=== PATIENT | male | born 1960 | race Caucasian/White ===

== ENCOUNTER 2016-12-04 11:41 | Emergency (ER) | payer BC ==
[~2016-12-04] VITALS: Ht 175.3 cm; Wt 83.7 kg
[~2016-12-04 11:41] MED LIST: ASPI81TA28 PO; DILT240C57 PO; LISI20TA3 PO
[2016-12-04 11:44] VITALS: TEMP 37.7; Ht 175.3 cm; Wt 83.7 kg
[2016-12-04] MEDS ORDERED: SODIUM CHLORIDE 0.9% 1000ML 1,000 ML IV STA ×2 (12:01)
[2016-12-04] MEDS ORDERED: ACETAMINOPHEN 500 MG TAB PO STA (12:01)
[2016-12-04] MEDS ORDERED: KETOROLAC TROMETHAMINE 30 MG/ML VIAL IV STA (12:01)
[2016-12-04] MEDS ORDERED: ONDANSETRON INJ 2 MG/ML 2 ML VIAL IV STA (12:01)
[2016-12-04] MEDS ORDERED: MoRPHine SULFATE 10 MG/ML CARP/VIAL IV PRN (12:15)
[2016-12-04] MEDS ORDERED: ALBUTEROL HFA 8 GM INHALER INH ONE (12:15)
[2016-12-04 12:29] VITALS: O2SAT 98
--- NOTE | 2016-12-04 12:30 | DIAGNOSTIC IMAGING REPORT ---
CHEST ONE VIEW PORTABLE CLINICAL HISTORY: Atypical chest pain COMPARISON STUDY: 08/09/2016 FINDINGS: The cardiac and mediastinal contours are normal. There is no evidence of focal pulmonary consolidation. There is no evidence of failure. No pleural effusions are visualized.[ IMPRESSION: No active disease in the chest. Electronically signed by: Jurgen Raza M.D. 12/04/2016 12:28 PM Dictated Date/Time: 12/04/2016 12:27 PM
--- NOTE | 2016-12-04 12:41 | EMERGENCY ROOM VISIT NOTE ---
History Report prepared by Robertoibclive: Yecenia Ireland Under the Supervision of: Dr. Otto Ann M.D. First contact with patient: 11:58 Chief Complaint: CHEST PAIN Stated Complaint: CHEST PAINS Nursing Triage Summary: I am being treated for pnemonia. started antibiotics on tuesday. I am having chest pains that started last evening. feeling sob. I have had 3 stress tests in the past 5 yrs History of Present Illness The patient is a 56 year old male who presents to the Emergency Room with complaints of persistent chest pain that started last night. He rates his discomfort as an 8/10 and also complains of feeling short of breath. He reports he was diagnosed with a possible pneumonia 5 days ago by [facility]. He had been experiencing an intermittently productive cough, congestion and chest discomfort for the past 6 days, and was started on Augmentin after seeing his doctor. His cough has been worsening, and with developing the chest pain last night, he decided to come in to the ED this morning. He notes he started developing a fever 2 nights ago and states "it has been going up". He last took Tylenol for his fever early this morning. He denies any vomiting but admits to some loose stools. The patient did receive a flu shot this year. He states his had a cough recently, but denies any other recent sick contacts. He reports he has undergone 3 stress tests in the past 5 years. Source of History: patient Onset: last night Position: chest Symptom Intensity: 8/10 Timing: other (persistent) Associated Symptoms: + SOB, + cough, + diarrhea, + fevers, No vomiting Review of Systems See HPI for pertinent positives & negatives. A total of 10 systems reviewed and were otherwise negative. Past Medical & Surgical Medical Problems: (1) Adverse drug reaction (2) Bronchitis with bronchospasm (3) Sepsis Family History FH: heart disease Hypertension Social History Smoking Status: Current Every Day Smoker Alcohol Use: occasionally Drug Use: none Marital Status: Housing Status: lives with family Occupation Status: employed Current/Historical Medications Scheduled Albuterol Hfa (Ventolin Hfa), 3 PUFFS INH Q4 Amoxicillin & Pot Clavulanate (Augmentin 875-125 mg), 1 TAB PO BID Aspirin (Aspirin Ec), 81 MG PO DAILY Dicyclomine Hcl (Bentyl), 20-40 MG PO Q4 Diltiazem Hcl Coated Beads (Cardizem Cd), 240 MG PO DAILY Ergocalciferol (Vitamin D 02967 Unit), 50,000 UNIT PO WK Fluconazole (Diflucan), 100 MG PO DAILY Lisinopril (Prinivil), 20 MG PO DAILY Scheduled PRN Oxycodone Hcl (Oxycodone Hcl), 1 TAB PO QID PRN for Pain Allergies Coded Allergies: Sulfamethoxazole w/Trimethoprim (Verified Allergy, Unknown, wiped out good bacteria, became septic, 12/04/16) Physical Exam Vital Signs Date Time Temp Pulse Resp B/P Pulse Ox O2 Delivery O2 Flow Rate FiO2 12/04/16 14:20 86 20 119/64 94 Room Air 12/04/16 13:11 90 92 12/04/16 12:58 105/63 12/04/16 12:57 100/65 12/04/16 12:51 88 12/04/16 12:29 98 Room Air 12/04/16 11:47 98 Room Air 12/04/16 11:44 37.7 93 18 111/70 98 Room Air Physical Exam GENERAL: Patient is in no acute distress. HEENT: No acute trauma, normocephalic atraumatic, mucous membranes moist, mild nasal congestion, no scleral icterus. NECK: No stridor, no adenopathy, no meningismus, trachea is midline. LUNGS: Clear to auscultation bilaterally, no wheeze, no rhonchi, breath sounds equal. HEART: Without murmurs gallops or rubs, regular rate and rhythm. CHEST: Tender over the mid sternum and anterior chest wall, pain worsens to cough. ABDOMEN: Soft, nontender, bowel sounds positive, no hernias, no peritonitis. EXTREMITIES: No cyanosis or edema, full range of motion of all the joints without pain or difficulty, no signs for acute trauma. NEUROLOGIC: Oriented x 3, no acute motor or sensory deficits, no focal weakness. SKIN: No rash, no jaundice, no diaphoresis. Medical Decision & Procedures ER Provider Diagnostic Interpretation: This X-Ray was reviewed and interpreted by myself and the radiologist. CHEST ONE VIEW PORTABLE IMPRESSION: No active disease in the chest. Electronically signed by: Jurgen Raza M.D. 12/04/2016 12:28 PM Laboratory Results 12/04/16 12:39 12/04/16 12:39 Test 1/14/17 12:20 12/04/16 12:39 Influenza Type A Antigen POS for Influ A (NEG) Influenza Type B Antigen Neg for Influ B (NEG) Red Blood Count 5.20 M/uL (4.7-6.1) Mean Corpuscular Volume 85.4 fL (80-100) Mean Corpuscular Hemoglobin 29.2 pg (25-34) Mean Corpuscular Hemoglobin Concent 34.2 g/dl (32-36) RDW Standard Deviation 45.1 fL (36.4-46.3) RDW Coefficient of Variation 14.6 % (11.5-14.5) Mean Platelet Volume 9.9 fL (7.4-10.4) Prothrombin Time 10.8 SECONDS (9.0-12.0) Prothromb Time International Ratio 1.0 (0.9-1.1) Activated Partial Thromboplast Time 27.8 SECONDS (21.0-31.0) Partial Thromboplastin Ratio 1.1 Anion Gap 11.0 mmol/L (3-11) Est Creatinine Clear Calc Drug Dose 83.5 ml/min Estimated GFR () 97.8 Estimated GFR (Non- 84.4 BUN/Creatinine Ratio 14.5 (10-20) Lactic Acid Level 0.8 mmol/L (0.4-2.0) Calcium Level 9.0 mg/dl (8.5-10.1) Total Bilirubin 0.3 mg/dl (0.2-1) Aspartate Amino Transf (AST/SGOT) 13 U/L (15-37) Alanine Aminotransferase (ALT/SGPT) 24 U/L (12-78) Alkaline Phosphatase 70 U/L (45-117) Total Creatine Kinase 74 U/L (39-308) Creatine Kinase MB < 0.5 ng/ml (0.5-3.6) Creatine Kinase MB Ratio (0-3.0) Troponin I < 0.015 ng/ml (0-0.045) Total Protein 6.9 gm/dl (6.4-8.2) Albumin 3.8 gm/dl (3.4-5.0) Globulin 3.1 gm/dl (2.5-4.0) Albumin/Globulin Ratio 1.2 (0.9-2) Lipase 216 U/L (73-393) Laboratory results reviewed by me. Medications Administered Medications (Trade) Dose Ordered Sig/Julienne Route Start Time Stop Time Status Last Admin Dose Admin Ondansetron HCl 4 mg 4 mg NOW STAT IV 12/04/16 12:01 12/04/16 12:15 DC 12/04/16 12:43 4 MG Sodium Chloride 1,000 ml @ 200 mls/hr Q5H STAT IV 12/04/16 12:01 12/04/16 15:53 DC 12/04/16 12:42 200 MLS/HR Sodium Chloride (Nss 1000ml) 1,000 ml @ 999 mls/hr Q1H1M STAT IV 12/04/16 12:01 12/04/16 13:01 DC 12/04/16 12:42 999 MLS/HR Morphine Sulfate (MoRPHine SULFATE INJ) 4 mg Q15M PRN IV 12/04/16 12:15 12/04/16 15:53 DC 12/04/16 12:55 4 MG Albuterol (Ventolin Hfa Inhaler) 3 puffs NOW ONCE INH 12/04/16 12:15 12/04/16 12:16 DC 12/04/16 12:42 3 PUFFS Ketorolac Tromethamine (Toradol Inj) 30 mg NOW STAT IV 12/04/16 12:01 12/04/16 12:15 DC 12/04/16 12:43 30 MG Acetaminophen (Tylenol Tab) 500 mg NOW STAT PO 12/04/16 12:01 12/04/16 12:15 DC 12/04/16 12:43 500 MG ECG Indication: chest pain Rate (beats per minute): 95 Rhythm: sinus rhythm Findings: PAC, no acute ischemic change, other (old inferior infrarct) ED Course 1202: The patient was evaluated in room C2. A complete history and physical exam was performed. 1201: Acetaminophen 500 mg PO, Toradol 30 mg IV, NSS 1000 ml @ 999 mls/hr IV, NSS 1000 ml @ 200 mls/hr IV, Zofran 4 mg IV. 1215: Albuterol 3 puffs INH, Morphine Sulfate 4 mg IV. 1330: I reevaluated the patient. He is feeling much better. I discussed his results and discharge instructions and he verbalized complete understanding and agreement. Medical Decision The differential diagnoses considered include: Pneumonia or bronchitis, cardiac ischemia, aortic dissection, PE, influenza, flu-like illness, bronchospasm and musculoskeletal pain. There is no leukocytosis or concerning anemia. No significant electrolyte abnormality, kidney failure, hepatitis or pancreatitis. EKG shows a sinus rhythm with PACs, no acute ischemia. Cardiac enzyme testing times one is not suggestive of acute cardiac injury. Lactic acid level is not elevated making sepsis less likely. Chest x-ray shows no pneumonia or CHF. Influenza testing returned positive for influenza A. The patient received IV saline, IV Toradol, oral Tylenol. He received IV morphine, IV Zofran. He was given a DuoNeb and albuterol via MDI. The patient's chest pain seems musculoskeletal, it is reproducible. I suspect he is sore from coughing. He does have influenza A by our testing, he can stop his Augmentin. He will be using [id number] pain control, over-the- counter fever control. Heat to the chest wall was suggested, albuterol for bronchospasm. He can follow with his doctor and return here for worsening symptoms. Impression Primary Impression: Fever Additional Impressions: Cough Influenza A Scribe Attestation The scribe's documentation has been prepared under my direction and personally reviewed by me in its entirety. I confirm that the note above accurately reflects all work, treatment, procedures, and medical decision making performed by me. Departure Information Dispostion Home / Self-Care Prescriptions Albuterol Hfa (VENTOLIN HFA) 200 Puffs/36062 Mcg Aers 3 PUFFS INH Q4, #1 INHALER Prov: Otto Ann M.D. 12/04/16 Referrals Buzz Bolaños M.D. (PCP) Patient Instructions My [facility] Additional Instructions stop the augmentin use albuterol 3 puffs every 4 hours rest fluids otc motrin or tylenol for fever and aches heat the the chest wall for comfort return for worsening symptoms Problem Qualifiers
[2016-12-04] MEDS ORDERED: ERGO500037 PO (12:42)
[2016-12-04] MEDS ORDERED: DICY20TA35 PO (12:42)
[2016-12-04] MEDS ORDERED: FLUC100T4 PO (12:42)
[2016-12-04] MEDS ORDERED: OXYC-164 PO (12:42)
[2016-12-04] MEDS ORDERED: AMOX875T PO (12:42)
[2016-12-04 12:59] LABS: HEMATOCRIT 44.4 % (42-52); MEAN CELL VOLUME 85.4 fL (80-100); MEAN CORPUSCULAR HEMOGLOBIN 29.2 pg (25-34); MEAN CORPUSCULAR HGB CONC 34.2 g/dl (32-36); MEAN PLATELET VOLUME 9.9 fL (7.4-10.4); PLATELET COUNT 261 K/uL (130-400); WHITE BLOOD COUNT 8.91 K/uL (4.8-10.8)
[2016-12-04 13:09] LABS: PARTIAL THROMBOPLASTIN RATIO 1.1; PROTHROMBIN TIME (PATIENT) 10.8 SECONDS (9.0-12.0)
[2016-12-04 13:10] LABS: ALT/SGPT 24 U/L (12-78); BLOOD UREA NITROGEN 15 mg/dl (7-18); BUN/CREATININE RATIO 14.5 (10-20); CARBON DIOXIDE 22 mmol/L (21-32); CHLORIDE 107 mmol/L (98-107); GLUCOSE 82 mg/dl (70-99); POTASSIUM 3.8 mmol/L (3.5-5.1); SODIUM 140 mmol/L (136-145)
[2016-12-04 13:15] LABS: ALB/GLOB RATIO 1.2 (0.9-2); ALKALINE PHOSPHATASE 70 U/L (45-117); AST/SGOT 13 U/L (15-37)
[2016-12-04] MEDS ORDERED: VNTHFA/IN INH (13:36)
[2016-12-04 14:20] VITALS: BP 119/64; PULSE 86; O2SAT 94
[2017-03-02] MEDS ORDERED: ALFU10TA30 PO (09:13)
[2017-03-02] MEDS ORDERED: OXY/15 PO (09:13)
== END 2016-12-04 14:20 | disposition home or self-care (01) ==
LOC: C.EDB 11:42 → C.EDC 14:20
DX: J11.1 Influenza due to unidentified influenza virus with other respiratory manifestations (principal); Z82.49 Family history of ischemic heart disease and other diseases of the circulatory system; F17.210 Nicotine dependence, cigarettes, uncomplicated; Z79.82 Long term (current) use of aspirin; Z79.899 Other long term (current) drug therapy

== ENCOUNTER → 2017-02-21 | Outpatient (CLI) | payer BC ==
[~2017-02-21] MED LIST changes: +ALFU10TA2 PO; +AMOX875T PO; +DICY20TA35 PO; +ERGO500037 PO; +FLUC100T4 PO; +OPTIRAY 320 IV PRN; +OXY/15 PO; +OXYC-164 PO; +VNTHFA/IN INH
--- NOTE | 2017-02-21 09:39 | DIAGNOSTIC IMAGING REPORT ---
ABDOMEN AND PELVIS CT WITH IV AND ORAL CONTRAST CT DOSE: 512.21 mGy.cm HISTORY: Severe left-sided abdominal pain. TECHNIQUE: Multiaxial CT images of the abdomen and pelvis were performed following the use of intravenous and oral contrast. COMPARISON STUDY: Abdomen and pelvis CT 04/26/2016. FINDINGS: A stable 4 mm nodule within the left lower lobe on image 6. Stable 4 mm nodule within the right lower lobe on image 4. No pneumoperitoneum. No pneumatosis. Posterior decompression and fusion from L4 through S1. Stable scarlike densities within the left anterior abdominal wall. Hepatic steatosis. Stable 5 mm hypodense lesion within the posterior segment of the right hepatic lobe and within the left hepatic dome. These are too small to characterize but a reverse small cysts. Stable 2.3 cm enhancing lesion within the central aspect of the liver. The stability favors a benign lesion such as a hemangioma. The spleen, adrenal glands, and pancreas are unremarkable. Normal kidneys. No hydronephrosis. No retroperitoneal lymphadenopathy. The bladder is unremarkable. Moderate to large amount well-formed stool seen within the sigmoid colon and rectum. Normal appendix. IMPRESSION: 1. No change compared to the prior study. 2. Stable scarlike densities within the left anterior abdominal wall. 3. No bowel wall thickening or obstruction. 4. Moderate to large amount of well-formed stool seen within the sigmoid colon and rectum. 5. Normal appendix. 6. Stable hepatic lesions as described above. These favor benign lesions. Electronically signed by: Lionel Rodríguez M.D. 02/21/2017 9:38 AM Dictated Date/Time: 02/21/2017 9:30 AM
== END | disposition home or self-care (01) ==
LOC: C.CTS 06:18
DX: K43.2 Incisional hernia without obstruction or gangrene (principal); R10.9 Unspecified abdominal pain

== ENCOUNTER → 2017-03-01 | Outpatient (CLI) | payer BC ==
[~2017-03-01] MED LIST changes: -OPTIRAY 320 IV PRN
== END | disposition home or self-care (01) ==
LOC: C.LABSPEC 12:41
PROVIDERS: ATTEND Physician Assistant
DX: R19.7 Diarrhea, unspecified (principal)

== ENCOUNTER → 2017-03-04 | Day surgery (SDC) | payer BC ==
[2017-03-02 09:14] VITALS: Ht 175.3 cm; Wt 82.3 kg
[~2017-03-04] VITALS: Ht 175.3 cm; Wt 82.3 kg
[~2017-03-04] MED LIST changes: -AMOX875T PO; -DICY20TA35 PO; -ERGO500037 PO; -FLUC100T4 PO; +LIDOCAINE HCL 2% 2 ML VIAL (20MG/ML) ONE; -OXYC-164 PO; +PROPOFOL IV EMULSION 10 MG/ML 20 ML VIAL IV ONE; +SODIUM CHLORIDE 0.9% 500ML 500 ML IV ONE; -VNTHFA/IN INH
--- NOTE | 2017-03-04 11:16 | Endo History and Physical ---
History & Physical Date of Service: Mar 04, 2017. Chief Complaint: ABDOMINAL PAIN Referring Physician: DR. CHAMBERLAIN History of Present Illness 57 yo CM who presents for EGD secondary to abdominal pain. Past Surgical History Hx Cardiac Surgery: No Hx Internal Defibrillator: No Hx Pacemaker: No Hx Abdominal Surgery: Yes (HERNIA REPAIR WITH MESH) Hx of Implantable Prosthesis: No Hx Post-Op Nausea and Vomiting: No Hx Cancer Surgery: No Hx Thoracic Surgery: No Hx Orthopedic: Yes (LOW BACK SPINAL FUSION X3, RT HAND TENDON REPAIR, LT KNEE SURGERY) Hx Urinary Tract Surgery: No Family History None Social History Smoking Status: Current Every Day Smoker Hx Substance Use: No Hx Alcohol Use: No Allergies Coded Allergies: Sulfamethoxazole w/Trimethoprim (Verified Allergy, Unknown, wiped out good bacteria, became septic, 03/02/17) Current Medications Reported Home Medications Medications Dose Route/Sig Max Daily Dose Days Date Category Uroxatral (Alfuzosin HCl) 10 Mg Tab 10 Mg PO QPM 03/02/17 Reported Oxycodone Hcl 15 Mg Tab 1 Tab PO QID PRN 03/02/17 Reported Cardizem Cd (Diltiazem Hcl Coated Beads) 240 Mg Cap 240 Mg PO QAM 08/09/16 Reported Aspirin Ec (Aspirin) 81 Mg Tab 81 Mg PO QAM 04/26/16 Reported Prinivil (Lisinopril) 20 Mg Tab 20 Mg PO QAM 03/31/14 Reported Vital Signs Weight (Kilograms): 82.27 Height (Feet): 5 Height (Inches): 9 Date Time Temp Pulse Resp B/P Pulse Ox O2 Delivery O2 Flow Rate FiO2 03/04/17 10:52 36.8 80 16 119/76 99 Room Air Physical Exam General Appearance: WD/WN, no apparent distress Respiratory/Chest: Auscultation: breath sounds normal Cardiovascular: Heart Auscultation: RRR Abdomen: Bowel Sounds: normal Inspection & Palpation: soft, non-distended, no tenderness, guarding & rebound Assessment and Plan Assessment: 57 yo CM who presents for EGD secondary to abdominal pain. Plan: Proceed with EGD.
--- NOTE | 2017-03-04 11:27 | Discharge Instructions ---
Endoscopy Patient Instructions Date / Procedure(s) Performed Mar 04, 2017. EGD Allergy Information Coded Allergies: Sulfamethoxazole w/Trimethoprim (Verified Allergy, Unknown, wiped out good bacteria, became septic, 03/02/17) Discharge Date / Findings Mar 04, 2017. Gastritis s/p biopsies Reflux esophagitis s/p biopsies Medication Instructions Stopped Medication(s): ASPIRIN 03/03/17 OK to resume all medications today as prescribed Reported Home Medications Medications Dose Route/Sig Max Daily Dose Days Date Category Uroxatral (Alfuzosin HCl) 10 Mg Tab 10 Mg PO QPM 03/02/17 Reported Oxycodone Hcl 15 Mg Tab 1 Tab PO QID PRN 03/02/17 Reported Cardizem Cd (Diltiazem Hcl Coated Beads) 240 Mg Cap 240 Mg PO QAM 08/09/16 Reported Aspirin Ec (Aspirin) 81 Mg Tab 81 Mg PO QAM 04/26/16 Reported Prinivil (Lisinopril) 20 Mg Tab 20 Mg PO QAM 03/31/14 Reported Provider Instructions Activity Restrictions - No exercising or heavy lifting for 24 hours. - Do not drink alcohol the day of the procedure. - Do not drive a car or operate machinery until the day after the procedure. - Do not make any important decisions or sign important papers in 24 hours after the procedure. Following Day: - Return to full activity which may include returning to work/school. Diet Start your diet with liquids and light foods (jello, soup, juice, toast). Then eat your usual diet if not nauseated. Treatment For Common After Affects For mild abdominal pain, bloating, or excessive gas: - Rest - Eat lightly - Lie on right side Follow-Up Information Follow-up with DR. CHAMBERLAIN as scheduled Anesthesia Information What You Should Know You have had a procedure that required some medicine to reduce anxiety and discomfort. This treatment is called moderate sedation. After receiving the treatment, you may be sleepy, but you will be able to breathe on your own. The effects of the treatment may last for several hours. Follow these instructions along with Activity/Diet recommendations noted above: * Do NOT do anything where dizziness or clumsiness would be dangerous. * Rest quietly at home today, then you can be up and about tomorrow. * Have a responsible person stay with you the rest of today. * You may have had an I.V. today. If so, you may take the dressing off later today. Recommendations Call your doctor if: * Trouble breathing * Continuous vomiting for more than 24 hours * Temperature above 101 degrees * Severe abdominal pain or bloating * Pain not relieved by pain medicine ordered * There is increased drainage or redness from any incision * A large amount of rectal bleeding greater than 2-3 tablespoons. (If you had a polyp/s removed or have hemorrhoids, a small amount of blood - from the rectum is to be expected.) * You have any unanswered questions or concerns. IN THE EVENT OF A SERIOUS EMERGENCY, GO TO THE NEAREST EMERGENCY ROOM Your discharge instructions were prepared by provider Kumar Padron. Patient Instructions Signature Page Rodney Lopez Patient (or Guardian) Signature/Date: I have read and understand the instructions given to me by my caregivers. Caregiver/RN/Doctor Signature/Date: The above-named patient and/or guardian has received patient instructions on this date. + Original Patient Signature Page (only) stays with chart. Please make copy for patient.
--- NOTE | 2017-03-04 11:32 | GI REPORT ---
Procedure Date: 03/04/2017 11:03 AM Procedure: Upper GI endoscopy Indications: Epigastric abdominal pain Medicines: Monitored Anesthesia Care Complications: No immediate complications. Estimated Blood Loss: Estimated blood loss: none. Procedure: Pre-Anesthesia Assessment: - Prior to the procedure, a History and Physical was performed, and patient medications and allergies were reviewed. The patient's tolerance of previous anesthesia was also reviewed. The risks and benefits of the procedure and the sedation options and risks were discussed with the patient. All questions were answered, and informed consent was obtained. Prior Anticoagulants: The patient has taken no previous anticoagulant or antiplatelet agents. ASA Grade Assessment: II - A patient with mild systemic disease. After reviewing the risks and benefits, the patient was deemed in satisfactory condition to undergo the procedure. After obtaining informed consent, the endoscope was passed under direct vision. Throughout the procedure, the patient's blood pressure, pulse, and oxygen saturations were monitored continuously. The scope was introduced through the mouth, and advanced to the second part of duodenum. The upper GI endoscopy was accomplished without difficulty. The patient tolerated the procedure well. Findings: LA Grade B (one or more mucosal breaks greater than 5 mm, not extending between the tops of two mucosal folds) esophagitis with no bleeding was found. Biopsies were taken with a cold forceps for histology. Localized mild inflammation characterized by erythema was found in the gastric antrum. Biopsies were taken with a cold forceps for histology. The examined duodenum was normal. Impression: - LA Grade B reflux esophagitis. Biopsied. - Gastritis. Biopsied. - Normal examined duodenum. Recommendation: - Resume previous diet. - Use Protonix (pantoprazole) 40 mg PO daily. - Await pathology results. - Return to GI office as previously scheduled. Kumar Padron DO 03/04/2017 11:31:48 AM This report has been signed electronically. Note Initiated On: 03/04/2017 11:03 AM I attest to the content of the Intraoperative Record and orders documented therein, exceptions below
--- NOTE | 2017-03-04 11:39 | Anesthesiology Progress Note ---
Anesthesia Post Op Note Date & Time Mar 04, 2017 at 11:38 Vital Signs Pain Intensity: 0 Vital Signs Past 12 Hours Date Time Temp Pulse Resp B/P Pulse Ox O2 Delivery O2 Flow Rate FiO2 03/04/17 11:32 84 16 104/68 95 Room Air 03/04/17 10:52 36.8 80 16 119/76 99 Room Air Notes Mental Status: alert / awake / arousable, participated in evaluation Pt Amnestic to Procedure: Yes Nausea / Vomiting: adequately controlled Pain: adequately controlled Airway Patency, RR, SpO2: stable & adequate BP & HR: stable & adequate Hydration State: stable & adequate Anesthetic Complications: no major complications apparent Pt doing well.
[2017-03-04 12:11] VITALS: BP 119/74; PULSE 75; O2SAT 100
== END | disposition home or self-care (01) ==
LOC: C.GI 10:31
PROVIDERS: ATTEND Internal Medicine
DX: K21.0 Gastro-esophageal reflux disease with esophagitis (principal); K29.70 Gastritis, unspecified, without bleeding; F17.210 Nicotine dependence, cigarettes, uncomplicated; Z79.82 Long term (current) use of aspirin; Z79.899 Other long term (current) drug therapy

== ENCOUNTER → 2017-04-28 | Outpatient (CLI) | payer BC ==
[~2017-04-28] MED LIST changes: -LIDOCAINE HCL 2% 2 ML VIAL (20MG/ML) ONE; -PROPOFOL IV EMULSION 10 MG/ML 20 ML VIAL IV ONE; -SODIUM CHLORIDE 0.9% 500ML 500 ML IV ONE
--- NOTE | 2017-04-28 10:16 | DIAGNOSTIC IMAGING REPORT ---
CHEST 2 VIEWS ROUTINE CLINICAL HISTORY: R10.32 Continuous LLQ abdominal [id number] COMPARISON STUDY: 12/04/2016 FINDINGS: The cardiac and mediastinal contours are normal. There is no evidence of focal pulmonary consolidation. There is no evidence of failure. No pleural effusions are visualized.[ There is no free intraperitoneal air. There is an azygos fissure. IMPRESSION: No active disease in the chest. Electronically signed by: Jurgen Raza M.D. 04/28/2017 10:14 AM Dictated Date/Time: 04/28/2017 10:14 AM
== END | disposition home or self-care (01) ==
LOC: C.RAD 10:01
PROVIDERS: ATTEND Internal Medicine
DX: R10.32 Left lower quadrant pain (principal)

== ENCOUNTER → 2017-05-16 | Outpatient (CLI) | payer BC ==
--- NOTE | 2017-05-16 19:03 | DIAGNOSTIC IMAGING REPORT ---
THORACIC SPINE MRI HISTORY: HX SPINAL FUSION/NUMBNESS/TINGLING LEGS/BACK TECHNIQUE: Multiplanar multisequence MRI of the thoracic spine was performed without the use of contrast. COMPARISON: None. FINDINGS: Alignment and curvature are intact. No fracture or subluxation. Normal caliber thoracic spinal cord demonstrates a normal signal intensity. No significant central canal or neural foraminal narrowing. Mild disc space narrowing within the mid thoracic spine. Anterior osteophytes seen within the lower thoracic spine. Small left paracentral disc extrusion demonstrating superior subligamentous migration at T6-T7 and a small central disc extrusion at T7-T8 demonstrating mild superior subligamentous migration. This disc extrusion is best seen on axial image 18 and measures 4 mm. These disc extrusion do not result significant central canal or neural foraminal narrowing. IMPRESSION: 1. No fracture or subluxation within the thoracic spine. 2. Mild disc space narrowing within the mid thoracic spine. 3. Small disc extrusions at T6-T7 and T7-T8 without significant central canal or neural foraminal narrowing. Electronically signed by: Lionel Rodríguez M.D. 05/16/2017 7:02 PM Dictated Date/Time: 05/16/2017 6:55 PM
--- NOTE | 2017-05-16 19:37 | DIAGNOSTIC IMAGING REPORT ---
LUMBAR SPINE MRI HISTORY: HX SPINAL FUSION/NUMBNESS/TINGLING LEGS/BACK TECHNIQUE: Multiplanar multisequence MRI of the lumbar spine was performed without the use of contrast. COMPARISON: None. FINDINGS: For the purpose of the report the L5-S1 disc space will be located on axial image 27 of 30. Posterior decompression fusion from L4 through S1 with pedicle screws and rods. There is also anterior fusion at L4-L5. The L5-S1 disc space appears fused. Moderate to severe disc space narrowing at L2-L3 and mild disc space narrowing at L3-L4. The conus terminates at the L1 level. There is a 2.7 x 2.2 x 1.4 cm fluid collection at the L5-S1 laminectomy sites. This does not result significant mass effect along the thecal sac. No fracture or subluxation. Paraspinal soft tissues are unremarkable. L1-L2: No significant central canal or neural foraminal narrowing. L2-L3: Small broad-based posterior disc bulge without significant central canal narrowing. There is mild bilateral neural foraminal narrowing. L3-L4: Tiny broad-based posterior disc bulge without significant central canal narrowing. There is mild bilateral neural foraminal narrowing. L4-L5: No significant central canal narrowing due to the posterior decompression. Mild bilateral neural foraminal narrowing. L5-S1: No significant central canal or neural foraminal narrowing. Small amount of fluid versus scar tissue abutting the exiting left L5 nerve root. IMPRESSION: 1. Postoperative changes within the lower lumbar spine. There is a small amount of fluid at the L5-S1 laminectomy sites which favors a postoperative seroma. A pseudomeningocele or abscess could also have a similar appearance but is considered less likely. This does not result in mass effect along the adjacent thecal sac. 2. Small amount fluid versus scar tissue along the left side of the thecal sac at the L5 level which abuts but does not displace the exiting left L5 nerve root. 3. Broad-based posterior disc bulges at L2-L3 and L3-L4 which do not result significant central canal narrowing. There is mild bilateral neural foraminal narrowing at these levels. Electronically signed by: Lionel Rodríguez M.D. 05/16/2017 7:35 PM Dictated Date/Time: 05/16/2017 7:27 PM
== END | disposition home or self-care (01) ==
LOC: C.MRI 17:54
PROVIDERS: ATTEND Physician Assistant
DX: M54.40 Lumbago with sciatica, unspecified side (principal); M96.1 Postlaminectomy syndrome, not elsewhere classified

== ENCOUNTER → 2017-06-28 | Outpatient (CLI) | payer BC ==
[~2017-06-28] MED LIST changes: -ALFU10TA2 PO; +ALFU10TA30 PO; +GADAVIST IV PRN
--- NOTE | 2017-06-28 11:01 | DIAGNOSTIC IMAGING REPORT ---
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 FINDINGS: Imaging was performed in the sagittal, axial and coronal planes. Pre and post contrast images were obtained. (8.5 cc intravenous Gadavist) The optic chiasm appears normal. No sellar masses are visualized. No masses of either globe are visualized. No retroconal masses are visualized. The extraocular muscles appear normal. No optic nerve lesions are visualized. There is no evidence of pathologic optic nerve enhancement. There are mild inflammatory changes present within the left frontal and ethmoid sinuses. IMPRESSION: 1. Mild inflammatory changes within the left frontal and ethmoid sinuses. 2. Otherwise normal study Electronically signed by: Jurgen Raza M.D. 06/28/2017 10:59 AM Dictated Date/Time: 06/28/2017 10:55 AM
== END | disposition home or self-care (01) ==
LOC: C.MRI 09:24
PROVIDERS: ATTEND Ophthalmology
DX: H47.011 Ischemic optic neuropathy, right eye (principal)

== ENCOUNTER → 2018-01-18 | Outpatient (CLI) | payer BC ==
[~2018-01-18] MED LIST changes: +ALFU10TA2 PO; -ALFU10TA30 PO
--- NOTE | 2018-01-18 12:40 | DIAGNOSTIC IMAGING REPORT ---
BRAIN COMBO HISTORY: 58 years-old Male BLURRED VISION, VISION LOSS acute blurred vision with vision loss COMPARISON: Orbits MRI 06/28/2017 TECHNIQUE: Multiplanar multisequence MRI the brain was obtained both with and without the use of 8 mL Gadavist FINDINGS: There is a focal area of 1.4 x 1.3 cm restricted diffusion within the right parietal lobe which demonstrates increased signal on the ADC map suggesting T2 shine through. This lesion is T2 hyperintense and T1 hypointense measuring 1.3 x 1.0 x 1.4 cm on the T2 and FLAIR images. No appreciable enhancement on the postcontrast T1 images. No additional abnormal intra-axial or extra-axial lesions are identified. The midline structures including the corpus callosum, brainstem, optic chiasm, pituitary and pineal glands are unremarkable in the sagittal T1 series. No cerebellar tonsillar herniation. Degenerative changes noted within the imaged cervical spine. There is no acute intracranial hemorrhage, midline shift or abnormal extra-axial collections. There are a few punctate foci of T2/FLAIR prolongation within the subcortical white matter which are likely of no clinical significance and may reflect chronic microvascular ischemic changes. Mastoid air cells are clear. Major flow voids at the level of the skull base appear patent. Mild polypoid mucosal thickening of the maxillary sinuses. The orbits, scalp, calvarium and soft tissues are unremarkable. IMPRESSION: Ovoid cortically-based T2 hyperintense lesion of the right parietal lobe measures up to 1.3 cm without appreciable enhancement. No evidence of significant edema, acute infarction, hemorrhage or midline shift. This lesion is nonspecific with primary differential consideration being a low-grade glioma. These findings were discussed with nurse practitioner Angelica Harrell at time of dictation on 01/18/2018 at 12:35 PM The above report was generated using voice recognition software. It may contain grammatical, syntax or spelling errors. Electronically signed by: Rosas Adan M.D. 01/18/2018 12:38 PM Dictated Date/Time: 01/18/2018 12:27 PM
== END | disposition home or self-care (01) ==
LOC: C.MRI 11:41
PROVIDERS: ATTEND Nurse Practitioner
DX: H53.123 Transient visual loss, bilateral (principal); G93.9 Disorder of brain, unspecified

== ENCOUNTER 2018-03-30 20:19 | Observation (INO) | payer BC ==
[~2018-03-30] VITALS: Ht 175.3 cm; Wt 84.8 kg
[~2018-03-30 20:19] MED LIST changes: -GADAVIST IV PRN
[2018-03-30] MEDS ORDERED: SODIUM CHLORIDE 0.9% 1000ML 1,000 ML IV STA (20:46)
[2018-03-30 20:53] LABS: BASO % 1.1 %; BASO ABS # 0.13 K/uL (0-0.2); EOS % 2.4 %; HEMATOCRIT 42.7 % (42-52); HEMOGLOBIN 14.1 g/dL (14.0-18.0); IG# 0.03 K/uL (0.00-0.02); LYMPH % 33.8 %; LYMPH ABS # 4.15 K/uL (1.2-3.4); MEAN CELL VOLUME 87.9 fL (80-100); MEAN PLATELET VOLUME 9.4 fL (7.4-10.4); MONO % 7.6 %; MONO ABS # 0.93 K/uL (0.11-0.59); NEUT % 54.9 %; NEUT ABS # 6.73 K/uL (1.4-6.5); PLATELET COUNT 335 K/uL (130-400); RED CELL DISTRIBUTION WIDTH CV 14.6 % (11.5-14.5); RED CELL DISTRIBUTION WIDTH SD 46.8 fL (36.4-46.3); WHITE BLOOD COUNT 12.27 K/uL (4.8-10.8)
[2018-03-30 21:00] LABS: ALBUMIN 3.9 gm/dl (3.4-5.0); ALT/SGPT 21 U/L (12-78); AST/SGOT 14 U/L (15-37); BLOOD UREA NITROGEN 16 mg/dl (7-18); CALCIUM 9.1 mg/dl (8.5-10.1); CARBON DIOXIDE 27 mmol/L (21-32); GLUCOSE 59 mg/dl (70-99); INR 0.9 (0.9-1.1); POTASSIUM 3.9 mmol/L (3.5-5.1); SODIUM 143 mmol/L (136-145)
[2018-03-30 21:11] LABS: ALKALINE PHOSPHATASE 102 U/L (45-117); CKMB 0.7 ng/ml (0.5-3.6); TOTAL PROTEIN 7.1 gm/dl (6.4-8.2)
[2018-03-30] MEDS ORDERED: GABA-113 PO (21:13)
[2018-03-30] MEDS ORDERED: ASPI325T39 PO (21:13)
[2018-03-30] MEDS ORDERED: ERGO500037 PO (21:13)
--- NOTE | 2018-03-30 21:30 | DIAGNOSTIC IMAGING REPORT ---
CHEST ONE VIEW PORTABLE HISTORY: 58 years-old Male EVALUATE WEAKNESS acute weakness COMPARISON: Chest radiograph 04/28/2017 TECHNIQUE: Portable AP view of the chest FINDINGS: Azygos lobe and fissure incidentally noted. The cardiomediastinal and hilar silhouettes are within normal limits. There is no pneumothorax, pleural effusion, focal airspace consolidation or overt pulmonary edema. The bones of the chest appear grossly intact with mild degenerative changes about the spine. IMPRESSION: No acute process. The above report was generated using voice recognition software. It may contain grammatical, syntax or spelling errors. Electronically signed by: Rosas Adan M.D. 03/30/2018 9:29 PM Dictated Date/Time: 03/30/2018 9:28 PM
[2018-03-30] MEDS ORDERED: IV FLUIDS COMPLETED PRN (23:45)
[2018-03-31 00:30] VITALS: BP 138/74; PULSE 73; TEMP 37; O2SAT 96; Ht 175.3 cm; Wt 84.8 kg
[2018-03-31] MEDS ORDERED: GABAPENTIN 300 MG CAP PO ONE (00:43)
--- NOTE | 2018-03-31 01:25 | EMERGENCY ROOM VISIT NOTE ---
History Report prepared by Suleman: Atiya Chang Under the Supervision of: Dr. Timothy Alvarenga M.D. First contact with patient: 20:46 Chief Complaint: CARDIAC ASSESSMENT Stated Complaint: CHEST PAINS,SOB Nursing Triage Summary: pt states chest pain left side radiating to left arm, tingling and numbness in left arm and fingers, pt states no diaphoresis, nausea or vomiting, states felt palpitations with rapid pulse. History of Present Illness The patient is a 58 year old male who presents to the Emergency Room with a cardiac assessment beginning last night. He reports he has chest pain that radiates to his left arm and tingling and numbness that radiates to his left fingertips. He notes he felt irregular palpitations last night and they were too fast to count. The patient states his body feels achy and he was sweating a little bit last night. He also has back pain hurts but reports it is chronic. He states he has a history of V-tach which was discovered by an out-patient monitor. His PCP is Dr. Harrell but all his specialists are from [facility]. Pt denies LOC, headache, fevers, chills, visual changes, neck pain, breathing difficulties, nausea, vomiting, abdominal pain, back pain, melena, hematochezia , urinary symptoms, weakness, lymphadenopathy, rash, or other complaints. Source of History: patient Onset: yesterday night Position: chest Quality: ache, tingling, numbness Timing: other (irregular) Associated Symptoms: + diaphoresis, + chest pain, + numbness Review of Systems See HPI for pertinent positives and negatives. A total of ten systems were reviewed and were otherwise negative. Past Medical & Surgical Medical Problems: (1) Adverse drug reaction (2) Bronchitis with bronchospasm (3) Sepsis Family History FH: heart disease Hypertension Kidney disease Lung disease Social History Smoking Status: Current Every Day Smoker Alcohol Use: occasionally Drug Use: none Marital Status: Housing Status: lives with family Occupation Status: employed Current/Historical Medications Scheduled Aspirin (Aspirin Ec), 325 MG PO DAILY Diltiazem Hcl Coated Beads (Cardizem Cd), 240 MG PO QAM Ergocalciferol (Vitamin D 19532 Unit), 50,000 UNIT PO WK Gabapentin (Neurontin), 300 MG PO HS Lisinopril (Prinivil), 20 MG PO QAM Allergies Coded Allergies: Sulfamethoxazole w/Trimethoprim (Verified Allergy, Unknown, wiped out good bacteria, became septic, 03/30/18) Physical Exam Vital Signs Date Time Temp Pulse Resp B/P (MAP) Pulse Ox O2 Delivery O2 Flow Rate FiO2 03/30/18 22:24 77 17 95 03/30/18 22:00 112/81 03/30/18 21:54 79 17 97 03/30/18 21:52 120/74 03/30/18 21:24 85 18 03/30/18 21:19 93 18 03/30/18 20:58 88 03/30/18 20:48 93 Room Air 03/30/18 20:48 93 Room Air 03/30/18 20:43 145/87 03/30/18 20:43 Room Air 03/30/18 20:23 37.2 98 18 149/69 93 Room Air Physical Exam GENERAL: Awake, alert, mildly anxious-appearing, in no distress HENT: Normocephalic, atraumatic. Oropharynx unremarkable. EYES: Normal conjunctiva. Sclera non-icteric. NECK: Supple. No nuchal rigidity. FROM. No masses. RESPIRATORY: Clear to auscultation. No wheezes. No rales. Normal respiratory effort. CARDIAC: Normal rate. Normal rhythm. No murmurs. No rubs. Extremities warm and well perfused. Pulses equal. No JVD. GI: Soft, non-distended. No tenderness to palpation. No rebound or guarding. No masses. RECTAL: Deferred. MUSCULOSKELETAL: Atraumatic. Chest examination reveals no tenderness. The back is symmetrical on inspection without obvious abnormality. There is no CVA tenderness to palpation. No joint edema. LOWER EXTREMITIES: Calves are equal size bilaterally and non-tender. No edema. No discoloration. NEURO: Normal sensorium. No sensory or motor deficits noted. SKIN: No rash or jaundice noted. Medical Decision & Procedures ER Provider Diagnostic Interpretation: Radiology results as stated below per my review and radiologist interpretation: CHEST ONE VIEW PORTABLE HISTORY: 58 years-old Male EVALUATE WEAKNESS acute weakness COMPARISON: Chest radiograph 04/28/2017 TECHNIQUE: Portable AP view of the chest FINDINGS: Azygos lobe and fissure incidentally noted. The cardiomediastinal and hilar silhouettes are within normal limits. There is no pneumothorax, pleural effusion, focal airspace consolidation or overt pulmonary edema. The bones of the chest appear grossly intact with mild degenerative changes about the spine. IMPRESSION: No acute process. The above report was generated using voice recognition software. It may contain grammatical, syntax or spelling errors. Electronically signed by: Rosas Adan M.D. 03/30/2018 9:29 PM Dictated Date/Time: 03/30/2018 9:28 PM Laboratory Results 03/30/18 20:20 Red Blood Count 4.86, Mean Corpuscular Volume 87.9, Mean Corpuscular Hemoglobin 29.0, Mean Corpuscular Hemoglobin Concent 33.0, Mean Platelet Volume 9.4, Neutrophils (%) (Auto) 54.9, Lymphocytes (%) (Auto) 33.8, Monocytes (%) (Auto) 7.6, Eosinophils (%) (Auto) 2.4, Basophils (%) (Auto) 1.1, Neutrophils # (Auto) 6.73, Lymphocytes # (Auto) 4.15, Monocytes # (Auto) 0.93, Eosinophils # (Auto) 0.30, Basophils # (Auto) 0.13 03/30/18 20:20 Test 03/30/18 20:20 03/30/18 21:11 03/30/18 22:34 White Blood Count 12.27 K/uL (4.8-10.8) Red Blood Count 4.86 M/uL (4.7-6.1) Hemoglobin 14.1 g/dL (14.0-18.0) Hematocrit 42.7 % (42-52) Mean Corpuscular Volume 87.9 fL (80-100) Mean Corpuscular Hemoglobin 29.0 pg (25-34) Mean Corpuscular Hemoglobin Concent 33.0 g/dl (32-36) Platelet Count 335 K/uL (130-400) Mean Platelet Volume 9.4 fL (7.4-10.4) Neutrophils (%) (Auto) 54.9 % Lymphocytes (%) (Auto) 33.8 % Monocytes (%) (Auto) 7.6 % Eosinophils (%) (Auto) 2.4 % Basophils (%) (Auto) 1.1 % Neutrophils # (Auto) 6.73 K/uL (1.4-6.5) Lymphocytes # (Auto) 4.15 K/uL (1.2-3.4) Monocytes # (Auto) 0.93 K/uL (0.11-0.59) Eosinophils # (Auto) 0.30 K/uL (0-0.5) Basophils # (Auto) 0.13 K/uL (0-0.2) RDW Standard Deviation 46.8 fL (36.4-46.3) RDW Coefficient of Variation 14.6 % (11.5-14.5) Immature Granulocyte % (Auto) 0.2 % Immature Granulocyte # (Auto) 0.03 K/uL (0.00-0.02) Prothrombin Time 9.8 SECONDS (9.0-12.0) Prothromb Time International Ratio 0.9 (0.9-1.1) Activated Partial Thromboplast Time 24.0 SECONDS (21.0-31.0) Partial Thromboplastin Ratio 0.9 Anion Gap 7.0 mmol/L (3-11) Est Creatinine Clear Calc Drug Dose 72.1 ml/min Estimated GFR () 77.3 Estimated GFR (Non- 66.7 BUN/Creatinine Ratio 13.1 (10-20) Calcium Level 9.1 mg/dl (8.5-10.1) Magnesium Level 2.2 mg/dl (1.8-2.4) Total Bilirubin 0.3 mg/dl (0.2-1) Direct Bilirubin < 0.1 mg/dl (0-0.2) Aspartate Amino Transf (AST/SGOT) 14 U/L (15-37) Alanine Aminotransferase (ALT/SGPT) 21 U/L (12-78) Alkaline Phosphatase 102 U/L (45-117) Total Creatine Kinase 125 U/L (39-308) Creatine Kinase MB 0.7 ng/ml (0.5-3.6) Creatine Kinase MB Ratio 0.6 (0-3.0) Troponin I < 0.015 ng/ml (0-0.045) Total Protein 7.1 gm/dl (6.4-8.2) Albumin 3.9 gm/dl (3.4-5.0) Thyroid Stimulating Hormone (TSH) 0.919 uIu/ml (0.300-4.500) Urine Color YELLOW Urine Appearance CLEAR (CLEAR) Urine pH 6.0 (4.5-7.5) Urine Specific [place] 1.025 (1.000-1.030) Urine Protein NEG (NEG) Urine Glucose (UA) NEG (NEG) Urine Ketones NEG (NEG) Urine Occult Blood NEG (NEG) Urine Nitrite NEG (NEG) Urine Bilirubin NEG (NEG) Urine Urobilinogen NEG (NEG) Urine Leukocyte Esterase NEG (NEG) Bedside Glucose 91 mg/dl (70-99) Laboratory results reviewed by me Medications Administered Medications (Trade) Dose Ordered Sig/Julienne Route Start Time Stop Time Status Last Admin Dose Admin Sodium Chloride 1,000 ml @ 125 mls/hr Q8H STAT IV 03/30/18 20:46 03/31/18 00:35 DC 03/30/18 20:54 125 MLS/HR ECG Per My Interpretation Indication: palpitations Rate (beats per minute): 97 Findings: PAC, no acute ischemic change, other (normal intervals) ED Course 2045: Ordered Sodium Chloride 1000 ml @ 125 mls/hr IV 2150: The patient was evaluated in room A11. A complete history and physical exam was performed. 2231: Discussed the patient's case with Dr. Kraft, [facility] Hospitalist. The patient will be evaluated for further treatment and disposition. Medical Decision Prior records/ancillary studies reviewed. Triage Nursing notes reviewed and agree them. Additional history obtained from the family. The patient's history was concerning for chest pain and palpitations. Differential diagnosis: Etiologies such as cardiac ischemia, cardiac dysrhythmia, pneumonia, pneumothorax, aortic dissection, pulmonary embolism, musculoskeletal, infections , pericarditis, myocarditis, esophageal rupture, gastrointestinal, as well as others were entertained. Physical examination: As above. ER treatment provided: The patient had taken aspirin earlier today. Saline hydration On reassessment the patient felt better. Diagnostic interpretation by me: The electrocardiogram was negative for pathologic change. The labs revealed slight leukocytosis on CBC. Chemistry panel was unremarkable. Cardiac troponin negative. Imaging studies: The patient is scheduled for an upcoming stress test. He noted palpitations and chest discomfort. He states he has a history of V. tach that was discovered on outpatient monitoring. Consultation: A consultation was placed with the hospitalist. The case was discussed and diagnostics were reviewed. The patient was evaluated in the ER for further treatment. Medication Reconcilliation Current Medication List: was personally reviewed by me Blood Pressure Screening Patient's blood pressure: Elevated blood pressure Blood pressure disposition: Elevated BP felt to be situational Consults Time Called: 2229 Consulting Physician: Mauro Hua Hospitalist Returned Call: [phone] Discussed the patient's case with Mauro Hua. The patient will be evaluated for further treatment and disposition. Impression Primary Impression: Left sided chest pain Additional Impression: Palpitations Scribe Attestation The scribe's documentation has been prepared under my direction and personally reviewed by me in its entirety. I confirm that the note above accurately reflects all work, treatment, procedures, and medical decision making performed by me. Departure Information Dispostion Being Evaluated By Hospitalist (Mauro Hua Hospitalist) Referrals Angelica Harrell CRNP (PCP) Patient Instructions My [facility] Problem Qualifiers
--- NOTE | 2018-03-31 05:32 | History and Physical ---
History & Physical Date & Time of Service: March 31, 2018 at 04:56 Chief Complaint: Chest Pain Primary Care Physician: Angelica Harrell CRNP History of Present Illness Source: patient, spouse, clinic records, hospital records 58 years old with past medical history of tobacco abuse, hypertension, paroxysmal V. tach presented to the ER for chest pain. Patient said yesterday he noted to have irregular heart rate that lasted for a few minutes and resolved. He said today while he was at work he developed left-sided chest pain radiated to his left arm, pressure-like and associated with numbness and tingling to his left fingers. Pain is reproducible on exam. 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 He said that he was sweating but attributes that to because he was working and lifting the bag. Patient said that he had a ZIO monitor on last week when he had a 38 beat run of asymptomatic monomorphic nonsustained ventricular tachycardia at about 220 bpm as part of a workup for syncope and lightheadedness. Patient was recently diagnosed with MS. He had an echo done on 03/22 that showed no wall motion abnormality. Currently patient said chest pain improves. Denies any palpitation, shortness of breath, fever, chills, weakness, vision change, and headache. Past Medical/Surgical History Medical Problems: (1) Abdominal pain (2) Adverse drug reaction (3) Bronchitis with bronchospasm (4) Brown hairy tongue (5) Chest pain (6) Cough (7) Fever (8) Influenza A (9) Pericarditis (10) Pericarditis (11) Precordial chest pain (12) Sepsis Family History FH: heart disease Hypertension Kidney disease Lung disease Social History Smoking Status: Current Every Day Smoker Drug Use: none Marital Status: Occupational Status: employed Immunizations History of Influenza Vaccine: N/A History of Tetanus Vaccine?: Yes Tetanus Immunization Date: Dec 03, 2012 History of Pneumococcal: No History of Hepatitis B Vaccine: Unknown Allergies Coded Allergies: Sulfamethoxazole w/Trimethoprim (Verified Allergy, Unknown, wiped out good bacteria, became septic, 03/30/18) Home Medications Scheduled Aspirin (Aspirin Ec), 325 MG PO DAILY Diltiazem Hcl Coated Beads (Cardizem Cd), 240 MG PO QAM Ergocalciferol (Vitamin D 70008 Unit), 50,000 UNIT PO WK Gabapentin (Neurontin), 300 MG PO HS Lisinopril (Prinivil), 20 MG PO QAM Review of Systems Constitutional: No fever, No chills Eyes: No worsening of vision, No eye pain, No diplopia ENT: No hearing loss, No sore throat Respiratory: No cough, No shortness of breath, No dyspnea on exertion Cardiovascular: + chest pain, No orthopnea, No claudication Abdomen: No pain, No nausea Musculoskeletal: No swelling, No calf pain Genitourinary - Male: No hematuria, No dysuria Neurologic: No paralysis, No weakness, No balance problems Psychiatric: No substance abuse Endocrine: No fatigue Hematologic / Lymphatic: No abnormal bleeding/bruising Integumentary: No rash, No itch Physical Exam Vital Signs Date Time Temp Pulse Resp B/P (MAP) Pulse Ox O2 Delivery O2 Flow Rate FiO2 03/31/18 04:00 Room Air 03/31/18 00:30 37.0 73 16 138/74 96 Room Air 03/30/18 23:59 37.2 85 18 133/84 98 03/30/18 23:41 85 18 133/84 98 Room Air 03/30/18 22:24 77 17 95 03/30/18 22:00 112/81 03/30/18 21:54 79 17 97 03/30/18 21:52 120/74 03/30/18 21:24 85 18 03/30/18 21:19 93 18 03/30/18 20:58 88 03/30/18 20:48 93 Room Air 03/30/18 20:48 93 Room Air 03/30/18 20:43 145/87 03/30/18 20:43 Room Air 03/30/18 20:23 37.2 98 18 149/69 93 Room Air General Appearance: WD/WN, no apparent distress Head: normocephalic, atraumatic Eyes: PERRL, EOMI ENT: hearing grossly normal Neck: no JVD, trachea midline Respiratory/Chest: normal breath sounds, no respiratory distress, no accessory muscle use Cardiovascular: regular rate, rhythm, no JVD Abdomen/GI: normal bowel sounds, non tender, soft Back: no CVA tenderness Extremities/Musculoskelatal: no calf tenderness, no pedal edema 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, alert, normal mood/affect, oriented x 3 Skin: warm/dry, no rash Diagnostics Laboratory Results Results Past 24 Hours Test 03/30/18 20:20 03/30/18 21:11 03/30/18 22:34 03/31/18 04:55 Range/Units White Blood Count 12.27 4.8-10.8 K/uL Red Blood Count 4.86 4.7-6.1 M/uL Hemoglobin 14.1 14.0-18.0 g/dL Hematocrit 42.7 42-52 % Mean Corpuscular Volume 87.9 80-100 fL Mean Corpuscular Hemoglobin 29.0 25-34 pg Mean Corpuscular Hemoglobin Concent 33.0 32-36 g/dl Platelet Count 335 130-400 K/uL Mean Platelet Volume 9.4 7.4-10.4 fL Neutrophils (%) (Auto) 54.9 % Lymphocytes (%) (Auto) 33.8 % Monocytes (%) (Auto) 7.6 % Eosinophils (%) (Auto) 2.4 % Basophils (%) (Auto) 1.1 % Neutrophils # (Auto) 6.73 1.4-6.5 K/uL Lymphocytes # (Auto) 4.15 1.2-3.4 K/uL Monocytes # (Auto) 0.93 0.11-0.59 K/uL Eosinophils # (Auto) 0.30 0-0.5 K/uL Basophils # (Auto) 0.13 0-0.2 K/uL RDW Standard Deviation 46.8 36.4-46.3 fL RDW Coefficient of Variation 14.6 11.5-14.5 % Immature Granulocyte % (Auto) 0.2 % Immature Granulocyte # (Auto) 0.03 0.00-0.02 K/uL Prothrombin Time 9.8 9.0-12.0 SECONDS Prothromb Time International Ratio 0.9 0.9-1.1 Activated Partial Thromboplast Time 24.0 21.0-31.0 SECONDS Partial Thromboplastin Ratio 0.9 Sodium Level 143 136-145 mmol/L Potassium Level 3.9 3.5-5.1 mmol/L Chloride Level 109 98-107 mmol/L Carbon Dioxide Level 27 21-32 mmol/L Anion Gap 7.0 3-11 mmol/L Blood Urea Nitrogen 16 7-18 mg/dl Creatinine 1.20 0.60-1.40 mg/dl Est Creatinine Clear Calc Drug Dose 72.1 ml/min Estimated GFR () 77.3 Estimated GFR (Non- 66.7 BUN/Creatinine Ratio 13.1 10-20 Random Glucose 59 70-99 mg/dl Calcium Level 9.1 8.5-10.1 mg/dl Magnesium Level 2.2 1.8-2.4 mg/dl Total Bilirubin 0.3 0.2-1 mg/dl Direct Bilirubin < 0.1 0-0.2 mg/dl Aspartate Amino Transf (AST/SGOT) 14 15-37 U/L Alanine Aminotransferase (ALT/SGPT) 21 12-78 U/L Alkaline Phosphatase 102 45-117 U/L Total Creatine Kinase 125 39-308 U/L Creatine Kinase MB 0.7 0.5-3.6 ng/ml Creatine Kinase MB Ratio 0.6 0-3.0 Troponin I < 0.015 0-0.045 ng/ml Total Protein 7.1 6.4-8.2 gm/dl Albumin 3.9 3.4-5.0 gm/dl Thyroid Stimulating Hormone (TSH) 0.919 0.300-4.500 uIu/ml Urine Color YELLOW Urine Appearance CLEAR CLEAR Urine pH 6.0 4.5-7.5 Urine Specific [place] 1.025 1.000-1.030 Urine Protein NEG NEG Urine Glucose (UA) NEG NEG Urine Ketones NEG NEG Urine Occult Blood NEG NEG Urine Nitrite NEG NEG Urine Bilirubin NEG NEG Urine Urobilinogen NEG NEG Urine Leukocyte Esterase NEG NEG Bedside Glucose 91 70-99 mg/dl Diagnostic Radiology CHEST ONE VIEW PORTABLE HISTORY: 58 years-old Male EVALUATE WEAKNESS acute weakness COMPARISON: Chest radiograph 04/28/2017 TECHNIQUE: Portable AP view of the chest FINDINGS: Azygos lobe and fissure incidentally noted. The cardiomediastinal and hilar silhouettes are within normal limits. There is no pneumothorax, pleural effusion, focal airspace consolidation or overt pulmonary edema. The bones of the chest appear grossly intact with mild degenerative changes about the spine. IMPRESSION: No acute process. The above report was generated using voice recognition software. It may contain grammatical, syntax or spelling errors. Electronically signed by: Rosas Adan M.D. 03/30/2018 9:29 PM Dictated Date/Time: 03/30/2018 9:28 PM Impression Assessment and Plan Chest Pain Seems to be atypical Need to R/O ACS Initial troponin negative EKG showed no ischemic changes Will trend troponin Continue aspirin Cardiology consult Will keep NPO except med after midnight for stress test Echo done on 03/22 showed no left ventricular segmental wall motion abnormalities Left ventricle ejection fraction is 55-59% Monomorphic nonsustained V. tach Asymptomatic Continue diltiazem Stable Newly diagnosed MS Has follow-up with neurology Tobacco abuse Counseling on smoking cessation Hypertension Continue lisinopril 20 mg daily BP stable DVT prophylaxis on Lovenox subcu CODE STATUS full code Advanced Directives Existing Living Will: No Existing Power of Invoice Checker: No Resuscitation Status VTE Prophylaxis Will order VTE Prophylaxis: Yes
[2018-03-31 08:00] VITALS: BP 107/68; PULSE 67; TEMP 36.9; O2SAT 97
[2018-03-31] MEDS ORDERED: ENOXAPARIN 40 MG/0.4 ML SYR SQ SCH (09:00)
[2018-03-31] MEDS ORDERED: DILTIAZEM HCL 240 MG CAPCR PO SCH (09:00)
[2018-03-31] MEDS ORDERED: ASPIRIN 325 MG ECTAB PO SCH (09:00)
[2018-03-31] MEDS ORDERED: LISINOPRIL 20 MG TAB PO SCH (09:00)
--- NOTE | 2018-03-31 09:59 | Cardiology Consultation ---
Cardiology Consultation Date of Service March 31, 2018. Cardiology Consultation Indication: Consultation for heart palpitations, atypical chest pain and near syncope History: This is a 58-year-old male patient who earlier this year was having visual disturbances. He underwent a workup including an MRI of the brain as well as lumbar puncture resulting in the diagnosis of multiple sclerosis. The patient is under treatment and states he is doing better. He has been having heart palpitations and atypical chest pain for over a month. The patient states that he had on his record a history of atrial fibrillation which may have occurred very briefly coming out of anesthesia following the procedure. His primary care physician decided to order a 2 week ZIO monitor. On that study the patient had a 12 second run of monomorphic ventricular tachycardia which was asymptomatic. Approximately a week ago the patient was at work. He developed his typical symptoms of heart palpitations and chest discomfort following which he had a near syncopal episode. 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 The patient was brought to the hospital by his . Thus far on telemetry his heart rhythm has been stable. He has no prior history of heart disease. He denies myocardial infarction, cardiac arrhythmias or congestive heart failure. There is no strong family history of heart disease or sudden . He has no history of diabetes. He has mild essential hypertension and is treated for hypercholesterolemia. His admission EKG reveals a sinus rhythm with premature atrial contractions. His cardiac troponins are negative. As an outpatient the patient had an echocardiogram which revealed the estimated left ventricular ejection fraction to be 55-59%. There was no significant valvular pathology. Borderline concentric hypertrophy Allergies: Bactrim Reported Home Medications Medications Dose Route/Sig Max Daily Dose Days Date Category Aspirin Ec (Aspirin) 325 Mg Tab 325 Mg PO DAILY 03/30/18 Reported Vitamin D 67124 Unit (Ergocalciferol) 50,000 Unit Cap 50,000 Unit PO WK 03/30/18 Reported Neurontin (Gabapentin) 300 Mg Cap 300 Mg PO HS 03/30/18 Reported Cardizem Cd (Diltiazem Hcl Coated Beads) 240 Mg Cap 240 Mg PO QAM 08/09/16 Reported Prinivil (Lisinopril) 20 Mg Tab 20 Mg PO QAM 03/31/14 Reported Past medical history: The patient is treated for mild essential hypertension and has a history of hypercholesterolemia. He is currently not under treatment for his cholesterol as it is been controlled with diet. He has no prior history of diabetes or strokes. He has had a recent diagnosis of multiple sclerosis. He has been treated for a duodenal ulcer in the past. He has had surgeries on his lumbar spine and a ventral hernia repair Social history: The patient is a current smoker. Family medical history: Noncontributory General: The patient denies weight change, night sweats, fever, chills. Head: The patient denies headache and prior head trauma. Cardiovascular: The patient denies chest pain or chest discomfort, dyspnea on exertion, palpitations, PND, orthopnea, edema, spontaneous shortness of breath, syncope and near syncope. Pulmonary: The patient denies cough, wheeze, pleurisy, hemoptysis, sputum, and excessive snoring. Gastrointestinal: The patient denies nausea, vomiting, diarrhea, constipation, bloating, hematemesis, hematochezia, and abdominal pain. Skin: The patient denies diaphoresis and rash. Musculoskeletal: The patient denies joint pain, joint swelling, myalgia, back pain, neck pain and prior injuries. Neurological: The patient denies prior stroke and seizures Vital Signs Past 12 Hours Date Time Temp Pulse Resp B/P (MAP) Pulse Ox O2 Delivery O2 Flow Rate FiO2 03/31/18 08:00 97 Room Air 03/31/18 08:00 36.9 67 12 107/68 (81) 97 Room Air 03/31/18 04:00 Room Air 03/31/18 00:30 37.0 73 16 138/74 96 Room Air 03/30/18 23:59 37.2 85 18 133/84 98 03/30/18 23:41 85 18 133/84 98 Room Air 03/30/18 22:24 77 17 95 03/30/18 22:00 112/81 03/30/18 21:54 79 17 97 03/30/18 21:52 120/74 General Appearance: Alert and Oriented x3. NAD. Head: Normocephalic Atraumatic. Eyes: PERRLA, EOMI, conjunctiva and sclera clear Neck: Supple. No carotid bruits noted. No JVD. No HJD. Respiratory: Breath sounds clear to auscultation bilaterally. No w/r/r. Cardiovascular: Reg rate and rhythm. S1 and S2 noted. No murmurs, rubs, gallops. PMI non displace. Abdomen: Normal bowel sounds, soft nontender. no abdominal bruits. Extremities: No edema, no clubbing or cyanosis. distal pulses 2/4 bilaterally. Neuro: No focal deficits. Psychiatric: Normal affect. Last 24 Hours Test 03/30/18 20:20 03/30/18 21:11 03/30/18 22:34 03/31/18 05:10 White Blood Count 12.27 K/uL Red Blood Count 4.86 M/uL Hemoglobin 14.1 g/dL Hematocrit 42.7 % Mean Corpuscular Volume 87.9 fL Mean Corpuscular Hemoglobin 29.0 pg Mean Corpuscular Hemoglobin Concent 33.0 g/dl Platelet Count 335 K/uL Mean Platelet Volume 9.4 fL Neutrophils (%) (Auto) 54.9 % Lymphocytes (%) (Auto) 33.8 % Monocytes (%) (Auto) 7.6 % Eosinophils (%) (Auto) 2.4 % Basophils (%) (Auto) 1.1 % Neutrophils # (Auto) 6.73 K/uL Lymphocytes # (Auto) 4.15 K/uL Monocytes # (Auto) 0.93 K/uL Eosinophils # (Auto) 0.30 K/uL Basophils # (Auto) 0.13 K/uL RDW Standard Deviation 46.8 fL RDW Coefficient of Variation 14.6 % Immature Granulocyte % (Auto) 0.2 % Immature Granulocyte # (Auto) 0.03 K/uL Prothrombin Time 9.8 SECONDS Prothromb Time International Ratio 0.9 Activated Partial Thromboplast Time 24.0 SECONDS Partial Thromboplastin Ratio 0.9 Sodium Level 143 mmol/L Potassium Level 3.9 mmol/L Chloride Level 109 mmol/L Carbon Dioxide Level 27 mmol/L Anion Gap 7.0 mmol/L Blood Urea Nitrogen 16 mg/dl Creatinine 1.20 mg/dl Est Creatinine Clear Calc Drug Dose 72.1 ml/min Estimated GFR () 77.3 Estimated GFR (Non- 66.7 BUN/Creatinine Ratio 13.1 Random Glucose 59 mg/dl Calcium Level 9.1 mg/dl Magnesium Level 2.2 mg/dl Total Bilirubin 0.3 mg/dl Direct Bilirubin < 0.1 mg/dl Aspartate Amino Transf (AST/SGOT) 14 U/L Alanine Aminotransferase (ALT/SGPT) 21 U/L Alkaline Phosphatase 102 U/L Total Creatine Kinase 125 U/L Creatine Kinase MB 0.7 ng/ml Creatine Kinase MB Ratio 0.6 Troponin I < 0.015 ng/ml < 0.015 ng/ml Total Protein 7.1 gm/dl Albumin 3.9 gm/dl Thyroid Stimulating Hormone (TSH) 0.919 uIu/ml Urine Color YELLOW Urine Appearance CLEAR Urine pH 6.0 Urine Specific [place] 1.025 Urine Protein NEG Urine Glucose (UA) NEG Urine Ketones NEG Urine Occult Blood NEG Urine Nitrite NEG Urine Bilirubin NEG Urine Urobilinogen NEG Urine Leukocyte Esterase NEG Bedside Glucose 91 mg/dl Impression: 1. Nonsustained monomorphic ventricular tachycardia 2. Heart palpitations with atypical chest pain and near syncope/syncope 3. Recent diagnosis of multiple sclerosis Recommendations: I do not believe a dobutamine stress echocardiogram is the best study for this patient as the dobutamine can cause arrhythmias. I am going to switch the study to a pharmacologic nuclear stress test which will screen him for ischemic heart disease. I have also asked Dr. Cook to see him for his symptoms of syncope and presyncope with the findings on the outpatient monitor of monomorphic ventricular tachycardia.
[2018-03-31] MEDS ORDERED: REGADENOSON 0.4 MG/5 ML SYR ONE (10:10)
[2018-03-31 10:24] LABS: HEMATOCRIT 40.6 % (42-52); HEMOGLOBIN 13.5 g/dL (14.0-18.0); MEAN CELL VOLUME 87.5 fL (80-100); MEAN CORPUSCULAR HEMOGLOBIN 29.1 pg (25-34); MEAN CORPUSCULAR HGB CONC 33.3 g/dl (32-36); MEAN PLATELET VOLUME 9.4 fL (7.4-10.4); PLATELET COUNT 301 K/uL (130-400); RED CELL DISTRIBUTION WIDTH CV 14.6 % (11.5-14.5); WHITE BLOOD COUNT 9.66 K/uL (4.8-10.8)
[2018-03-31 12:00] VITALS: BP 107/70; PULSE 63; TEMP 37; O2SAT 97
--- NOTE | 2018-03-31 15:53 | Cardiology Consultation ---
Cardiology Consultation Date of Service March 31, 2018. Cardiology Consultation Full EP consult dictated. Pt with normal structural heart found to have 32 beats of monomorphic VT on an outpatient 2 week potline monitor along with some short runs of probably PAT. Pt with reports of lightheadedness and dizziness and near syncope more with change in positions. He has been on lisinopril and cardizem for years. Cardizem was for palpitations. His only cardiac risk factor is tobacco use. Pt denies ever having LOC in his lifetime. No family history of CAD. Pt has had sleep study testing in the past and is negative. I think the VT is an ancillary finding and his near syncopal episodes is more due to orthostatic hypotension. Would recommend continue cardizem but decrease lisinopril to at least 10mg daily. Check orthostatics. If nuclear stress test is negative; he is stable from an EP perspective. He can have the TILT as scheduled in [facility] as outpatient.
--- NOTE | 2018-03-31 16:29 | Progress Note ---
Progress Note Date of Service March 31, 2018. Progress Note Nonischemic Lexiscan nuclear stress recommendations as per Dr. Joey Escobedo to resume diet and d/c from cardiac standpoint.
--- NOTE | 2018-03-31 16:42 | MYOCARDIAL PERFUSION SCAN ---
Study is ordered by Dr. Bates. INDICATION: Chest discomfort with a history of nonsustained ventricular tachycardia. Baseline EKG, normal sinus rhythm at 34 beats per minute with occasional premature atrial complexes and premature ventricular complexes, no sign of ischemia. Stress EKG showed no ischemic changes. TECHNIQUE: For the stress portion of the study, 33.4 millicuries of Technetium 99m Cardiolite IV was injected at 1505 on 03/31/2018. 30 minutes following the injection, imaging of the heart was performed in multiple projections. For the rest portion of the study, 11.5 millicuries of Technetium 99m Cardiolite was injected IV at 1330. One hour following the injection, imaging of the heart performed in the same projections. FINDINGS: Homogeneous tracer uptake throughout the left ventricle at both rest and stress. Normal gated wall motion without regional wall motion abnormality, EF 60%. SUMMARY: Normal Lexiscan nuclear stress testing with no evidence of Lexiscan-induced ischemia or scar. Normal LV size and function. EF calculated to be 60% without regional wall motion abnormality.
--- NOTE | 2018-03-31 17:04 | Progress Note ---
Internal Med Progress Note Date of Service: March 31, 2018. Provider Documentation: SUBJECTIVE: Seen and examined at bedside Has minimal left sided chest discomfort Denies SOB, nausea, dizziness, abd pain Stress test was negative Discussed with Cardiology OBJECTIVE: Vital Signs-as noted below Physical Exam: General Appearance:Moderately built and nourished, no apparent distress Head: normocephalic, Atraumatic Eyes: normal inspection, EOMI, PERRL Neck: supple, Trachea midline Respiratory/Chest: Normal breath sounds, CTA Cardiovascular: S1, S2, No murmur Abdomen/GI:Soft, Non tender, Bowel sounds present Extremities/Musculoskelatal:normal inspection, no edema Neurologic/Psych:AAOX3, grossly no focal neurological deficits Skin: normal color, warm Lab data as noted below. ASSESSMENT & PLAN: Chest Pain R/O ACS Cardiac Enzymes negative EKG showed no ischemic changes Continue aspirin Nonischemic Lexiscan nuclear stress Appreciate Cardiology Input Continue lisinopril (decreased) to 10mg daily as per Cardiology recommendations TILT test as outpatient Monomorphic nonsustained V. tach Continue diltiazem Appreciate supervisory investigative specialist 's Input Stable Newly diagnosed MS Has follow-up with neurology Tobacco abuse Counseling on smoking cessation Hypertension Continue lisinopril 10 mg daily Continue Cardizem DVT px: SQ Lovenox CODE STATUS full code Disposition: Plan to discharge home today Follow up with your PCP Angelica Harrell in 1 week as advised Follow up with your Heat Treater in 1-2 weeks as advised Your Lisinopril dose is decreased to 10mg daily Seek immediate medical attention if your symptoms reoccur or worsen Vital Signs: Date Time Temp Pulse Resp B/P (MAP) Pulse Ox O2 Delivery O2 Flow Rate FiO2 03/31/18 12:00 37.0 63 16 107/70 (82) 97 Room Air 03/31/18 12:00 Room Air 03/31/18 08:00 97 Room Air 03/31/18 08:00 36.9 67 12 107/68 (81) 97 Room Air 03/31/18 04:00 Room Air 03/31/18 00:30 37.0 73 16 138/74 96 Room Air 03/30/18 23:59 37.2 85 18 133/84 98 03/30/18 23:41 85 18 133/84 98 Room Air 03/30/18 22:24 77 17 95 03/30/18 22:00 112/81 03/30/18 21:54 79 17 97 03/30/18 21:52 120/74 03/30/18 21:24 85 18 03/30/18 21:19 93 18 03/30/18 20:58 88 03/30/18 20:48 93 Room Air 03/30/18 20:48 93 Room Air 03/30/18 20:43 145/87 03/30/18 20:43 Room Air 03/30/18 20:23 37.2 98 18 149/69 93 Room Air Lab Results: Results Past 24 Hours Test 03/30/18 20:20 03/30/18 21:11 03/30/18 22:34 03/31/18 05:10 Range/Units White Blood Count 12.27 4.8-10.8 K/uL Red Blood Count 4.86 4.7-6.1 M/uL Hemoglobin 14.1 14.0-18.0 g/dL Hematocrit 42.7 42-52 % Mean Corpuscular Volume 87.9 80-100 fL Mean Corpuscular Hemoglobin 29.0 25-34 pg Mean Corpuscular Hemoglobin Concent 33.0 32-36 g/dl Platelet Count 335 130-400 K/uL Mean Platelet Volume 9.4 7.4-10.4 fL Neutrophils (%) (Auto) 54.9 % Lymphocytes (%) (Auto) 33.8 % Monocytes (%) (Auto) 7.6 % Eosinophils (%) (Auto) 2.4 % Basophils (%) (Auto) 1.1 % Neutrophils # (Auto) 6.73 1.4-6.5 K/uL Lymphocytes # (Auto) 4.15 1.2-3.4 K/uL Monocytes # (Auto) 0.93 0.11-0.59 K/uL Eosinophils # (Auto) 0.30 0-0.5 K/uL Basophils # (Auto) 0.13 0-0.2 K/uL RDW Standard Deviation 46.8 36.4-46.3 fL RDW Coefficient of Variation 14.6 11.5-14.5 % Immature Granulocyte % (Auto) 0.2 % Immature Granulocyte # (Auto) 0.03 0.00-0.02 K/uL Prothrombin Time 9.8 9.0-12.0 SECONDS Prothromb Time International Ratio 0.9 0.9-1.1 Activated Partial Thromboplast Time 24.0 21.0-31.0 SECONDS Partial Thromboplastin Ratio 0.9 Sodium Level 143 136-145 mmol/L Potassium Level 3.9 3.5-5.1 mmol/L Chloride Level 109 98-107 mmol/L Carbon Dioxide Level 27 21-32 mmol/L Anion Gap 7.0 3-11 mmol/L Blood Urea Nitrogen 16 7-18 mg/dl Creatinine 1.20 0.60-1.40 mg/dl Est Creatinine Clear Calc Drug Dose 72.1 ml/min Estimated GFR () 77.3 Estimated GFR (Non- 66.7 BUN/Creatinine Ratio 13.1 10-20 Random Glucose 59 70-99 mg/dl Calcium Level 9.1 8.5-10.1 mg/dl Magnesium Level 2.2 1.8-2.4 mg/dl Total Bilirubin 0.3 0.2-1 mg/dl Direct Bilirubin < 0.1 0-0.2 mg/dl Aspartate Amino Transf (AST/SGOT) 14 15-37 U/L Alanine Aminotransferase (ALT/SGPT) 21 12-78 U/L Alkaline Phosphatase 102 45-117 U/L Total Creatine Kinase 125 39-308 U/L Creatine Kinase MB 0.7 0.5-3.6 ng/ml Creatine Kinase MB Ratio 0.6 0-3.0 Troponin I < 0.015 < 0.015 0-0.045 ng/ml Total Protein 7.1 6.4-8.2 gm/dl Albumin 3.9 3.4-5.0 gm/dl Thyroid Stimulating Hormone (TSH) 0.919 0.300-4.500 uIu/ml Urine Color YELLOW Urine Appearance CLEAR CLEAR Urine pH 6.0 4.5-7.5 Urine Specific [place] 1.025 1.000-1.030 Urine Protein NEG NEG Urine Glucose (UA) NEG NEG Urine Ketones NEG NEG Urine Occult Blood NEG NEG Urine Nitrite NEG NEG Urine Bilirubin NEG NEG Urine Urobilinogen NEG NEG Urine Leukocyte Esterase NEG NEG Bedside Glucose 91 70-99 mg/dl Test 03/31/18 10:04 Range/Units White Blood Count 9.66 4.8-10.8 K/uL Red Blood Count 4.64 4.7-6.1 M/uL Hemoglobin 13.5 14.0-18.0 g/dL Hematocrit 40.6 42-52 % Mean Corpuscular Volume 87.5 80-100 fL Mean Corpuscular Hemoglobin 29.1 25-34 pg Mean Corpuscular Hemoglobin Concent 33.3 32-36 g/dl RDW Standard Deviation 47.0 36.4-46.3 fL RDW Coefficient of Variation 14.6 11.5-14.5 % Platelet Count 301 130-400 K/uL Mean Platelet Volume 9.4 7.4-10.4 fL Troponin I < 0.015 0-0.045 ng/ml
[2018-03-31] MEDS ORDERED: LSN10 PO (17:05)
--- NOTE | 2018-03-31 17:06 | Discharge Summary ---
Discharge Summary Date of Service March 31, 2018. Discharge Summary Admission Date: March 30, 2018 at 23:33 Discharge Date: March 31, 2018 Discharge Disposition: Home Principal Diagnosis: Chest Pain Procedures: Stress Test: Normal Lexiscan nuclear stress testing with no evidence of Lexiscan-induced ischemia or scar. Normal LV size and function. EF calculated to be 60% without regional wall motion abnormality. Consultations: Cardiology Pending Studies/Follow-Up: Follow up with your PCP Angelica Harrell in 1 week as advised Follow up with your Serging Machine Operator in 1-2 weeks as advised Your Lisinopril dose is decreased to 10mg daily Seek immediate medical attention if your symptoms reoccur or worsen Medication Reconciliation New Medications: Lisinopril (Zestril) 10 Mg Tab 10 MG PO QAM for 30 Days, #30 TAB 1 Refill Continued Medications: Aspirin (Aspirin Ec) 325 Mg Tab 325 MG PO DAILY Diltiazem Hcl Coated Beads (Cardizem Cd) 240 Mg Cap 240 MG PO QAM Ergocalciferol (Vitamin D 17103 Unit) 50,000 Unit Cap 97391 UNIT PO WK, CAP Gabapentin (Neurontin) 300 Mg Cap 300 MG PO HS, CAP Discontinued Medications: Lisinopril (Prinivil) 20 Mg Tab 20 MG PO QAM Admission Information HPI (per Admitting provider): 58 years old with past medical history of tobacco abuse, hypertension, paroxysmal V. tach presented to the ER for chest pain. Patient said yesterday he noted to have irregular heart rate that lasted for a few minutes and resolved. He said today while he was at work he developed left-sided chest pain radiated to his left arm, pressure-like and associated with numbness and tingling to his left fingers. Pain is reproducible on exam. 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 He said that he was sweating but attributes that to because he was working and lifting the bag. Patient said that he had a ZIO monitor on last week when he had a 38 beat run of asymptomatic monomorphic nonsustained ventricular tachycardia at about 220 bpm as part of a workup for syncope and lightheadedness. Patient was recently diagnosed with MS. He had an echo done on 03/22 that showed no wall motion abnormality. Currently patient said chest pain improves. Denies any palpitation, shortness of breath, fever, chills, weakness, vision change, and headache. Physical Exam (per Admitting): General Appearance: WD/WN, no apparent distress Head: normocephalic, atraumatic Eyes: PERRL, EOMI ENT: hearing grossly normal Neck: no JVD, trachea midline Respiratory/Chest: normal breath sounds, no respiratory distress, no accessory muscle use Cardiovascular: regular rate, rhythm, no JVD Abdomen/GI: normal bowel sounds, non tender, soft Back: no CVA tenderness Extremities/Musculoskelatal: no calf tenderness, no pedal edema Neurologic/Psych: psychiatric aides teacher II-XII nml as tested, alert, normal mood/affect, oriented x 3 Skin: warm/dry, no rash Hospital Course Chest Pain R/O ACS Cardiac Enzymes negative EKG showed no ischemic changes Continue aspirin Nonischemic Lexiscan nuclear stress Appreciate Cardiology Input Continue lisinopril (decreased) to 10mg daily as per Cardiology recommendations TILT test as outpatient Monomorphic nonsustained V. tach Continue diltiazem Appreciate cnc specialist 's Input Stable Newly diagnosed MS Has follow-up with neurology Tobacco abuse Counseling on smoking cessation Hypertension Continue lisinopril 10 mg daily Continue Cardizem DVT px: SQ Lovenox CODE STATUS full code Disposition: Plan to discharge home today Follow up with your PCP Angelica Harrell in 1 week as advised Follow up with your Serging Machine Operator in 1-2 weeks as advised Your Lisinopril dose is decreased to 10mg daily Seek immediate medical attention if your symptoms reoccur or worsen Total time spent on discharge = This includes examination of the patient, discharge planning, medication reconciliation, and communication with other providers. Discharge Instructions Discharge Instructions Date of Service March 31, 2018. Admission Reason for Admission: Chest Pain Discharge Discharge Diagnosis / Problem: Chest Pain Discharge Goals Goal(s): Decrease discomfort, Improve function Activity Recommendations Activity Limitations: resume your previous activity Exercise/Sports Limitations: as tolerated . Instructions / Follow-Up Instructions / Follow-Up Follow up with your PCP Angelica Harrell in 1 week as advised Follow up with your Serging Machine Operator in 1-2 weeks as advised Your Lisinopril dose is decreased to 10mg daily Seek immediate medical attention if your symptoms reoccur or worsen Current Hospital Diet Patient's current hospital diet: Discharge Diet Recommended Diet: AHA Diet (Heart Healthy) Pending Studies Studies pending at discharge: no Medical Emergencies . Who to Call and When: Medical Emergencies: If at any time you feel your situation is an emergency, please call 911 immediately. . Non-Emergent Contact Non-Emergency issues call your: Primary Care Provider, Serging Machine Operator Call Non-Emergent contact if: you have a fever, your pain is not controlled, your pain is worsening, your pain is unusual for you, your pain is concerning you, you have any medication questions Seek immediate medical attention if your symptoms reoccur or worsen . . "Provider Documentation" section prepared by Sky Valenzuela. .
[2018-03-31 17:30] VITALS: BP 107/70; PULSE 63; TEMP 37; O2SAT 97
[2018-03-31] MEDS ORDERED: GABAPENTIN 300 MG CAP PO SCH (21:00)
--- NOTE | 2018-03-31 23:54 | CARDIOLOGY CONSULTATION ---
DATE OF CONSULTATION: 03/31/2018 REFERRING PHYSICIAN: Buzz Bates DO REASON FOR CONSULTATION: Paroxysmal ventricular tachycardia and near syncope. HISTORY OF PRESENT ILLNESS: This is a 58-year-old gentleman who has known multiple sclerosis, which may be flaring up more. He recently was having some palpitations and his primary physician had ordered a cardiac 2-week monitor, which revealed some short episodes of PAT as well as a 32-beat run of monomorphic VT that was also reported to be symptomatic. He was due to have a stress test as well as an upcoming tilt table test done. However, the patient continued to experience some lightheadedness and dizziness with near syncope. On talking to him, it sounds like most of those episodes were when he is changing positions. He does do heavy lifting of about 50-pound bags of things and tilts often, bend over, and pick things up. He reports that he has never lost consciousness. About a year ago, he had profuse sudden onset of diarrhea and had a near syncopal episode in the bathroom. His blood pressure at that time was in the 50s and he was lightheaded, pale, and dizzy and diaphoretic, but he reports never passing out. He most recently about 3 weeks ago had another similar episode of lightheadedness and dizziness with near syncope. This was when he was bending over and getting up and down from the ladder. He continues to have some intermittent palpitations, sometimes not related to the lightheadedness and dizziness. He does report some bilateral lower extremity numbness, which is nothing new for him. He yesterday did have another episode of this lightheadedness and dizziness with some chest pressure, so came to the Emergency Room. He otherwise denies any nausea, vomiting. His overall activity levels are unchanged, but there is some concern that maybe his multiple sclerosis is starting to flare up even more. FAMILY HISTORY: He has 1 brother who is alive and healthy. Otherwise, his parents lived to older in life and there was no sudden cardiac or premature coronary artery disease within the family. 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 MEDICATIONS: Cardiac meds are lisinopril 20 mg, Cardizem 240 mg, which he has been taking for palpitations for 2 years at least, and aspirin. He is also on some multiple sclerosis drugs. ALLERGIES: No known drug allergies. REVIEW OF SYSTEMS: All other 10 point review of systems reviewed and are essentially negative at this time. See HPI for pertinent details. PHYSICAL EXAMINATION: VITAL SIGNS: Temperature 37 degrees, heart rate 63, respirations 16, blood pressure 107/70, oxygen saturation 97% on room air. On telemetry, he has been sinus rhythm with occasional apices. GENERAL: He is awake, alert, oriented x3 in no acute distress, sitting up in the chair waiting to get the rest of his Lexiscan. HEENT: Normocephalic, atraumatic. Extraocular motions intact. Sclerae is nonicteric. Mucous membranes moist. NECK: Supple, no carotid bruits appreciated. No JVD. Carotid upstrokes normal. CARDIOVASCULAR: Normal S1, S2, regular rate and rhythm, no murmur appreciated. No palpable heave or thrill. PULMONARY: Clear to auscultation bilaterally. No wheezes, rales, or rhonchi. ABDOMEN: Positive bowel sounds, soft, nontender, nondistended. EXTREMITIES: No clubbing or cyanosis bilateral fingers. No edema in bilateral lower extremities. Peripheral pulses intact. SKIN: Grossly intact. NEUROLOGIC: Grossly intact. RESULTS: EKG on admission, sinus rhythm with 97 beats per minute with apices. LABORATORY STUDIES: WBC is 9.66, hemoglobin 13.5, hematocrit 40.6, platelets 301. BMP is sodium 143, potassium 3.9. Glucose 59, chloride 109, carbon dioxide 27, BUN 16, creatinine 1.2, calcium 9.1, magnesium 2.2, total bilirubin 0.3, direct bilirubin less than 0.1, AST 41, ALT 21, alkaline phosphatase 102. Troponin is negative x3, total protein 1.1, albumin 3.9. TSH 0.19. Chest x-ray, no acute pathology. In review of her outpatient records from office, echocardiogram on 03/22/2018, his ejection fraction is preserved at 55%. He has grade 1 diastolic dysfunction, no other significant echocardiac findings. His Zio report from 03/10/2018. I reviewed the EGMs from this alarm security or surveillance monitor. The predominant rhythm was sinus rhythm with average heart rate of 87 beats per minute, slowest heart rate was 51 beats per minute at 7:15 in the morning, which was consistent with sinus bradycardia. The fastest heart rate was 200 beats a minute at 7:00 p.m., which consisted of 38 beats of nonsustained VT, monomorphic. There were occasional apices about 3.2% of the time and there were a few runs of short brief runs of PAT. IMPRESSION: 1. Paroxysmal ventricular tachycardia, monomorphic, probably an ancillary finding. 2. Lightheadness and dizziness with near syncope. I think listening to the story sounds more to be orthostatic hypotensive related. 3. Palpitations and a short burst of paroxysmal atrial tachycardia. 4. Hypertension, although blood pressure is on the lower side since he has been here. 5. Multiple sclerosis. 6. Peripheral neuropathy. PLAN: talking with the patient today and listening to his story of his symptoms, I think a lot of his near syncopal episodes are more due to orthostatic hypotension. I think that the ventricular tachycardia is an ancillary finding. He does have some PAT, no evidence of atrial fibrillation, sounds like the 1 episode of atrial fibrillation was a lone episode after surgery. He has a preserved structural heart with a normal ejection fraction on most recent echo, so the chances of the VT being anything life threatening is extremely well and most likely VT could be an outflow tract in nature. I would recommend decreasing his lisinopril to 10 mg a day, monitor his blood pressure, check set of orthostatic vitals. I would continue the Cardizem for his SVT, PAT, and palpitations. If the nuclear stress test is negative, I think it is reasonable to continue with Cardizem. No antiarrhythmics necessary at this time and he should continue with his outpatient tilt table test that is scheduled in a few weeks. I did discuss with him lifestyle changes including compression stockings and avoiding any sudden abrupt bending over and changing of the head positions as well as staying hydrated and more frequent smaller meals. I answered all of his questions and discussed this with the other e commerce marketing analyst. Thank you for this consult. NEELA
[2018-04-01] MEDS ORDERED: LISINOPRIL 10 MG TAB PO SCH (09:00)
== END 2018-03-31 18:00 | disposition home or self-care (01) ==
LOC: C.EDB 20:20 → C.MED 23:33 → ENRESERV 23:50
PROVIDERS: ADMIT Internal Medicine; ATTEND Internal Medicine
DX: I47.2 Ventricular tachycardia (principal); G35 Multiple sclerosis; R55 Syncope and collapse; R42 Dizziness and giddiness; I10 Essential (primary) hypertension; G62.9 Polyneuropathy, unspecified; F17.200 Nicotine dependence, unspecified, uncomplicated; Z79.82 Long term (current) use of aspirin; Z88.2 Allergy status to sulfonamides; Z88.1 Allergy status to other antibiotic agents; Z82.49 Family history of ischemic heart disease and other diseases of the circulatory system; Z84.1 Family history of disorders of kidney and ureter; Z82.5 Family history of asthma and other chronic lower respiratory diseases

== ENCOUNTER 2018-11-27 06:06 | Observation (INO) ==
[2018-11-27 06:44] LABS: Basophils % (auto) 0.8 %; Eosinophils # (auto) 0.31 K/uL (0-0.5); Eosinophils % (auto) 2.5 %; Hematocrit (blood only) 44.9 % (42-52); Hemoglobin 14.6 g/dL (14.0-18.0); Immature Granulocytes # (auto) 0.03 K/uL (0.00-0.02); Immature Granulocytes % (auto) 0.2 %; Lymphocytes # (auto) 2.72 K/uL (1.2-3.4); Lymphocytes % (auto) 22.4 %; Mean Corpuscular Hgb Conc 32.5 g/dL (32-36); Mean Corpuscular Volume 86.8 fL (80-100); Mean Platelet Volume 10.4 fL (7.4-10.4); Monocytes # (auto) 1.21 K/uL (0.11-0.59); Monocytes % (auto) 9.9 %; Neutrophils % (auto) 64.2 %; Platelet Count 328 K/uL (130-400); RDW Coefficient of Variation 15.8 % (11.5-14.5); Red Blood Count 5.17 M/uL (4.7-6.1); White Blood Count 12.17 K/uL (4.8-10.8)
[2018-11-27] MEDS ORDERED: LEVALBUTEROL 0.31MG/3 ML VIAL NEB STA (06:44)
[2018-11-27] MEDS ORDERED: NITROGLYCERIN SL 0.4 MG/TAB TAB SL STA (06:44)
[2018-11-27 06:51] LABS: Albumin Level 3.7 gm/dl (3.4-5.0); BUN Creatinine Ratio 12.5 (10-20); Blood Urea Nitrogen 14 mg/dl (7-18); Calcium 8.6 mg/dl (8.5-10.1); Carbon Dioxide 27 mmol/L (21-32); Chloride 107 mmol/L (98-107); Creatinine Clr Calc Pharmacy 73.4 ml/min; Est GFR (Non-African American) 73.3; Glucose 89 mg/dl (70-99); Potassium 3.9 mmol/L (3.5-5.1); Sodium 141 mmol/L (136-145)
--- NOTE | 2018-11-27 06:54 | XRay Report ---
XR chest 1V portable CLINICAL HISTORY: Atypical chest pain COMPARISON STUDY: 03/30/2018 FINDINGS: The cardiac and mediastinal contours are normal. There is no evidence of focal pulmonary co nsolidation. There is no evidence of failure. No pleural effusions are visualized.[ IMPRESSION: No active disease in the chest. Electronically signed by: Jurgen Raza M.D. 11/27/2018 6:53 AM
[2018-11-27 06:56] LABS: Alanine Aminotransferase 21 U/L (12-78); Albumin Globulin Ratio 1.2 (0.9-2); Alkaline Phosphatase 85 U/L (45-117); Aspartate Aminotransferase 8 U/L (15-37); Bilirubin,Total 0.4 mg/dl (0.2-1); Globulin 3.1 gm/dl (2.5-4.0); Total Protein 6.8 gm/dl (6.4-8.2); Troponin I < 0.015 ng/ml (0-0.045)
[2018-11-27 07:08] LABS: Creatine Kinase 70 U/L (39-308); Creatine Kinase MB < 1.0 ng/ml (0.5-3.6); NT Pro B Type Natriuretic Pept 22 pg/ml (0-900)
[2018-11-27] MEDS ORDERED: MoRPHine SULFATE 10 MG/ML CARP/VIAL IV STA (07:16)
[2018-11-27] MEDS ORDERED: ONDANSETRON INJ 2 MG/ML 2 ML VIAL IV STA (07:16)
[2018-11-27] MEDS ORDERED: ACETAMINOPHEN 325 MG TAB PO PRN (07:53)
[2018-11-27] MEDS ORDERED: NITROGLYCERIN SL 0.4 MG/TAB TAB SL PRN (07:53)
[2018-11-27] MEDS ORDERED: ONDANSETRON INJ 2 MG/ML 2 ML VIAL IV PRN (07:53)
[2018-11-27] MEDS ORDERED: SODIUM CHLORIDE 0.9% 1000ML 1,000 ML IV SCH (08:00)
[2018-11-27] MEDS ORDERED: NITROGLYCERIN 2% OINTMENT 30GM TUBE EXT STA (08:20)
[2018-11-27] MEDS ORDERED: MoRPHine SULFATE 4 MG/ML 1 ML CARP\\VIAL IV PRN (08:34)
--- NOTE | 2018-11-27 08:35 | History & Physical Report ---
Date of Service November 27, 2018 Assessment & Plan (1) Chest pain: r/o ACS serial troponins echo already on ASA 324mg which patient has taken nitropaste ordered messaged Dr. Meza, Cardiology consulted (2) Elevated lipase: lipase 700s but no abdominal pain or any other GI symptoms will repeat (3) Multiple sclerosis: not in exacerbation on Tecfidera (4) Paroxysmal ventricular tachycardia: continue Diltiazem (5) Smoker: Nicotine patch ordered discussed with patient and his in detail they are agreeable, and comfortable with plan of care History of Present Illness Primary Care Provider: Angelica Harrell 58 year old male with history of MS, PVT, Smoker and other problems noted below presenting with left sided chest pain x few days. Patient reports left sided chest pain associated with palpitations intermittently for the past week, mostly while at rest. Occasionally, the pain would wake him up. 2 hours prior to admission, patient had similar chest pain, and was noted to be pale. He denies dyspnea, diaphoresis, nausea. At the ER, patient was received with slightly elevated BP. Troponin negative, EKG no signs of acute ischemia. He was given Nitro with very minimal relief of symptoms. He was also given Morphine which improved his chest pain. On my exam, patient was resting, not in distress. States chest pain is 5/10, radiating to left axilla, upper arm. No other symptoms. Allergies Allergy/AdvReac Type Severity Reaction Status Date / Time Bactrim Allergy Unknown wiped out Verified 06/04/18 23:24 good bacteria, became septic sulfamethoxazole Allergy Unknown wiped out Verified 11/27/18 06:29 good bacteria, became septic trimethoprim Allergy Unknown wiped out Verified 11/27/18 06:29 good bacteria, became septic Home Medications Home Medications Medication Instructions Recorded Confirmed Type Tecfidera 240 mg PO BID 11/27/18 11/27/18 History aspirin 325 mg PO DAILY 11/27/18 11/27/18 History atorvastatin 10 mg PO DAILY 11/27/18 11/27/18 History cholecalciferol (vitamin D3) 5,000 unit PO DAILY 11/27/18 11/27/18 History [Vitamin D3] diltiazem HCl 240 mg PO DAILY 11/27/18 11/27/18 History duloxetine 30 mg PO DAILY 11/27/18 11/27/18 History Past Med/Surg History Medical History Sepsis (Resolved) Adverse drug reaction (Resolved 03/31/14) Bronchitis with bronchospasm (Resolved 03/31/14) Chest pain (Acute) Pericarditis (Acute) Precordial chest pain (Acute) Hx of multiple sclerosis Family History Other Gallbladder disease HTN (hypertension) Heart disease Social History marital status: Current Living Situation: Spouse current occupational status: employed Other Information That Helps Us Care for You: No Feels Safe at Home: Yes Safety Concerns: Feels Safe At This Time Smoking Status: Current every day smoker Tobacco Type: cigarettes Cigarettes per Day: 15 Do You Dip or Chew Tobacco: No Hx Alcohol Use: Yes Alcohol type: beer Alcohol Intake Frequency: a few times a month Hx Substance Use: No Beliefs That Will Affect Care: None Preferred Language: Mongolian Physical Exam 2 Vital Signs (Past 24 Hours): Last Vital Signs Temp 36.6 C 11/27/18 06:08 Pulse 79 11/27/18 08:00 Resp 18 11/27/18 08:00 BP 118/73 11/27/18 08:00 Pulse Ox 97 11/27/18 08:00 Physical Exam: General- oriented x 3, not in distress, speaks in sentences with no effort or accessory muscle use Head- atraumatic Eyes- PERRL, EOMI, anicteric ENT- oropharynx clear Neck- supple, no JVD, no adenopathy, no thyromegaly; carotids +2/2, no bruits appreciated Lungs- clear to auscultation bilaterally, no rales/wheezes Heart- normal rate, regular rhythm; no murmur, no gallop, no rub appreciated Abdomen- normal bowel sounds, nondistended, soft, nontender, no masses or hepatosplenomegaly Extremities- no pretibial edema, no calf tenderness; peripheral pulses intact Neuro- alert, oriented x 3; CN 2-12 grossly intact; motor 5/5 bilaterally; sensation 100% on all extremities; no other gross focal neurologic deficits Skin- warm & dry Results & Data Laboratory Results noted and reviewed Code Status & VTE Plan VTE Prophylaxis Plan VTE Prophylaxis will be ordered: Yes _ (1) Chest pain Chest pain type: unspecified Ischemic chest pain type: Qualified Code(s): R07.9 - Chest pain, unspecified
[2018-11-27] MEDS ORDERED: ASPIRIN 81 MG ECTAB PO SCH (09:00)
[2018-11-27] MEDS ORDERED: NICOTINE 21 MG/24 HR TDSY TD SCH (09:00)
[2018-11-27] MEDS ORDERED: DULOXETINE HCL 30 MG CAP PO SCH (09:22)
[2018-11-27] MEDS ORDERED: ATORVASTATIN 10 MG TAB PO SCH (09:22)
[2018-11-27] MEDS ORDERED: CHOLECALCIFEROL 1,000 UNITS TAB PO SCH (09:22)
--- NOTE | 2018-11-27 11:52 | Consultation Report ---
DATE OF CONSULTATION: 11/27/2018 INPATIENT CARDIOLOGY CONSULTATION CONSULTATION REQUESTED BY: Dr. Dumas. REASON FOR CONSULTATION: Chest pain. HISTORY OF PRESENT ILLNESS: Mr. Lopez is a 58-year-old gentleman who follows with [facility] for history of symptomatic PACs who presented to [facility] Emergency Department early in the a.m. of 11/27/2018 with a complaint of chest pain. The patient states he woke up this morning with a heavy sensation across his left precordium along with numbness down his left arm. He became concerned and came to the Emergency Department. Upon further questioning, the patient states he has had this chest pain rather consistently for over a year now. He states the only thing that really changed this morning was the fact that he had left arm numbness associated with the chest discomfort; however, he has had left arm numbness previously due to his MS. The patient describes his discomfort as rather constant, but also at the same time he describes as waxing and waning. He states it is worse when he lays down and resolved when he sits up or ambulates. He also describes a sensation of skipped beats in his chest due to his longstanding history of PACs, but he also describes this sensation as chest discomfort as well. Otherwise, he denies any shortness of breath. He states that he was diaphoretic overnight, but he is diaphoretic every night, nothing out of the normal and denies any associated nausea, lightheadedness, dizziness, or syncope. Of note, the patient states that his chest discomfort is exactly the same as it was in March of this year when he underwent nuclear stress testing here at [facility] that was nonischemic. Again, nothing has changed. PAST SURGICAL HISTORY: 1. Knee surgery. 2. Spinal fusion. 3. Hernia repair. 4. Tonsil and adenoidectomy. 5. Finger surgery. MEDICAL ILLNESSES: 1. Multiple sclerosis. 2. Symptomatic PACs. 3. Tobacco abuse, ongoing. 4. Dyslipidemia. 5. History of symptomatic nonsustained ventricular tachycardia. 6. Degenerative disc disease. FAMILY HISTORY: Denies any premature coronary artery disease or sudden cardiac . SOCIAL HISTORY: The patient smokes a little less than a pack a day and has so for in his entire life. Drinks occasional alcohol. Denies any recreational drug use. He is and lives at home with his . He is currently employed as a [employer]. REVIEW OF SYSTEMS: As per HPI, all other review of systems reviewed and negative at this time. ALLERGIES: BACTRIM. MEDICATIONS AN OUTPATIENT: 1. Aspirin 325 mg daily. 2. Atorvastatin 10 mg daily. 3. Matzim daily. 4. Cymbalta daily. 5. Tecfidera b.i.d. PHYSICAL EXAMINATION: VITALS: Temperature 36.6, pulse 75, respiratory rate 12, blood pressure 123/72. GENERAL: Awake, alert, oriented x3 in no acute distress. HEENT: Normocephalic, atraumatic. Pupils equal, round, react to light and accommodation. Anicteric sclerae. Moist mucous membranes. NECK: No JVD, no bruit. CARDIOVASCULAR: Regular. No S4. Normal S1 and S2. No S3. No murmurs, rubs or gallops. PULMONARY: Clear to auscultation bilaterally. No rales, rhonchi, or wheezing. ABDOMEN: Bowel sounds x4, soft. No rebound, guarding, tenderness. No organomegaly. EXTREMITIES: No clubbing, cyanosis or edema. +2 pedal pulses bilaterally. SKIN: Warm and dry. MUSCULOSKELETAL: Direct palpation of the left 5th intercostal space mid axillary line was able to reproduce his chest discomfort. A 12-lead EKG performed in the Emergency Department x2 independently reviewed at this time shows normal sinus rhythm, left axis deviation. No signs of active ischemia. A 2D echocardiogram was read as compared to previous study, no significant change, normal LV chamber size with mild concentric LVH, normal LV systolic function, EF 60-65%, no segmental electrical wall motion abnormalities are noted, normal diastolic function. No significant valvular pathology. IMPRESSION: 1. Musculoskeletal chest pain. 2. Neuropathy. 3. Tobacco abuse. 4. Symptomatic PACs. RECOMMENDATIONS: Mr. Lopez and his were counseled. Given the fact that his chest discomfort is reproducible along with the fact that it is unchanged compared to the pain he was having at the time of a normal nuclear stress test along with the fact that his EKG is unremarkable as is his echocardiogram that I do not see any cardiac component to his discomfort. For completeness sake, his troponins will be trended per protocol and should they be unremarkable x3, it is okay to discharge the patient to home and followup with his primary well logging [facility] in [place]. The patient and his both state they understand and agree with this plan.
[2018-11-27] MEDS ORDERED: INFLUENZA ADMINISTRATION CHARGE ONE (14:15)
[2018-11-27] MEDS ORDERED: INFLUENZA VIRUS QUAD VACCINE 0.5 ML SYR IM ONE (14:15)
[2018-11-27 18:49] LABS: Troponin I < 0.015 ng/ml (0-0.045)
--- NOTE | 2018-11-27 19:06 | Discharge Summary ---
Date of Service November 27, 2018 Admission HPI Per Admitting Provider 58 year old male with history of MS, PVT, Smoker and other problems noted below presenting with left sided chest pain x few days. Patient reports left sided chest pain associated with palpitations intermittently for the past week, mostly while at rest. Occasionally, the pain would wake him up. 2 hours prior to admission, patient had similar chest pain, and was noted to be pale. He denies dyspnea, diaphoresis, nausea. At the ER, patient was received with slightly elevated BP. Troponin negative, EKG no signs of acute ischemia. He was given Nitro with very minimal relief of symptoms. He was also given Morphine which improved his chest pain. On my exam, patient was resting, not in distress. States chest pain is 5/10, radiating to left axilla, upper arm. No other symptoms. Admission Exam Per Admitting Provider Vital Signs (Past 24 Hours): Last Vital Signs Temp 36.6 C 11/27/18 06:08 Pulse 79 11/27/18 08:00 Resp 18 11/27/18 08:00 BP 118/73 11/27/18 08:00 Pulse Ox 97 11/27/18 08:00 Physical Exam: General- oriented x 3, not in distress, speaks in sentences with no effort or accessory muscle use Head- atraumatic Eyes- PERRL, EOMI, anicteric ENT- oropharynx clear Neck- supple, no JVD, no adenopathy, no thyromegaly; carotids +2/2, no bruits appreciated Lungs- clear to auscultation bilaterally, no rales/wheezes Heart- normal rate, regular rhythm; no murmur, no gallop, no rub appreciated Abdomen- normal bowel sounds, nondistended, soft, nontender, no masses or hepatosplenomegaly Extremities- no pretibial edema, no calf tenderness; peripheral pulses intact Neuro- alert, oriented x 3; CN 2-12 grossly intact; motor 5/5 bilaterally; sensation 100% on all extremities; no other gross focal neurologic deficits Skin- warm & dry Principal Diagnosis CHEST PAIN, LIKELY MUSCULOSKELETAL Discharge Exam bp 130/64 hr 80 Physical Exam: General- oriented x 3, not in distress, speaks in sentences with no effort or accessory muscle use Head- atraumatic Eyes- PERRL, EOMI, anicteric ENT- oropharynx clear Neck- supple, no JVD, no adenopathy, no thyromegaly; carotids +2/2, no bruits appreciated Lungs- clear to auscultation bilaterally, no rales/wheezes Heart- normal rate, regular rhythm; no murmur, no gallop, no rub appreciated Abdomen- normal bowel sounds, nondistended, soft, nontender, no masses or hepatosplenomegaly Extremities- no pretibial edema, no calf tenderness; peripheral pulses intact Neuro- alert, oriented x 3; CN 2-12 grossly intact; motor 5/5 bilaterally; sensation 100% on all extremities; no other gross focal neurologic deficits Skin- warm & dry Discharge Data Allergies Allergy/AdvReac Type Severity Reaction Status Date / Time Bactrim Allergy Unknown wiped out Verified 06/04/18 23:24 good bacteria, became septic sulfamethoxazole Allergy Unknown wiped out Verified 11/27/18 06:29 good bacteria, became septic trimethoprim Allergy Unknown wiped out Verified 11/27/18 06:29 good bacteria, became septic Consultations 11/27/18 07:[address] COLÓN 11/27/18 07:34 ED Decision to Admit Stat 11/27/18 07:53 Consult Cardiology Routine Procedures Performed XR chest 1V portable CLINICAL HISTORY: Atypical chest pain COMPARISON STUDY: 03/30/2018 FINDINGS: The cardiac and mediastinal contours are normal. There is no evidence of focal pulmonary consolidation. There is no evidence of failure. No pleural effusions are visualized. IMPRESSION: No active disease in the chest. Electronically signed by: Jurgen Raza M.D. 11/27/2018 6:53 AM Echo: Normal LV chamber size, with mild concentric LVH Normal LV systolic function EF 60-65% NO segmental left ventricular wall motion abnormalities noted. Normal diastolic function. No significant valvular pathology. Hospital Course (1) Chest pain: ACS ruled out troponins x 3 negative EKG no signs of ischemia echo: no wall motion abnormalities Cardiology consulted, evaluated by Dr. Colón chest pain felt to be musculoskeletal etiology chest pain improved with Morphine IV one dose advised to continue ASA follow up with [facility] in [place] (2) Elevated lipase: lipase 700s but no abdominal pain or any other GI symptoms repeat was 157, no GI symptoms (3) Multiple sclerosis: not in exacerbation on Tecfidera (4) Paroxysmal ventricular tachycardia: continue Diltiazem (5) Smoker: Nicotine patch ordered discussed with patient and his in detail they are agreeable, and comfortable with plan of care dc home ff up with PCP in 3-5 days ff up with [facility] in [place] as scheduled Total Time Total Time Spent Total Time Spent (In Minutes): 30 minutes Discharge Plan Discharge Items Patient Disposition: Home - Self-Care Reason For Visit: LEFT ARM NUMB,CHEST PAIN,PALPITATIONS Discharge Diagnosis: CHEST PAIN Discharge Goals: Diagnostic testing and Therapeutic intervention Activity: As commented below Activity Comment: NO HEAVY EXERTION UNTIL RE-EVALUATED BY PRIMARY CARE PHYSICIAN Lifting: Wait until after follow-up appointment Exercise/Sports: Wait until after follow-up appointment Driving/Machine Use Comment: NO DRIVING UNTIL RE-EVALUATED BY PRIMARY CARE PHYSICIAN Non-emergency contact: Primary Care Provider Call non-emergency contact if: you have any medication questions, your symptoms worsen, your pain is not controlled, your pain is worsening, your pain is unusual for you, your pain is concerning for you and you have a fever Diet: Heart Healthy Addtl Provider Instructions: PLEASE FOLLOW UP WITH YOUR PRIMARY CARE PHYSICIAN IN 3-5 DAYS. CALL PRIMARY CARE PHYSICIAN OR RETURN TO THE ER IMMEDIATELY IF WITH WORSENING OF SYMPTOMS. CONTINUE YOUR USUAL MEDICATION REGIMEN. ALWAYS TAKE ASPIRIN WITH A FULL STOMACH. Prescriptions: Continue aspirin 325 mg Tablet,Delayed Release (Dr/Ec) 325 mg PO DAILY RF: 0 cholecalciferol (vitamin D3) [Vitamin D3] 5,000 unit Tablet 5,000 unit PO DAILY RF: 0 atorvastatin 10 mg Tablet 10 mg PO DAILY RF: 0 diltiazem HCl 240 mg Capsule,Extended Release 24 Hr 240 mg PO DAILY RF: 0 duloxetine 30 mg Capsule,Delayed Release(Dr/Ec) 30 mg PO DAILY RF: 0 Tecfidera tablet 240 mg PO BID RF: 0 Stand-Alone Forms: [facility] Discharge Orders: Discharge Order (Routine); Ordered 11/27/18 Ordered By: Brian Donnelly Admission Data Admit Date/Time: 11/27/18 07:53 Attending Provider: Brian Donnelly Admit Provider: Brian Donnelly Primary Care Provider: Angelica Harrell Other Providers: Yang Colón ; Brian Donnelly ; Reinier Corley ; Shaan Mclean ; Zachary Rosario ; Buzz Bates ; Humberto Orozco ; Adali Weathers ; Shelley Cook Service: Telemetry Other Interventions: Discharge Summary Assessment (RN) Last Done: 11/27/18 19:12 DC Date/Time DO NOT enter until pt leaves facility: 11/27/18 19:27
--- NOTE | 2018-11-28 14:48 | Emergency Department Note ---
Entered by Cecilia Dweitt acting as a scribe for History of Present Illness General Chief complaint: Chest Pain Stated complaint: LEFT ARM NUMB,CHEST PAIN,PALPITATIONS Time Seen by Provider: 11/27/18 06:24 Source: patient History of Present Illness Onset (ago): week(s) (1.5 weeks ago) Location: chest Radiation: extremity (left shoulder) Pain Consistency: + intermittent Maximum Pain Intensity: 8 Quality: + other (pressure, pouding, skipping) Relieved By: + other (standing and sitting up) Exacerbated By: + other (lying flat) Associated symptoms: + denies other symptoms (pain being worse with movement of left arm) and + headaches The patient is a 58 year old male who presents to the Emergency Room with complaints of intermittent chest pain starting 1.5 weeks ago. The patient states that the chest pain is on the left side and radiates into his shoulder. He states that it feels like a pressure and his heart is pounding and skipping. He reports that it has caused a numbness down his left arm. He states that standing or sitting straight up makes the pain better, but lying flat makes it worse. The patient states that he has had this before when he had PVCs. He notes that he does follow with a hydraulic specialist, but hasnt seen him since his last stress test in March of last year. The patient complains of a headache. He notes that he has a history of MS and when he has a flare, he gets lightheaded. The patient denies a history of a heart attack, a history of a cardiac catheterization, the use of steroids for his MS, and the pain being worse with moving his left arm. The patient notes that he did take a 325 mg of Aspirin. Home Medications Home Medications Medication Instructions Recorded Confirmed Type Tecfidera 240 mg PO BID 11/27/18 11/27/18 History aspirin 325 mg PO DAILY 11/27/18 11/27/18 History atorvastatin 10 mg PO DAILY 11/27/18 11/27/18 History cholecalciferol (vitamin D3) 5,000 unit PO DAILY 11/27/18 11/27/18 History [Vitamin D3] diltiazem HCl 240 mg PO DAILY 11/27/18 11/27/18 History duloxetine 30 mg PO DAILY 11/27/18 11/27/18 History Allergies Allergy/AdvReac Type Severity Reaction Status Date / Time Bactrim Allergy Unknown wiped out Verified 06/04/18 23:24 good bacteria, became septic sulfamethoxazole Allergy Unknown wiped out Verified 11/27/18 06:29 good bacteria, became septic trimethoprim Allergy Unknown wiped out Verified 11/27/18 06:29 good bacteria, became septic Past Med/Surg History Medical History Sepsis (Resolved) Adverse drug reaction (Resolved 03/31/14) Bronchitis with bronchospasm (Resolved 03/31/14) Chest pain (Acute) Pericarditis (Acute) Precordial chest pain (Acute) Hx of multiple sclerosis Family History Other Gallbladder disease HTN (hypertension) Heart disease Social History marital status: Current Living Situation: Spouse current occupational status: employed Other Information That Helps Us Care for You: No Feels Safe at Home: Yes Safety Concerns: Feels Safe At This Time Smoking Status: Current every day smoker Tobacco Type: cigarettes Cigarettes per Day: 15 Do You Dip or Chew Tobacco: No Hx Alcohol Use: Yes Alcohol type: beer Alcohol Intake Frequency: a few times a month Hx Substance Use: No Beliefs That Will Affect Care: None Preferred Language: Togolese Review of Systems See HPI for pertinent positives & negatives. and A total of 10 systems reviewed and were otherwise negative Physical Exam Vital Signs Vital Signs - 24 hr 11/27/18 16:16 11/27/18 19:12 Temperature 37.0 C 37.0 C Temperature Source Oral Pulse Rate [Right Finger] 80 80 Respiratory Rate 20 20 Blood Pressure [Left Arm] 134/74 Blood Pressure [Right Arm] 130/64 130/64 Blood Pressure Mean [Right Arm] 86 Pulse Oximetry 96 96 GENERAL: Awake, alert, well-appearing, in no distress HENT: Normocephalic, atraumatic. Oropharynx unremarkable. EYES: Normal conjunctiva. Sclera non-icteric. NECK: Supple. No nuchal rigidity. FROM. No masses. RESPIRATORY: Clear to auscultation. No wheezes. No rales. Normal respiratory effort. CARDIAC: Normal rate. Normal rhythm. No murmurs. No rubs. Extremities warm and well perfused. Pulses equal. No JVD. GI: Soft, non-distended. No tenderness to palpation. No rebound or guarding. No masses. RECTAL: Deferred. MUSCULOSKELETAL: Atraumatic. Chest examination reveals no tenderness. The back is symmetrical on inspection without obvious abnormality. There is no CVA tenderness to palpation. No joint edema. LOWER EXTREMITIES: Calves are equal size bilaterally and non-tender. No edema. No discoloration. NEURO: Normal sensorium. No sensory or motor deficits noted. Course 0636: Past medical records reviewed. The patient was evaluated in room C7, and a complete history and physical examination were performed. 0712: I reevaluated the patient and he is still having chest pain. I discussed his test results and the treatment plan with him. He verbally agrees and understands. 07: I reviewed the patient's case with Dr. Ean Flores. He would like the patient admitted. 0733: I reviewed the patient's case with MELISSA Tobias. She will evaluate the patient for further management. Consultations Consultation #1: I reviewed the patient's case with Dr. Ean Flores. He would like the patient admitted. Time: : Consultation #2: I reviewed the patient's case with MELISSA Tobias. She will evaluate the patient for further management. Time: :33 Administered Medications Discontinued Medications Acetaminophen (Tylenol) 650 mg PO Q4H PRN PRN Reason: Pain or Fever Stop: 12/27/18 07:52 Last Admin: 11/27/18 16:04 Dose: 650 mg Aspirin (Ecotrin Ectab) 81 mg PO DAILY [facility] Stop: 12/27/18 08:59 Last Admin: 11/27/18 10:14 Dose: Not Given Atorvastatin Calcium (Lipitor) 10 mg PO DAILY [facility] Stop: 12/27/18 09:21 Last Admin: 11/27/18 10:15 Dose: Not Given Diltiazem HCl (Dilacor Xr) 240 mg PO DAILY [facility] Stop: 12/27/18 09:21 Last Admin: 11/27/18 10:15 Dose: Not Given Duloxetine HCl (Cymbalta) 30 mg PO DAILY [facility] Stop: 12/27/18 09:21 Last Admin: 11/27/18 10:14 Dose: Not Given Sodium Chloride (Nss 1000ml) 1,000 mls @ 75 mls/hr IV .[id number] [facility] Stop: 12/27/18 07:59 Last Admin: 11/27/18 10:08 Dose: 75 mls/hr Influenza Virus Vaccine Quadrival (Flucelvax Quad Vaccine) 0.5 ml IM .ONCE ONE Stop: 11/27/18 14:16 Last Admin: 11/27/18 19:00 Dose: 0.5 ml Levalbuterol HCl (Xopenex 0.31mg/3 Ml) 0.31 mg NEB NOW STA Stop: 11/27/18 06:45 Last Admin: 11/27/18 06:59 Dose: 0.31 mg Miscellaneous (Order Awaiting Action) 1 ea N/A QS [facility] Stop: 12/27/18 08:59 Last Admin: 11/27/18 16:00 Dose: Not Given Admin: 11/27/18 10:09 Dose: Not Given Morphine Sulfate (Morphine Sulfate) 8 mg IV NOW STA Stop: 11/27/18 07:17 Last Admin: 11/27/18 07:32 Dose: 8 mg Nicotine (Nicoderm Cq) 21 mg TD QAM [facility] Stop: 12/27/18 08:59 Last Admin: 11/27/18 10:10 Dose: 21 mg Nitroglycerin (Nitrostat) 0.4 mg SL NOW STA Stop: 11/27/18 06:45 Last Admin: 11/27/18 06:49 Dose: 0.4 mg Nitroglycerin (Nitro-Bid 2%) 0.5 inch EXT Q6H STA Stop: 11/27/18 08:21 Last Admin: 11/27/18 08:25 Dose: 0.5 inch Ondansetron HCl (Zofran) 4 mg IV NOW STA Stop: 11/27/18 07:17 Last Admin: 11/27/18 07:32 Dose: 4 mg Vitamin D (Vitamin D3) 5,000 units PO DAILY [facility] Stop: 12/27/18 09:21 Last Admin: 11/27/18 10:15 Dose: Not Given Medical Decision Making Differential Diagnosis Differential diagnosis: Etiologies such as shingles, musculoskeletal pain, pericarditis, myocarditis, cardiac ischemia, pericardial tamponade, pneumonia, pneumothorax, pleural effusion, hemothorax, pleurisy, aortic pathology, pulmonary embolism, intra- abdominal process, as well as others were considered. Medical Records Attestation: I reviewed the patient's medical records. Home Medications Current Medication List: was personally reviewed by me Laboratory Data Attestation: I reviewed the patient's lab results. Result diagrams: 11/27/18 06:18 11/27/18 06:18 Lab Results 11/27/18 11/27/18 11/27/18 Range/Units 06:18 06:18 06:18 WBC 12.17 H (4.8-10.8) K/uL RBC 5.17 (4.7-6.1) M/uL Hgb 14.6 (14.0-18.0) g/dL Hct 44.9 (42-52) % MCV 86.8 (80-100) fL MCH 28.2 (25-34) pg MCHC 32.5 (32-36) g/dL RDW Std Deviation 50.0 H (36.4-46.3) fL RDW Coeff of Alessandra 15.8 H (11.5-14.5) % Plt Count 328 (130-400) K/uL MPV 10.4 (7.4-10.4) fL Immature Gran % (Auto) 0.2 % Neut % (Auto) 64.2 % Lymph % (Auto) 22.4 % [place] % (Auto) 9.9 % Eos % (Auto) 2.5 % Baso % (Auto) 0.8 % Immature Gran # (Auto) 0.03 H (0.00-0.02) K/uL Neut # (Auto) 7.80 H (1.4-6.5) K/uL Lymph # (Auto) 2.72 (1.2-3.4) K/uL [place] # (Auto) 1.21 H (0.11-0.59) K/uL Eos # (Auto) 0.31 (0-0.5) K/uL Baso # (Auto) 0.10 (0-0.2) K/uL D-Dimer (0-500) ug/L FEU Sodium 141 (136-145) mmol/L Potassium 3.9 (3.5-5.1) mmol/L Chloride 107 (98-107) mmol/L Carbon Dioxide 27 (21-32) mmol/L Anion Gap 7.0 (3-11) BUN 14 (7-18) mg/dl Creatinine 1.11 (0.6-1.4) mg/dl Est Cr Clr Drug Dosing 73.4 ml/min Est GFR ( Amer) 85.0 Est GFR (Non-Af Amer) 73.3 BUN/Creatinine Ratio 12.5 (10-20) Glucose 89 (70-99) mg/dl Calcium 8.6 (8.5-10.1) mg/dl Total Bilirubin 0.4 (0.2-1) mg/dl AST 8 L (15-37) U/L ALT 21 (12-78) U/L Alkaline Phosphatase 85 (45-117) U/L Total Creatine Kinase 70 (39-308) U/L CK-MB (CK-2) < 1.0 (0.5-3.6) ng/ml CK/CKMB % Calc TNP Troponin I < 0.015 (0-0.045) ng/ml NT-Pro-B Natriuret Pep 22 (0-900) pg/ml Total Protein 6.8 (6.4-8.2) gm/dl Albumin 3.7 (3.4-5.0) gm/dl Globulin 3.1 (2.5-4.0) gm/dl Albumin/Globulin Ratio 1.2 (0.9-2) Lipase 786 H (73-393) U/L 11/27/18 11/27/18 11/27/18 Range/Units 06:18 06:18 11:53 WBC (4.8-10.8) K/uL RBC (4.7-6.1) M/uL Hgb (14.0-18.0) g/dL Hct (42-52) % MCV (80-100) fL MCH (25-34) pg MCHC (32-36) g/dL RDW Std Deviation (36.4-46.3) fL RDW Coeff of Alessandra (11.5-14.5) % Plt Count (130-400) K/uL MPV (7.4-10.4) fL Immature Gran % (Auto) % Neut % (Auto) % Lymph % (Auto) % [place] % (Auto) % Eos % (Auto) % Baso % (Auto) % Immature Gran # (Auto) (0.00-0.02) K/uL Neut # (Auto) (1.4-6.5) K/uL Lymph # (Auto) (1.2-3.4) K/uL [place] # (Auto) (0.11-0.59) K/uL Eos # (Auto) (0-0.5) K/uL Baso # (Auto) (0-0.2) K/uL D-Dimer < 190 (0-500) ug/L FEU Sodium (136-145) mmol/L Potassium (3.5-5.1) mmol/L Chloride (98-107) mmol/L Carbon Dioxide (21-32) mmol/L Anion Gap (3-11) BUN (7-18) mg/dl Creatinine (0.6-1.4) mg/dl Est Cr Clr Drug Dosing ml/min Est GFR ( Amer) Est GFR (Non-Af Amer) BUN/Creatinine Ratio (10-20) Glucose (70-99) mg/dl Calcium (8.5-10.1) mg/dl Total Bilirubin (0.2-1) mg/dl AST (15-37) U/L ALT (12-78) U/L Alkaline Phosphatase (45-117) U/L Total Creatine Kinase (39-308) U/L CK-MB (CK-2) (0.5-3.6) ng/ml CK/CKMB % Calc Troponin I < 0.015 (0-0.045) ng/ml NT-Pro-B Natriuret Pep Cancelled (0-900) pg/ml Total Protein (6.4-8.2) gm/dl Albumin (3.4-5.0) gm/dl Globulin (2.5-4.0) gm/dl Albumin/Globulin Ratio (0.9-2) Lipase (73-393) U/L 11/27/18 Range/Units 18:12 WBC (4.8-10.8) K/uL RBC (4.7-6.1) M/uL Hgb (14.0-18.0) g/dL Hct (42-52) % MCV (80-100) fL MCH (25-34) pg MCHC (32-36) g/dL RDW Std Deviation (36.4-46.3) fL RDW Coeff of Alessandra (11.5-14.5) % Plt Count (130-400) K/uL MPV (7.4-10.4) fL Immature Gran % (Auto) % Neut % (Auto) % Lymph % (Auto) % [place] % (Auto) % Eos % (Auto) % Baso % (Auto) % Immature Gran # (Auto) (0.00-0.02) K/uL Neut # (Auto) (1.4-6.5) K/uL Lymph # (Auto) (1.2-3.4) K/uL [place] # (Auto) (0.11-0.59) K/uL Eos # (Auto) (0-0.5) K/uL Baso # (Auto) (0-0.2) K/uL D-Dimer (0-500) ug/L FEU Sodium (136-145) mmol/L Potassium (3.5-5.1) mmol/L Chloride (98-107) mmol/L Carbon Dioxide (21-32) mmol/L Anion Gap (3-11) BUN (7-18) mg/dl Creatinine (0.6-1.4) mg/dl Est Cr Clr Drug Dosing ml/min Est GFR ( Amer) Est GFR (Non-Af Amer) BUN/Creatinine Ratio (10-20) Glucose (70-99) mg/dl Calcium (8.5-10.1) mg/dl Total Bilirubin (0.2-1) mg/dl AST (15-37) U/L ALT (12-78) U/L Alkaline Phosphatase (45-117) U/L Total Creatine Kinase (39-308) U/L CK-MB (CK-2) (0.5-3.6) ng/ml CK/CKMB % Calc Troponin I < 0.015 (0-0.045) ng/ml NT-Pro-B Natriuret Pep (0-900) pg/ml Total Protein (6.4-8.2) gm/dl Albumin (3.4-5.0) gm/dl Globulin (2.5-4.0) gm/dl Albumin/Globulin Ratio (0.9-2) Lipase 157 (73-393) U/L Imaging Data Radiologist's Impression: Radiology results as stated below per my review and the radiologist's interpretation: XR chest 1V portable CLINICAL HISTORY: Atypical chest pain COMPARISON STUDY: 03/30/2018 FINDINGS: The cardiac and mediastinal contours are normal. There is no evidence of focal pulmonary consolidation. There is no evidence of failure. No pleural effusions are visualized.[ IMPRESSION: No active disease in the chest. Electronically signed by: Jurgen Raza M.D. 11/27/2018 6:53 AM ECG Data Attestation: I personally reviewed and interpreted this ECG as follows: Indication: chest pain Rate (beats per minute): 91 Rhythm: sinus rhythm Findings: + other (premature supraventricular complex); no ST depression and no ST elevation Blood Pressure Blood Pressure Findings: Elevated blood pressure Blood Pressure Disposition: elevated BP felt to be situational MDM Narrative This is a 58-year-old male who presents emergency department complaining of chest pain. Patient has had several stress tests however his chest pain has been reproducible with movement normal sinus rhythm. For this reason I did discuss the case with cardiology who asked that the patient be admitted to the hospital. Patient and family were in agreement with the treatment plan. Impression & Plan Chest pain Discharge Plan Visit Data *Final* Discharge Date/Time: 11/27/18 09:02 Chief Complaint: Chest Pain Stated Complaint: LEFT ARM NUMB,CHEST PAIN,PALPITATIONS ED Provider: Tristen Dumas Discharge Problem: Chest pain Patient Disposition: Admitted As Inpatient Discharge Instructions Interventions: ED Discharge Assessment Last Done: 11/27/18 09:02 The scribe's documentation has been prepared under my direction and personally reviewed by me in its entirety. I confirm that the note above accurately reflects all work, treatment, procedures, and medical decision making performed by me.
== END 2018-11-27 19:27 | disposition home or self-care (01) ==
LOC: 2N 06:06 → ED 06:06 → 2N 09:02

== ENCOUNTER 2020-03-25 19:53 | Observation (INO) ==
[2020-03-25] MEDS ORDERED: SODIUM CHLORIDE 0.9% 1000ML 2,000 ML IV ONE (20:40)
[2020-03-25] MEDS ORDERED: AMPICILLIN/SULBACTAM SOD 3,000 MG in 0.9 % SODIUM CHLORIDE 100 ML IV STA (20:40)
[2020-03-25 21:12] LABS: Basophils # (auto) 0.05 K/uL (0-0.2); Basophils % (auto) 0.4 %; Eosinophils # (auto) 0.15 K/uL (0-0.5); Eosinophils % (auto) 1.3 %; Hematocrit (blood only) 43.3 % (42-52); Hemoglobin 14.5 g/dL (14.0-18.0); Immature Granulocytes # (auto) 0.04 K/uL (0.00-0.02); Immature Granulocytes % (auto) 0.3 %; Lymphocytes # (auto) 1.27 K/uL (1.2-3.4); Lymphocytes % (auto) 10.8 %; Mean Corpuscular Hemoglobin 29.4 pg (25-34); Mean Corpuscular Hgb Conc 33.5 g/dL (32-36); Mean Corpuscular Volume 87.8 fL (80-100); Mean Platelet Volume 9.9 fL (7.4-10.4); Monocytes # (auto) 1.05 K/uL (0.11-0.59); Neutrophils # (auto) 9.16 K/uL (1.4-6.5); Neutrophils % (auto) 78.2 %; Platelet Count 312 K/uL (130-400); RDW Coefficient of Variation 14.9 % (11.5-14.5); RDW Standard Deviation 47.7 fL (36.4-46.3); Red Blood Count 4.93 M/uL (4.7-6.1); White Blood Count 11.72 K/uL (4.8-10.8)
[2020-03-25 21:27] LABS: BUN Creatinine Ratio 14.4 (10-20); Calcium 9.3 mg/dl (8.5-10.1); Creatinine Clr Calc Pharmacy 72.6 ml/min; Est GFR (African American) 88.6; Est GFR (Non-African American) 76.4; Potassium 3.8 mmol/L (3.5-5.1)
[2020-03-25] MEDS ORDERED: KETOROLAC 30 MG/ML VIAL IV STA (21:43)
[2020-03-25] MEDS ORDERED: MoRPHine SULFATE 4 MG/ML 1 ML CARP\\VIAL IV STA (21:43)
[2020-03-25] MEDS ORDERED: XYLOCAINE 1%/SOD BICARB 20 ML VIAL INFIL ONE (21:44)
--- NOTE | 2020-03-25 22:12 | Emergency Department Note ---
History of Present Illness General Chief complaint: Dental/Oral Stated complaint: ABSCESS IN MOUTH History of Present Illness Maximum Pain Intensity: 7 This patient is a 60-year-old male that returns to the emergency department complaining of ongoing facial swelling and pain. The patient was seen in the emergency department last evening. He was given IV antibiotics for a dental abscess. He was discharged home on oral antibiotics, which he has been taking as prescribed with no relief. He reports a fever of 102 F today. He also feels achy. He has been taking his oxycodone and acetaminophen with no relief. He denies any other infectious symptoms such as sinus congestion, sore throat or cough. No difficulty swallowing or breathing. Home Medications Home Medications Medication Instructions Recorded Confirmed Type aspirin 325 mg PO QAM 11/27/18 04/04/20 History atorvastatin 10 mg PO QAM 11/27/18 04/04/20 History Tecfidera 240 mg PO BID 08/27/19 04/04/20 History Trelegy Ellipta 1 inh INHALATION QAM PRN 01/18/20 04/04/20 History flecainide 100 mg PO Q12H 01/18/20 04/04/20 History methocarbamol 500 mg PO HS PRN 03/24/20 04/04/20 History acetaminophen [Acetaminophen Extra 1,000 mg PO Q6H PRN 03/25/20 04/04/20 History Strength] Allergies Allergy/AdvReac Type Severity Reaction Status Date / Time Bactrim Allergy Unknown wiped out Verified 06/04/18 23:24 good bacteria, became septic sulfamethoxazole AdvReac Unknown wiped out Verified 04/04/20 08:34 good bacteria, became septic trimethoprim AdvReac Unknown wiped out Verified 04/04/20 08:34 good bacteria, became septic Past Med/Surg History Medical History Adverse drug reaction (Resolved 03/31/14) Arrhythmia PVT-F/U DR [facility] Arthritis Bronchitis Bronchitis with bronchospasm (Resolved 03/31/14) Chest pain (Acute) Degenerative disc disease NECK GERD (gastroesophageal reflux disease) Hx of multiple sclerosis F/U [facility] LOWER EXTREMITIES NUMBNESS/ CHRONIC WEAKNESS/FATIGUE Neuropathy IDIOPATHIC HANDS AND FEET Pericarditis (Acute) Precordial chest pain (Acute) Sepsis (Resolved) Surgical History Fusion of spine X LOWER BACK X 3 2011 and 2014 History of arthroscopy LEFT KNEE History of colonoscopy History of esophagogastroduodenoscopy (EGD) History of herniorrhaphy 2014 Hx of hand surgery RIGHT TENDON REPAIR Hx of oral surgery (03/27/20) Intra-Oral Incision and Drainage; removal of buccal lesion; Extraction of tooth #20 Dr. 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 Feels Safe at Home: Yes Smoking Status: Current every day smoker Tobacco Type: cigarettes ; packs per day: 0.75 ; Cigarettes Per Day: 15 CIGS A DAY X 30+ YRS AGO ; Second Hand Exposure: Yes (FATHER SMOKED) ; Hx Alcohol Use: Yes Alcohol type: beer Alcohol Intake Frequency: Weekly Alcohol Intake Frequency Comment: 1 drink a week Hx Substance Use: No Review of Systems A total of 10 systems reviewed and were otherwise negative Physical Exam Vital Signs Vital Signs - 24 hr 03/25/20 19:58 03/25/20 21:12 Temperature 36.9 C Temperature Source Oral Pulse Rate 96 H Pulse Rate [Left Finger] 81 Pulse Rhythm Regular Pulse Strength Normal Respiratory Rate 20 22 Respiratory Effort / Characteristics Non-Labored Spontaneous Respiratory Depth Normal Respiratory Pattern Regular Blood Pressure 170/81 H Blood Pressure [Right Arm] 159/86 H Blood Pressure Mean 110 Blood Pressure Mean [Right Arm] 110 Blood Pressure Position Sitting Pulse Oximetry 97 95 Oxygen Delivery Method Room Air Sepsis Recent Fever Within 48 Hours No Sepsis Action Taken by Nursing No Action Required Constitutional WD/WN, vitals as above Eyes EOM intact bilaterally ENMT Significant gum erythema, edema noted at the left lower bicuspid area. Dentition is overall significantly poor. Multiple fractures and caries noted. Tenderness and edema noted over the left mandibular area. No edema noted in the hypoglossal area. Neck trachea midline Respiratory normal respiratory effort, lungs clear to auscultation Cardiovascular RRR, no murmur, no edema Gastrointestinal (Abdomen) normal bowel sounds, soft, nontender, no hepatosplenomegaly Musculoskeletal no cyanosis or clubbing, extremities motor strength 5/5 Skin no rashes, warm and dry Neurologic Alert and oriented x3. No focal motor deficits. Psychiatric Acting appropriately Course Course Patient was seen and examined Vital signs including blood pressure were reviewed medications list was verified with patient Labs were obtained, and a saline lock was established Medications ordered. Patient was reassessed. He was feeling slightly better. We discussed his work-up. He voiced understanding, and was in agreement with disposition. The case was discussed with the hospitalist service who kindly agreed to evaluate the patient for likely inpatient management. Consultations Consultation #1: Dr. Adams Administered Medications Discontinued Medications Acetaminophen (Tylenol) 650 mg PO Q4H PRN PRN Reason: pain/fever Stop: 04/25/20 01:14 Last Admin: 03/26/20 08:42 Dose: 650 mg Documented by: [id number] Aspirin (Ecotrin) 325 mg PO [facility] Stop: 04/25/20 08:59 Last Admin: 03/28/20 09:55 Dose: 325 mg Documented by: [id number] Admin: 03/27/20 08:45 Dose: 325 mg Documented by: [id number] Admin: 03/26/20 08:43 Dose: 325 mg Documented by: [id number] Atorvastatin Calcium (Lipitor) 10 mg PO [facility] Stop: 04/25/20 08:59 Last Admin: 03/28/20 09:35 Dose: 10 mg Documented by: [id number] Admin: 03/27/20 08:45 Dose: 10 mg Documented by: [id number] Admin: 03/26/20 08:43 Dose: 10 mg Documented by: [id number] Bupivacaine HCl (Marcaine/Epinephrine Carp) Confirm Administered Dose 9 ml .ROUTE .STK-MED ONE Stop: 03/27/20 13:35 Last Admin: 03/27/20 14:00 Dose: 3.6 ml Documented by: [id number] Chlorhexidine Gluconate (Peridex) Confirm Administered Dose 480 ml .ROUTE .STK- MED ONE Stop: 03/27/20 13:19 Last Admin: 03/27/20 14:00 Dose: 480 ml Documented by: [id number] Fentanyl Citrate (Fentanyl Citrate) 50 mcg IV Q5M PRN PRN Reason: PACU Use Only-Pain Stop: 03/27/20 20:58 Last Admin: 03/27/20 16:02 Dose: 50 mcg Documented by: [id number] Admin: 03/27/20 15:57 Dose: 50 mcg Documented by: [id number] Flecainide Acetate (Tambocor) 100 mg PO Q12H [facility] Stop: 04/25/20 08:59 Last Admin: 03/28/20 09:35 Dose: 100 mg Documented by: [id number] Admin: 03/27/20 20:17 Dose: 100 mg Documented by: [id number] Admin: 03/27/20 08:46 Dose: 100 mg Documented by: [id number] Admin: 03/26/20 20:55 Dose: 100 mg Documented by: [id number] Admin: 03/26/20 08:43 Dose: 100 mg Documented by: [id number] Hydromorphone HCl (Dilaudid) 0.5 mg IV Q3H PRN PRN Reason: Pain Stop: 04/09/20 01:14 Last Admin: 03/28/20 00:46 Dose: 0.5 mg Documented by: [id number] Admin: 03/27/20 20:15 Dose: 0.5 mg Documented by: [id number] Admin: 03/27/20 10:25 Dose: 0.5 mg Documented by: [id number] Admin: 03/26/20 23:53 Dose: 0.5 mg Documented by: [id number] Admin: 03/26/20 13:20 Dose: 0.5 mg Documented by: [id number] Ampicillin Sodium/Sulbactam Sodium 3,000 mg/ Sodium Chloride 108 mls @ 200 mls/hr IV NOW STA; Protocol Stop: 03/25/20 21:12 Last Infusion: 03/25/20 21:43 Dose: 0 mls/hr Documented by: [id number] Admin: 03/25/20 21:12 Dose: 200 mls/hr Documented by: [id number] Sodium Chloride (Nss 1000ml) 2,000 mls @ 999 mls/hr IV .Q2H1M ONE Stop: 03/25/20 22:40 Last Infusion: 03/25/20 23:15 Dose: 0 mls/hr Documented by: [id number] Admin: 03/25/20 21:04 Dose: 999 mls/hr Documented by: [id number] Sodium Chloride (Nss 1000ml) 1,000 mls @ 50 mls/hr IV .Q20H [facility] Stop: 04/25/20 01:14 Last Infusion: 03/28/20 10:18 Dose: 0 mls/hr Documented by: [id number] Infusion: 03/28/20 04:56 Dose: 50 mls/hr Documented by: [id number] Infusion: 03/28/20 04:17 Dose: 0 mls/hr Documented by: [id number] Infusion: 03/27/20 22:06 Dose: 50 mls/hr Documented by: [id number] Infusion: 03/27/20 21:36 Dose: 0 mls/hr Documented by: [id number] Infusion: 03/27/20 17:41 Dose: 50 mls/hr Documented by: [id number] Infusion: 03/27/20 17:11 Dose: 0 mls/hr Documented by: [id number] Admin: 03/27/20 17:05 Dose: 50 mls/hr Documented by: [id number] Infusion: 03/27/20 16:22 Dose: 100 mls/hr Documented by: [id number] Admin: 03/27/20 06:22 Dose: 100 mls/hr Documented by: [id number] Infusion: 03/27/20 06:22 Dose: 100 mls/hr Documented by: [id number] Infusion: 03/27/20 05:53 Dose: 100 mls/hr Documented by: [id number] Infusion: 03/26/20 21:29 Dose: 100 mls/hr Documented by: [id number] Infusion: 03/26/20 20:59 Dose: 0 mls/hr Documented by: [id number] Admin: 03/26/20 20:54 Dose: 100 mls/hr Documented by: [id number] Infusion: 03/26/20 20:54 Dose: 100 mls/hr Documented by: [id number] Admin: 03/26/20 11:04 Dose: 100 mls/hr Documented by: [id number] Infusion: 03/26/20 10:56 Dose: 0 mls/hr Documented by: [id number] Infusion: 03/26/20 02:25 Dose: 100 mls/hr Documented by: [id number] Infusion: 03/26/20 01:48 Dose: 0 mls/hr Documented by: [id number] Admin: 03/26/20 01:47 Dose: 100 mls/hr Documented by: [id number] Piperacillin Sod/Tazobactam (Sod 3.375 gm/ Dextrose) 115 mls @ 28.75 mls/hr IV Q8H CHRISTY; Protocol Stop: 03/26/20 17:00 Last Infusion: 03/26/20 18:12 Dose: 0 mls/hr Documented by: [id number] Admin: 03/26/20 13:20 Dose: 28.8 mls/hr Documented by: [id number] Infusion: 03/26/20 09:08 Dose: 0 mls/hr Documented by: [id number] Admin: 03/26/20 05:44 Dose: 28.8 mls/hr Documented by: [id number] Piperacillin Sod/Tazobactam (Sod 3.375 gm/ Dextrose) 115 mls @ 230 mls/hr IV ONE ONE; Protocol Stop: 03/26/20 01:59 Last Infusion: 03/26/20 02:25 Dose: 0 mls/hr Documented by: [id number] Admin: 03/26/20 01:47 Dose: 230 mls/hr Documented by: [id number] Ampicillin Sodium/Sulbactam Sodium 3,000 mg/ Sodium Chloride 108 mls @ 216 mls/hr IV Q6H CHRISTY; Protocol Stop: 04/02/20 21:59 Last Infusion: 03/28/20 10:18 Dose: 0 mls/hr Documented by: [id number] Admin: 03/28/20 09:41 Dose: 216 mls/hr Documented by: [id number] Infusion: 03/28/20 04:56 Dose: 0 mls/hr Documented by: [id number] Admin: 03/28/20 04:13 Dose: 216 mls/hr Documented by: [id number] Infusion: 03/27/20 22:06 Dose: 0 mls/hr Documented by: [id number] Admin: 03/27/20 21:36 Dose: 216 mls/hr Documented by: [id number] Infusion: 03/27/20 17:41 Dose: 0 mls/hr Documented by: [id number] Admin: 03/27/20 17:11 Dose: 216 mls/hr Documented by: [id number] Infusion: 03/27/20 11:06 Dose: 0 mls/hr Documented by: [id number] Admin: 03/27/20 10:21 Dose: 216 mls/hr Documented by: [id number] Infusion: 03/27/20 04:40 Dose: 0 mls/hr Documented by: [id number] Admin: 03/27/20 04:03 Dose: 216 mls/hr Documented by: [id number] Infusion: 03/26/20 21:29 Dose: 0 mls/hr Documented by: [id number] Admin: 03/26/20 20:59 Dose: 216 mls/hr Documented by: [id number] Ketorolac Tromethamine (Toradol) 30 mg IV NOW STA Stop: 03/25/20 21:44 Last Admin: 03/25/20 21:49 Dose: 30 mg Documented by: [id number] Lidocaine HCl (Buffered Lidocaine 1%) 20 ml INFIL NOW ONE Stop: 03/25/20 21:45 Last Admin: 03/25/20 22:05 Dose: Not Given Documented by: [id number] Miscellaneous (Order Awaiting Action) 1 ea N/A QS [facility] Stop: 04/25/20 02:29 Last Admin: 03/28/20 09:32 Dose: Not Given Documented by: [id number] Admin: 03/28/20 00:44 Dose: Not Given Documented by: [id number] Admin: 03/27/20 17:06 Dose: Not Given Documented by: [id number] Admin: 03/27/20 08:20 Dose: Not Given Documented by: [id number] Admin: 03/27/20 00:36 Dose: Not Given Documented by: [id number] Admin: 03/26/20 16:02 Dose: Not Given Documented by: [id number] Admin: 03/26/20 08:44 Dose: Not Given Documented by: [id number] Admin: 03/26/20 02:26 Dose: Not Given Documented by: [id number] Morphine Sulfate (Morphine Sulfate) 4 mg IV NOW STA Stop: 03/25/20 21:44 Last Admin: 03/25/20 21:49 Dose: 4 mg Documented by: [id number] Medical Decision Making Differential Diagnosis + gingival abscess, + dental caries, + dental abscess, + fracture of tooth, + dental fracture, + facial cellulitis and + Mark's angina Medical Records Attestation: I reviewed the patient's medical records. Home Medications Current Medication List: was personally reviewed by me Laboratory Data Attestation: I reviewed the patient's lab results. Result diagrams: 03/27/20 05:48 03/27/20 05:48 Lab Results 03/25/20 03/25/20 Range/Units 20:59 20:59 WBC 11.72 H (4.8-10.8) K/uL RBC 4.93 (4.7-6.1) M/uL Hgb 14.5 (14.0-18.0) g/dL Hct 43.3 (42-52) % MCV 87.8 (80-100) fL MCH 29.4 (25-34) pg MCHC 33.5 (32-36) g/dL RDW Std Deviation 47.7 H (36.4-46.3) fL RDW Coeff of Alessandra 14.9 H (11.5-14.5) % Plt Count 312 (130-400) K/uL MPV 9.9 (7.4-10.4) fL Immature Gran % (Auto) 0.3 % Neut % (Auto) 78.2 % Lymph % (Auto) 10.8 % [place] % (Auto) 9.0 % Eos % (Auto) 1.3 % Baso % (Auto) 0.4 % Immature Gran # (Auto) 0.04 H (0.00-0.02) K/uL Neut # (Auto) 9.16 H (1.4-6.5) K/uL Lymph # (Auto) 1.27 (1.2-3.4) K/uL [place] # (Auto) 1.05 H (0.11-0.59) K/uL Eos # (Auto) 0.15 (0-0.5) K/uL Baso # (Auto) 0.05 (0-0.2) K/uL Sodium 140 (136-145) mmol/L Potassium 3.8 (3.5-5.1) mmol/L Chloride 106 (98-107) mmol/L Carbon Dioxide 26 (21-32) mmol/L Anion Gap 7.0 (3-11) BUN 15 (7-18) mg/dl Creatinine 1.06 (0.6-1.4) mg/dl Est Cr Clr Drug Dosing 72.6 ml/min Est GFR ( Amer) 88.6 Est GFR (Non-Af Amer) 76.4 BUN/Creatinine Ratio 14.4 (10-20) Glucose 126 H (70-99) mg/dl Calcium 9.3 (8.5-10.1) mg/dl Blood Pressure Blood Pressure Findings: Elevated blood pressure Blood Pressure Disposition: elevated BP felt to be situational MDM Narrative This patient is a 60-year-old male that returns to the emergency department complaining of worsening pain and swelling to his left lower jaw and gumline. He does have what is likely an abscess. I reviewed his labs and imaging from last night. The patient has sustained leukocytosis. He now has a fever. He has been taking his antibiotics as prescribed. He does not seem to be improving. For this reason, it was felt that hospitalist consultation was warranted. He may have to be managed inpatient with IV antibiotics. The patient was in agreement. He will be evaluated by the hospitalist service for likely inpatient management. Impression & Plan Abscess, dental Discharge Plan Visit Data *Final* Discharge Date/Time: 03/26/20 01:02 Chief Complaint: Dental/Oral Stated Complaint: ABSCESS IN MOUTH ED Provider: Emmett Soria ED Midlevel Provider: Serena Cueto Discharge Problem: Abscess, dental Patient Disposition: Admitted As Inpatient Condition: Fair Discharge Instructions Interventions: ED Discharge Assessment Last Done: 03/26/20 01:02
[2020-03-26] MEDS ORDERED: ONDANSETRON INJ 2 MG/ML 2 ML VIAL IV PRN (01:15)
[2020-03-26] MEDS ORDERED: METHOCARBAMOL 500 MG TABLET PO PRN (01:15)
[2020-03-26] MEDS ORDERED: PIPERACILL/TAZOBAC CONSULT ACTIVE PRN (01:15)
[2020-03-26] MEDS ORDERED: ACETAMINOPHEN 325 MG TAB PO PRN (01:15)
[2020-03-26] MEDS ORDERED: PIPERACILLIN/TAZOBACTAM 3.375 GM in DEXTROSE 5% 100 ML IV ONE (01:30)
[2020-03-26] MEDS: SODIUM CHLORIDE 0.9% 1000ML 1,000 ML IV SCH ×3 (01:47→20:54)
[2020-03-26] MEDS ORDERED: FLUTICASONE FUROATE 100MCG 14 PUFFS/INHALER INH PRN (02:20)
[2020-03-26] MEDS ORDERED: UMECLIDINIUM/VILANTEROL 62.5/25MCG 7 PUFFS/INHALER INH PRN (02:22)
[2020-03-26] MEDS: PIPERACILLIN/TAZOBACTAM 3.375 GM in DEXTROSE 5% 100 ML IV SCH ×2 (05:44→13:20)
[2020-03-26 07:21] LABS: Basophils # (auto) 0.04 K/uL (0-0.2); Basophils % (auto) 0.4 %; Eosinophils # (auto) 0.18 K/uL (0-0.5); Hematocrit (blood only) 40.4 % (42-52); Hemoglobin 13.3 g/dL (14.0-18.0); Immature Granulocytes # (auto) 0.03 K/uL (0.00-0.02); Immature Granulocytes % (auto) 0.3 %; Lymphocytes # (auto) 1.16 K/uL (1.2-3.4); Lymphocytes % (auto) 12.8 %; Mean Corpuscular Hemoglobin 28.9 pg (25-34); Mean Corpuscular Hgb Conc 32.9 g/dL (32-36); Mean Corpuscular Volume 87.8 fL (80-100); Mean Platelet Volume 9.9 fL (7.4-10.4); Monocytes # (auto) 1.03 K/uL (0.11-0.59); Monocytes % (auto) 11.3 %; Neutrophils # (auto) 6.64 K/uL (1.4-6.5); Neutrophils % (auto) 73.2 %; Platelet Count 276 K/uL (130-400); RDW Coefficient of Variation 15.1 % (11.5-14.5); RDW Standard Deviation 48.2 fL (36.4-46.3); White Blood Count 9.08 K/uL (4.8-10.8)
--- NOTE | 2020-03-26 08:03 | History and Physical Report ---
DATE OF ADMISSION: 03/25/2020 CHIEF COMPLAINT: Dental infection. HISTORY OF PRESENT ILLNESS: This is a 60-year-old male with past medical history significant for hyperlipidemia, chronic allergic rhinitis, history of paroxysmal SVT, Orthostasis, duodenal ulcer, history of degeneration of lumbar disc, multiple sclerosis, history of optic neuritis, tobacco abuse disorder, presents with ongoing left-sided facial swelling and pain in his left lower mandibular region. The patient was in the ER yesterday where a face CT was done which showed periapical lucency and abscess of the left mandibular premolar. He was discharged on clindamycin. The patient's symptoms were not improving and he was not able to open the mouth and he was not feeling well, so he came back here. White count is 11.7 .Getting admitted for dental abscess. Denies any other complaints. Currently resting comfortably and hemodynamically stable. Has some mild headache, pain in his left mandibular radiating to his back of the neck. No blurred visions. No earache, no runny nose, no sore throat. Appetite is okay. No cough, no chest pain, no shortness of breath. He was nauseous earlier, but it has improved. No abdominal pain. Normal bowel and bladder movements. No swelling in the legs, no rash. Lives with his , ambulates okay. ALLERGIES: BACTRIM. PAST MEDICAL HISTORY: As mentioned above. PAST SURGICAL HISTORY: Implant mesh with abdominal hernia, lumbar fusion surgery, tonsillectomy, adenoidectomy, repair of the right finger tendon, repair of incisional hernia, repair of the left knee ligament. MEDICATIONS: The patient is on Robaxin 500 mg p.o. at bedtime p.r.n.,Flecainide 100 mg p.o. b.i.d., Tecfidera 240 mg p.o. b.i.d., Breo Ellipta 1 inhalation in the a.m. p.r.n., atorvastatin 10 mg in the a.m., aspirin 325 mg in the a.m., , clindamycin 300 mg p.o. q. 6 hours for 10 days. FAMILY HISTORY: Significant for father had COPD, lung disorder, mother has hypertension, brother has migraines, and a brother has rheumatic fever. SOCIAL HISTORY: , smokes three-quarters of a pack a day for last 30 years. Alcohol rare. No drug use. REVIEW OF SYSTEMS: As per HPI. Rest of the review of systems negative. PHYSICAL EXAMINATION: GENERAL: The patient is of moderate build, not in acute distress. VITAL SIGNS: Temperature 36.9, pulse 83, respiratory rate 20, blood pressure 148/86, oxygen 96% on room air. HEENT: No pallor, no icterus. Difficulty opening the mouth and thickening of the mucosa of the lower mandibular region. No obvious drainage seen. NECK: No JVD, supple. CARDIOVASCULAR: S1, S2 heard. Regular rate and rhythm, no murmur, no gallop. RESPIRATORY SYSTEM: Normal AP diameter. No accessory muscle use. No wheezing, no crackles. ABDOMEN: Soft, bowel sounds present, nontender. No distention. CENTRAL NERVOUS SYSTEM: Cranial nerves II-XII grossly intact. Nonfocal. EXTREMITIES: No edema, no erythema. LABORATORY DATA: WBC 11.7, hemoglobin 14.5, hematocrit 43.3, platelets 112. Sodium 140, potassium 3.8, chloride 106, bicarbonate 26, BUN 15, creatinine 1.06, serum glucose 126, calcium 9.3. ASSESSMENT AND PLAN: This is a 60-year-old male who presents with dental infection. 1. Dental infection. f Imaging studies done yesterday showed periapical lucency and abscess of the left mandibular premolar. Failed outpatient clindamycin. Started him on IV Zosyn. We will keep him n.p.o., IV Dilaudid p.r.n., IV antiemetics p.r.n. Consult oral surgery in the a.m. for further recommendations. 2. History of paroxysmal supraventricular tachycardia. On flecainide we will monitor. 3. Hyperlipidemia, on statin. 4. History of multiple sclerosis, on Tecfidera. 5. Deep venous thrombosis prophylaxis, sequential compression devices. DISPOSITION: Observe in medical floor. Expect to discharge home and follow with family doctor. Level 1 full code. MTDD
[2020-03-26 08:07] LABS: BUN Creatinine Ratio 11.8 (10-20); Calcium 8.8 mg/dl (8.5-10.1); Creatinine Clr Calc Pharmacy 90.5 ml/min; Est GFR (African American) 110.5; Est GFR (Non-African American) 95.4
[2020-03-26] MEDS: FLECAINIDE ACETATE 100 MG TABLET PO SCH ×2 (08:43→20:55)
[2020-03-26] MEDS: ATORVASTATIN 10 MG TAB PO SCH (08:43)
[2020-03-26] MEDS: ASPIRIN 325 MG ECTAB PO SCH (08:43)
[2020-03-26] MEDS: HYDROmorphone INJ 0.5 MG/0.5 ML SYR IV PRN ×2 (13:20→23:53)
--- NOTE | 2020-03-26 15:07 | Surgery Consultation ---
Date of Consultation March 26, 2020 Oral Maxillofacial Surgery Exam Present Complaint: I have pain/swelling/drainage from my infected tooth lower left side, swelling started this morning. Symptoms have been ongoing for a while they would come and go. A detailed oral exam was completed. Finding--Subperiosteal and buccal space abscess associated with the lower left Pre-molar , tender gingival tissue with deep pocket formation.Tooth is grossly decayed and removal is clinical indicated. CT scan reviewed---noted the radiolucent at apex of # 20-21 area. See report Soft tissue of the floor of the mouth and the subperiosteal area lower left is grossly swollen, swelling submandibular area beginning to swell as well. The tongue, hard/soft palate, posterior pharyngeal area all with in normal limits, no pathology or abnormal findings noted. Cancer exam--No lesions noted that require follow up or Bx. Oral Care---Overall oral care is fair Occlusion---Class I missing teeth TMJ exam---No pop, clicking, pain, good ROM, No history of TMJ injury or dysfunction Periodontal exam---advanced periodontal dx noted. Neck is supple, FROM, Able to extend and flex neck w/o difficulty, no masses, no abnormalities, no airway issues, no evidence of sleep apnea. Plan: Set up with general anesthesia in hospital for extraction of tooth # 21 and intraoral I&D of the floor of the mouth and subperiosteal infection. Physical exam completed I reviewed the treatment plan and consent with the patient. Understanding was expressed. Time was given for questions regarding the surgery, risks and post op care. The procedure will be set up in tomorrow in OR due to COVID Protocol . Review of informed consent with patient Reason for surgery to remove tooth and I&D: The tooth is infected urgent removal is indicated and medically necessary. Risks discussed: Pain,swelling,infection, dry socket, delayed healing, nerve injury to face,lips,tongue,chin area which could be permanent (rare). TMJ, jaw stiffness, change in bite (rare), ear pain (referred). Home care reviewed--tooth brushing, rinsing, follow up care with Dr Alicea, diet=[id number] dental. Discussed activity level, driving/work while on Rx pain meds. Plan for the GA and surgery at Hospital tomorrow. History of Present Illness Attending Physician: Sky Valenzuela MD Allergies Allergy/AdvReac Type Severity Reaction Status Date / Time Bactrim Allergy Unknown wiped out Verified 06/04/18 23:24 good bacteria, became septic sulfamethoxazole AdvReac Unknown wiped out Verified 03/26/20 01:17 good bacteria, became septic trimethoprim AdvReac Unknown wiped out Verified 03/26/20 01:17 good bacteria, became septic Home Medications Home Medications Medication Instructions Recorded Confirmed Type aspirin 325 mg PO QAM 11/27/18 03/25/20 History atorvastatin 10 mg PO QAM 11/27/18 03/25/20 History Tecfidera 240 mg PO BID 08/27/19 03/25/20 History Trelegy Ellipta 1 inh INHALATION QAM PRN 01/18/20 03/25/20 History flecainide 100 mg PO Q12H 01/18/20 03/25/20 History methocarbamol 500 mg PO HS PRN 03/24/20 03/25/20 History acetaminophen [Acetaminophen Extra 1,000 mg PO Q6H PRN 03/25/20 03/25/20 History Strength] clindamycin HCl 300 mg PO Q6H 10 Days #40 cap 03/25/20 03/25/20 Rx Patient History Medical History Adverse drug reaction (Resolved 03/31/14) Arrhythmia PVT-F/U DR [facility] Bronchitis with bronchospasm (Resolved 03/31/14) Chest pain (Acute) Degenerative disc disease NECK GERD (gastroesophageal reflux disease) [facility]TREM[facility] NUMBNESS/ CHRONIC WEAKNESS/FATIGUE Neuropathy IDIOPATHIC HANDS AND FEET Pericarditis (Acute) Precordial chest pain (Acute) Sepsis (Resolved) Surgical History Fusion of spine X LOWER BACK X 3 History of arthroscopy LEFT KNEE History of colonoscopy History of esophagogastroduodenoscopy (EGD) History of herniorrhaphy Hx of hand surgery RIGHT TENDON REPAIR Family History Father Family history of reaction to anesthesia REQUIRES MORE ANESTHESIA-"DOESN'T WORK" Other Gallbladder disease Heart disease Hypertension Social History Preferred Language: Kyrgyz Communication Ability: Effective Corrections Unit Supervisor Required: No Beliefs That Will Affect Care: None marital status: Current Living Situation: Spouse current occupational status: employed Other Information That Helps Us Care for You: No Feels Safe at Home: Yes Safety Concerns: Feels Safe At This Time Smoking Status: Current every day smoker Tobacco Type: cigarettes ; Cigarettes Per Day: 15 CIGS A DAY X 30+ YRS AGO ; Do You Dip or Chew Tobacco: No ; Second Hand Exposure: Yes (FATHER SMOKED) ; Hx Alcohol Use: Yes Alcohol type: beer Hx Substance Use: No Results & Data Vital Signs (Past 12 Hours) Vital Signs Temp Pulse Resp BP Pulse Ox 03/26/20 07:22 36.9 C 80 16 156/82 H 95 PG Care Time/CCT Total # of Minutes Spent Total Time Spent with Patient: Total time spent is greater than 50% in co ordination of care (as documented) at patient's floor/unit and/or counseling patient: Coding Level of Care Code 28264 Inpt Consult Level 3
--- NOTE | 2020-03-26 16:54 | Hospitalist Progress Note ---
Date of Service March 26, 2020 Assessment & Plan (1) Dental infection: Left Mandibular Premolar Abscess Subperiosteal Infection Fact CT:Periapical lucency/abscess of a left mandibular premolar. No rim- enhancing fluid collection to suggest an abscess. Secretions with moderate mucosal thickening within the left maxillary sinus. Planned for extraction of #21 tooth and I&D Appreciate oral maxillofacial surgery input Continue antibiotics--Unasyn Blood Culture:pending Pain control NPO for now H/O Paroxysmal supraventricular tachycardia. On flecainide monitor Hyperlipidemia on statin. H/O multiple sclerosis On Tecfidera DVT Px: SCDs Re: planned for surgery Code Status Full Code Disposition Expect to discharge home when stable Admission and Anticipated Discharge Date Admission Date: March 26, 2020 Subjective Patient is seen and examined at bedside States having left facial/dental pain Also reports dysphagia Denies any chest pain, SOB, dizziness, nausea, abd pain Offers no other complaints Review of Systems Review of Systems: All systems reviewed & are unremarkable except as noted in HPI & below Physical Exam Physical Exam: Physical Exam: Vitals signs as noted above General Appearance:Moderately built and nourished, no apparent distress Head: normocephalic, Atraumatic, + left periosteal area swelling Eyes: normal inspection, EOMI Neck: supple, Trachea midline Respiratory/Chest: Normal breath sounds, CTA Cardiovascular: S1, S2, No murmur Abdomen/GI:Soft, Non tender, Bowel sounds present Extremities/Musculoskelatal:normal inspection, no edema Neurologic/Psych:AAOX3, grossly no focal neurological deficits Skin: normal color, warm Results & Data Results & Data ([facility]) Vital Signs (Past 12 Hours) Vital Signs Temp Pulse Resp BP Pulse Ox 03/26/20 15:44 36.6 C 70 16 146/85 H 95 03/26/20 07:22 36.9 C 80 16 156/82 H 95 Laboratory Results Short CBC 03/25/20 03/26/20 Range/Units 20:59 06:56 WBC 11.72 H 9.08 (4.8-10.8) K/uL Hgb 14.5 13.3 L (14.0-18.0) g/dL Hct 43.3 40.4 L (42-52) % Plt Count 312 276 (130-400) K/uL BMP 03/25/20 03/26/20 20:59 06:56 Sodium 140 139 Potassium 3.8 4.0 Chloride 106 108 H Carbon Dioxide 26 24 BUN 15 10 D Creatinine 1.06 0.85 Glucose 126 H 105 H Calcium 9.3 8.8
[2020-03-26] MEDS: AMPICILLIN/SULBACTAM SOD 3,000 MG in 0.9 % SODIUM CHLORIDE 100 ML IV SCH (20:59)
[2020-03-27] MEDS: AMPICILLIN/SULBACTAM SOD 3,000 MG in 0.9 % SODIUM CHLORIDE 100 ML IV SCH ×4 (04:03→21:36)
[2020-03-27 06:10] LABS: Hematocrit (blood only) 41.9 % (42-52); Hemoglobin 13.6 g/dL (14.0-18.0); Mean Corpuscular Hemoglobin 29.1 pg (25-34); Mean Corpuscular Hgb Conc 32.5 g/dL (32-36); Mean Corpuscular Volume 89.5 fL (80-100); Mean Platelet Volume 9.6 fL (7.4-10.4); Platelet Count 287 K/uL (130-400); RDW Coefficient of Variation 15.1 % (11.5-14.5); RDW Standard Deviation 49.1 fL (36.4-46.3); Red Blood Count 4.68 M/uL (4.7-6.1)
[2020-03-27] MEDS: SODIUM CHLORIDE 0.9% 1000ML 1,000 ML IV SCH ×2 (06:22→17:05)
[2020-03-27 06:42] LABS: BUN Creatinine Ratio 11.9 (10-20); Calcium 8.3 mg/dl (8.5-10.1); Creatinine Clr Calc Pharmacy 92.7 ml/min; Est GFR (African American) 111.6; Est GFR (Non-African American) 96.3; Potassium 3.9 mmol/L (3.5-5.1)
[2020-03-27] MEDS: ASPIRIN 325 MG ECTAB PO SCH (08:45)
[2020-03-27] MEDS: ATORVASTATIN 10 MG TAB PO SCH (08:45)
[2020-03-27] MEDS: FLECAINIDE ACETATE 100 MG TABLET PO SCH ×2 (08:46→20:17)
[2020-03-27] MEDS: HYDROmorphone INJ 0.5 MG/0.5 ML SYR IV PRN ×2 (10:25→20:15)
--- NOTE | 2020-03-27 12:37 | History & Physical Bridge Note ---
Date of Service March 27, 2020 History & Physical Bridge Note I have examined the patient, reviewed the History & Physical and in the interval since the performance of the History & Physical I have noted the following changes of clinical significance: There is more oral swelling and acute pain # 20 tooth. Of interest is that there is a hemorrhagic looking mass on the mucobuccal fold that is very firm. I will consider biopsy of this as part of the planned procedure.
[2020-03-27] MEDS ORDERED: ONDANSETRON INJ 2 MG/ML 2 ML VIAL IV PRN (12:58)
[2020-03-27] MEDS ORDERED: ATROPINE SULFATE 0.1 MG/ML 10ML SYR IV PRN (12:58)
[2020-03-27] MEDS ORDERED: ePHEDrine sulfate 50 MG/ML AMP IV PRN (12:58)
--- NOTE | 2020-03-27 12:58 | Anesthesiology Consultation ---
Date of Service March 27, 2020 Assessment & Plan (1) Encounter for pre-operative examination: Chart Review Chart Review: Acceptable Risk for Surgery and Patient NOT seen in Pre Admission Testing Consults Requested none ASA ASA3 Proposed Anesthesia Anesthesia Type: General Risk / Benefits Reviewed With: PT / POA / Parent / Guardian, Accepts Plan and Informed Consent Obtained History Surgery Operation Date: 03/27/20 12:00 Proposed Procedures p Intra-Oral Incision and Drainage - Garfield Alicea, GREGORY Height/Weight Height: 5 ft 8 in Weight: 80.4 kg Allergies Allergy/AdvReac Type Severity Reaction Status Date / Time Bactrim Allergy Unknown wiped out Verified 06/04/18 23:24 good bacteria, became septic sulfamethoxazole AdvReac Unknown wiped out Verified 03/26/20 01:17 good bacteria, became septic trimethoprim AdvReac Unknown wiped out Verified 03/26/20 01:17 good bacteria, became septic Medications Home Medications Medication Instructions Recorded Confirmed Last Taken aspirin 325 mg PO QAM 11/27/18 03/25/20 01/23/20 07:00 atorvastatin 10 mg PO QAM 11/27/18 03/25/20 01/23/20 07:00 Tecfidera 240 mg PO BID 08/27/19 03/25/20 01/24/20 09:00 Trelegy Ellipta 1 inh INHALATION QAM PRN 01/18/20 03/25/20 01/23/20 09:00 flecainide 100 mg PO Q12H 01/18/20 03/25/20 01/23/20 17:00 methocarbamol 500 mg PO HS PRN 03/24/20 03/25/20 Unknown acetaminophen [Acetaminophen Extra 1,000 mg PO Q6H PRN 03/25/20 03/25/20 Unknown Strength] clindamycin HCl 300 mg PO Q6H 10 Days #40 cap 03/25/20 03/25/20 Unknown Active Medications Generic Name Dose Route Start Last Admin Trade Name Freq PRN Reason Stop Dose Admin Acetaminophen 650 mg 03/26/20 01:15 03/26/20 08:42 Tylenol PO 04/25/20 01:14 650 mg Q4H PRN Administration pain/fever Aspirin 325 mg 03/26/20 09:00 03/27/20 08:45 Ecotrin PO 04/25/20 08:59 325 mg QAM CHRISTY Administration Atorvastatin Calcium 10 mg 03/26/20 09:00 03/27/20 08:45 Lipitor PO 04/25/20 08:59 10 mg QAM CHRISTY Administration Flecainide Acetate 100 mg 03/26/20 09:00 03/27/20 08:46 Tambocor PO 04/25/20 08:59 100 mg Q12H CHRISTY Administration Hydromorphone HCl 0.5 mg 03/26/20 01:15 03/27/20 10:25 Dilaudid IV 04/09/20 01:14 0.5 mg Q3H PRN Administration Pain Sodium Chloride 1,000 mls @ 100 mls/hr 03/26/20 01:15 03/27/20 06:22 Nss 1000ml IV 04/25/20 01:14 100 mls/hr .Q10H CHRISTY Administration Ampicillin Sodium/Sulbactam 108 mls @ 216 mls/hr 03/26/20 22:00 03/27/20 11:06 Sodium 3,000 mg/ Sodium IV 04/02/20 21:59 Infused Chloride Q6H CHRISTY Infusion Protocol Miscellaneous 1 ea 03/26/20 02:30 03/27/20 08:20 Order Awaiting Action N/A 04/25/20 02:29 Not Given QS CHRISTY NPO Date Last Intake of Fluids: 03/26/20 Time Last Intake of Fluids: 23:45 Date Last Intake of Solids: 03/26/20 Time Last Intake of Solids: 17:30 Past Medical History Medical History Adverse drug reaction (Resolved 03/31/14) Arrhythmia PVT-F/U DR [facility] Bronchitis with bronchospasm (Resolved 03/31/14) Chest pain (Acute) Degenerative disc disease NECK GERD (gastroesophageal reflux disease) Hx of multiple sclerosis F[facility] EXTREM[facility] NUMBNESS/ CHRONIC WEAKNESS/FATIGUE Neuropathy IDIOPATHIC HANDS AND FEET Pericarditis (Acute) Precordial chest pain (Acute) Sepsis (Resolved) Exercise / Class Metabolic Activity II 4-5 Yardwork/Stairs/Walk up hill Past Family History Family History Father Family history of reaction to anesthesia REQUIRES MORE ANESTHESIA-"DOESN'T WORK" Other Gallbladder disease Heart disease Hypertension Past Surgical History Surgical History Fusion of spine X LOWER BACK X 3 History of arthroscopy LEFT KNEE History of colonoscopy History of esophagogastroduodenoscopy (EGD) History of herniorrhaphy Hx of hand surgery RIGHT TENDON REPAIR Past Anesthesia History No Hx of Anesthesia Complications and No Family Hx of Anesthesia Complications History of PONV No Hx of PONV and No Hx of Motion Sickness Social History Smoking Status: Current every day smoker tobacco type: cigarettes Smoking cigarettes per day: 15 CIGS A DAY X 30+ YRS AGO Do You Dip or Chew Tobacco: No Hx Alcohol Use: Yes Alcohol type: beer alcohol intake frequency: holidays/special occasions only Hx Substance Use: No Physical Exam Vital Signs Last Vital Signs Temp 37.2 C 03/27/20 12:27 Pulse 61 03/27/20 12:27 Resp 20 03/27/20 12:27 BP 153/86 H 03/27/20 12:27 Pulse Ox 97 03/27/20 12:27 ENMT Mouth: no dentition abnormality Thyromental Distance: > or= 3.5 Finger Breadths Mallampati Class: II Neck normal visual inspection Respiratory normal respiratory effort Auscultation: lungs clear to auscultation bilaterally Cardiovascular Rate/Rhythm: regular rate and regular rhythm Psychiatric Orientation: alert Testing Laboratory Results 03/27/20 05:48 03/27/20 05:48 03/25/20 21:03 Aerobic Blood Culture - Preliminary Blood No growth in Aerobic bottle after 24 hours. Anaerobic Blood Culture - Preliminary No growth in Anaerobic bottle after 24 hours. 03/25/20 20:59 Aerobic Blood Culture - Preliminary Blood No growth in Aerobic bottle after 24 hours. Anaerobic Blood Culture - Preliminary No growth in Anaerobic bottle after 24 hours.
[2020-03-27] MEDS ORDERED: CHLORHEXIDINE GLUCONATE 0.12% 480 ML ONE (13:18)
[2020-03-27] MEDS ORDERED: ONDANSETRON INJ 2 MG/ML 2 ML VIAL ONE (13:23)
[2020-03-27] MEDS ORDERED: PROPOFOL IV EMULSION 10 MG/ML 20 ML VIAL IV ONE (13:23)
[2020-03-27] MEDS ORDERED: LIDOCAINE HCL 2% 2 ML VIAL/AMP(20MG/ML) INFIL ONE (13:23)
[2020-03-27] MEDS ORDERED: fentaNYL citrate 100 MCG/2 ML VIAL ONE (13:23)
[2020-03-27] MEDS ORDERED: MIDAZOLAM HCL 1 MG/ML 2ML VIAL ONE (13:23)
[2020-03-27] MEDS ORDERED: ROCURONIUM BROMIDE 10 MG/ML 5 ML VIAL ONE (13:28)
[2020-03-27] MEDS ORDERED: BUPIVACAINE/EPINEPHRINE 0.5% 1:200,000 1.8 ML CARP ONE (13:34)
[2020-03-27] MEDS ORDERED: DEXAMETHASONE SOD INJ 4 MG/ML VIAL ONE (14:10)
[2020-03-27] MEDS ORDERED: GLYCOPYRROLATE 0.2 MG/ML VIAL ONE (14:10)
[2020-03-27] MEDS ORDERED: NEOSTIGMINE METHYLSULFATE 5 MG/5 ML SYR ONE (14:10)
--- NOTE | 2020-03-27 14:13 | Post Operative Brief Note ---
PG Immediate Post Op with CF Date of Surgery March 27, 2020 Pre & Post Diagnosis Operation Date: 03/27/20 12:00 Pre-Op Diagnosis: Subperiosteal and buccal space abscess associated with the lower left Pre-molar # 20 , tender gingival tissue with deep pocket formation exophytic fibrous mass. Post-Op Diagnosis: Subperiosteal and buccal space abscess associated with the lower left Pre-molar , tender gingival tissue with deep pocket formation.(same) I identified the patient and participated in the time-out.: Yes Procedure Operation Date: 03/27/20 12:00 Actual Procedures p Intra-Oral Incision and Drainage; removal of buccal lesion; Extraction of tooth #20 - Garfield Alicea DMD Surgeon Garfield Alicea DMD [employer] none Estimated Blood Loss 2 Findings Consistent with Post-Op Diagnosis Specimens Specimen Description: Permanent: A: Mass of Left Gum
--- NOTE | 2020-03-27 14:35 | Surgery Progress Note ---
Date of Service Mr. Lopez did very well, I drained the infection and extracted the tooth and excised the infected lesion lower left side. I ordered (e mailed to his Rx.) Vicodin 5/325 1 q 4 hrs prn pain He has antibiotics at home--needs to complete From a medical point of view patient can be Discharged this afternoon once fully recovered or tomorrow morning. The Discharge form was completed by me. Please call me if any questions--[phone] Overall Rodney did very well and should see pain improvement soon. Thanks Garfield Alicea [facility] Oral Maxillofacial surgery March 27, 2020 Subjective Patient is seen and examined at bedside States having left facial/dental pain Also reports dysphagia Denies any chest pain, SOB, dizziness, nausea, abd pain Offers no other complaints Results & Data Vital Signs (Past 12 Hours) Vital Signs Temp Pulse Resp BP Pulse Ox 03/27/20 12:27 37.2 C 61 20 153/86 H 97 03/27/20 07:23 36.6 C 72 16 133/72 97 PG Care Time/CCT Total # of Minutes Spent Total Time Spent with Patient: Total time spent is greater than 50% in coordination of care (as documented) at patient's floor/unit and/or counseling patient: Coding Level of Care Code None
--- NOTE | 2020-03-27 15:17 | Anesthesiology Progress Note ---
Date of Service March 27, 2020 Anesthesia Post Procedure Vital Signs Vital Signs: Temp Pulse Pulse Resp BP BP Pulse Ox 03/27/20 15:05 73 12 137/75 95 03/27/20 14:55 67 20 133/80 96 03/27/20 14:46 36.4 C L 66 24 122/75 98 03/27/20 12:27 37.2 C 61 20 153/86 H 97 03/27/20 07:23 36.6 C 72 16 133/72 97 03/26/20 23:44 36.6 C 80 16 140/62 97 03/26/20 15:44 36.6 C 70 16 146/85 H 95 Pain Intensity Mouth: Pain Intensity: 0 Transfer of Care Handoff Completed per policy Notes Mental Status: alert / awake / arousable Patient Amnestic to Procedure: Yes Nausea / Vomiting: adequately controlled Pain: adequately controlled Airway Patency, RR, SpO2: stable & adequate BP & HR: stable & adequate Hydration State: stable & adequate Anesthetic Complications: no major complications apparent
[2020-03-27] MEDS: fentaNYL citrate 100 MCG/2 ML VIAL IV PRN ×2 (15:57→16:02)
--- NOTE | 2020-03-27 17:03 | Hospitalist Progress Note ---
Date of Service March 27, 2020 Assessment & Plan (1) Dental infection: Left Mandibular Premolar Abscess Subperiosteal Infection Fact CT:Periapical lucency/abscess of a left mandibular premolar. No rim- enhancing fluid collection to suggest an abscess. Secretions with moderate mucosal thickening within the left maxillary sinus. S/P Intra-Oral Incision and Drainage; removal of buccal lesion; Extraction of tooth #20 by Garfield Alicea POD #0 Appreciate oral maxillofacial surgery input Continue antibiotics--Unasyn Blood Culture: No growth to date Pain control Advance diet as tolerated H/O Paroxysmal supraventricular tachycardia. On flecainide monitor Hyperlipidemia on statin. H/O multiple sclerosis On Tecfidera DVT Px: SCDs Re:Surgery Code Status Full Code Disposition Expect to discharge home when stable Admission and Anticipated Discharge Date Admission Date: March 26, 2020 Subjective Patient is seen and examined at bedside Still has left facial/dental pain No events overnight Patient is planned for I&D and tooth extraction today Denies any chest pain, SOB, dizziness, nausea, abd pain Review of Systems Review of Systems: All systems reviewed & are unremarkable except as noted in HPI & below Physical Exam Physical Exam: Physical Exam: Vitals signs as noted above General Appearance:Moderately built and nourished, no apparent distress Head: normocephalic, Atraumatic, + left periosteal area swelling Eyes: normal inspection, EOMI Neck: supple, Trachea midline Respiratory/Chest: Normal breath sounds, CTA Cardiovascular: S1, S2, No murmur Abdomen/GI:Soft, Non tender, Bowel sounds present Extremities/Musculoskelatal:normal inspection, no edema Neurologic/Psych:AAOX3, grossly no focal neurological deficits Skin: normal color, warm Results & Data Results & Data ([facility]) Vital Signs (Past 12 Hours) Vital Signs Temp Pulse Pulse Resp BP BP Pulse Ox 03/27/20 16:30 82 14 131/77 97 03/27/20 16:20 88 12 131/74 98 03/27/20 16:10 81 12 136/80 96 03/27/20 16:00 84 12 140/74 96 03/27/20 15:45 86 12 127/76 96 03/27/20 15:30 79 13 140/77 95 03/27/20 15:15 36.3 C L 78 12 131/77 97 03/27/20 15:05 73 12 137/75 95 03/27/20 14:55 67 20 133/80 96 03/27/20 14:46 36.4 C L 66 24 122/75 98 03/27/20 12:27 37.2 C 61 20 153/86 H 97 03/27/20 07:23 36.6 C 72 16 133/72 97 Laboratory Results Short CBC 03/27/20 Range/Units 05:48 WBC 7.50 (4.8-10.8) K/uL Hgb 13.6 L (14.0-18.0) g/dL Hct 41.9 L (42-52) % Plt Count 287 (130-400) K/uL BMP 03/27/20 05:48 Sodium 140 Potassium 3.9 Chloride 110 H Carbon Dioxide 26 BUN 10 Creatinine 0.83 Glucose 87 Calcium 8.3 L
[2020-03-28] MEDS: HYDROmorphone INJ 0.5 MG/0.5 ML SYR IV PRN (00:46)
[2020-03-28] MEDS: AMPICILLIN/SULBACTAM SOD 3,000 MG in 0.9 % SODIUM CHLORIDE 100 ML IV SCH ×2 (04:13→09:41)
[2020-03-28] MEDS: FLECAINIDE ACETATE 100 MG TABLET PO SCH (09:35)
[2020-03-28] MEDS: ATORVASTATIN 10 MG TAB PO SCH (09:35)
[2020-03-28] MEDS: ASPIRIN 325 MG ECTAB PO SCH (09:55)
--- NOTE | 2020-03-28 11:27 | Hospitalist Progress Note ---
Date of Service March 28, 2020 Assessment & Plan (1) Dental infection: Left Mandibular Premolar Abscess Subperiosteal Infection Fact CT:Periapical lucency/abscess of a left mandibular premolar. No rim- enhancing fluid collection to suggest an abscess. Secretions with moderate mucosal thickening within the left maxillary sinus. S/P Intra-Oral Incision and Drainage; removal of buccal lesion; Extraction of tooth #20 by Garfield Alicea POD #1 Appreciate oral maxillofacial surgery input Continue antibiotics--Unasyn while hospitalized Blood Culture: No growth to date Pain control Tolerated diet Need to complete antibiotic course upon discharge as previously prescribed Needs follow-up with oral maxillary surgery upon discharge H/O Paroxysmal supraventricular tachycardia. On flecainide monitor Hyperlipidemia on statin. H/O multiple sclerosis On Tecfidera DVT Px: SCDs Re:Surgery Code Status Full Code Disposition Expect to discharge home when stable Admission and Anticipated Discharge Date Admission Date: March 26, 2020 Subjective Patient is seen and examined at bedside Feels lot better today left facial/dental pain Improved Tolerated diet Denies any chest pain, SOB, dizziness, nausea, abd pain Eager to get discharged Review of Systems Review of Systems: All systems reviewed & are unremarkable except as noted in HPI & below Physical Exam Physical Exam: Physical Exam: Vitals signs as noted above General Appearance:Moderately built and nourished, no apparent distress Head: normocephalic, Atraumatic, + left periosteal area swelling improved Eyes: normal inspection, EOMI Neck: supple, Trachea midline Respiratory/Chest: Normal breath sounds, CTA Cardiovascular: S1, S2, No murmur Abdomen/GI:Soft, Non tender, Bowel sounds present Extremities/Musculoskelatal:normal inspection, no edema Neurologic/Psych:AAOX3, grossly no focal neurological deficits Skin: normal color, warm Results & Data Results & Data ([facility]) Vital Signs (Past 12 Hours) Vital Signs Temp Pulse Resp BP Pulse Ox 03/28/20 07:46 36.6 C 83 14 172/86 H 98 03/28/20 02:30 36.9 C 86 14 142/82 H 94
--- NOTE | 2020-03-28 11:37 | Discharge Summary ---
Date of Service March 28, 2020 Admission HPI Per Admitting Provider CHIEF COMPLAINT: Dental infection. HISTORY OF PRESENT ILLNESS: This is a 60-year-old male with past medical history significant for hyperlipidemia, chronic allergic rhinitis, history of paroxysmal SVT, Orthostasis, duodenal ulcer, history of degeneration of lumbar disc, multiple sclerosis, history of optic neuritis, tobacco abuse disorder, presents with ongoing left-sided facial swelling and pain in his left lower mandibular region. The patient was in the ER yesterday where a face CT was done which showed periapical lucency and abscess of the left mandibular premolar. He was discharged on clindamycin. The patient's symptoms were not improving and he was not able to open the mouth and he was not feeling well, so he came back here. White count is 11.7 .Getting admitted for dental abscess. Denies any other complaints. Currently resting comfortably and hemodynamically stable. Has some mild headache, pain in his left mandibular radiating to his back of the neck. No blurred visions. No earache, no runny nose, no sore throat. Appetite is okay. No cough, no chest pain, no shortness of breath. He was nauseous earlier, but it has improved. No abdominal pain. Normal bowel and bladder movements. No swelling in the legs, no rash. Lives with his , ambulates okay. Admission Exam Per Admitting Provider PHYSICAL EXAMINATION: GENERAL: The patient is of moderate build, not in acute distress. VITAL SIGNS: Temperature 36.9, pulse 83, respiratory rate 20, blood pressure 148/86, oxygen 96% on room air. HEENT: No pallor, no icterus. Difficulty opening the mouth and thickening of the mucosa of the lower mandibular region. No obvious drainage seen. NECK: No JVD, supple. CARDIOVASCULAR: S1, S2 heard. Regular rate and rhythm, no murmur, no gallop. RESPIRATORY SYSTEM: Normal AP diameter. No accessory muscle use. No wheezing, no crackles. ABDOMEN: Soft, bowel sounds present, nontender. No distention. CENTRAL NERVOUS SYSTEM: Cranial nerves II-XII grossly intact. Nonfocal. EXTREMITIES: No edema, no erythema. Principal Diagnosis Left Mandibular Premolar Abscess Subperiosteal Infection Discharge Data Allergies Allergy/AdvReac Type Severity Reaction Status Date / Time Bactrim Allergy Unknown wiped out Verified 06/04/18 23:24 good bacteria, became septic sulfamethoxazole AdvReac Unknown wiped out Verified 03/26/20 01:17 good bacteria, became septic trimethoprim AdvReac Unknown wiped out Verified 03/26/20 01:17 good bacteria, became septic Consultations 03/25/20 22:06 ED Decision to Admit Stat 03/26/20 08:00 Consult Oromaxillofacial Surgery Routine Procedures Performed Operation Date: 03/27/20 12:00 Actual Procedures p Intra-Oral Incision and Drainage; removal of buccal lesion; (Not Applicable) - Garfield Alicea DMD s Extraction of tooth #20(Not Applicable) - Garfield Alicea, DMD Face CT: Periapical lucency/abscess of a left mandibular premolar. No rim-enhancing fluid collection to suggest an abscess. Secretions with moderate mucosal thickening within the left maxillary sinus. Hospital Course (1) Dental infection: Left Mandibular Premolar Abscess Subperiosteal Infection Fact CT:Periapical lucency/abscess of a left mandibular premolar. No rim- enhancing fluid collection to suggest an abscess. Secretions with moderate mucosal thickening within the left maxillary sinus. S/P Intra-Oral Incision and Drainage; removal of buccal lesion; Extraction of tooth #20 by Garfield Alicea POD #1 Appreciate oral maxillofacial surgery input Continue antibiotics--Unasyn while hospitalized Blood Culture: No growth to date Pain control Tolerated diet Need to complete antibiotic course upon discharge as previously prescribed Needs follow-up with oral maxillary surgery upon discharge H/O Paroxysmal supraventricular tachycardia. On flecainide monitor Hyperlipidemia on statin. H/O multiple sclerosis On Tecfidera DVT Px: SCDs Re:Surgery Code Status Full Code Disposition Expect to discharge home when stable Total Time Total Time Spent Total Time Spent (In Minutes): 38 minutes Discharge Plan Discharge Items Patient Disposition: Home - Self-Care Reason For Visit: DENTAL INFECTION Discharge Diagnosis: Left Mandibular Premolar Abscess Subperiosteal Infection Condition on Discharge: Fair Activity: Resume your previous activity Lifting: Gradually increase as tolerated Bathing: No limitations Driving/Machine Use: No driving, use of heavy machinery while on Narcotic pain medications Weightbearing: Full weightbearing Non-emergency contact: Primary Care Provider and Surgeon Call non-emergency contact if: you have any medication questions, your symptoms worsen, your pain is not controlled, your pain is worsening, your pain is unusual for you, your pain is concerning for you, you have a fever, your wound has increased redness, your wound has increased drainage and your wound pain has increased Follow-up/Referrals: Angelica Harrell, YAMILA [Primary Care Provider] - (PLEASE CALL OFFICE TO SCHEDULE YOUR FOLLOW UP APPOINTMENT) Diet: Heart Healthy Addtl Attending Provider Instructions: Follow-up with your primary care physician Dr. Angelica Harrell in 1 week as advised Follow-up with his surgeon Dr. Garfield Alicea as advised Complete the antibiotic course--clindamycin Your final blood cultures are pending at the time of discharge. Follow-up with your physician for results. Seek immediate medical attention if your symptoms reoccur or worsen Pending Studies at Discharge: Yes Studies:: Blood Cultures Stand-Alone Forms: My [facility] [id number], Work/School Release (Inpt), Smoking Cessation Medications and DC Order Prescriptions: Continued hydrocodone-acetaminophen 5-325 mg tablet 1 tab PO Q4H PRN (Reason: pain) Qty: 14 RF: 0 aspirin 325 mg Tablet,Delayed Release (Dr/Ec) 325 mg PO QAM RF: 0 atorvastatin 10 mg Tablet 10 mg PO QAM RF: 0 acetaminophen [Acetaminophen Extra Strength] 500 mg Tablet 1,000 mg PO Q6H PRN (Reason: Pain) RF: 0 Tecfidera 240 mg capsule,delayed release(DR/EC) 240 mg PO BID RF: 0 flecainide 100 mg Tablet 100 mg PO Q12H RF: 0 Trelegy Ellipta 100-62.5-25 mcg Blister With Device 1 inh INHALATION QAM PRN (Reason: Shortness Of Breath) RF: 0 methocarbamol 500 mg tablet 500 mg PO HS PRN (Reason: Muscle Spasm) RF: 0 clindamycin HCl 300 mg capsule 300 mg PO Q6H 10 Days Qty: 40 RF: 0 Discharge Orders: Discharge Order (Routine); Ordered 03/28/20 Ordered By: Sky Ervin/Other Patient Handouts: Understanding Healthy Teeth and Gums Admission Data Admit Date/Time: 03/26/20 19:21 Attending Provider: Sky Valenzuela Admit Provider: Zackery Adams Primary Care Provider: Angelica Harrell Other Providers: La Porter ; Zackery Adams ; Garfield Alicea Other Interventions: Discharge Summary Assessment (RN) Last Done: 03/28/20 12:39 DC Date/Time DO NOT enter until pt leaves facility: 03/28/20 12:53
--- NOTE | 2020-03-29 14:59 | Operative Report ---
Post Operative Report Pre & Post Diagnosis Operation Date: 03/27/20 12:00 Pre-Op Diagnosis: Subperiosteal and buccal space abscess associated with the lower left Pre-molar , tender gingival tissue with deep pocket formation. Post-Op Diagnosis: Subperiosteal and buccal space abscess associated with the lower left Pre-molar , tender gingival tissue with deep pocket formation. I identified the patient and participated in the time-out.: Yes Procedure Operation Date: 03/27/20 12:00 Actual Procedures p Intra-Oral Incision and Drainage; removal of buccal lesion; (Not Applicable) - Garfield Alicea DMD s Extraction of tooth #20(Not Applicable) - Garfield Alicea DMD Once cleared for surgery general anesthesia was achieved, the eyes were protected by the anesthesia dept criteria.. A time out was take for patient ID, antibiotics, equipment and position verification once all agreed the procedure began. Local anesthesia was given into each area using Marcaine with a vasoconstrictor ( 1.8 ml per site). A throat pack was placed after the oral cavity was irrigated with saline. Once a surgical level of anesthesia was obtained and the local anesthesia was given time for the blocks the surgery was started. I turned my attention to the upper wisdom teeth first. Problem: Pain,swelling located lower left jaw # 20 site, failed out patient antibiotic therapy Finding: There is a carious, fractured and infected tooth at site#:20 there is also a 1 cm mass that is infected on the gingival aspect of tooth # 20, facial swelling left submandibular and floor of mouth, admitted by medical service, Dr Alicea consulted. Plan: Surgical excision of 1 cm mass mucobuccal fold, Extraction of tooth # 20 and intraoral I&D Procedure report: After a complete H&P/ vital signs and oral exam was completed the patient was ready for the surgical procedure. Informed consent was reviewed and the consent form was signed. I gave them time to discuss any questions and if I explained the surgery that I will be performing to their understanding. The patient was positioned and light adjusted, Peridex mouth rinse was used and a final time out was taken to review the correct procedure, once agreed the local anesthesia was given in the standard fashion for the area of surgery. Surgical Note: Using a 15 blade I excised around this exophytic mass the tissue bleed very profusely, I controlled the bleeding with electo surgery. the tissue was very friable. The lesion caused a dehiscences in the alveolar bone of tooth #20. Once the mass was removed using a periosteal elevator the tissue was reflected to expose the alveolar bone. The rongeur was used to remove bone to allow the forceps to engage solid tooth structure. Using a controlled force the tooth was extracted in the standard manner. I was able to drain the pus from the floor of the mouth and submandibular area. Once removed the roots/ socket/ surgical site were inspected and the socket was curetted. Sutures used: 3 0 chromic I removed the throat pack and suctioned the throat. Bilateral gauze pressure dressings were placed. All instrument and sponge count was correct. the patient was allowed to awake from the anesthesia. Once full awake the anesthesia tube was removed and the patient was taken to the recovery room with all vital sign stable. The patient tolerated the surgery very well. I will follow the patient in my office, Rx and instructions will be given upon discharge. Surgeon Garfield Alicea, DMD Supervisor [employer] none Estimated Blood Loss 2 Findings Consistent with Post-Op Diagnosis Specimens mass of left mucobuccal fold and gingival tissue, very infected Description of Procedure Exc. lesion, I&D, extraction of # 20 I attest to the content of the Intraoperative Record and any orders documented therein. Any exceptions are noted below.
== END 2020-03-28 12:53 | disposition home or self-care (01) ==
LOC: 3E 19:53 → ED 19:53 → SUATTDRO 03-26 00:22 → 3E 03-26 01:02

== ENCOUNTER 2021-10-05 21:38 | Inpatient (IN) ==
[2021-10-05] MEDS ORDERED: dexAMETHasone**PF** 10 MG/ML VIAL IV ONE (22:03)
[2021-10-05] MEDS ORDERED: IBUPROFEN 600 MG TAB PO STA (22:03)
--- NOTE | 2021-10-05 22:10 | Emergency Department Note ---
Impression & Plan 2019 novel coronavirus-infected pneumonia (NCIP), Weakness, Breathlessness ED Provider Note Provider: Deshaun Victor MD DATE OF SERVICE: 10/05/2021 CHIEF COMPLAINT: Worsening shortness of breath and fevers HISTORY OF PRESENT ILLNESS: Patient is a 61-year-old gentleman past medical history of PVC/PAC, COPD, smoking, multiple sclerosis on immunotherapy presenting here today reporting worsening symptoms of Covid. Was seen here September 27 and states symptoms started for him on September 25 that Tuesday. He was not vaccinated for Covid. Seen here last week diagnosed with Covid and had additional blood work and x-rays. Sent home with a Decadron pack. Patient states his pulse ox has been in the mid to low 90s at home but his breathing over the last several days is worsened and his fevers are becoming higher. He states he feels weak and is very unsteady even walking and has to hold onto the disla. Patient denies falling. Reports significant cough with some slight green sputum. Denies significant nausea or diarrhea. Patient denies significant leg swelling. Patient states he has been trying to stay hydrated. Last took Tylenol around 5 PM. REVIEW OF SYSTEMS: A total of 10 review of systems was obtained and negative except as stated above in the HPI. PAST MEDICAL HISTORY: As noted above MEDICATIONS: Reviewed home medications SOCIAL HISTORY: Smoker, lives at home with PHYSICAL EXAM: GENERAL: alert and oriented seated on the stretcher fatigued appearing occasion ally coughing Head: normocephalic and atraumatic EYES: No injection, discharge or icterus. NECK: Trachea midline. Supple. ENT: Mucous membranes pink and moist. LUNGS: Airway patent. No retractions but tachypneic Breath sounds clear without significant wheeze appreciated HEART: Irregular tachycardic rate and rhythm. No chest wall tenderness ABDOMEN: Soft and non-tender, without guarding or rebound. SKIN: Acyanotic, warm, mildly diaphoretic EXTREMITIES: Without swelling, tenderness or deformity NEUROLOGICAL: No focal deficits moving all extremities No aphasia. No facial droop or slurred speech. Ambulatory only with assistance EK beats minute sinus tachycardia with PVC. Incomplete right bundle block. No acute ST segment elevation or depression. Left anterior fascicular block. QTc 498. CONTINUOUS CARDIAC MONITORING: was ordered and showed a heart rate of 90s-120s bpm in sinus tachycardia with occasional PAC/PVC 20 chest x-ray from interpretation: No evidence of pneumothorax, significant worsening viral interstitial inflammatory changes without focal consolidation consistent with classic pneumonia. Patient's laboratory studies and imaging reviewed. Differential includes Infection, dehydration, metabolic abnormality, hypo/hyperglycemia, electrolyte disturbance, anemia, hypoxia, cardiac sources, intracerebral event, toxicologic, neurologic, as well as other pathologies. IMPRESSION/MEDICAL DECISION MAKING: Patient diagnosed with Covid with symptoms starting 11 days ago. Patient low 90s on room air but tachypneic and somewhat tachycardic and very fatigued in appearance. Fevers have been escalating. Basic labs and EKG and x-ray obtained. Borderline fever here and given some Motrin. States has been hydrating well. Does not appear fluid overloaded. Lower suspicion at this time this represents acute PE as his hypoxia is not that severe but he appears significantly fatigued. Checks x-ray does appear worsened. Slight leukocytosis but procalcitonin not elevated I doubt this is bacterial. No evidence of troponin elevation. CRP mildly elevated at 2.7. Given some Crescent for some mild back discomfort she states is related to positioning and has a history of some back issues. Still again very fatigued and mildly tachypneic and not in a position to go home. Will ask the hospitalist to evaluate for further inpatient care. DIAGNOSIS: COVID-19 pneumonia, weakness, shortness of breath DISPOSITION: Hospitalist will evaluate Patient was agreeable with this plan. Past Med/Surg History Medical History (Updated 10/05/21 @ 22:10 by Deshaun Victor M.D.) Adverse drug reaction (03/31/14) Arrhythmia PVT-F/U DR [facility] Arthritis Bronchitis Bronchitis with bronchospasm (03/31/14) Chest pain Degenerative disc disease NECK GERD (gastroesophageal reflux disease) Hx of multiple sclerosis F/U [facility] LOWER EXTREMITIES NUMBNESS/ CHRONIC WEAKNESS/FATIGUE Neuropathy IDIOPATHIC HANDS AND FEET Pericarditis Precordial chest pain Sepsis Surgical History Fusion of spine X LOWER BACK X 3 2011 and 2014 History of arthroscopy LEFT KNEE History of colonoscopy History of esophagogastroduodenoscopy (EGD) History of herniorrhaphy 2014 Hx of hand surgery RIGHT TENDON REPAIR Hx of oral surgery (03/27/20) Intra-Oral Incision and Drainage; removal of buccal lesion; Extraction of tooth #20 Dr. beauchamp 03/27/20 Family History Father Family history of reaction to anesthesia REQUIRES MORE ANESTHESIA-"DOESN'T WORK" Hypertension Heart disease Other Gallbladder disease Social History Smoking Status: Current every day smoker Tobacco Type: Cigarettes packs per day: 0.75; Cigarettes Per Day: 15 CIGS A DAY X 30+ YRS AGO; Second Hand Exposure: Yes (FATHER SMOKED); Hx Alcohol Use: Yes Alcohol type: beer Alcohol Intake Frequency Comment: 1 drink a week Hx Substance Use: No Preferred Language: Malay Communication Ability: Effective Urban Gardening Specialist Required: No Beliefs That Will Affect Care: None marital status: Current Living Situation: Spouse current occupational status: employed 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 sulfamethoxazole AdvReac Unknown wiped out Verified 09/27/21 20:21 good bacteria, became septic trimethoprim AdvReac Unknown wiped out Verified 09/27/21 20:21 good bacteria, became septic Home Meds Home Medications Medication Instructions Recorded Confirmed aspirin 325 mg tablet,delayed 325 mg PO QAM 11/27/18 09/27/21 release fluticasone fur. 100 mcg-umeclid 1 inh INHALATION QAM PRN 01/18/20 09/27/21 62.5 mcg-vilant 25 mcg inhalat.powder (Trelegy Ellipta) diltiazem HCl 360 mg capsule,24 360 mg PO QAM 08/19/20 09/27/21 hr,extended release cholecalciferol (vitamin D3) 50 100 mcg PO QAM 03/31/21 09/27/21 mcg (2,000 unit) capsule (Vitamin D3) ofatumumab 20 mg/0.4 mL 20 mg SUBCUT MONTHLY 09/27/21 09/27/21 subcutaneous pen injector (Kesimpta Pen) Previous Rx's Medication Instructions Recorded albuterol sulfate 90 mcg/actuation 3 inh INHALATION Q6H #18 g 09/27/21 aerosol inhaler dexamethasone 6 mg tablet 6 mg PO DAILY #7 tab 09/27/21 (Decadron) Results & Data (ED) Vital Signs Vital Signs - 24 hr 10/05/21 21:43 10/05/21 22:06 10/05/21 22:29 Temperature 37.9 C H Temperature Source Temporal Artery Scan Pulse Rate 114 H 109 H 103 H Pulse Rate from SpO2 Sensor 104 H Respiratory Rate 18 24 30 H Respiratory Depth Normal Blood Pressure 184/80 H Blood Pressure Mean 114 Pulse Oximetry 93 95 96 Oxygen Delivery Method Room Air Nasal Cannula Oxygen Flow Rate 2 Sepsis Recent Fever Within 48 Hours No Sepsis New/Unexplained Change in Mental Status N/A Sepsis Action Taken by Nursing No Action Required 10/05/21 22:30 10/05/21 23:00 10/05/21 23:30 Temperature Temperature Source Pulse Rate 106 H 100 H 95 H Pulse Rate from SpO2 Sensor 108 H 100 H 91 H Respiratory Rate 42 H 34 H 33 H Respiratory Depth Blood Pressure 123/86 Blood Pressure Mean 98 Pulse Oximetry 96 95 96 Oxygen Delivery Method Oxygen Flow Rate Sepsis Recent Fever Within 48 Hours Sepsis New/Unexplained Change in Mental Status Sepsis Action Taken by Nursing Laboratory Data Result diagrams: 10/05/21 22:20 10/05/21 22:20 Lab Results 10/05/21 10/05/21 10/05/21 Range/Units 22:20 22:20 22:20 WBC 12.28 H (4.8-10.8) K/uL RBC 5.22 (4.7-6.1) M/uL Hgb 14.8 (14.0-18.0) g/dL Hct 43.9 (42-52) % MCV 84.1 (80-100) fL MCH 28.4 (25-34) pg MCHC 33.7 (32-36) g/dL RDW Std Deviation 44.3 (36.4-46.3) fL RDW Coeff of Alessandra 14.2 (11.5-14.5) % Plt Count 205 (130-400) K/uL MPV 10.8 H (7.4-10.4) fL Neutrophils % (Manual) 76.9 % Lymphocytes % (Manual) 5.6 % Monocytes % (Manual) 3.7 % Eosinophils % (Manual) 0.9 % Metamyelocytes % (Man) 12.0 % Myelocytes % (Man) 0.9 % Neutrophils # (Manual) 9.44 H (1.4-6.5) K/uL Total Absolute Neuts 9.44 H (1.4-6.5) K/uL Lymphocytes # (Manual) 0.69 L (1.2-3.4) K/uL Total Abs Lymphocytes 0.69 L (1.2-3.4) K/uL Monocytes # (Manual) 0.45 (0.11-0.59) K/uL Eosinophils # (Manual) 0.11 (0-0.5) K/uL Metamyelocytes # (Man) 1.47 H (0-0) K/uL Myelocytes # (Manual) 0.11 H (0-0) K/uL PT 9.7 (9.0-12.0) Seconds INR 1.0 (0.9-1.1) Sodium 134 L (136-145) mmol/L Potassium 3.9 (3.5-5.1) mmol/L Chloride 105 (98-107) mmol/L Carbon Dioxide 21 (21-32) mmol/L Anion Gap 9.0 (3-11) BUN 22 H (7-18) mg/dl Creatinine 1.02 (0.6-1.4) mg/dl Est Cr Clr Drug Dosing 77.0 ml/min Est GFR ( Amer) 92.2 ml/min Est GFR (Non-Af Amer) 79.5 ml/min BUN/Creatinine Ratio 21.1 H (10-20) Glucose 146 H (70-99) mg/dl Calcium 8.1 L (8.5-10.1) mg/dl Magnesium 2.1 (1.8-2.4) mg/dl Total Bilirubin 0.3 (0.2-1) mg/dl AST 23 (15-37) U/L ALT 39 (12-78) U/L Alkaline Phosphatase 110 (45-117) U/L Troponin I < 0.015 (0-0.045) ng/ml C-Reactive Protein 2.73 H (0-0.29) mg/dl Total Protein 6.6 (6.4-8.2) gm/dl Albumin 2.6 L (3.4-5.0) gm/dl Globulin 4.0 (2.5-4.0) gm/dl Albumin/Globulin Ratio 0.7 L (0.9-2) Procalcitonin (0-0.5) ng/ml Specimen Hemolysis COVID-19 Eval Order SARS-CoV-2 (PCR) (Negative) 10/05/21 10/05/21 10/05/21 Range/Units 22:20 22:23 22:23 WBC (4.8-10.8) K/uL RBC (4.7-6.1) M/uL Hgb (14.0-18.0) g/dL Hct (42-52) % MCV (80-100) fL MCH (25-34) pg MCHC (32-36) g/dL RDW Std Deviation (36.4-46.3) fL RDW Coeff of Alessandra (11.5-14.5) % Plt Count (130-400) K/uL MPV (7.4-10.4) fL Neutrophils % (Manual) % Lymphocytes % (Manual) % Monocytes % (Manual) % Eosinophils % (Manual) % Metamyelocytes % (Man) % Myelocytes % (Man) % Neutrophils # (Manual) (1.4-6.5) K/uL Total Absolute Neuts (1.4-6.5) K/uL Lymphocytes # (Manual) (1.2-3.4) K/uL Total Abs Lymphocytes (1.2-3.4) K/uL Monocytes # (Manual) (0.11-0.59) K/uL Eosinophils # (Manual) (0-0.5) K/uL Metamyelocytes # (Man) (0-0) K/uL Myelocytes # (Manual) (0-0) K/uL PT (9.0-12.0) Seconds INR (0.9-1.1) Sodium (136-145) mmol/L Potassium (3.5-5.1) mmol/L Chloride (98-107) mmol/L Carbon Dioxide (21-32) mmol/L Anion Gap (3-11) BUN (7-18) mg/dl Creatinine (0.6-1.4) mg/dl Est Cr Clr Drug Dosing ml/min Est GFR ( Amer) ml/min Est GFR (Non-Af Amer) ml/min BUN/Creatinine Ratio (10-20) Glucose (70-99) mg/dl Calcium (8.5-10.1) mg/dl Magnesium (1.8-2.4) mg/dl Total Bilirubin (0.2-1) mg/dl AST (15-37) U/L ALT (12-78) U/L Alkaline Phosphatase (45-117) U/L Troponin I (0-0.045) ng/ml C-Reactive Protein (0-0.29) mg/dl Total Protein (6.4-8.2) gm/dl Albumin (3.4-5.0) gm/dl Globulin (2.5-4.0) gm/dl Albumin/Globulin Ratio (0.9-2) Procalcitonin 0.15 (0-0.5) ng/ml Specimen Hemolysis COVID-19 Eval Order Covid19 at [facility] SARS-CoV-2 (PCR) POSITIVE A* (Negative) Administered Medications Discontinued Medications Dexamethasone Sodium Phosphate (DexamethasonePf 10 Mg/Ml Vial) 6 mg IV NOW ONE Stop: 10/05/21 22:04 Last Admin: 10/05/21 22:22 Dose: 6 mg Documented by: [id number] Ibuprofen (Ibuprofen 600 Mg Tab) 600 mg PO NOW STA Stop: 10/05/21 22:04 Last Admin: 10/05/21 22:13 Dose: 600 mg Documented by: [id number] Discharge Plan Visit Data Chief Complaint: Respiratory Distress Stated Complaint: COV+, HARD TIME BREATHING, COUGH, FEVER 101.9 @9P ED Provider: Deshaun Victor Discharge Problem: 2019 novel coronavirus-infected pneumonia (NCIP), Weakness, Breathlessness Patient Disposition: Being Evaluated by Hospitalist Forms Stand Alone Forms: My [facility] [employer] Prescriptions Prescriptions: No Action aspirin 325 mg Tablet,Delayed Release (Dr/Ec) 325 mg PO QAM RF: 0 Trelegy Ellipta 100-62.5-25 mcg Blister With Device 1 inh INHALATION QAM PRN (Reason: Shortness Of Breath) RF: 0 diltiazem HCl 360 mg capsule,extended release 24 hr 360 mg PO QAM RF: 0 cholecalciferol (vitamin D3) [Vitamin D3] 50 mcg (2,000 unit) Capsule 100 mcg PO QAM RF: 0 Kesimpta Pen 20 mg/0.4 mL pen injector 20 mg SUBCUT MONTHLY RF: 0 dexamethasone [Decadron] 6 mg tablet 6 mg PO DAILY Qty: 7 RF: 0 albuterol sulfate 90 mcg/actuation HFA aerosol inhaler 3 inh inhalation Q6H Qty: 18 RF: 2 Referrals Referrals: Angelica Harrell CRNP [Primary Care Provider] -
[2021-10-05 22:40] LABS: Hematocrit (blood only) 43.9 % (42-52); Hemoglobin 14.8 g/dL (14.0-18.0); Mean Corpuscular Hemoglobin 28.4 pg (25-34); Mean Corpuscular Hgb Conc 33.7 g/dL (32-36); Mean Corpuscular Volume 84.1 fL (80-100); Mean Platelet Volume 10.8 fL (7.4-10.4); Platelet Count 205 K/uL (130-400); RDW Coefficient of Variation 14.2 % (11.5-14.5); RDW Standard Deviation 44.3 fL (36.4-46.3); Red Blood Count 5.22 M/uL (4.7-6.1); White Blood Count 12.28 K/uL (4.8-10.8)
[2021-10-05 22:50] LABS: Prothrombin Time 9.7 Seconds (9.0-12.0)
[2021-10-05 22:57] LABS: ALC (manual) 0.69 K/uL (1.2-3.4); ANC (manual) 9.44 K/uL (1.4-6.5); Eosinophils # (manual) 0.11 K/uL (0-0.5); Eosinophils % (manual) 0.9 %; Lymphocytes # (manual) 0.69 K/uL (1.2-3.4); Lymphocytes % (manual) 5.6 %; Metamyelocytes # (manual) 1.47 K/uL (0-0); Monocytes # (manual) 0.45 K/uL (0.11-0.59); Monocytes % (manual) 3.7 %; Myelocytes # (manual) 0.11 K/uL (0-0); Myelocytes % (manual) 0.9 %; Neutrophils # (manual) 9.44 K/uL (1.4-6.5); Neutrophils % (manual) 76.9 %
[2021-10-05 23:37] LABS: Alanine Aminotransferase 39 U/L (12-78); Albumin Globulin Ratio 0.7 (0.9-2); Albumin Level 2.6 gm/dl (3.4-5.0); Alkaline Phosphatase 110 U/L (45-117); Aspartate Aminotransferase 23 U/L (15-37); BUN Creatinine Ratio 21.1 (10-20); Bilirubin,Total 0.3 mg/dl (0.2-1); Blood Urea Nitrogen 22 mg/dl (7-18); C Reactive Protein 2.73 mg/dl (0-0.29); Calcium 8.1 mg/dl (8.5-10.1); Carbon Dioxide 21 mmol/L (21-32); Chloride 105 mmol/L (98-107); Est GFR (African American) 92.2 ml/min; Est GFR (Non-African American) 79.5 ml/min; Glucose 146 mg/dl (70-99); Magnesium 2.1 mg/dl (1.8-2.4); Potassium 3.9 mmol/L (3.5-5.1); Sodium 134 mmol/L (136-145); Total Protein 6.6 gm/dl (6.4-8.2); Troponin I < 0.015 ng/ml (0-0.045)
[2021-10-06] MEDS ORDERED: HYDROCODONE/ACETAMOPHEN 5/325MG TAB PO ONE (00:04)
[2021-10-06] MEDS ORDERED: ONDANSETRON INJ 2 MG/ML 2 ML VIAL IV PRN (03:23)
[2021-10-06] MEDS ORDERED: ACETAMINOPHEN 325 MG TAB PO PRN (03:23)
[2021-10-06] MEDS ORDERED: XOPENEX/ATROVENT 1.25mg/0.5MG NEB COMBO NEB SCH (03:23)
[2021-10-06] MEDS ORDERED: NITROGLYCERIN SL 0.4 MG/TAB TAB SL PRN (03:23)
[2021-10-06] MEDS ORDERED: LEVALBUTEROL HCL 1.25 MG/3 ML NEB NEB PRN (03:23)
[2021-10-06] MEDS ORDERED: SODIUM CHLORIDE 0.9% 1000ML 1,000 ML IV SCH (03:30)
[2021-10-06] MEDS ORDERED: FLUTICASONE FUROATE 100MCG 14 PUFFS/INHALER INH PRN (03:37)
[2021-10-06] MEDS ORDERED: UMECLIDINIUM/VILANTEROL 62.5/25MCG 7 PUFFS/INHALER INH PRN (03:38)
[2021-10-06 06:07] LABS: Appearance Urine Clear (Clear); Bacteria Urine Automated Negative (Negative); Bilirubin Urine Negative (Negative); Blood Urine 1+ (Negative); Color Urine Yellow; Epithelial Cell Urine Auto >30 /lpf (0-5); Glucose Urine UA Trace (Negative); Ketones Urine Negative (Negative); Leukocyte Esterase Urine Negative (Negative); Nitrite Urine Negative (Negative); Protein Urine 2+ (Negative); RBC Urine Automated 0-4 /hpf (0-4); Specific Gravity Urine 1.033 (1.000-1.030); Urobilinogen Urine Negative (Negative)
[2021-10-06 06:38] LABS: Mucus Urine Present (None Prsent)
[2021-10-06] MEDS ORDERED: OPTIRAY 320 125ml IV ONE (06:42)
[2021-10-06] MEDS ORDERED: LEVALBUTEROL 1.25MG/0.5ML NEB INH SCH (07:00)
[2021-10-06] MEDS ORDERED: IPRATROPIUM BROMIDE NEB SOLN 0.02% 2.5 ML VIAL INH SCH (07:00)
[2021-10-06] MEDS ORDERED: ALBUTEROL HFA 8 GM INHALER INH SCH (07:00)
[2021-10-06] MEDS: ENOXAPARIN INJ 40 MG/0.4 ML SYR SQ SCH (07:21)
--- NOTE | 2021-10-06 08:02 | History and Physical Report ---
DATE OF ADMISSION: 10/05/2021. CHIEF COMPLAINT: COVID pneumonia. HISTORY OF PRESENT ILLNESS: A 61-year-old male with past medical history significant for COPD, hyperlipidemia, allergic rhinitis, paroxysmal SVT, orthostasis, history of duodenal ulcer, history of degeneration of lumbar intervertebral disk, history of multiple sclerosis, history of optic neuritis, history of ongoing tobacco abuse. He presents with COVID symptoms. The patient says COVID symptoms started around 09/25/2021 and he was in the ER on 09/27/2021, discharged on Decadron. At that time, monoclonal antibodies were offered, but seems he declined. But the patient says the last 2 days, the symptoms got worse, he is having more cough, on and off fevers, poor appetite, could not smell good and taste good. Has body ache, weakness, pain in the chest when he is coughing or taking deep breath, feeling poorly, so came to the ER. In the ER, currently on 2 L he is saturating okay, somewhat tachypneic, and sweaty. Denies any headache. No blurred visions, no earache. Has some mild runny nose. No sore throat, no difficulty swallowing. Has some abdominal pain. Denies any diarrhea or constipation. The patient lives with his . ALLERGIES: SULFA. PAST MEDICAL HISTORY: As mentioned above. PAST SURGICAL HISTORY: Implantation of abdominal hernia mesh, lumbosacral injection, arthrodesis of lumbar spine, tonsillectomy and adenoidectomy, repair of the right hand tendon, inguinal hernia repair, repair of left knee ligament, tilt table evaluation. MEDICATIONS: The patient is on albuterol inhalation q. 6 hours p.r.n., aspirin 325 mg p.o. daily, vitamin D 100 mcg p.o. a.m., Decadron 6 mg p.o. daily, diltiazem 360 mg p.o. daily, Kesimpta 20 mg subcutaneous monthly, Trelegy Ellipta 1 inhalation a.m., venlafaxine 75 mg p.o. daily. FAMILY HISTORY: Significant for father had COPD, hypertension, PE; mother has hypertension, migraines; brother has rheumatic fever and hypertension. SOCIAL HISTORY: . Currently smokes half pack a day for last 30 years. Alcohol rarely. No drug use. REVIEW OF SYSTEMS: As per HPI. Rest of the review of systems is negative. PHYSICAL EXAMINATION: GENERAL: The patient is of moderate build, not in acute distress. VITAL SIGNS: Temperature 37.9, pulse 95, respiratory rate 33, blood pressure 103/86, oxygen 96% on 2 liters. HEENT: Pupils equal, round and reactive to light. Oral mucosa moist. NECK: No JVD. No neck masses. CARDIOVASCULAR: S1 and S2 heard, somewhat tachycardic. No murmurs. Regular rate. RESPIRATORY SYSTEM: Normal AP diameter. No accessory muscle use. No wheezing, no crackles. ABDOMEN: Soft, bowel sounds present, nontender, no distention. CENTRAL NERVOUS SYSTEM: Cranial nerves II-XII grossly intact, nonfocal. EXTREMITIES: No edema, no erythema. LABORATORY DATA: WBC 12.2, hemoglobin 14.8, hematocrit 43.9, platelets 205, PT 9.7, INR 1. Sodium 134, potassium 3.9, chloride 105, bicarbonate 21, BUN 22, creatinine 1.02, serum glucose 146, calcium 8.1, magnesium 2.1, total bilirubin 0.3, AST 23, ALT 39, alkaline phosphatase 110. Troponin I less than 0.015. Procalcitonin 0.15. SARS-CoV-2 PCR positive. IMAGING DATA: Chest x-ray, has bilateral infiltrates. EKG: Sinus tachycardia with frequent PVCs at a rate of 126, incomplete right bundle-branch block, left anterior fascicular block, QTc of 498. ASSESSMENT AND PLAN: This is a 61-year-old male who presents with COVID pneumonia. 1. COVID pneumonia: He is having symptoms since 09/25/2021, almost more than 10 days. He was seen in the ER on 09/27/2021, but at that time seemed to have declined monoclonal antibodies and the patient is not vaccinated. Was discharged on p.o. Decadron, but symptoms are worsen the last 2 to 3 days as per the patient. Will keep him in the hospital. Continue IV Decadron, nebs around the clock, and p.r.n. home inhalers. Closely monitor in the tele floor since it is more than 10 days will be holding on remdesivir. 2. History of tobacco abuse: The patient says he does not need any nicotine patch at this time. Needs counseling when stable. 3. History of paroxysmal supraventricular tachycardia: On diltiazem, which will be continued. 4. History of multiple sclerosis: On Kesimpta every month. 5. Deep venous thrombosis prophylaxis: Lovenox. DISPOSITION: Closely monitor in the tele floor. Level 1 full code. Expect to discharge home and follow with family doctor. Job ID: [id number]
--- NOTE | 2021-10-06 08:07 | Electrocardiogram Report ---
Test Reason : Blood Pressure : / mmHG Vent. Rate : 126 BPM Atrial Rate : 126 BPM P-R Int : 142 ms QRS Dur : 104 ms QT Int : 344 ms P-R-T Axes : 052 -48 029 degrees QTc Int : 498 ms Poor data quality, interpretation may be adversely affected Sinus tachycardia Left atrial enlargement Incomplete right bundle branch block Left anterior fascicular block Abnormal ECG When compared with ECG of 27-SEP-2021 20:22, Premature atrial complexes are no longer Present Confirmed by Aaron Morrison ([id number]) on 10/06/2021 8:07:31 AM Referred By: REFERRED SELF Confirmed By:Aaron Morrison
[2021-10-06 08:34] LABS: Hemoglobin 14.8 g/dL (14.0-18.0); Mean Corpuscular Hgb Conc 32.9 g/dL (32-36); Mean Corpuscular Volume 85.1 fL (80-100); Mean Platelet Volume 10.5 fL (7.4-10.4); Platelet Count 199 K/uL (130-400); RDW Coefficient of Variation 14.6 % (11.5-14.5); RDW Standard Deviation 45.7 fL (36.4-46.3); Red Blood Count 5.29 M/uL (4.7-6.1); White Blood Count 12.77 K/uL (4.8-10.8)
--- NOTE | 2021-10-06 08:37 | CT Scan Report ---
CT ANGIOGRAM OF THE CHEST CLINICAL HISTORY: Atypical chest pain. Dyspnea. Covid. COMPARISON STUDY: Chest x-ray dated 10/05/2021. Chest CT dated 08/20/2021. TECHNIQUE: Following the IV administration of 121 cc of Optiray 320, CT angiogram of the chest was pe rformed from the upper abdomen to the thoracic inlet utilizing the pulmonary embolus protocol. Images are reviewed in the axial, sagittal, and coronal planes. 3-D MIPS images are created and assessed. I V contrast was administered without complication. A dose lowering technique was utilized adhering to the principles of ALARA. CT DOSE: 357.40 mGy.cm FINDINGS: Thyroid: Imaged portions of the thyroid gland are normal in size and attenuation. Thoracic aorta: The thoracic aorta is normal in caliber and demonstrates standard 3-vessel arch anato my. No dissection is seen. Pulmonary vasculature: The pulmonary trunk is normal in caliber. There are no filling defects identif ied in main, lobar, or segmental pulmonary branches to suggest pulmonary embolus. Heart: The heart is normal in size and without pericardial effusion. Lungs and pleural spaces: Evaluation of the lung parenchyma is degraded by motion artifact. Multifoca l groundglass consolidation is seen throughout both lungs. No pleural effusion is identified. The tra song and central airways are clear. An accessory azygous fissure is incidentally noted. Mediastinum: Mildly enlarged mediastinal nodes measure up to 14 mm in short axis. Amy: Mildly enlarged hilar nodes measure up to 15 mm in short axis. Axillae: There is no axillary lymphadenopathy. Upper abdomen: There is a tiny hiatal hernia. Partially visualized upper abdominal viscera is otherwi se within normal limits. Skeletal structures: No lytic or blastic bony lesions are seen. IMPRESSION: 1. There is no evidence of pulmonary embolus in the main, lobar, or segmental pulmonary arteries. 2. Multifocal groundglass consolidation is consistent with the reported history of a viral pneumonia. Radiographic follow-up to resolution is recommended. 3. Mildly enlarged mediastinal and hilar nodes are likely reactive. 4. Additional findings as above. ACT 112: Negative or not required by law. Electronically signed by: Otto Doshi M.D. 10/06/2021 8:36 AM
[2021-10-06 08:55] LABS: ANC (manual) 10.93 K/uL (1.4-6.5); Lymphocytes % (manual) 6.3 %; Metamyelocytes # (manual) 0.34 K/uL (0-0); Metamyelocytes % (manual) 2.7 %; Monocytes # (manual) 0.23 K/uL (0.11-0.59); Monocytes % (manual) 1.8 %; Myelocytes # (manual) 0.46 K/uL (0-0); Myelocytes % (manual) 3.6 %; Neutrophils # (manual) 10.93 K/uL (1.4-6.5); Neutrophils % (manual) 85.6 %; RBC Morphology Unremarkable
--- NOTE | 2021-10-06 09:04 | XRay Report ---
SINGLE VIEW CHEST CLINICAL HISTORY: Dyspnea. Covid. FINDINGS: An AP, portable, upright chest radiograph is compared to study dated 09/27/2021 and correlat ed with chest CT dated 08/20/2021. The cardiomediastinal silhouette is unremarkable. Multifocal airspa ce consolidation is typical for pneumonia. No large pleural effusion or pneumothorax is seen. The bon y thorax is grossly intact. IMPRESSION: Multifocal airspace consolidation is consistent with the reported history of a viral pneu monia. Radiographic follow-up to resolution is recommended. ACT 112: Negative or not required by law. Electronically signed by: Otto Doshi M.D. 10/06/2021 9:03 AM
[2021-10-06 09:12] LABS: BUN Creatinine Ratio 24.7 (10-20); Calcium 8.2 mg/dl (8.5-10.1); Creatinine Clr Calc Pharmacy 87.3 ml/min; Est GFR (African American) 107.2 ml/min; Est GFR (Non-African American) 92.5 ml/min; Magnesium 2.7 mg/dl (1.8-2.4); Potassium 4.2 mmol/L (3.5-5.1)
[2021-10-06] MEDS: dilTIAZem HCL 180 MG CAPCR PO SCH (09:12)
[2021-10-06] MEDS: dexAMETHasone 6 MG in SYRINGE 0 ML IV SCH (09:12)
[2021-10-06] MEDS: CHOLECALCIFEROL 1,000 UNITS 25 MCG TAB PO SCH (09:13)
[2021-10-06] MEDS: VENLAFAXINE HCL XR 75 MG CAPXR PO SCH (09:13)
[2021-10-06] MEDS: ASPIRIN 325 MG ECTAB PO SCH (09:13)
[2021-10-06] MEDS ORDERED: IPRATROPIUM BROMIDE NEB SOLN 0.02% 2.5 ML VIAL INH PRN (09:32)
[2021-10-06] MEDS: ACETAMINOPHEN 500 MG TAB PO PRN ×2 (11:03→20:41)
[2021-10-06] MEDS: LIDOCAINE 5% 1 PATCH TD SCH (13:08)
--- NOTE | 2021-10-06 14:37 | Hospitalist Progress Note ---
Date of Service October 06, 2021 Assessment & Plan (1) 2019 novel coronavirus-infected pneumonia (NCIP): Plan: He is not vaccinated Was seen in the emergency room / of this month and declined monoclonal antibodies at that time He was discharged on Decadron and the symptoms have been worsened since then We will continue dexamethasone for now and he does not qualify for remdesivir since it is more than 10 days Condition is being complicated by COPD Has been requiring 2 L of oxygen to maintain saturation History of multiple sclerosis He has been on medications further every month-Kesimta 20 mg subcu (2) COVID-19: Plan: Not been vaccinated Diagnosed to be positive on seventh of this month and again on of this month (3) COPD (chronic obstructive pulmonary disease): Plan: No significant exacerbations of COPD (4) Arrhythmia: Plan: Has history of paroxysmal SVT No acute cardiac symptoms (5) Hypertension: Plan: Blood pressure is controlled Continue current medications (6) Reflux esophagitis: Plan: Has been on PPI (7) Hyperlipidemia: Plan: Continue statin DVT prophylaxis Subcu Lovenox CODE STATUS Full Admission and Anticipated Discharge Date Admission Date: October 06, 2021 Subjective 10/06/2021 The patient was seen and examined in telemetry unit and in the Covid room He has been feeling a little better and remains in prone position during examination Has cough and shortness of breath No nausea or vomiting Review of Systems Review of Systems: All systems reviewed and are unremarkable except as noted below Respiratory: Minimal shortness of breath at rest Physical Exam Physical Exam: Lying in bed comfortably with prone position during my visit Constitutional: well developed, well nourished, + ill appearing and average body habitus Eyes: PERRL, conjunctivae normal, anicteric sclerae ENMT: external ear and nose normal, oropharynx normal Neck: trachea midline, no thyromegaly Respiratory: + respiratory distress (Minimal to none respiratory distress at rest) and + cough Auscultation: lungs clear to auscultation bilaterally and + diminished lung sounds; no crackles Cardiovascular: Rate/Rhythm: regular rate and regular rhythm; not tachycardic Heart Sounds: normal S1 and normal S2; no murmur Extremities: no edema Gastrointestinal (Abdomen): Inspection/Auscultation: normal bowel sounds; abdomen not distended Percussion/Palpation: abdomen soft; abdomen nontender Musculoskeletal: No acute arthritis in any joint Neurologic: Alert, awake and oriented x3. Generally weak Lymphatic: no cervical or axillary lymphadenopathy Results & Data Results & Data ([facility]) Vital Signs (Past 12 Hours) Vital Signs Temp Pulse Pulse Resp BP BP Pulse Ox 10/06/21 11:18 36.7 C 82 22 146/89 H 95 10/06/21 08:00 78 10/06/21 07:27 86 18 94 10/06/21 07:12 36.5 C 71 18 125/81 96 10/06/21 04:53 36.4 C L 77 14 146/77 H 97 10/06/21 04:50 36.4 C L 78 16 146/77 H 97 10/06/21 04:00 63 21 123/77 96 10/06/21 03:30 65 32 H 95 10/06/21 03:00 70 27 H 95 10/06/21 02:30 67 26 H 95 Laboratory Results Short CBC 10/05/21 10/06/21 Range/Units 22:20 08:08 WBC 12.28 H 12.77 H (4.8-10.8) K/uL Hgb 14.8 14.8 (14.0-18.0) g/dL Hct 43.9 45.0 (42-52) % Plt Count 205 199 (130-400) K/uL BMP 10/05/21 10/06/21 22:20 08:08 Sodium 134 L 135 L Potassium 3.9 4.2 Chloride 105 103 Carbon Dioxide 21 26 BUN 22 H 22 H Creatinine 1.02 0.90 Glucose 146 H 167 H Calcium 8.1 L 8.2 L Cardiac Enzymes 10/05/21 Range/Units 22:20 Troponin I < 0.015 (0-0.045) ng/ml Liver Function 10/05/21 Range/Units 22:20 Total Bilirubin 0.3 (0.2-1) mg/dl AST 23 (15-37) U/L ALT 39 (12-78) U/L Alkaline Phosphatase 110 (45-117) U/L Albumin 2.6 L (3.4-5.0) gm/dl Urine 10/06/21 Range/Units 05:40 Urine Color Yellow Urine Appearance Clear (Clear) Urine pH 5.0 (4.5-7.5) Ur Specific Woodson 1.033 H (1.000-1.030) Urine Protein 2+ H (Negative) Urine Glucose (UA) Trace H (Negative) Medications Administered Short CBC 10/05/21 10/06/21 Range/Units 22:20 08:08 WBC 12.28 H 12.77 H (4.8-10.8) K/uL Hgb 14.8 14.8 (14.0-18.0) g/dL Hct 43.9 45.0 (42-52) % Plt Count 205 199 (130-400) K/uL BMP 10/05/21 10/06/21 22:20 08:08 Sodium 134 L 135 L Potassium 3.9 4.2 Chloride 105 103 Carbon Dioxide 21 26 BUN 22 H 22 H Creatinine 1.02 0.90 Glucose 146 H 167 H Calcium 8.1 L 8.2 L Cardiac Enzymes 10/05/21 Range/Units 22:20 Troponin I < 0.015 (0-0.045) ng/ml Liver Function 10/05/21 Range/Units 22:20 Total Bilirubin 0.3 (0.2-1) mg/dl AST 23 (15-37) U/L ALT 39 (12-78) U/L Alkaline Phosphatase 110 (45-117) U/L Albumin 2.6 L (3.4-5.0) gm/dl Urine 10/06/21 Range/Units 05:40 Urine Color Yellow Urine Appearance Clear (Clear) Urine pH 5.0 (4.5-7.5) Ur Specific Woodson 1.033 H (1.000-1.030) Urine Protein 2+ H (Negative) Urine Glucose (UA) Trace H (Negative)
[2021-10-07] MEDS: ACETAMINOPHEN 500 MG TAB PO PRN ×2 (04:51→13:05)
[2021-10-07] MEDS ORDERED: oxyCODONE HCL IR 5 MG TAB (IMMEDIATE RELEASE) PO STA (05:07)
[2021-10-07] MEDS: ENOXAPARIN INJ 40 MG/0.4 ML SYR SQ SCH (05:13)
[2021-10-07] MEDS: VENLAFAXINE HCL XR 75 MG CAPXR PO SCH (09:31)
[2021-10-07] MEDS: dexAMETHasone 6 MG in SYRINGE 0 ML IV SCH (09:31)
[2021-10-07] MEDS: dilTIAZem HCL 180 MG CAPCR PO SCH (09:32)
[2021-10-07] MEDS: CHOLECALCIFEROL 1,000 UNITS 25 MCG TAB PO SCH (09:32)
[2021-10-07] MEDS: ASPIRIN 325 MG ECTAB PO SCH (09:34)
[2021-10-07] MEDS: LIDOCAINE 5% 1 PATCH TD SCH (09:37)
--- NOTE | 2021-10-07 19:02 | Hospitalist Progress Note ---
Date of Service October 07, 2021 Assessment & Plan (1) 2019 novel coronavirus-infected pneumonia (NCIP): Plan: #. 2019 novel coronavirus-infected pneumonia (NCIP): #. CoVID 19 Not vaccinated, diagnosed with Covid on 09/27 in the ED when he declined monoclonal antibodies--> was discharged on Decadron. Symptoms worsen since then. Readmitted 10/06----> continued with Decadron but did not qualify for remdesivir WBC 12 point 2K at presentation, likely secondary to steroid use, procalcitonin negative at presentation. Patient on 2 L oxygen to maintain saturation. Patient looks ill compared to minimal oxygen requirement. Continue with DEXA 10/06, enoxaparin, Lasix as needed, nebulizations, incentive spirometry and flutter valve, proning as able. Watch out for secondary bacterial infection, will repeat CBC/pro Arden/CXR tomorrow morning. #. History of multiple sclerosis He has been on medications further every month-Kesimta 20 mg subcu #. COPD (chronic obstructive pulmonary disease): No significant exacerbations of COPD #. Arrhythmia: Has history of paroxysmal SVT No acute cardiac symptoms #. Hypertension: Blood pressure is controlled Continue current medications #. Reflux esophagitis: Has been on PPI #. Hyperlipidemia: Continue statin #. DVT prophylaxis: Subcu Lovenox CODE STATUS: Full Admission and Anticipated Discharge Date Admission Date: October 06, 2021 Subjective Patient was lying in bed, looking, in mild distress, on 2 L nasal cannula oxygen, at temperature of 37.5 at bedside, reports mild headache and chest pain with deep breathing. Also reports cough with greenish-yellow sputum that has been present since Tuesday DEVELOPMENT INTERN. Patient denies dizziness/sore throat/chest pain at rest/increased shortness of breath/other review of symptoms. Physical Exam Physical Exam: GENERAL: Alert and oriented x3. in mild distress, on 2L HEENT: No pallor, no icterus. Pupils equal, round and reactive to light. Oral mucosa moist. NECK: No JVD, no neck masses. HEART: S1 and S2 heard. Regular rate and rhythm. No murmur, no gallop. RESPIRATORY SYSTEM: Normal AP diameter. No accessory muscle use. No wheezing, diffuse and b/b crackles. ABDOMEN: Soft, bowel sounds present, nontender, no distention. CENTRAL NERVOUS SYSTEM: No facial droop. Speech is clear. Obeys simple commands. Moves extremities. EXTREMITIES: No edema, no erythema seen. Results & Data Results & Data ([facility]) Vital Signs (Past 12 Hours) Vital Signs Temp Pulse Pulse Resp BP Pulse Ox 10/07/21 18:56 36.7 C 18 129/77 93 10/07/21 16:15 36.7 C 65 18 123/69 91 10/07/21 16:00 76 10/07/21 12:26 37.5 C 94 H 22 148/79 H 93 10/07/21 08:00 77 10/07/21 07:55 37.1 C 76 18 143/82 H 94
[2021-10-08] MEDS: guaiFENesin/CODEINE 100MG/10MG 5ML UDC PO PRN ×3 (00:01→18:21)
[2021-10-08] MEDS: ENOXAPARIN INJ 40 MG/0.4 ML SYR SQ SCH (05:49)
[2021-10-08 07:28] LABS: Hematocrit (blood only) 43.9 % (42-52); Mean Corpuscular Hgb Conc 34.2 g/dL (32-36); Mean Corpuscular Volume 81.9 fL (80-100); Mean Platelet Volume 10.3 fL (7.4-10.4); Platelet Count 242 K/uL (130-400); RDW Coefficient of Variation 14.6 % (11.5-14.5); RDW Standard Deviation 43.5 fL (36.4-46.3); Red Blood Count 5.36 M/uL (4.7-6.1); White Blood Count 14.55 K/uL (4.8-10.8)
[2021-10-08 07:54] LABS: BUN Creatinine Ratio 30.9 (10-20); Calcium 8.5 mg/dl (8.5-10.1); Creatinine Clr Calc Pharmacy 95.8 ml/min; Est GFR (African American) 111.4 ml/min; Est GFR (Non-African American) 96.1 ml/min; Potassium 4.3 mmol/L (3.5-5.1)
[2021-10-08] MEDS: CHOLECALCIFEROL 1,000 UNITS 25 MCG TAB PO SCH (08:45)
[2021-10-08] MEDS: dexAMETHasone 6 MG in SYRINGE 0 ML IV SCH (08:45)
[2021-10-08] MEDS: ASPIRIN 325 MG ECTAB PO SCH (08:45)
[2021-10-08] MEDS: LIDOCAINE 5% 1 PATCH TD SCH (08:46)
[2021-10-08] MEDS: dilTIAZem HCL 180 MG CAPCR PO SCH (08:46)
[2021-10-08] MEDS: VENLAFAXINE HCL XR 75 MG CAPXR PO SCH (08:46)
[2021-10-08] MEDS: ACETAMINOPHEN 500 MG TAB PO PRN ×2 (08:47)
[2021-10-08] MEDS: BENZONATATE 100 MG CAPSULE PO PRN ×3 (08:47→18:21)
[2021-10-08 10:56] LABS: C Reactive Protein 8.6 mg/dl (0-0.29)
--- NOTE | 2021-10-08 11:14 | XRay Report ---
XR chest 1V portable HISTORY: Shortness of breath. Pneumonia. COMPARISON: Chest 10/05/2021. FINDINGS: No pneumothorax. No pleural effusions. The heart is normal in size. There are low lung volu mes. Interstitial thickening with bilateral hazy airspace opacities persist. This is consistent with a viral pneumonia. IMPRESSION: No change in the bilateral hazy airspace opacities consistent with a viral pneumonia. ACT 112: Negative or not required by law. Electronically signed by: Lionel Rodríguez M.D. 10/08/2021 11:13 AM
--- NOTE | 2021-10-08 14:37 | Hospitalist Progress Note ---
Date of Service October 08, 2021 Assessment & Plan (1) 2019 novel coronavirus-infected pneumonia (NCIP): Plan: #. 2019 novel coronavirus-infected pneumonia (NCIP): #. CoVID 19 Not vaccinated, diagnosed with Covid on 09/27 in the ED when he declined monoclonal antibodies--> was discharged on Decadron. Symptoms worsen since then. Readmitted 10/06----> continued with Decadron but did not qualify for remdesivir WBC 12 point 2K at presentation, likely secondary to steroid use, procalcitonin negative at presentation. Patient on 15 L oxygen to maintain saturation. Pulmonology consulted, appreciate recommendations. Continue with DEXA 10/06, enoxaparin, Lasix as needed, nebulizations, incentive spirometry and flutter valve, proning as able. Watch out for secondary bacterial infection -pro-Arden negative, no change in c hest x-ray today. #. Mild hyponatremia Sodium level in prior ER visit 134 Admitting sodium level this time 134 Sodium level today 132 We will hold Lasix today, given normal proBNP and no BLE edema, also concerns for hyponatremia. #. History of multiple sclerosis He has been on medications further every month-Kesimta 20 mg subcu #. COPD (chronic obstructive pulmonary disease): No significant exacerbations of COPD #. Arrhythmia: Has history of paroxysmal SVT No acute cardiac symptoms #. Hypertension: Blood pressure is controlled Continue current medications #. Reflux esophagitis: Has been on PPI #. Hyperlipidemia: Continue statin #. DVT prophylaxis: Subcu Lovenox CODE STATUS: Full Admission and Anticipated Discharge Date Admission Date: October 06, 2021 Subjective Patient was lying in bed, NAD, on 15 L nasal cannula oxygen, reports continuing mild headache and chest pain with deep breathing. Patient denies dizziness/sore throat/chest pain at rest/increased shortness of breath/other review of symptoms. Overnight patient had shortness of breath, requiring 6 L nasal cannula oxygen from 2 L. In the morning patient required 15 L oxygen. Pulmonology consulted. Patient is not eating much per RN, patient encouraged to eat, increasing protein content in the diet. Patient reports feeling better than yesterday. Physical Exam Physical Exam: GENERAL: Alert and oriented x3. NAD, on 15L HEENT: No pallor, no icterus. Pupils equal, round and reactive to light. Oral mucosa moist. NECK: No JVD, no neck masses. HEART: S1 and S2 heard. Regular rate and rhythm. No murmur, no gallop. RESPIRATORY SYSTEM: Normal AP diameter. No accessory muscle use. No wheezing, diffuse and b/l crackles. ABDOMEN: Soft, bowel sounds present, nontender, no distention. CENTRAL NERVOUS SYSTEM: No facial droop. Speech is clear. Obeys simple commands. Moves extremities. EXTREMITIES: No edema, no erythema seen. Results & Data Results & Data ([facility]) Vital Signs (Past 12 Hours) Vital Signs Temp Pulse Pulse Resp BP Pulse Ox 10/08/21 12:28 37.0 C 80 18 128/78 95 10/08/21 07:51 91 H 10/08/21 07:23 37.8 C H 95 H 22 149/81 H 91 10/08/21 03:30 82 10/08/21 02:53 37.2 C 80 20 121/67 93
[2021-10-09] MEDS: guaiFENesin/CODEINE 100MG/10MG 5ML UDC PO PRN (02:57)
[2021-10-09] MEDS: ACETAMINOPHEN 500 MG TAB PO PRN (02:57)
[2021-10-09] MEDS: ENOXAPARIN INJ 40 MG/0.4 ML SYR SQ SCH (06:05)
[2021-10-09] MEDS: VENLAFAXINE HCL XR 75 MG CAPXR PO SCH (07:45)
[2021-10-09] MEDS: LIDOCAINE 5% 1 PATCH TD SCH (07:45)
[2021-10-09] MEDS: CHOLECALCIFEROL 1,000 UNITS 25 MCG TAB PO SCH (07:46)
[2021-10-09] MEDS: ASPIRIN 325 MG ECTAB PO SCH (07:46)
[2021-10-09] MEDS: dilTIAZem HCL 180 MG CAPCR PO SCH (07:46)
[2021-10-09 09:09] LABS: Hematocrit (blood only) 45.8 % (42-52); Hemoglobin 15.5 g/dL (14.0-18.0); Mean Corpuscular Hemoglobin 28.4 pg (25-34); Mean Corpuscular Hgb Conc 33.8 g/dL (32-36); Mean Corpuscular Volume 83.9 fL (80-100); Mean Platelet Volume 11.1 fL (7.4-10.4); Platelet Count 261 K/uL (130-400); RDW Coefficient of Variation 14.8 % (11.5-14.5); RDW Standard Deviation 45.5 fL (36.4-46.3); Red Blood Count 5.46 M/uL (4.7-6.1); White Blood Count 14.97 K/uL (4.8-10.8)
[2021-10-09] MEDS: dexAMETHasone 10 MG in SYRINGE 0 ML IV SCH (09:28)
[2021-10-09 09:46] LABS: BUN Creatinine Ratio 31.2 (10-20); Creatinine Clr Calc Pharmacy 83.6 ml/min; Est GFR (African American) 101.7 ml/min; Est GFR (Non-African American) 87.8 ml/min; Magnesium 2.7 mg/dl (1.8-2.4); Potassium 4.8 mmol/L (3.5-5.1)
--- NOTE | 2021-10-09 10:58 | Pulmonary Consultation ---
Date of Consultation October 08, 2021 Assessment & Plan (1) 2019 novel coronavirus-infected pneumonia (NCIP): (2) Acute respiratory failure with hypoxia: (3) COPD (chronic obstructive pulmonary disease): CT chest 10/06/2021 personally reviewed: Diffuse patchy groundglass opacities appreciated bilaterally Right upper associated lobe No significant mediastinal adenopathy --Acute hypoxic respiratory failure Secondary to multilobar COVID-19 pneumonia COVID-19 PCR positive CRP 2.73 Procalcitonin 0.12 BNP 76 Continue with O2 supplementation to keep oxygen saturation between 90-92%. Awake proning will be helpful Continue with incentive spirometry Continue with flutter valve. Recommend patient to be kept euvolemic to negative balance --COPD active smoking Importance of quitting explained to patient PFTs as an outpatient --History of MS On monoclonal antibodies monthly Plan: Patient CRP was less than 7.5 on 10/05. I will repeat the CRP as well as BNP Given the patient's is already on monoclonal antibodies for his underlying MS, I do not think patient should be given any other monoclonal antibodies If the CRP is greater than 7.5 I will increase the dexamethasone 10 mg on a daily basis Continue with diuresis to keep the patient negative balance Incentive spirometry and flutter valve Please note the above document was generated using voice recognition software. It may contain grammatical, syntax or spelling errors.Any formal questions or concerns about the content, text or information contained within the body of this dictation should be directly addressed to the provider for clarification. History of Present Illness Attending Physician: Dax Mendoza MD History of Present Illness 61-year-old male past medical history of COPD, dyslipidemia, intervertebral disc degeneration, MS with optic neuritis admitted to the hospital with complaints of shortness of breath Patient was found to be COVID-19 positive on 09/27/2020 when discharged from the ED but he came back as he was getting short of breath Pulmonary consulted for increasing oxygen requirement At the time of examination patient was saturating 90- 95% on 14 L. I went down to 10 L He was still saturating 90-92% He said he is feeling better compared to yesterday He still complains of chest pain especially when he is coughing. It is reproducible on palpation Fair appetite. Denies any nausea or vomiting He is able to bring up the phlegm Has been using incentive spirometer as well as flutter valve Social history: Active smoker. Allergies Allergy/AdvReac Type Severity Reaction Status Date / Time Sulfa (Sulfonamide AdvReac Unknown WIPED OUT Verified 09/27/21 20:21 Antibiotics) GOOD BACTERIA, BECAME SEPTIC. sulfamethoxazole AdvReac Unknown wiped out Verified 09/27/21 20:21 good bacteria, became septic trimethoprim AdvReac Unknown wiped out Verified 09/27/21 20:21 good bacteria, became septic Home Medications Medication Instructions Recorded Confirmed Type aspirin 325 mg tablet,delayed 325 mg PO QAM 11/27/18 09/27/21 History release fluticasone fur. 100 mcg-umeclid 1 inh INHALATION QAM PRN 01/18/20 09/27/21 History 62.5 mcg-vilant 25 mcg inhalat.powder (Trelegy Ellipta) diltiazem HCl 360 mg capsule,24 360 mg PO QAM 08/19/20 09/27/21 History hr,extended release cholecalciferol (vitamin D3) 50 100 mcg PO QAM 03/31/21 09/27/21 History mcg (2,000 unit) capsule (Vitamin D3) albuterol sulfate 90 mcg/actuation 3 inh INHALATION Q6H #18 g 09/27/21 Rx aerosol inhaler dexamethasone 6 mg tablet 6 mg PO DAILY #7 tab 09/27/21 Rx (Decadron) ofatumumab 20 mg/0.4 mL 20 mg SUBCUT MONTHLY 09/27/21 09/27/21 History subcutaneous pen injector (Kesimpta Pen) Patient History Medical History (Updated 10/09/21 @ 10:54 by Servando Huynh MD) Adverse drug reaction (03/31/14) Arrhythmia PVT-F/U [facility] Arthritis Bronchitis Bronchitis with bronchospasm (03/31/14) Chest pain Degenerative disc disease NECK GERD (gastroesophageal reflux disease) Hx of multiple sclerosis [facility] LOWER EXTREMITIES NUMBNESS/ CHRONIC WEAKNESS/FATIGUE Neuropathy IDIOPATHIC HANDS AND FEET Pericarditis Precordial chest pain Sepsis Surgical History Fusion of spine X LOWER BACK X 3 2011 and 2014 History of arthroscopy LEFT KNEE History of colonoscopy History of esophagogastroduodenoscopy (EGD) History of herniorrhaphy 2014 Hx of hand surgery RIGHT TENDON REPAIR Hx of oral surgery (03/27/20) Intra-Oral Incision and Drainage; removal of buccal lesion; Extraction of tooth #20 Dr. beauchamp 03/27/20 Family History Father Family history of reaction to anesthesia REQUIRES MORE ANESTHESIA-"DOESN'T WORK" Hypertension Heart disease Other Gallbladder disease Social History Smoking Status: Current every day smoker Tobacco Type: Cigarettes packs per day: 0.75; Cigarettes Per Day: 15 CIGS A DAY X 30+ YRS AGO; Second Hand Exposure: Yes; Do You Dip or Chew Tobacco: No; Tobacco Cessation Education Requested by Patient: No Hx Alcohol Use: Yes Alcohol type: hard liquor Alcohol Intake Frequency Comment: 1 drink a week Hx Substance Use: No Preferred Language: Slovenian Communication Ability: Effective Preparation 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 Beliefs That Will Affect Care: None marital status: Current Living Situation: Spouse current occupational status: employed current occupation: [employer] Other Information That Helps Us Care for You: No Feels Safe at Home: Yes Safety Concerns: Feels Safe At This Time Assistive Devices: Oxygen - Continuous Review of Systems Review of Systems: All systems reviewed & are unremarkable except as noted in HPI & below Physical Exam Physical Exam: Constitutional: No acute distress HEENT: EOMI, PERRLA Respiratory system: Decreased antibiotic, no wheeze, rhonchi, positive crackles bilateral lower lobes CVS: S1-S2 positive, no murmurs or gallops Abdomen: Soft, nontender, nondistended, positive bowel sounds x4 Extremities: +2 pulses bilaterally radialis/ dorsalis pedis, no cyanosis, no edema Neuro: Awake alert oriented x3 Psych: Normal mood and affect G/U: No Maldonado Skin: no rashes, warm and dry Lymphatic: no cervical or axillary lymphadenopathy Results & Data Results & Data ([facility]) Vital Signs (Past 12 Hours) Vital Signs Temp Pulse Resp BP Pulse Ox 10/09/21 07:03 37.7 C H 87 22 145/78 H 96 10/09/21 04:06 37.2 C 93 10/09/21 02:57 38.2 C H 11/19/21 02:47 38.2 C H 89 18 153/78 H 90 PG Care Time/CCT Total # of Minutes Spent Total Time Spent with Patient: Total time spent is greater than 50% in coordination of care (as documented) at patient's floor/unit and/or counseling patient: Coding Level of Care Code 60401 Initial Inpt Care Lvl 3 Diagnoses 2019 novel coronavirus-infected pneumonia (NCIP) U07.1; J12.82 Acute respiratory failure with hypoxia J96.01 COPD (chronic obstructive pulmonary disease) J44.9
--- NOTE | 2021-10-09 11:44 | Pulmonology Progress Note ---
Date of Service October 09, 2021 Assessment & Plan (1) 2019 novel coronavirus-infected pneumonia (NCIP): (2) Acute respiratory failure with hypoxia: (3) COPD (chronic obstructive pulmonary disease): Plan: CT chest 10/06/2021 personally reviewed: Diffuse patchy groundglass opacities appreciated bilaterally Right upper associated lobe No significant mediastinal adenopathy --Acute hypoxic respiratory failure Secondary to multilobar COVID-19 pneumonia COVID-19 PCR positive CRP 2.73 --> 8.6 Procalcitonin 0.12 BNP 76 Continue with O2 supplementation to keep oxygen saturation between 90-92%. Awake proning will be helpful Continue with incentive spirometry Continue with flutter valve. Recommend patient to be kept euvolemic to negative balance --COPD active smoking Importance of quitting explained to patient PFTs as an outpatient --History of MS On monoclonal antibodies monthly Plan: Dexamethasone increased to 10 mg Guaifenesin [id number] added to the regimen Continue with awake proning, incentive flutter valve Please note the above document was generated using voice recognition software. It may contain grammatical, syntax or spelling errors.Any formal questions or concerns about the content, text or information contained within the body of this dictation should be directly addressed to the provider for clarification. Admission and Anticipated Discharge Date Admission Date: October 06, 2021 Subjective Patient seen and examined at bedside. No acute distress, noted with his overnight Still spiking low-grade fever At the time admission patient was saturating 94% on 9 L nasal cannula I went down to 7 L He has been compliant with incentive spirometry as well as flutter valve He has been self proning Is bringing up clear phlegm denies any hemoptysis Review of Systems Review of Systems: All systems reviewed & are unremarkable except as noted in Subjective Physical Exam Physical Exam: Constitutional: No acute distress HEENT: EOMI, PERRLA Respiratory system: Decreased antibiotic, no wheeze, rhonchi, positive crackles bilateral lower lobes CVS: S1-S2 positive, no murmurs or gallops Abdomen: Soft, nontender, nondistended, positive bowel sounds x4 Extremities: +2 pulses bilaterally radialis/ dorsalis pedis, no cyanosis, no edema Neuro: Awake alert oriented x3 Psych: Normal mood and affect G/U: No Maldonado Skin: no rashes, warm and dry Lymphatic: no cervical or axillary lymphadenopathy Results & Data Results & Data ([facility]) Vital Signs (Past 12 Hours) Vital Signs Temp Pulse Pulse Resp BP Pulse Ox 10/09/21 11:12 37.8 C H 91 H 23 125/69 89 L 10/09/21 08:00 75 10/09/21 07:03 37.7 C H 87 22 145/78 H 96 10/09/21 04:06 37.2 C 93 10/09/21 02:57 38.2 C H 10/09/21 02:47 38.2 C H 89 18 153/78 H 90 10/09/21 07:31 10/09/21 07:31 PG Care Time/CCT Total # of Minutes Spent Total Time Spent with Patient: Total time spent is greater than 50% in coordination of care (as documented) at patient's floor/unit and/or counseling patient: Coding Level of Care Code 58699 Subseq Hosp Care Lvl 3 Diagnoses 2019 novel coronavirus-infected pneumonia (NCIP) U07.1; J12.82 Acute respiratory failure with hypoxia J96.01 COPD (chronic obstructive pulmonary disease) J44.9
[2021-10-09] MEDS: guaiFENesin/DEXTROM SYRUP 100MG/10MG 5ML UDC PO SCH ×3 (12:15→23:04)
--- NOTE | 2021-10-09 16:05 | Hospitalist Progress Note ---
Date of Service October 09, 2021 Assessment & Plan (1) 2019 novel coronavirus-infected pneumonia (NCIP): Plan: #. 2019 novel coronavirus-infected pneumonia (NCIP): #. CoVID 19 Not vaccinated, diagnosed with Covid on 09/27 in the ED when he declined monoclonal antibodies--> was discharged on Decadron. Symptoms worsen since then. Readmitted 10/06----> continued with Decadron but did not qualify for remdesivir WBC 12 point 2K at presentation, likely secondary to steroid use, procalcitonin negative at presentation. Patient on 9 L oxygen to maintain saturation. Pulmonology consulted: Continue Covid supportive management, outpatient PFT, inc rease dexamethasone to 10 mg. Continue with DEXA 10/06 6mg --> 10/09 10mg, enoxaparin, Lasix as needed, nebulizations, incentive spirometry and flutter valve, proning as able. Watch out for secondary bacterial infection -pro-Arden negative, no change in f/u chest x-ray. #. Mild hyponatremia Sodium level in prior ER visit [09/27when Covid diagnosed] 134, prior sodium levels WNL. Admitting sodium level this time 134 Likely secondary to Covid versus other etiology. TSH WNL, urine osmolality increased, serum osmolality subnormal. Increase protein intake in diet. Sodium level today 131, if continues to drop will consider consulting nephrology We will hold Lasix today, given normal proBNP and no BLE edema, also concerns for hyponatremia. #. History of multiple sclerosis He has been on medications further every month-Kesimta 20 mg subcu #. COPD (chronic obstructive pulmonary disease): No significant exacerbations of COPD #. Arrhythmia: Has history of paroxysmal SVT No acute cardiac symptoms #. Hypertension: Blood pressure is controlled Continue current medications #. Reflux esophagitis: Has been on PPI #. Hyperlipidemia: Continue statin #. DVT prophylaxis: Subcu Lovenox CODE STATUS: Full Admission and Anticipated Discharge Date Admission Date: October 06, 2021 Subjective Patient was lying in bed, on 9 L nasal cannula oxygen, NAD, no acute events overnight. Patient reports eating okay and normal bowel movement. Patient reports cough ongoing, denies fever/headache/chills/chest pain/increased shortness of breath/other review of symptoms. Physical Exam Physical Exam: GENERAL: Alert and oriented x3. NAD, on 9L HEENT: No pallor, no icterus. Pupils equal, round and reactive to light. Oral mucosa moist. NECK: No JVD, no neck masses. HEART: S1 and S2 heard. Regular rate and rhythm. No murmur, no gallop. RESPIRATORY SYSTEM: Normal AP diameter. No accessory muscle use. No wheezing, diffuse and b/l crackles. ABDOMEN: Soft, bowel sounds present, nontender, no distention. CENTRAL NERVOUS SYSTEM: No facial droop. Speech is clear. Obeys simple commands. Moves extremities. EXTREMITIES: No edema, no erythema seen. Results & Data Results & Data ([facility]) Vital Signs (Past 12 Hours) Vital Signs Temp Pulse Pulse Resp BP Pulse Ox 10/09/21 15:31 36.4 C L 68 19 128/72 92 10/09/21 11:12 37.8 C H 91 H 23 125/69 89 L 10/09/21 08:00 75 10/09/21 07:03 37.7 C H 87 22 145/78 H 96 10/09/21 04:06 37.2 C 93
[2021-10-09] MEDS ORDERED: FUROSEMIDE INJ 20 MG/2 ML VIAL IV ONE (17:26)
[2021-10-10] MEDS: ENOXAPARIN INJ 40 MG/0.4 ML SYR SQ SCH (05:03)
[2021-10-10] MEDS: guaiFENesin/DEXTROM SYRUP 100MG/10MG 5ML UDC PO SCH ×4 (05:03→23:50)
[2021-10-10] MEDS: ACETAMINOPHEN 500 MG TAB PO PRN (05:07)
[2021-10-10] MEDS: CHOLECALCIFEROL 1,000 UNITS 25 MCG TAB PO SCH (08:12)
[2021-10-10] MEDS: dilTIAZem HCL 180 MG CAPCR PO SCH (08:12)
[2021-10-10] MEDS: VENLAFAXINE HCL XR 75 MG CAPXR PO SCH (08:12)
[2021-10-10] MEDS: LIDOCAINE 5% 1 PATCH TD SCH (08:13)
[2021-10-10] MEDS: ASPIRIN 325 MG ECTAB PO SCH (08:13)
[2021-10-10] MEDS ORDERED: FUROSEMIDE 40 MG/4 ML VIAL IV ONE (08:36)
[2021-10-10] MEDS: dexAMETHasone 10 MG in SYRINGE 0 ML IV SCH (08:37)
[2021-10-10 09:44] LABS: BUN Creatinine Ratio 37.1 (10-20); Creatinine Clr Calc Pharmacy 84.5 ml/min; Est GFR (African American) 103.1 ml/min; Est GFR (Non-African American) 88.9 ml/min; Potassium 4.3 mmol/L (3.5-5.1)
[2021-10-10] MEDS: guaiFENesin/CODEINE 100MG/10MG 5ML UDC PO PRN (12:25)
--- NOTE | 2021-10-10 13:03 | Pulmonology Progress Note ---
Date of Service October 10, 2021 Assessment & Plan (1) 2019 novel coronavirus-infected pneumonia (NCIP): (2) Acute respiratory failure with hypoxia: (3) COPD (chronic obstructive pulmonary disease): Plan: CT chest 10/06/2021 personally reviewed: Diffuse patchy groundglass opacities appreciated bilaterally Right upper associated lobe No significant mediastinal adenopathy --Acute hypoxic respiratory failure Secondary to multilobar COVID-19 pneumonia COVID-19 PCR positive CRP 2.73 --> 8.6 Procalcitonin 0.12 BNP 76 Continue with O2 supplementation to keep oxygen saturation between 90-92%. Awake proning will be helpful Continue with incentive spirometry Continue with flutter valve. Recommend patient to be kept euvolemic to negative balance --COPD active smoking Importance of quitting explained to patient PFTs as an outpatient --History of MS On monoclonal antibodies monthly Plan: Dose of Lasix given today Continue with current management Patient seems to be requiring similar amount of oxygen since last 48 hours Case discussed with RN Pulmonary will sign off. If there is any clinical deterioration please recall. Call directly with any questions Please note the above document was generated using voice recognition software. It may contain grammatical, syntax or spelling errors.Any formal questions or concerns about the content, text or information contained within the body of this dictation should be directly addressed to the provider for clarification. Admission and Anticipated Discharge Date Admission Date: October 06, 2021 Subjective Patient seen and examined at bedside. No acute distress. No adverse events overnight He was saturating 94% on 11 L oxygen. I went down to 9 L He says he is feeling the same as compared to yesterday Denies any significant chest pain. He does complain of pain when coughing and using flutter valve No hemoptysis Fair appetite No nausea or vomiting. Review of Systems Review of Systems: All systems reviewed & are unremarkable except as noted in Subjective Physical Exam Physical Exam: Constitutional: No acute distress HEENT: EOMI, PERRLA Respiratory system: Decreased antibiotic, no wheeze, rhonchi, positive crackles bilateral lower lobes CVS: S1-S2 positive, no murmurs or gallops Abdomen: Soft, nontender, nondistended, positive bowel sounds x4 Extremities: +2 pulses bilaterally radialis/ dorsalis pedis, no cyanosis, no edema Neuro: Awake alert oriented x3 Psych: Normal mood and affect G/U: No Maldonado Skin: no rashes, warm and dry Lymphatic: no cervical or axillary lymphadenopathy Results & Data Results & Data ([facility]) Vital Signs (Past 12 Hours) Vital Signs Temp Pulse Pulse Resp BP Pulse Ox 10/10/21 11:06 36.9 C 74 18 131/76 94 10/10/21 10:40 90 10/10/21 10:30 94 10/10/21 08:00 71 10/10/21 07:20 36.5 C 69 18 137/74 92 10/10/21 04:27 36.7 C 81 18 133/75 91 10/09/21 07:31 10/10/21 07:51 PG Care Time/CCT Total # of Minutes Spent Total Time Spent with Patient: Total time spent is greater than 50% in coordination of care (as documented) at patient's floor/unit and/or counseling patient: Coding Level of Care Code 61932 Subseq Hosp Care Lvl 2 Diagnoses 2019 novel coronavirus-infected pneumonia (NCIP) U07.1; J12.82 Acute respiratory failure with hypoxia J96.01 COPD (chronic obstructive pulmonary disease) J44.9
[2021-10-10] MEDS ORDERED: POLYETHYLENE (MIRALAX) 17 GM PACK PO PRN (13:08)
--- NOTE | 2021-10-10 20:14 | Hospitalist Progress Note ---
Date of Service October 10, 2021 Assessment & Plan (1) 2019 novel coronavirus-infected pneumonia (NCIP): Plan: #. 2019 novel coronavirus-infected pneumonia (NCIP): #. CoVID 19 Not vaccinated, diagnosed with Covid on 09/27 in the ED when he declined monoclonal antibodies--> was discharged on Decadron. Symptoms worsen since then. Readmitted 10/06----> continued with Decadron but did not qualify for remdesivir WBC 12 point 2K at presentation, likely secondary to steroid use, procalcitonin negative at presentation. Patient on 9 L oxygen to maintain saturation. Pulmonology consulted: Continue Covid supportive management, outpatient PFT, inc rease dexamethasone to 10 mg. Continue with DEXA 10/06 6mg --> 10/09 10mg, enoxaparin, Lasix as needed, nebulizations, incentive spirometry and flutter valve, proning as able. Watch out for secondary bacterial infection -pro-Arden negative, no change in f/u chest x-ray. #. Mild hyponatremia #. SIADH Sodium level in prior ER visit [09/27when Covid diagnosed] 134, prior sodium levels WNL. Admitting sodium level this time 134 Likely secondary to Covid versus other etiology. TSH WNL, urine osmolality increased, serum osmolality subnormal. Increase protein intake in diet. Sodium level today 130, if continues to drop will consider consulting nephrology Lasix today, follow-up daily BMP and sodium level. #. History of multiple sclerosis He has been on medications further every month-Kesimta 20 mg subcu #. COPD (chronic obstructive pulmonary disease): No significant exacerbations of COPD #. Arrhythmia: Has history of paroxysmal SVT No acute cardiac symptoms #. Hypertension: Blood pressure is controlled Continue current medications #. Reflux esophagitis: Has been on PPI #. Hyperlipidemia: Continue statin #. DVT prophylaxis: Subcu Lovenox CODE STATUS: Full Admission and Anticipated Discharge Date Admission Date: October 06, 2021 Subjective Patient was lying in bed, on 10 L nasal cannula oxygen, NAD, no acute events overnight. Patient reports eating okay and normal bowel movement. Patient reports cough ongoing, denies fever/headache/chills/chest pain/increased shortness of breath/other review of symptoms. Physical Exam Physical Exam: GENERAL: Alert and oriented x3. NAD, on 10L HEENT: No pallor, no icterus. Pupils equal, round and reactive to light. Oral mucosa moist. NECK: No JVD, no neck masses. HEART: S1 and S2 heard. Regular rate and rhythm. No murmur, no gallop. RESPIRATORY SYSTEM: Normal AP diameter. No accessory muscle use. No wheezing, diffuse and b/l crackles. ABDOMEN: Soft, bowel sounds present, nontender, no distention. CENTRAL NERVOUS SYSTEM: No facial droop. Speech is clear. Obeys simple commands. Moves extremities. EXTREMITIES: No edema, no erythema seen. Results & Data Results & Data ([facility]) Vital Signs (Past 12 Hours) Vital Signs Temp Pulse Pulse Resp BP Pulse Ox Pulse Ox 10/10/21 19:25 36.5 C 80 18 130/78 90 10/10/21 18:00 92 10/10/21 15:00 78 10/10/21 14:37 36.8 C 74 18 129/76 94 10/10/21 12:00 92 10/10/21 11:06 36.9 C 74 18 131/76 94 10/10/21 10:40 90 10/10/21 10:30 94
[2021-10-11] MEDS: BENZONATATE 100 MG CAPSULE PO PRN (04:19)
[2021-10-11] MEDS: guaiFENesin/CODEINE 100MG/10MG 5ML UDC PO PRN (04:19)
[2021-10-11] MEDS ORDERED: oxyCODONE HCL IR 5 MG TAB (IMMEDIATE RELEASE) PO PRN (04:27)
[2021-10-11] MEDS: ENOXAPARIN INJ 40 MG/0.4 ML SYR SQ SCH (06:02)
[2021-10-11] MEDS: guaiFENesin/DEXTROM SYRUP 100MG/10MG 5ML UDC PO SCH (06:02)
[2021-10-11] MEDS: ASPIRIN 325 MG ECTAB PO SCH (07:52)
[2021-10-11] MEDS: dilTIAZem HCL 180 MG CAPCR PO SCH (07:52)
[2021-10-11] MEDS: dexAMETHasone 10 MG in SYRINGE 0 ML IV SCH (07:52)
[2021-10-11] MEDS: VENLAFAXINE HCL XR 75 MG CAPXR PO SCH (07:54)
[2021-10-11] MEDS: CHOLECALCIFEROL 1,000 UNITS 25 MCG TAB PO SCH (07:54)
[2021-10-11 07:55] LABS: BUN Creatinine Ratio 44.3 (10-20); Calcium 9.4 mg/dl (8.5-10.1); Creatinine Clr Calc Pharmacy 95.8 ml/min; Est GFR (African American) 111.4 ml/min; Est GFR (Non-African American) 96.1 ml/min; Potassium 4.8 mmol/L (3.5-5.1)
[2021-10-11] MEDS: LIDOCAINE 5% 1 PATCH TD SCH (07:55)
--- NOTE | 2021-10-11 09:54 | Pulmonology Progress Note ---
Date of Service October 11, 2021 Assessment & Plan (1) 2019 novel coronavirus-infected pneumonia (NCIP): (2) Acute respiratory failure with hypoxia: (3) COPD (chronic obstructive pulmonary disease): Plan: CT chest 10/06/2021 personally reviewed: Diffuse patchy groundglass opacities appreciated bilaterally Right upper associated lobe No significant mediastinal adenopathy --Acute hypoxic respiratory failure Secondary to multilobar COVID-19 pneumonia COVID-19 PCR positive CRP 2.73 --> 8.6 Procalcitonin 0.12 BNP 76 Continue with O2 supplementation to keep oxygen saturation between 90-92%. Awake proning will be helpful Continue with incentive spirometry Continue with flutter valve. Recommend patient to be kept euvolemic to negative balance --COPD active smoking Importance of quitting explained to patient PFTs as an outpatient --History of MS On monoclonal antibodies monthly Plan: Change guaifenesin with DM guaifenesin with codeine [id number] given the fits of coughing leading to hypoxia Patient is negative balance today. Reassess volume status tomorrow and if they still positive can give another dose of Lasix Pulmonary will sign off. If there is any clinical deterioration please recall. Call directly with any questions Please note the above document was generated using voice recognition software. It may contain grammatical, syntax or spelling errors.Any formal questions or concerns about the content, text or information contained within the body of this dictation should be directly addressed to the provider for clarification. Admission and Anticipated Discharge Date Admission Date: October 06, 2021 Subjective Patient seen and examined at bedside. No acute distress. Overnight patient did have a bit of cough for which he needed to increase oxygen requirement which were subsequently decreased The time of examination he was saturating 94% on 11 L nasal cannula. I went down to 10 L He stated that he is feeling better. He looked well energetic compared to the last 2 days. Still complains of chest pain on coughing. No nausea or vomiting. He just had his breakfast Review of Systems Review of Systems: All systems reviewed & are unremarkable except as noted in Subjective Physical Exam Physical Exam: Constitutional: No acute distress HEENT: EOMI, PERRLA Respiratory system: Decreased antibiotic, no wheeze, rhonchi, positive crackles bilateral lower lobes CVS: S1-S2 positive, no murmurs or gallops Abdomen: Soft, nontender, nondistended, positive bowel sounds x4 Extremities: +2 pulses bilaterally radialis/ dorsalis pedis, no cyanosis, no edema Neuro: Awake alert oriented x3 Psych: Normal mood and affect G/U: No Maldonado Skin: no rashes, warm and dry Lymphatic: no cervical or axillary lymphadenopathy Results & Data Results & Data ([facility]) Vital Signs (Past 12 Hours) Vital Signs Temp Pulse Resp BP Pulse Ox Pulse Ox 10/11/21 09:08 94 10/11/21 07:48 94 10/11/21 07:09 36.6 C 80 18 129/79 91 10/11/21 05:02 36.1 C L 99 H 18 132/81 92 10/10/21 23:48 36.8 C 72 18 131/71 92 10/09/21 07:31 10/11/21 06:38 PG Care Time/CCT Total # of Minutes Spent Total Time Spent with Patient: Total time spent is greater than 50% in coordination of care (as documented) at patient's floor/unit and/or counseling patient: Coding Level of Care Code 34979 Subseq Hosp Care Lvl 2 Diagnoses 2019 novel coronavirus-infected pneumonia (NCIP) U07.1; J12.82 Acute respiratory failure with hypoxia J96.01 COPD (chronic obstructive pulmonary disease) J44.9
[2021-10-11] MEDS: guaiFENesin/CODEINE 100MG/10MG 5ML UDC PO SCH ×3 (10:49→21:39)
--- NOTE | 2021-10-11 12:50 | XRay Report ---
XR chest 1V portable HISTORY: 61 years-old Male f/u CXR; increasing O2 req ; productive cough acute hypoxia with cough COMPARISON: Chest radiograph 10/08/2021, CT chest 10/06/2021. TECHNIQUE: Portable AP view of the chest FINDINGS: Cardiomediastinal and hilar silhouettes are unchanged. Multifocal bilateral alveolar opacities with i ntermixed groundglass densities redemonstrated. There is mildly progressed consolidation of the mid l juanita zones. No pneumothorax or large pleural effusion. Degenerative changes of the shoulders and spine . IMPRESSION: Progressively worsened intermixed alveolar and interstitial opacities associated with vir al pneumonia. ACT 112: Negative or not required by law. The above report was generated using voice recognition software. It may contain grammatical, syntax o r spelling errors. Electronically signed by: Delio Adan M.D. 10/11/2021 12:48 PM
--- NOTE | 2021-10-11 15:39 | Hospitalist Progress Note ---
Date of Service October 11, 2021 Assessment & Plan (1) 2019 novel coronavirus-infected pneumonia (NCIP): Plan: #. 2019 novel coronavirus-infected pneumonia (NCIP): #. CoVID 19 Not vaccinated, diagnosed with Covid on 09/27 in the ED when he declined monoclonal antibodies--> was discharged on Decadron. Symptoms worsen since then. Readmitted 10/06----> continued with Decadron but did not qualify for remdesivir WBC 12 point 2K at presentation, likely secondary to steroid use, procalcitonin negative at presentation. Patient on 9 L oxygen to maintain saturation. Pulmonology consulted: Continue Covid supportive management, outpatient PFT, inc rease dexamethasone to 10 mg. Continue with DEXA 10/06 6mg --> 10/09 10mg, enoxaparin, Lasix as needed, nebulizations, incentive spirometry and flutter valve, proning as able. Watch out for secondary bacterial infection -pro-Arden negative, no change in f/u chest x-ray --> multiple repeat pro-Arden's negative. Patient complaining of greenish-yellowish sputum with cough--> will give him a 5-day course of doxycycline. #. Mild hyponatremia #. SIADH Sodium level in prior ER visit [09/27when Covid diagnosed] 134, prior sodium levels WNL. Admitting sodium level this time 134 Likely secondary to Covid versus other etiology. TSH WNL, urine osmolality increased, serum osmolality subnormal. Increase protein intake in diet. Sodium level today 131, stable, better than yesterday. Lasix today, follow-up daily BMP and sodium level. #. History of multiple sclerosis He has been on medications further every month-Kesimta 20 mg subcu #. COPD (chronic obstructive pulmonary disease): No significant exacerbations of COPD #. Arrhythmia: Has history of paroxysmal SVT No acute cardiac symptoms #. Hypertension: Blood pressure is controlled Continue current medications #. Reflux esophagitis: Has been on PPI #. Hyperlipidemia: Continue statin #. DVT prophylaxis: Subcu Lovenox CODE STATUS: Full Admission and Anticipated Discharge Date Admission Date: October 06, 2021 Subjective Patient was sitting up in bed, on 10 L nasal cannula oxygen, eating his breakfast. Patient reports an event of coughing fit overnight leading to hypoxia and needing increasing oxygen overnight. Patient denies headache/chills/chest pain/belly pain/diarrhea/other review of symptoms. Patient is eating and moving bowels okay. Physical Exam Physical Exam: GENERAL: Alert and oriented x3. NAD, on 10L HEENT: No pallor, no icterus. Pupils equal, round and reactive to light. Oral mucosa moist. NECK: No JVD, no neck masses. HEART: S1 and S2 heard. Regular rate and rhythm. No murmur, no gallop. RESPIRATORY SYSTEM: Normal AP diameter. No accessory muscle use. No wheezing, diffuse and b/l crackles. Decreased breath sounds. ABDOMEN: Soft, bowel sounds present, nontender, no distention. CENTRAL NERVOUS SYSTEM: No facial droop. Speech is clear. Obeys simple commands. Moves extremities. EXTREMITIES: No edema, no erythema seen. Results & Data Results & Data ([facility]) Vital Signs (Past 12 Hours) Vital Signs Temp Pulse Pulse Resp BP Pulse Ox Pulse Ox 10/11/21 11:21 36.4 C L 62 18 130/71 93 10/11/21 09:08 94 10/11/21 08:00 77 10/11/21 07:48 94 10/11/21 07:09 36.6 C 80 18 129/79 91 10/11/21 05:02 36.1 C L 99 H 18 132/81 92
[2021-10-11] MEDS: DOXYCYCLINE HYCLATE 100 MG CAP PO SCH (21:38)
[2021-10-12] MEDS: ACETAMINOPHEN 500 MG TAB PO PRN (00:29)
[2021-10-12] MEDS: BENZONATATE 100 MG CAPSULE PO PRN ×2 (00:30→21:03)
[2021-10-12] MEDS: ENOXAPARIN INJ 40 MG/0.4 ML SYR SQ SCH (05:17)
[2021-10-12] MEDS: guaiFENesin/CODEINE 100MG/10MG 5ML UDC PO SCH ×4 (05:17→21:03)
[2021-10-12 06:38] LABS: BUN Creatinine Ratio 43.5 (10-20); Calcium 9.4 mg/dl (8.5-10.1); Est GFR (African American) 114.3 ml/min; Est GFR (Non-African American) 98.6 ml/min; Potassium 5.2 mmol/L (3.5-5.1)
[2021-10-12] MEDS: VENLAFAXINE HCL XR 75 MG CAPXR PO SCH (08:49)
[2021-10-12] MEDS: DOXYCYCLINE HYCLATE 100 MG CAP PO SCH ×2 (08:49→21:05)
[2021-10-12] MEDS: dexAMETHasone 10 MG in SYRINGE 0 ML IV SCH (08:49)
[2021-10-12] MEDS: dilTIAZem HCL 180 MG CAPCR PO SCH (08:49)
[2021-10-12] MEDS: CHOLECALCIFEROL 1,000 UNITS 25 MCG TAB PO SCH (08:51)
[2021-10-12] MEDS: ASPIRIN 325 MG ECTAB PO SCH (08:51)
[2021-10-12] MEDS: LIDOCAINE 5% 1 PATCH TD SCH (08:52)
[2021-10-12] MEDS ORDERED: FUROSEMIDE INJ 20 MG/2 ML VIAL IV ONE (09:26)
--- NOTE | 2021-10-12 17:40 | Hospitalist Progress Note ---
Date of Service October 12, 2021 Assessment & Plan (1) 2019 novel coronavirus-infected pneumonia (NCIP): Plan: #. 2019 novel coronavirus-infected pneumonia (NCIP): #. CoVID 19 Not vaccinated, diagnosed with Covid on 09/27 in the ED when he declined monoclonal antibodies--> was discharged on Decadron. Symptoms worsen since then. Readmitted 10/06----> continued with Decadron but did not qualify for remdesivir WBC 12 point 2K at presentation, likely secondary to steroid use, procalcitonin negative at presentation. Patient on 9 L oxygen to maintain saturation. Pulmonology consulted: Continue Covid supportive management, outpatient PFT, inc reased dexamethasone to 10 mg. Continue with DEXA 10/06 6mg --> 10/09 10mg, enoxaparin, Lasix as needed, nebulizations, incentive spirometry and flutter valve, proning as able. Watch out for secondary bacterial infection -pro-Arden negative, no change in f/u chest x-ray --> multiple repeat pro-Arden's negative. Patient complaining of greenish-yellowish sputum with cough--> will give him a 5-day course of doxycycline. Pt reporting improvement in the cough. #. Mild hyponatremia #. SIADH Sodium level in prior ER visit [09/27when Covid diagnosed] 134, prior sodium levels WNL. Admitting sodium level this time 134 Likely secondary to Covid versus other etiology. TSH WNL, urine osmolality increased, serum osmolality subnormal. Increase protein intake in diet. Sodium level today 131, stable, Lasix today, follow-up daily BMP and sodium level. #. History of multiple sclerosis He has been on medications further every month-Kesimta 20 mg subcu Has floaters (10/12) currently, pt on steroid for covid, will consult neuro if worsening. #. COPD (chronic obstructive pulmonary disease): No significant exacerbations of COPD #. Arrhythmia: Has history of paroxysmal SVT No acute cardiac symptoms #. Hypertension: Blood pressure is controlled Continue current medications #. Reflux esophagitis: Has been on PPI #. Hyperlipidemia: Continue statin #. DVT prophylaxis: Subcu Lovenox CODE STATUS: Full Admission and Anticipated Discharge Date Admission Date: October 06, 2021 Subjective Patient was lying in bed, on 7 L nasal cannula oxygen, NAD. Patient reports floaters with dizziness, reports having such events as MS flare once a year (which he has discussed with his OutPt Neuro and was not advised any treatment for this per Pt) which generally lasts a month and disappears on its own. Reports some headache. Reports decreasing cough. Patient denies chills/chest pain/belly pain/diarrhea/other review of symptoms. Patient is eating and moving bowels okay. Physical Exam Physical Exam: GENERAL: Alert and oriented x3. NAD, on 7L HEENT: No pallor, no icterus. Pupils equal, round and reactive to light. Oral mucosa moist. NECK: No JVD, no neck masses. HEART: S1 and S2 heard. Regular rate and rhythm. No murmur, no gallop. RESPIRATORY SYSTEM: Normal AP diameter. No accessory muscle use. No wheezing, Breath sounds improving, no crackles appreciated today. ABDOMEN: Soft, bowel sounds present, nontender, no distention. CENTRAL NERVOUS SYSTEM: No facial droop. Speech is clear. Obeys simple commands. Moves extremities. EXTREMITIES: No edema, no erythema seen. Results & Data Results & Data ([facility]) Vital Signs (Past 12 Hours) Vital Signs Temp Pulse Resp BP Pulse Ox Pulse Ox 10/12/21 15:17 36.6 C 69 20 130/81 90 10/12/21 11:32 36.5 C 65 18 143/79 H 89 L 10/12/21 08:58 77 10/12/21 07:05 36.5 C 57 L 17 127/75 90 10/12/21 07:00 90
[2021-10-13] MEDS: ENOXAPARIN INJ 40 MG/0.4 ML SYR SQ SCH (05:02)
[2021-10-13] MEDS: guaiFENesin/CODEINE 100MG/10MG 5ML UDC PO SCH ×4 (05:02→21:06)
[2021-10-13 08:17] LABS: BUN Creatinine Ratio 47.2 (10-20); Calcium 9.1 mg/dl (8.5-10.1); Creatinine Clr Calc Pharmacy 103.4 ml/min; Est GFR (African American) 114.9 ml/min; Est GFR (Non-African American) 99.2 ml/min; Potassium 4.8 mmol/L (3.5-5.1)
[2021-10-13] MEDS: dexAMETHasone 10 MG in SYRINGE 0 ML IV SCH (09:02)
[2021-10-13] MEDS: ASPIRIN 325 MG ECTAB PO SCH (09:02)
[2021-10-13] MEDS: CHOLECALCIFEROL 1,000 UNITS 25 MCG TAB PO SCH (09:02)
[2021-10-13] MEDS: VENLAFAXINE HCL XR 75 MG CAPXR PO SCH (09:03)
[2021-10-13] MEDS: dilTIAZem HCL 180 MG CAPCR PO SCH (09:03)
[2021-10-13] MEDS: LIDOCAINE 5% 1 PATCH TD SCH (09:03)
[2021-10-13] MEDS: DOXYCYCLINE HYCLATE 100 MG CAP PO SCH ×2 (09:03→21:06)
--- NOTE | 2021-10-13 19:03 | Hospitalist Progress Note ---
Date of Service October 13, 2021 Assessment & Plan (1) 2019 novel coronavirus-infected pneumonia (NCIP): Plan: #. 2019 novel coronavirus-infected pneumonia (NCIP): #. CoVID 19 Not vaccinated, diagnosed with Covid on 09/27 in the ED when he declined monoclonal antibodies--> was discharged on Decadron. Symptoms worsen since then. Readmitted 10/06----> continued with Decadron but did not qualify for remdesivir WBC 12 point 2K at presentation, likely secondary to steroid use, procalcitonin negative at presentation. Patient on 9 L oxygen to maintain saturation. Pulmonology consulted: Continue Covid supportive management, outpatient PFT, inc reased dexamethasone to 10 mg. Continue with DEXA 10/06 6mg --> 10/09 10mg, enoxaparin, Lasix as needed, nebulizations, incentive spirometry and flutter valve, proning as able. Watch out for secondary bacterial infection -pro-Arden negative, no change in f/u chest x-ray --> multiple repeat pro-Arden's negative. Patient complaining of greenish-yellowish sputum with cough--> will give him a 5-day course of doxycycline. Pt reporting improvement in the cough. #. Mild hyponatremia #. SIADH Sodium level in prior ER visit [09/27when Covid diagnosed] 134, prior sodium levels WNL. Admitting sodium level this time 134 Likely secondary to Covid versus other etiology. TSH WNL, urine osmolality increased, serum osmolality subnormal. Increase protein intake in diet. Sodium level today 133, stable, improving follow-up daily BMP and sodium level. #. History of multiple sclerosis He has been on medications further every month-Kesimta 20 mg subcu stable #. COPD (chronic obstructive pulmonary disease): No significant exacerbations of COPD #. Arrhythmia: Has history of paroxysmal SVT No acute cardiac symptoms #. Hypertension: Blood pressure is controlled Continue current medications #. Reflux esophagitis: Has been on PPI #. Hyperlipidemia: Continue statin #. DVT prophylaxis: Subcu Lovenox CODE STATUS: Full 10/13: Updated his over the phone about his status, answered all the questions, she voiced understanding and was agreeable to the plan of care. Admission and Anticipated Discharge Date Admission Date: October 06, 2021 Subjective Patient was lying in bed, on 4 L nasal cannula oxygen, NAD. Patient reports improvement in floaters and dizziness. Reports decreasing cough. Patient denies chills/chest pain/belly pain/diarrhea/other review of symptoms. Patient is eating and moving bowels okay. Earlier patient had desired no necessity to update his family member, today he asked to call his , called his over the phone and updated about the status of the patient, answered all the questions, see voiced understanding and was agreeable to the plan of care. Physical Exam Physical Exam: GENERAL: Alert and oriented x3. NAD, on 4L HEENT: No pallor, no icterus. Pupils equal, round and reactive to light. Oral mucosa moist. NECK: No JVD, no neck masses. HEART: S1 and S2 heard. Regular rate and rhythm. No murmur, no gallop. RESPIRATORY SYSTEM: Normal AP diameter. No accessory muscle use. No wheezing, Breath sounds improving, no crackles appreciated today. ABDOMEN: Soft, bowel sounds present, nontender, no distention. CENTRAL NERVOUS SYSTEM: No facial droop. Speech is clear. Obeys simple commands. Moves extremities. EXTREMITIES: No edema, no erythema seen. Results & Data Results & Data ([facility]) Vital Signs (Past 12 Hours) Vital Signs Temp Pulse Resp BP Pulse Ox 10/13/21 15:12 36.4 C L 80 20 131/82 95 10/13/21 11:11 36.5 C 58 L 18 134/78 92 10/13/21 07:25 36.5 C 62 16 132/74 92
[2021-10-14] MEDS: guaiFENesin/CODEINE 100MG/10MG 5ML UDC PO SCH ×4 (04:54→21:05)
[2021-10-14] MEDS: ENOXAPARIN INJ 40 MG/0.4 ML SYR SQ SCH (05:03)
[2021-10-14 08:15] LABS: BUN Creatinine Ratio 46.7 (10-20); Creatinine Clr Calc Pharmacy 103.6 ml/min; Est GFR (African American) 115.6 ml/min; Est GFR (Non-African American) 99.7 ml/min; Potassium 4.9 mmol/L (3.5-5.1)
[2021-10-14] MEDS: LIDOCAINE 5% 1 PATCH TD SCH (09:36)
[2021-10-14] MEDS: CHOLECALCIFEROL 1,000 UNITS 25 MCG TAB PO SCH (09:36)
[2021-10-14] MEDS: dexAMETHasone 10 MG in SYRINGE 0 ML IV SCH (09:36)
[2021-10-14] MEDS: ASPIRIN 325 MG ECTAB PO SCH (09:37)
[2021-10-14] MEDS: DOXYCYCLINE HYCLATE 100 MG CAP PO SCH ×2 (09:37→19:46)
[2021-10-14] MEDS: dilTIAZem HCL 180 MG CAPCR PO SCH (09:37)
[2021-10-14] MEDS: VENLAFAXINE HCL XR 75 MG CAPXR PO SCH (09:37)
--- NOTE | 2021-10-14 16:27 | Hospitalist Progress Note ---
Date of Service October 14, 2021 Assessment & Plan (1) 2019 novel coronavirus-infected pneumonia (NCIP): Plan: #. 2019 novel coronavirus-infected pneumonia (NCIP): #. CoVID 19 Not vaccinated, diagnosed with Covid on 09/27 in the ED when he declined monoclonal antibodies--> was discharged on Decadron. Symptoms worsen since then. Readmitted 10/06----> continued with Decadron but did not qualify for remdesivir WBC 12 point 2K at presentation, likely secondary to steroid use, procalcitonin negative at presentation. Patient on 9 L oxygen to maintain saturation. Pulmonology consulted: Continue Covid supportive management, outpatient PFT, inc reased dexamethasone to 10 mg. Continue with DEXA 10/06 6mg --> 10/09 10mg, enoxaparin, Lasix as needed, nebulizations, incentive spirometry and flutter valve, proning as able. Watch out for secondary bacterial infection -pro-Arden negative, no change in f/u chest x-ray --> multiple repeat pro-Arden's negative. Patient complaining of greenish-yellowish sputum with cough--> will give him a 5-day course of doxycycline. Pt reporting improvement in the cough. Clinically better but is still requiring 4 L of oxygen at rest and more with ambulation We will continue current management #. Mild hyponatremia #. SIADH Sodium level in prior ER visit [09/27when Covid diagnosed] 134, prior sodium levels WNL. Admitting sodium level this time 134 Likely secondary to Covid versus other etiology. TSH WNL, urine osmolality increased, serum osmolality subnormal. Increase protein intake in diet. Sodium level today 133, stable, improving follow-up daily BMP and sodium level.-Sodium level has been normalized #. History of multiple sclerosis He has been on medications further every month-Kesimta 20 mg subcu No acute symptoms #. COPD (chronic obstructive pulmonary disease): No significant exacerbations of COPD Likely complicating Covid pneumonia #. Arrhythmia: Has history of paroxysmal SVT No acute cardiac symptoms #. Hypertension: Blood pressure is controlled Continue current medications #. Reflux esophagitis: Has been on PPI #. Hyperlipidemia: Continue statin #. DVT prophylaxis: Subcu Lovenox CODE STATUS: Full 10/13: Updated his over the phone about his status, answered all the questions, she voiced understanding and was agreeable to the plan of care. Admission and Anticipated Discharge Date Admission Date: October 06, 2021 Subjective 10/14/2021 The patient was seen and examined in telemetry unit and in the Covid room He has been feeling better but gets very short of breath with minimal exertion Still has cough and moderate shortness of breath at rest Review of Systems Review of Systems: All systems reviewed and are unremarkable except as noted below Respiratory: Moderate shortness of breath at rest Physical Exam Physical Exam: Lying in bed comfortably with prone position during my visit Constitutional: well developed, well nourished, + ill appearing and average body habitus Eyes: PERRL, conjunctivae normal, anicteric sclerae ENMT: external ear and nose normal, oropharynx normal Neck: trachea midline, no thyromegaly Respiratory: + respiratory distress (Minimal to none respiratory distress at rest) and + cough Auscultation: lungs clear to auscultation bilaterally and + diminished lung sounds; no crackles Cardiovascular: Rate/Rhythm: regular rate and regular rhythm; not tachycardic Heart Sounds: normal S1 and normal S2; no murmur Extremities: no edema Gastrointestinal (Abdomen): Inspection/Auscultation: normal bowel sounds; abdomen not distended Percussion/Palpation: abdomen soft; abdomen nontender Musculoskeletal: No acute arthritis in any joint Neurologic: Alert, awake and oriented x3 Lymphatic: no cervical or axillary lymphadenopathy Results & Data Results & Data ([facility]) Vital Signs (Past 12 Hours) Vital Signs Temp Pulse Resp BP Pulse Ox Pulse Ox 10/14/21 16:10 36.4 C L 57 L 16 132/76 95 10/14/21 11:06 36.5 C 67 19 164/91 H 94 10/14/21 07:01 36.9 C 60 19 139/77 91 10/14/21 07:00 91 10/14/21 05:04 36.8 C Laboratory Results [facility] 10/14/21 07:18 Sodium 135 L Potassium 4.9 Chloride 100 Carbon Dioxide 26 BUN 35 H Creatinine 0.75 Glucose 136 H Calcium 9.0 Medications Administered Current Inpatient Medications Acetaminophen (Acetaminophen 500 Mg Tab) 1,000 mg PO Q8H PRN PRN Reason: Pain or Fever Stop: 11/05/21 03:22 Last Admin: 10/12/21 00:29 Dose: 1,000 mg Documented by: Aspirin (Aspirin 325 Mg Ectab) 325 mg PO QAM [facility] Stop: 11/05/21 08:59 Last Admin: 10/14/21 09:37 Dose: 325 mg Documented by: Benzonatate (Benzonatate 100 Mg Capsule) 100 mg PO TID PRN PRN Reason: Cough Stop: 11/06/21 23:41 Last Admin: 10/12/21 21:03 Dose: 100 mg Documented by: Diltiazem HCl (Diltiazem Hcl 180 Mg Capcr) 360 mg PO QAM [facility] Stop: 11/05/21 08:59 Last Admin: 10/14/21 09:37 Dose: 360 mg Documented by: Doxycycline Hyclate (Doxycycline Hyclate 100 Mg Cap) 100 mg PO BID [facility] Stop: 10/16/21 09:01 Last Admin: 10/14/21 09:37 Dose: 100 mg Documented by: Enoxaparin Sodium (Enoxaparin Inj 40 Mg/0.4 Ml Syr) 40 mg SQ Q24H [facility] Stop: 11/05/21 05:59 Last Admin: 10/14/21 05:03 Dose: 40 mg Documented by: Fluticasone Furoate (Fluticasone Furoate 100mcg 14 Puffs/Inhaler) 1 puffs INH QAM PRN PRN Reason: Shortness Of Breath Stop: 11/05/21 03:36 Guaifenesin/Codeine Phosphate (Guaifenesin/Codeine 100mg/10mg 5ml Udc) 5 ml PO Q6H [facility] Stop: 11/10/21 09:59 Last Admin: 10/14/21 09:37 Dose: 5 ml Documented by: Dexamethasone 10 mg/ Syringe 2.5 mls @ 1 mls/min IV Q24H [facility] Stop: 11/15/21 07:59 Last Admin: 10/14/21 09:36 Dose: 1 mls/min Documented by: Ipratropium [place] (Ipratropium [place] Neb Soln 0.02% 2.5 Ml Vial) 0.5 mg INH Q6R PRN PRN Reason: Shortness Of Breath Or Wheezing Stop: 11/05/21 06:59 Levalbuterol HCl (Levalbuterol Hcl 1.25 Mg/3 Ml Neb) 1.25 mg NEB Q2H PRN PRN Reason: Shortness Of Breath Or Wheezing Stop: 11/05/21 03:22 Lidocaine ([facility]aine 5% 1 Patch) [facility]: 11/05/21 10:59 Last Admin: 10/14/21 09:36 Dose: 1 patch Documented by: Miscellaneous (Remove Lidoderm Patch) 1 ea N/A DAILY@2100 [facility] Stop: 11/05/21 20:59 Last Admin: 10/13/21 21:06 Dose: 1 ea Documented by: Nitroglycerin (Nitroglycerin Sl 0.4 Mg/Tab Tab) 0.4 mg SL UD PRN PRN Reason: Chest Pain Stop: 11/05/21 03:22 Ondansetron HCl (Ondansetron Inj 2 Mg/Ml 2 Ml Vial) 4 mg IV Q6H PRN PRN Reason: Nausea Stop: 11/05/21 03:22 Oxycodone HCl (Oxycodone Hcl Ir 5 Mg Tab (Immediate Release)) 5 mg PO Q4H PRN PRN Reason: Pain Stop: 10/25/21 04:26 Last Admin: 10/11/21 04:39 Dose: 5 mg Documented by: Polyethylene Glycol (Polyethylene (Miralax) 17 Gm Pack) 17 gm PO DAILY PRN PRN Reason: Constipation Stop: 11/09/21 13:07 Last Admin: 10/11/21 12:47 Dose: 17 gm Documented by: Umeclidinium/Vilanterol (Umeclidinium/Vilanterol 62.5/25mcg 7 Puffs/Inhaler) 1 puffs INH QAM PRN PRN Reason: Shortness Of Breath Stop: 11/05/21 03:37 Venlafaxine HCl (Venlafaxine Hcl Xr 75 Mg Capxr) [facility] [place]: 11/05/21 08:59 Last Admin: 10/14/21 09:37 Dose: 75 mg Documented by: Vitamin D (Cholecalciferol 1,000 Units 25 Mcg Tab) 4,000 [facility] [place]: 11/05/21 08:59 Last Admin: 10/14/21 09:36 Dose: 4,000 units Documented by:
[2021-10-15] MEDS: guaiFENesin/CODEINE 100MG/10MG 5ML UDC PO SCH ×4 (04:12→20:53)
[2021-10-15] MEDS: ENOXAPARIN INJ 40 MG/0.4 ML SYR SQ SCH (04:55)
[2021-10-15 08:32] LABS: Albumin Level 2.5 gm/dl (3.4-5.0); Calcium 8.7 mg/dl (8.5-10.1); Creatinine Clr Calc Pharmacy 110.6 ml/min; Est GFR (African American) 118.2 ml/min; Magnesium 2.5 mg/dl (1.8-2.4); Potassium 4.8 mmol/L (3.5-5.1)
[2021-10-15 08:35] LABS: Albumin Globulin Ratio 0.6 (0.9-2); Bilirubin,Total 0.5 mg/dl (0.2-1); Phosphorus 3.4 mg/dl (2.5-4.9); Total Protein 6.5 gm/dl (6.4-8.2)
[2021-10-15] MEDS: dexAMETHasone 10 MG in SYRINGE 0 ML IV SCH (08:44)
[2021-10-15] MEDS: LIDOCAINE 5% 1 PATCH TD SCH (08:45)
[2021-10-15] MEDS: CHOLECALCIFEROL 1,000 UNITS 25 MCG TAB PO SCH (08:45)
[2021-10-15] MEDS: ASPIRIN 325 MG ECTAB PO SCH (08:45)
[2021-10-15] MEDS: DOXYCYCLINE HYCLATE 100 MG CAP PO SCH ×2 (08:45→20:25)
[2021-10-15] MEDS: VENLAFAXINE HCL XR 75 MG CAPXR PO SCH (08:45)
[2021-10-15] MEDS: dilTIAZem HCL 180 MG CAPCR PO SCH (08:45)
--- NOTE | 2021-10-15 15:03 | Hospitalist Progress Note ---
Date of Service October 15, 2021 Assessment & Plan (1) 2019 novel coronavirus-infected pneumonia (NCIP): Plan: #. 2019 novel coronavirus-infected pneumonia (NCIP): #. CoVID 19 Not vaccinated, diagnosed with Covid on 09/27 in the ED when he declined monoclonal antibodies--> was discharged on Decadron. Symptoms worsen since then. Readmitted 10/06----> continued with Decadron but did not qualify for remdesivir WBC 12 point 2K at presentation, likely secondary to steroid use, procalcitonin negative at presentation. Patient on 9 L oxygen to maintain saturation. Pulmonology consulted: Continue Covid supportive management, outpatient PFT, inc reased dexamethasone to 10 mg. Continue with DEXA 10/06 6mg --> 10/09 10mg, enoxaparin, Lasix as needed, nebulizations, incentive spirometry and flutter valve, proning as able. Watch out for secondary bacterial infection -pro-Arden negative, no change in f/u chest x-ray --> multiple repeat pro-Arden's negative. Patient complaining of greenish-yellowish sputum with cough--> will give him a 5-day course of doxycycline. Pt reporting improvement in the cough. Clinically better but is still requiring 4 L of oxygen at rest and more with ambulation Remains stable for the last few days-he can be removed from isolation He will be transferred to medical floor for continuation of care #. Mild hyponatremia #. SIADH Sodium level in prior ER visit [09/27when Covid diagnosed] 134, prior sodium levels WNL. Admitting sodium level this time 134 Likely secondary to Covid versus other etiology. TSH WNL, urine osmolality increased, serum osmolality subnormal. Increase protein intake in diet. Sodium level today 133, stable, improving follow-up daily BMP and sodium level.-Sodium level has been normalized Sodium level remains around 133 as of 10/15/2021 #. History of multiple sclerosis He has been on medications further every month-Kesimta 20 mg subcu No acute symptoms #. COPD (chronic obstructive pulmonary disease): No significant exacerbations of COPD Likely complicating Covid pneumonia #. Arrhythmia: Has history of paroxysmal SVT No acute cardiac symptoms #. Hypertension: Blood pressure is controlled Continue current medications #. Reflux esophagitis: Has been on PPI #. Hyperlipidemia: Continue statin #. DVT prophylaxis: Subcu Lovenox CODE STATUS: Full 10/13: Updated his over the phone about his status, answered all the questions, she voiced understanding and was agreeable to the plan of care. Admission and Anticipated Discharge Date Admission Date: October 06, 2021 Subjective 10/14/2021 The patient was seen and examined in telemetry unit and in the Covid room He has been feeling better but gets very short of breath with minimal exertion Still has cough and moderate shortness of breath at rest 10/15/2021 The patient was seen and examined in telemetry unit and in the Covid room He has been stable and requiring 4 L of oxygen to maintain saturation Remains generally weak and lethargic with cough and minimal sputum Review of Systems Review of Systems: All systems reviewed and are unremarkable except as noted below Respiratory: Moderate shortness of breath at rest Physical Exam Physical Exam: Lying in bed comfortably minimal shortness of breath and cough Constitutional: well developed, well nourished, + ill appearing and average body habitus Eyes: PERRL, conjunctivae normal, anicteric sclerae ENMT: external ear and nose normal, oropharynx normal Neck: trachea midline, no thyromegaly Respiratory: + respiratory distress (Minimal to none respiratory distress at rest) and + cough Auscultation: lungs clear to auscultation bilaterally and + diminished lung sounds; no crackles Cardiovascular: Rate/Rhythm: regular rate and regular rhythm; not tachycardic Heart Sounds: normal S1 and normal S2; no murmur Extremities: no edema Gastrointestinal (Abdomen): Inspection/Auscultation: normal bowel sounds; abdomen not distended Percussion/Palpation: abdomen soft; abdomen nontender Musculoskeletal: No acute arthritis in any joint Neurologic: Alert, awake and oriented x3. Generally weak but no focal sensory and motor deficit appreciated Lymphatic: no cervical or axillary lymphadenopathy Results & Data Results & Data ([facility]) Vital Signs (Past 12 Hours) Vital Signs Temp Pulse Pulse Resp BP BP Pulse Ox 10/15/21 12:47 36.5 C 83 20 131/82 92 10/15/21 08:45 71 10/15/21 07:47 36.4 C L 62 18 133/77 95 10/15/21 07:00 10/15/21 06:52 36.4 C L 69 19 127/78 94 10/15/21 04:15 36.5 C 61 20 138/75 93 Pulse Ox 10/15/21 12:47 10/15/21 08:45 10/15/21 07:47 10/15/21 07:00 95 10/15/21 06:52 10/15/21 04:15 Laboratory Results BMP 10/15/21 07:41 Sodium 133 L Potassium 4.8 Chloride 100 Carbon Dioxide 26 BUN 31 H Creatinine 0.71 Glucose 161 H Calcium 8.7 Liver Function 10/15/21 Range/Units 07:41 Total Bilirubin 0.5 (0.2-1) mg/dl AST 15 (15-37) U/L ALT 58 (12-78) U/L Alkaline Phosphatase 80 (45-117) U/L Albumin 2.5 L (3.4-5.0) gm/dl Medications Administered Current Inpatient Medications Acetaminophen (Acetaminophen 500 Mg Tab) 1,000 mg PO Q8H PRN PRN Reason: Pain or Fever Stop: 11/05/21 03:22 Last Admin: 10/12/21 00:29 Dose: 1,000 mg Documented by: Aspirin (Aspirin 325 Mg Ectab) 325 mg PO QAM [facility] Stop: 11/05/21 08:59 Last Admin: 10/15/21 08:45 Dose: 325 mg Documented by: Benzonatate (Benzonatate 100 Mg Capsule) 100 mg PO TID PRN PRN Reason: Cough Stop: 11/06/21 23:41 Last Admin: 10/12/21 21:03 Dose: 100 mg Documented by: Diltiazem HCl (Diltiazem Hcl 180 Mg Capcr) [facility] [place]: 11/05/21 08:59 Last Admin: 10/15/21 08:45 Dose: 360 mg Documented by: Doxycycline Hyclate (Doxycycline Hyclate 100 Mg Cap) 100 mg PO BID [facility] Stop: 10/16/21 09:01 Last Admin: 10/15/21 08:45 Dose: 100 mg Documented by: Enoxaparin Sodium (Enoxaparin Inj 40 Mg/0.4 Ml Syr) 40 mg SQ Q24H [facility] Stop: 11/05/21 05:59 Last Admin: 10/15/21 04:55 Dose: 40 mg Documented by: Fluticasone Furoate (Fluticasone Furoate 100mcg 14 Puffs/Inhaler) 1 puffs INH QAM PRN PRN Reason: Shortness Of Breath Stop: 11/05/21 03:36 Guaifenesin/Codeine Phosphate (Guaifenesin/Codeine 100mg/10mg 5ml Udc) 5 ml PO Q6H [facility] Stop: 11/10/21 09:59 Last Admin: 10/15/21 11:09 Dose: 5 ml Documented by: Dexamethasone 10 mg/ Syringe 2.5 mls @ 1 mls/min IV Q24H [facility] Stop: 11/15/21 07:59 Last Admin: 10/15/21 08:44 Dose: 1 mls/min Documented by: Ipratropium [place] (Ipratropium [place] Neb Soln 0.02% 2.5 Ml Vial) 0.5 mg INH Q6R PRN PRN Reason: Shortness Of Breath Or Wheezing Stop: 11/05/21 06:59 Levalbuterol HCl (Levalbuterol Hcl 1.25 Mg/3 Ml Neb) 1.25 mg NEB Q2H PRN PRN Reason: Shortness Of Breath Or Wheezing Stop: 11/05/21 03:22 Lidocaine (Lidocaine 5% 1 Patch) 1 patch TD QAM [facility] Stop: 11/05/21 10:59 Last Admin: 10/15/21 08:45 Dose: 1 patch Documented by: Miscellaneous (Remove Lidoderm Patch) 1 ea N/A DAILY@2100 [facility] Stop: 11/05/21 20:59 Last Admin: 10/14/21 19:46 Dose: 1 ea Documented by: Nitroglycerin (Nitroglycerin Sl 0.4 Mg/Tab Tab) 0.4 mg SL UD PRN PRN Reason: Chest Pain Stop: 11/05/21 03:22 Ondansetron HCl (Ondansetron Inj 2 Mg/Ml 2 Ml Vial) 4 mg IV Q6H PRN PRN Reason: Nausea Stop: 11/05/21 03:22 Oxycodone HCl (Oxycodone Hcl Ir 5 Mg Tab (Immediate Release)) 5 mg PO Q4H PRN PRN Reason: Pain Stop: 10/25/21 04:26 Last Admin: 10/11/21 04:39 Dose: 5 mg Documented by: Polyethylene Glycol (Polyethylene (Miralax) 17 Gm Pack) 17 gm PO DAILY PRN PRN Reason: Constipation Stop: 11/09/21 13:07 Last Admin: 10/11/21 12:47 Dose: 17 gm Documented by: Umeclidinium/Vilanterol (Umeclidinium/Vilanterol 62.5/25mcg 7 Puffs/Inhaler) 1 puffs INH QAM PRN PRN Reason: Shortness Of Breath Stop: 11/05/21 03:37 Venlafaxine HCl (Venlafaxine Hcl Xr 75 Mg Capxr) 75 mg PO QAM [facility] Stop: 11/05/21 08:59 Last Admin: 10/15/21 08:45 Dose: 75 mg Documented by: Vitamin D (Cholecalciferol 1,000 Units 25 Mcg Tab) 4,000 units PO QAM [facility] Stop: 11/05/21 08:59 Last Admin: 10/15/21 08:45 Dose: 4,000 units Documented by:
[2021-10-16] MEDS: guaiFENesin/CODEINE 100MG/10MG 5ML UDC PO SCH ×4 (03:30→22:53)
[2021-10-16] MEDS: ENOXAPARIN INJ 40 MG/0.4 ML SYR SQ SCH (06:38)
[2021-10-16] MEDS: ASPIRIN 325 MG ECTAB PO SCH (08:30)
[2021-10-16] MEDS: dexAMETHasone 10 MG in SYRINGE 0 ML IV SCH (08:30)
[2021-10-16] MEDS: dilTIAZem HCL 180 MG CAPCR PO SCH (08:30)
[2021-10-16] MEDS: DOXYCYCLINE HYCLATE 100 MG CAP PO SCH (08:30)
[2021-10-16] MEDS: LIDOCAINE 5% 1 PATCH TD SCH (08:31)
[2021-10-16] MEDS: CHOLECALCIFEROL 1,000 UNITS 25 MCG TAB PO SCH (08:31)
[2021-10-16] MEDS: VENLAFAXINE HCL XR 75 MG CAPXR PO SCH (08:31)
--- NOTE | 2021-10-16 15:55 | Hospitalist Progress Note ---
Date of Service October 16, 2021 Assessment & Plan (1) 2019 novel coronavirus-infected pneumonia (NCIP): Plan: #. 2019 novel coronavirus-infected pneumonia (NCIP): #. CoVID 19 Not vaccinated, diagnosed with Covid on 09/27 in the ED when he declined monoclonal antibodies--> was discharged on Decadron. Symptoms worsen since then. Readmitted 10/06----> continued with Decadron but did not qualify for remdesivir WBC 12 point 2K at presentation, likely secondary to steroid use, procalcitonin negative at presentation. Patient on 9 L oxygen to maintain saturation. Pulmonology consulted: Continue Covid supportive management, outpatient PFT, inc reased dexamethasone to 10 mg. Continue with DEXA 10/06 6mg --> 10/09 10mg, enoxaparin, Lasix as needed, nebulizations, incentive spirometry and flutter valve, proning as able. Watch out for secondary bacterial infection -pro-Arden negative, no change in f/u chest x-ray --> multiple repeat pro-Arden's negative. Patient complaining of greenish-yellowish sputum with cough--> will give him a 5-day course of doxycycline. Pt reporting improvement in the cough. Clinically better but is still requiring 4 L of oxygen at rest and more with ambulation Remains stable for the last few days-he can be removed from isolation He will be transferred to medical floor for continuation of care We will get to 2 stepO2 saturation test tomorrow and likely discharge tomorrow #. Mild hyponatremia #. SIADH Sodium level in prior ER visit [09/27when Covid diagnosed] 134, prior sodium levels WNL. Admitting sodium level this time 134 Likely secondary to Covid versus other etiology. TSH WNL, urine osmolality increased, serum osmolality subnormal. Increase protein intake in diet. Sodium level today 133, stable, improving follow-up daily BMP and sodium level.-Sodium level has been normalized Sodium level remains around 133 as of 10/15/2021 Will check BMP tomorrow #. History of multiple sclerosis He has been on medications further every month-Kesimta 20 mg subcu No acute symptoms #. COPD (chronic obstructive pulmonary disease): No significant exacerbations of COPD Likely complicating Covid pneumonia No acute symptoms #. Arrhythmia: Has history of paroxysmal SVT No acute cardiac symptoms #. Hypertension: Blood pressure is controlled Continue current medications #. Reflux esophagitis: Has been on PPI #. Hyperlipidemia: Continue statin #. DVT prophylaxis: Subcu Lovenox CODE STATUS: Full 10/13: Updated his over the phone about his status, answered all the questions, she voiced understanding and was agreeable to the plan of care. Admission and Anticipated Discharge Date Admission Date: October 06, 2021 Subjective 10/14/2021 The patient was seen and examined in telemetry unit and in the Covid room He has been feeling better but gets very short of breath with minimal exertion Still has cough and moderate shortness of breath at rest 10/15/2021 The patient was seen and examined in telemetry unit and in the Covid room He has been stable and requiring 4 L of oxygen to maintain saturation Remains generally weak and lethargic with cough and minimal sputum 10/16/2021 The patient was seen and examined in telemetry unit and in the Covid room He has been stable and is transferred to regular medical floor Likely discharge tomorrow He has been requiring only 2 L of oxygen to maintain saturation Review of Systems Review of Systems: All systems reviewed and are unremarkable except as noted below Respiratory: Moderate shortness of breath at rest Physical Exam Physical Exam: Lying in bed comfortably minimal shortness of breath and cough Constitutional: well developed, well nourished, + ill appearing and average body habitus Eyes: PERRL, conjunctivae normal, anicteric sclerae ENMT: external ear and nose normal, oropharynx normal Neck: trachea midline, no thyromegaly Respiratory: + respiratory distress (Minimal to none respiratory distress at rest) and + cough Auscultation: lungs clear to auscultation bilaterally and + diminished lung sounds; no crackles Cardiovascular: Rate/Rhythm: regular rate and regular rhythm; not tachycardic Heart Sounds: normal S1 and normal S2; no murmur Extremities: no edema Gastrointestinal (Abdomen): Inspection/Auscultation: normal bowel sounds; abdomen not distended Percussion/Palpation: abdomen soft; abdomen nontender Musculoskeletal: No acute arthritis in any joint Lymphatic: no cervical or axillary lymphadenopathy Results & Data Results & Data ([facility]) Vital Signs (Past 12 Hours) Vital Signs Temp Pulse Pulse Resp BP Pulse Ox Pulse Ox 10/16/21 15:15 79 10/16/21 15:07 36.8 C 75 19 147/83 H 93 10/16/21 10:49 37 C 72 18 137/77 92 10/16/21 07:45 57 L 10/16/21 07:05 36.7 C 64 17 123/76 95 10/16/21 07:00 92 Medications Administered Current Inpatient Medications Acetaminophen (Acetaminophen 500 Mg Tab) 1,000 mg PO Q8H PRN PRN Reason: Pain or Fever Stop: 11/05/21 03:22 Last Admin: 10/12/21 00:29 Dose: 1,000 mg Documented by: Aspirin (Aspirin 325 Mg Ectab) 325 mg PO QAM CHRISTY Stop: 11/05/21 08:59 Last Admin: 10/16/21 08:30 Dose: 325 mg Documented by: Benzonatate (Benzonatate 100 Mg Capsule) 100 mg PO TID PRN PRN Reason: Cough Stop: 11/06/21 23:41 Last Admin: 10/12/21 21:03 Dose: 100 mg Documented by: Diltiazem HCl (Diltiazem Hcl 180 Mg Capcr) 360 mg PO QAM CHRISTY Stop: 11/05/21 08:59 Last Admin: 10/16/21 08:30 Dose: 360 mg Documented by: Enoxaparin Sodium (Enoxaparin Inj 40 Mg/0.4 Ml Syr) 40 mg SQ Q24H [facility]STY Stop: 11/05/21 05:59 Last Admin: 10/16/21 06:38 Dose: 40 mg Documented by: Fluticasone Furoate (Fluticasone Furoate 100mcg 14 Puffs/Inhaler) 1 puffs INH QAM PRN PRN Reason: Shortness Of Breath Stop: 11/05/21 03:36 Guaifenesin/Codeine Phosphate (Guaifenesin/Codeine 100mg/10mg 5ml Udc) 5 ml PO Q6H CHRISTY Stop: 11/10/21 09:59 Last Admin: 10/16/21 10:58 Dose: 5 ml Documented by: Dexamethasone 10 mg/ Syringe 2.5 mls @ 1 mls/min IV Q24H CH[facility]STY Stop: 11/15/21 07:59 Last Admin: 10/16/21 08:30 Dose: 1 mls/min Documented by: Ipratropium [place] (Ipratropium [place] Neb Soln 0.02% 2.5 Ml Vial) 0.5 mg INH Q6R PRN PRN Reason: Shortness Of Breath Or Wheezing Stop: 11/05/21 06:59 Levalbuterol HCl (Levalbuterol Hcl 1.25 Mg/3 Ml Neb) 1.25 mg NEB Q2H PRN PRN Reason: Shortness Of Breath Or Wheezing Stop: 11/05/21 03:22 Lidocaine (Lidocaine 5% 1 Patch) 1 patch TD QAM CHRISTY Stop: 11/05/21 10:59 Last Admin: 10/16/21 08:31 Dose: 1 patch Documented by: Miscellaneous (Remove Lidoderm Patch) 1 ea N/A DAILY@2100 [facility] Stop: 11/05/21 20:59 Last Admin: 10/15/21 20:25 Dose: 1 ea Documented by: Nitroglycerin (Nitroglycerin Sl 0.4 Mg/Tab Tab) 0.4 mg SL UD PRN PRN Reason: Chest Pain Stop: 11/05/21 03:22 Ondansetron HCl (Ondansetron Inj 2 Mg/Ml 2 Ml Vial) 4 mg IV Q6H PRN PRN Reason: Nausea Stop: 11/05/21 03:22 Oxycodone HCl (Oxycodone Hcl Ir 5 Mg Tab (Immediate Release)) 5 mg PO Q4H PRN PRN Reason: Pain Stop: 10/25/21 04:26 Last Admin: 10/11/21 04:39 Dose: 5 mg Documented by: Polyethylene Glycol (Polyethylene (Miralax) 17 Gm Pack) 17 gm PO DAILY PRN PRN Reason: Constipation Stop: 11/09/21 13:07 Last Admin: 10/11/21 12:47 Dose: 17 gm Documented by: Umeclidinium/Vilanterol (Umeclidinium/Vilanterol 62.5/25mcg 7 Puffs/Inhaler) 1 puffs INH QAM PRN PRN Reason: Shortness Of Breath Stop: 11/05/21 03:37 Venlafaxine HCl (Venlafaxine Hcl Xr 75 Mg Capxr) 75 mg PO QAM CHRISTY Stop: 11/05/21 08:59 Last Admin: 10/16/21 08:31 Dose: 75 mg Documented by: Vitamin D (Cholecalciferol 1,000 Units 25 Mcg Tab) 4,000 units PO QAM CHRISTY Stop: 11/05/21 08:59 Last Admin: 10/16/21 08:31 Dose: 4,000 units Documented by:
[2021-10-16 21:57] VITALS: TEMP 97.9
[2021-10-17] MEDS: guaiFENesin/CODEINE 100MG/10MG 5ML UDC PO SCH ×2 (05:28→09:14)
[2021-10-17] MEDS: ENOXAPARIN INJ 40 MG/0.4 ML SYR SQ SCH (05:29)
[2021-10-17 06:03] LABS: Basophils # (auto) 0.03 K/uL (0-0.2); Basophils % (auto) 0.2 %; Eosinophils # (auto) 0.01 K/uL (0-0.5); Eosinophils % (auto) 0.1 %; Hemoglobin 14.9 g/dL (14.0-18.0); Immature Granulocytes # (auto) 0.32 K/uL (0.00-0.02); Immature Granulocytes % (auto) 1.9 %; Lymphocytes # (auto) 0.77 K/uL (1.2-3.4); Lymphocytes % (auto) 4.7 %; Mean Corpuscular Hemoglobin 28.3 pg (25-34); Mean Corpuscular Hgb Conc 33.9 g/dL (32-36); Mean Corpuscular Volume 83.7 fL (80-100); Mean Platelet Volume 9.9 fL (7.4-10.4); Monocytes # (auto) 1.07 K/uL (0.11-0.59); Monocytes % (auto) 6.5 %; Neutrophils % (auto) 86.6 %; Platelet Count 388 K/uL (130-400); RDW Coefficient of Variation 13.7 % (11.5-14.5); Red Blood Count 5.26 M/uL (4.7-6.1)
[2021-10-17 06:37] LABS: BUN Creatinine Ratio 46.3 (10-20); Calcium 8.8 mg/dl (8.5-10.1); Creatinine Clr Calc Pharmacy 109.1 ml/min; Est GFR (African American) 117.5 ml/min; Est GFR (Non-African American) 101.4 ml/min; Magnesium 2.5 mg/dl (1.8-2.4); Phosphorus 3.4 mg/dl (2.5-4.9); Potassium 4.5 mmol/L (3.5-5.1)
[2021-10-17 07:50] VITALS: BP 129/70
[2021-10-17] MEDS: CHOLECALCIFEROL 1,000 UNITS 25 MCG TAB PO SCH (08:35)
[2021-10-17] MEDS: ASPIRIN 325 MG ECTAB PO SCH (08:35)
[2021-10-17] MEDS: dilTIAZem HCL 180 MG CAPCR PO SCH (08:35)
[2021-10-17] MEDS: LIDOCAINE 5% 1 PATCH TD SCH (08:36)
[2021-10-17] MEDS: dexAMETHasone 10 MG in SYRINGE 0 ML IV SCH (08:36)
[2021-10-17] MEDS: VENLAFAXINE HCL XR 75 MG CAPXR PO SCH (08:36)
--- NOTE | 2021-10-17 10:17 | Hospitalist Progress Note ---
Date of Service October 17, 2021 Assessment & Plan (1) 2019 novel coronavirus-infected pneumonia (NCIP): Plan: #. 2019 novel coronavirus-infected pneumonia (NCIP): #. CoVID 19 Not vaccinated, diagnosed with Covid on 09/27 in the ED when he declined monoclonal antibodies--> was discharged on Decadron. Symptoms worsen since then. Readmitted 10/06----> continued with Decadron but did not qualify for remdesivir WBC 12 point 2K at presentation, likely secondary to steroid use, procalcitonin negative at presentation. Patient on 9 L oxygen to maintain saturation. Pulmonology consulted: Continue Covid supportive management, outpatient PFT, inc reased dexamethasone to 10 mg. Continue with DEXA 10/06 6mg --> 10/09 10mg, enoxaparin, Lasix as needed, nebulizations, incentive spirometry and flutter valve, proning as able. Watch out for secondary bacterial infection -pro-Arden negative, no change in f/u chest x-ray --> multiple repeat pro-Arden's negative. Patient complaining of greenish-yellowish sputum with cough--> will give him a 5-day course of doxycycline. Pt reporting improvement in the cough. Clinically better but is still requiring 4 L of oxygen at rest and more with ambulation Remains stable for the last few days-he can be removed from isolation He will be transferred to medical floor for continuation of care We will get to 2 stepO2 saturation test tomorrow and likely discharge tomorrow No oxygen at rest and up to 2 L with exertion Will be discharged home this afternoon #. Mild hyponatremia #. SIADH Sodium level in prior ER visit [09/27when Covid diagnosed] 134, prior sodium levels WNL. Admitting sodium level this time 134 Likely secondary to Covid versus other etiology. TSH WNL, urine osmolality increased, serum osmolality subnormal. Increase protein intake in diet. Sodium level today 133, stable, improving follow-up daily BMP and sodium level.-Sodium level has been normalized Sodium level remains around 133 as of 10/15/2021 Will check BMP tomorrow-sodium is 131. Will maintain fluid restriction #. History of multiple sclerosis He has been on medications further every month-Kesimta 20 mg subcu No acute symptoms #. COPD (chronic obstructive pulmonary disease): No significant exacerbations of COPD Likely complicating Covid pneumonia No acute symptoms #. Arrhythmia: Has history of paroxysmal SVT No acute cardiac symptoms #. Hypertension: Blood pressure is controlled Continue current medications #. Reflux esophagitis: Has been on PPI #. Hyperlipidemia: Continue statin #. DVT prophylaxis: Subcu Lovenox CODE STATUS: Full 10/13: Updated his over the phone about his status, answered all the questions, she voiced understanding and was agreeable to the plan of care. Admission and Anticipated Discharge Date Admission Date: October 06, 2021 Subjective 10/14/2021 The patient was seen and examined in telemetry unit and in the Covid room He has been feeling better but gets very short of breath with minimal exertion Still has cough and moderate shortness of breath at rest 10/15/2021 The patient was seen and examined in telemetry unit and in the Covid room He has been stable and requiring 4 L of oxygen to maintain saturation Remains generally weak and lethargic with cough and minimal sputum 10/16/2021 The patient was seen and examined in telemetry unit and in the Covid room He has been stable and is transferred to regular medical floor Likely discharge tomorrow He has been requiring only 2 L of oxygen to maintain saturation 10/17/2021 The patient was seen and examined in medical floor He remains weak and lethargic and minimal shortness of breath at rest He will not require any oxygen at rest but will need 2 L to maintain saturation with exertion He will be going home today Review of Systems Review of Systems: All systems reviewed and are unremarkable except as noted below Respiratory: Minimal shortness of breath at rest Physical Exam Physical Exam: Lying in bed comfortably minimal shortness of breath and cough Constitutional: well developed, well nourished, + ill appearing and average body habitus Eyes: PERRL, conjunctivae normal, anicteric sclerae ENMT: external ear and nose normal, oropharynx normal Neck: trachea midline, no thyromegaly Respiratory: + respiratory distress (Minimal to none respiratory distress at rest) and + cough Auscultation: lungs clear to auscultation bilaterally and + diminished lung sounds; no crackles Cardiovascular: Rate/Rhythm: regular rate and regular rhythm; not tachycardic Heart Sounds: normal S1 and normal S2; no murmur Extremities: no edema Gastrointestinal (Abdomen): Inspection/Auscultation: normal bowel sounds; abdomen not distended Percussion/Palpation: abdomen soft; abdomen nontender Musculoskeletal: No acute arthritis in any joint Neurologic: Alert, awake and oriented x3. No focal sensory or motor deficit appreciated Lymphatic: no cervical or axillary lymphadenopathy Results & Data Results & Data ([facility]) Vital Signs (Past 12 Hours) Vital Signs Temp Pulse Pulse Pulse Pulse Pulse Pulse 10/17/21 09:18 10/17/21 09:04 71 105 H 87 71 71 10/17/21 07:48 36.6 C 56 L Resp Resp Resp Resp Resp Resp BP 10/17/21 09:18 10/17/21 09:04 26 H 26 H 26 H 24 22 10/17/21 07:48 16 129/70 Pulse Ox Pulse Ox Pulse Ox Pulse Ox Pulse Ox Pulse Ox Pulse Ox 10/17/21 09:18 94 10/17/21 09:04 85 L 92 85 L 94 93 10/17/21 07:48 90 Laboratory Results Short CBC 10/17/21 Range/Units 05:50 WBC 16.50 H (4.8-10.8) K/uL Hgb 14.9 (14.0-18.0) g/dL Hct 44.0 (42-52) % Plt Count 388 (130-400) K/uL BMP 10/17/21 05:50 Sodium 131 L Potassium 4.5 Chloride 99 Carbon Dioxide 28 BUN 33 H Creatinine 0.72 Glucose 156 H Calcium 8.8 Medications Administered Current Inpatient Medications Acetaminophen (Acetaminophen 500 Mg Tab) 1,000 mg PO Q8H PRN PRN Reason: Pain or Fever Stop: 11/05/21 03:22 Last Admin: 10/12/21 00:29 Dose: 1,000 mg Documented by: Aspirin (Aspirin 325 Mg Ectab) 325 mg PO [facility] Stop: 11/05/21 08:59 Last Admin: 10/17/21 08:35 Dose: 325 mg Documented by: Benzonatate (Benzonatate 100 Mg Capsule) 100 mg PO TID PRN PRN Reason: Cough Stop: 11/06/21 23:41 Last Admin: 10/12/21 21:03 Dose: 100 mg Documented by: Diltiazem HCl (Diltiazem Hcl 180 Mg Capcr) 360 mg PO [facility] Stop: 11/05/21 08:59 Last Admin: 10/17/21 08:35 Dose: Not Given Documented by: Enoxaparin Sodium (Enoxaparin Inj 40 Mg/0.4 Ml Syr) 40 mg SQ Q24H [facility]Y Stop: 11/05/21 05:59 Last Admin: 10/17/21 05:29 Dose: 40 mg Documented by: Fluticasone Furoate (Fluticasone Furoate 100mcg 14 Puffs/Inhaler) 1 puffs INH QAM PRN PRN Reason: Shortness Of Breath Stop: 11/05/21 03:36 Guaifenesin/Codeine Phosphate (Guaifenesin/Codeine 100mg/10mg 5ml Udc) 5 ml PO Q6H [facility]STY Stop: 11/10/21 09:59 Last Admin: 10/17/21 09:14 Dose: 5 ml Documented by: Dexamethasone 10 mg/ Syringe 2.5 mls @ 1 mls/min IV Q24H [facility]RISTY Stop: 11/15/21 07:59 Last Admin: 10/17/21 08:36 Dose: 1 mls/min Documented by: Ipratropium [place] (Ipratropium [place] Neb Soln 0.02% 2.5 Ml Vial) 0.5 mg INH Q6R PRN PRN Reason: Shortness Of Breath Or Wheezing Stop: 11/05/21 06:59 Levalbuterol HCl (Levalbuterol Hcl 1.25 Mg/3 Ml Neb) 1.25 mg NEB Q2H PRN PRN Reason: Shortness Of Breath Or Wheezing Stop: 11/05/21 03:22 Lidocaine (Lidocaine 5% 1 Patch) 1 patch TD QAM CHRISTY Stop: 11/05/21 10:59 Last Admin: 10/17/21 08:36 Dose: 1 patch Documented by: Miscellaneous (Remove Lidoderm Patch) 1 ea N/A DAILY@2100 [facility] Stop: 11/05/21 20:59 Last Admin: 10/16/21 22:12 Dose: Not Given Documented by: Nitroglycerin (Nitroglycerin Sl 0.4 Mg/Tab Tab) 0.4 mg SL UD PRN PRN Reason: Chest Pain Stop: 11/05/21 03:22 Ondansetron HCl (Ondansetron Inj 2 Mg/Ml 2 Ml Vial) 4 mg IV Q6H PRN PRN Reason: Nausea Stop: 11/05/21 03:22 Oxycodone HCl (Oxycodone Hcl Ir 5 Mg Tab (Immediate Release)) 5 mg PO Q4H PRN PRN Reason: Pain Stop: 10/25/21 04:26 Last Admin: 10/11/21 04:39 Dose: 5 mg Documented by: Polyethylene Glycol (Polyethylene (Miralax) 17 Gm Pack) 17 gm PO DAILY PRN PRN Reason: Constipation Stop: 11/09/21 13:07 Last Admin: 10/11/21 12:47 Dose: 17 gm Documented by: Umeclidinium/Vilanterol (Umeclidinium/Vilanterol 62.5/25mcg 7 Puffs/Inhaler) 1 puffs INH QAM PRN PRN Reason: Shortness Of Breath Stop: 11/05/21 03:37 Venlafaxine HCl (Venlafaxine Hcl Xr 75 Mg Capxr) 75 mg PO QAM CHRISTY Stop: 11/05/21 08:59 Last Admin: 10/17/21 08:36 Dose: 75 mg Documented by: Vitamin D (Cholecalciferol 1,000 Units 25 Mcg Tab) 4,000 units PO QAM CHRISTY Stop: 11/05/21 08:59 Last Admin: 10/17/21 08:35 Dose: 4,000 units Documented by:
[2021-10-17 11:11] VITALS: PULSE 56; O2SAT 90
--- NOTE | 2021-10-18 09:05 | Discharge Summary ---
Date of Service October 18, 2021 Admission HPI Per Admitting Provider DICTATED BY:Zackery Adams MD DATE OF ADMISSION: 10/05/2021. CHIEF COMPLAINT: COVID pneumonia. HISTORY OF PRESENT ILLNESS: A 61-year-old male with past medical history significant for COPD, hyperlipidemia, allergic rhinitis, paroxysmal SVT, orthostasis, history of duodenal ulcer, history of degeneration of lumbar intervertebral disk, history of multiple sclerosis, history of optic neuritis, history of ongoing tobacco abuse. He presents with COVID symptoms. The patient says COVID symptoms started around 09/25/2021 and he was in the ER on 09/27/2021, discharged on Decadron. At that time, monoclonal antibodies were offered, but seems he declined. But the patient says the last 2 days, the symptoms got worse, he is having more cough, on and off fevers, poor appetite, could not smell good and taste good. Has body ache, weakness, pain in the chest when he is coughing or taking deep breath, feeling poorly, so came to the ER. In the ER, currently on 2 L he is saturating okay, somewhat tachypneic, and sweaty. Denies any headache. No blurred visions, no earache. Has some mild runny nose. No sore throat, no difficulty swallowing. Has some abdominal pain. Denies any diarrhea or constipation. The patient lives with his . Admission Exam Per Admitting Provider GENERAL: The patient is of moderate build, not in acute distress. VITAL SIGNS: Temperature 37.9, pulse 95, respiratory rate 33, blood pressure 103/86, oxygen 96% on 2 liters. HEENT: Pupils equal, round and reactive to light. Oral mucosa moist. NECK: No JVD. No neck masses. CARDIOVASCULAR: S1 and S2 heard, somewhat tachycardic. No murmurs. Regular rate. RESPIRATORY SYSTEM: Normal AP diameter. No accessory muscle use. No wheezing, no crackles. ABDOMEN: Soft, bowel sounds present, nontender, no distention. CENTRAL NERVOUS SYSTEM: Cranial nerves II-XII grossly intact, nonfocal. EXTREMITIES: No edema, no erythema. Principal Diagnosis Pneumonia due to COVID-19 virus infection, hyponatremia secondary to SIADH, COPD, history of multiple sclerosis Discharge Exam Lying in bed comfortably minimal shortness of breath and cough Constitutional well developed, well nourished, + ill appearing and average body habitus Eyes PERRL, conjunctivae normal, anicteric sclerae ENMT external ear and nose normal, oropharynx normal Neck trachea midline, no thyromegaly Respiratory + respiratory distress (Minimal to none respiratory distress at rest) and + cough Auscultation: lungs clear to auscultation bilaterally and + diminished lung sounds; no crackles Cardiovascular Rate/Rhythm: regular rate and regular rhythm; not tachycardic Heart Sounds: normal S1 and normal S2; no murmur Extremities: no edema Gastrointestinal (Abdomen) Inspection/Auscultation: normal bowel sounds; abdomen not distended Percussion/Palpation: abdomen soft; abdomen nontender Lymphatic no cervical or axillary lymphadenopathy Discharge Data Allergies Allergy/AdvReac Type Severity Reaction Status Date / Time Sulfa (Sulfonamide AdvReac Unknown WIPED OUT Verified 09/27/21 20:21 Antibiotics) GOOD BACTERIA, BECAME SEPTIC. sulfamethoxazole AdvReac Unknown wiped out Verified 09/27/21 20:21 good bacteria, became septic trimethoprim AdvReac Unknown wiped out Verified 09/27/21 20:21 good bacteria, became septic Consultations 10/06/21 00:15 ED Decision to Admit Stat 10/08/21 08:36 Consult Pulmonology Routine Ordered Studies 10/06/21 06:00 CT angio chest PE protocol Urgent Hospital Course (1) 2019 novel coronavirus-infected pneumonia (NCIP): #. 2019 novel coronavirus-infected pneumonia (NCIP): #. CoVID 19 Not vaccinated, diagnosed with Covid on 09/27 in the ED when he declined monoclonal antibodies--> was discharged on Decadron. Symptoms worsen since then. Readmitted 10/06----> continued with Decadron but did not qualify for remdesivir WBC 12 point 2K at presentation, likely secondary to steroid use, procalcitonin negative at presentation. Patient on 9 L oxygen to maintain saturation. Pulmonology consulted: Continue Covid supportive management, outpatient PFT, increased dexamethasone to 10 mg. Continue with DEXA 10/06 6mg --> 10/09 10mg, enoxaparin, Lasix as needed, nebulizations, incentive spirometry and flutter valve, proning as able. Watch out for secondary bacterial infection -pro-Arden negative, no change in f/u chest x-ray --> multiple repeat pro-Arden's negative. Patient complaining of greenish-yellowish sputum with cough--> will give him a 5-day course of doxycy bunch. Pt reporting improvement in the cough. Clinically better but is still requiring 4 L of oxygen at rest and more with ambulation Remains stable for the last few days-he can be removed from isolation He will be transferred to medical floor for continuation of care We will get to 2 stepO2 saturation test tomorrow and likely discharge tomorrow No oxygen at rest and up to 2 L with exertion Will be discharged home this afternoon #. Mild hyponatremia #. SIADH Sodium level in prior ER visit [09/27when Covid diagnosed] 134, prior sodium levels WNL. Admitting sodium level this time 134 Likely secondary to Covid versus other etiology. TSH WNL, urine osmolality increased, serum osmolality subnormal. Increase protein intake in diet. Sodium level today 133, stable, improving follow-up daily BMP and sodium level.-Sodium level has been normalized Sodium level remains around 133 as of 10/15/2021 Will check BMP tomorrow-sodium is 131. Will maintain fluid restriction #. History of multiple sclerosis He has been on medications further every month-Kesimta 20 mg subcu No acute symptoms #. COPD (chronic obstructive pulmonary disease): No significant exacerbations of COPD Likely complicating Covid pneumonia No acute symptoms #. Arrhythmia: Has history of paroxysmal SVT No acute cardiac symptoms #. Hypertension: Blood pressure is controlled Continue current medications #. Reflux esophagitis: Has been on PPI #. Hyperlipidemia: Continue statin #. DVT prophylaxis: Subcu Lovenox CODE STATUS: Full 10/13: Updated his over the phone about his status, answered all the questions, she voiced understanding and was agreeable to the plan of care. Total Time Total Time Spent Total Time Spent (In Minutes): 40 minutes Discharge Plan Discharge Items Patient Disposition: Home - Self-Care Reason For Visit: RESP DISTRESS Discharge Diagnosis: Pneumonia due to COVID-19 virus infection, hyponatremia secondary to SIADH, COPD, history of multiple sclerosis Condition on Discharge: Fair Activity: As commented below Activity Comment: Take it easy for the next few days Non-emergency contact: Primary Care Provider Call non-emergency contact if: you have any medication questions and your symptoms worsen Follow-up/Referrals: Angelica Harrell CRNP [Primary Care Provider] - (Your doctor's office will call you on Tuesday with an appointment) Diet: Regular Addtl Attending Provider Instructions: Please take precautions to avoid fall Please take it easy for the next few days and use your oxygen as advised Your doctor's office will call you on Tuesday with an appointment within 7 to 10 days Pending Studies at Discharge: No Stand-Alone Forms: [facility], Smoking Cessation Medications and DC Order Prescriptions: New venlafaxine 75 mg Capsule,Extended Release 24hr 75 mg PO QAM 30 Days Qty: 30 RF: 0 lidocaine 5 % Adhesive Patch,Medicated 1 patch transdermal QAM 30 Days Qty: 30 RF: 0 Continued aspirin 325 mg Tablet,Delayed Release (Dr/Ec) 325 mg PO QAM RF: 0 Trelegy Ellipta 100-62.5-25 mcg Blister With Device 1 inh INHALATION QAM PRN (Reason: Shortness Of Breath) RF: 0 diltiazem HCl 360 mg capsule,extended release 24 hr 360 mg PO QAM RF: 0 cholecalciferol (vitamin D3) [Vitamin D3] 50 mcg (2,000 unit) Capsule 100 mcg PO QAM RF: 0 Kesimpta Pen 20 mg/0.4 mL pen injector 20 mg SUBCUT MONTHLY RF: 0 albuterol sulfate 90 mcg/actuation HFA aerosol inhaler 3 inh inhalation Q6H Qty: 18 RF: 2 Discontinued dexamethasone [Decadron] 6 mg tablet 6 mg PO DAILY Qty: 7 RF: 0 Discharge Orders: Discharge Order (Routine); Ordered 10/17/21 Ordered By: La Ervin/Other Patient Handouts: If Oxygen Is Prescribed Admission Data Admit Date/Time: 10/06/21 00:40 Attending Provider: La Porter Admit Provider: Zackery Adams Primary Care Provider: Angelica Harrell Other Providers: Dax Mendoza ; Zackery Adams ; Servando Huynh Other Interventions: Discharge Summary Assessment (RN) Last Done: 10/17/21 11:10
== END 2021-10-17 13:59 | disposition home or self-care (01) | DRG 177 ==
LOC: ED 21:38 → SUATTDRO 10-06 00:40 → EDINP 10-06 00:40 → 2S 10-06 04:41 → 3E 10-16 15:58

== ENCOUNTER 2021-10-29 22:58 | Inpatient (IN) ==
[2021-10-29 23:43] LABS: Basophils # (auto) 0.05 K/uL (0-0.2); Basophils % (auto) 0.6 %; Eosinophils # (auto) 0.34 K/uL (0-0.5); Eosinophils % (auto) 3.8 %; Hematocrit (blood only) 39.5 % (42-52); Hemoglobin 12.9 g/dL (14.0-18.0); Immature Granulocytes # (auto) 0.21 K/uL (0.00-0.02); Immature Granulocytes % (auto) 2.3 %; Lymphocytes # (auto) 1.71 K/uL (1.2-3.4); Mean Corpuscular Hemoglobin 28.4 pg (25-34); Mean Corpuscular Hgb Conc 32.7 g/dL (32-36); Mean Corpuscular Volume 86.8 fL (80-100); Mean Platelet Volume 9.5 fL (7.4-10.4); Monocytes # (auto) 0.86 K/uL (0.11-0.59); Monocytes % (auto) 9.6 %; Neutrophils # (auto) 5.81 K/uL (1.4-6.5); Neutrophils % (auto) 64.7 %; Platelet Count 296 K/uL (130-400); RDW Coefficient of Variation 14.8 % (11.5-14.5); RDW Standard Deviation 46.6 fL (36.4-46.3); Red Blood Count 4.55 M/uL (4.7-6.1); White Blood Count 8.98 K/uL (4.8-10.8)
[2021-10-29] MEDS ORDERED: ALBUT/IPRATROP 3MG/0.5MG NEB 3 ML VIAL NEB STA (23:47)
[2021-10-29] MEDS ORDERED: dexAMETHasone 6 MG in SYRINGE 0 ML IV ONE (23:47)
[2021-10-29 23:56] LABS: Partial Thromboplastin Ratio 0.9; Partial Thromboplastin Time 23.4 Seconds (21.0-31.0); Prothrombin Time 9.7 Seconds (9.0-12.0)
[2021-10-30 00:04] LABS: Alanine Aminotransferase 31 (12-78); Albumin Level 2.6 gm/dl (3.4-5.0); Aspartate Aminotransferase 14 U/L (15-37); BUN Creatinine Ratio 13.5 (10-20); Blood Urea Nitrogen 13 mg/dl (7-18); Carbon Dioxide 25 mmol/L (21-32); Chloride 111 mmol/L (98-107); Creatinine Clr Calc Pharmacy 80.9 ml/min; Est GFR (African American) 101.7 ml/min; Est GFR (Non-African American) 87.8 ml/min; Glucose 126 mg/dl (70-99); Magnesium 1.9 mg/dl (1.8-2.4); Potassium 3.6 mmol/L (3.5-5.1); Sodium 144 mmol/L (136-145)
[2021-10-30 00:09] LABS: Albumin Globulin Ratio 0.6 (0.9-2); Alkaline Phosphatase 127 U/L (45-117); Bilirubin,Total 0.2 mg/dl (0.2-1); Globulin 4.1 gm/dl (2.5-4.0); Total Protein 6.7 gm/dl (6.4-8.2); Troponin I < 0.015 ng/ml (0-0.045)
[2021-10-30] MEDS ORDERED: DEXAMETHASONE SOD INJ 4 MG/ML VIAL ONE (00:18)
[2021-10-30 00:21] LABS: Influenza A virus by PCR Negative (Neg); Influenza B virus by PCR Negative (Neg); RSV by PCR Negative (Neg)
[2021-10-30 00:28] LABS: SARS CoV2 RNA(COVID-19) InHosp POSITIVE (Negative)
[2021-10-30] MEDS ORDERED: OPTIRAY 320 125ml IV ONE (01:29)
[2021-10-30] MEDS ORDERED: LEVALBUTEROL HCL 1.25 MG/3 ML NEB NEB PRN (04:32)
--- NOTE | 2021-10-30 05:18 | History and Physical Report ---
DATE OF ADMISSION: 10/30/2021. CHIEF COMPLAINT: Shortness of breath and cough. HISTORY OF PRESENT ILLNESS: This is a 61-year-old male with past medical history significant for COPD, hyperlipidemia, allergic rhinitis, history of paroxysmal SVT, history of orthostasis, history of duodenal ulcer, history of degeneration of lumbar intervertebral disk, history of multiple sclerosis, history of optic neuritis, history of ongoing tobacco abuse, who was recently admitted on 09/25/2021 with COVID pneumonia. His COVID was first diagnosed on 09/27/2021. He was in the hospital, treated with dexamethasone as he did not qualify for remdesivir at that time and discharged home on 2 liters of oxygen with exertion on 10/17/2021, comes back with shortness of breath. The patient states that since going home, he was not feeling well, he was getting more short of breath with exertion. He is having lot of Cough bringing up greenish phlegm and also some chest pain with coughing and also some sore throat, mild headaches. Says he was prescribed Levaquin. He went to get his Levaquin today, but as symptoms were not getting better, he came to the ER. He says he cut back on smoking. Before he used to smoke 3/4 pack a day, but now for the last weeks he smoked only 1 pack. Denies any blurred visions, no earache. Has some runny nose. With blowing of his nose, he is seeing some blood in it. When he eats, he has some pain in his throat. Appetite is okay. No nausea, no abdominal pain. He had diarrhea earlier in the week, but that got resolved. Denies any blood in the stools. Normal bladder movements. No hematuria. Currently, resting comfortably and hemodynamically stable, saturating okay on 4 liters. ALLERGIES: BACTRIM. PAST MEDICAL HISTORY: As mentioned above. PAST SURGICAL HISTORY: Implantation of mesh with incisional hernia repair, injection of lumbosacral spine, arthrodesis of spine, tonsillectomy, adenoidectomy, right hand repair of the finger tendon, repair of incisional hernia, repair of left knee ligament. MEDICATIONS: The patient is currently on albuterol inhalation q. 6 hours, aspirin 325 mg p.o. a.m., vitamin D 100 mcg p.o. a.m., diltiazem 360 mg p.o. a.m., Kesimpta 20 mg subcutaneous monthly, Levaquin 500 mg p.o. daily, lidocaine patch transdermal p.r.n., Trelegy Ellipta 1 inhalation daily in the a.m., venlafaxine 75 mg p.o. a.m. FAMILY HISTORY: Significant for father had COPD, hypertension, PE; mother has hypertension; uncle has diabetes; brother has hypertension and migraine. SOCIAL HISTORY: , lives with his . Smoked 3/4 pack a day for 30 years, currently since the last two weeks he has smoked only one pack in the last 2 weeks. Alcohol, rarely. No drug use. REVIEW OF SYSTEMS: As per HPI. Rest of review of systems is negative. PHYSICAL EXAMINATION: GENERAL: The patient is of moderate build, not in acute distress. VITAL SIGNS: Temperature 37, pulse 113, blood pressure 149/69, oxygen 97% on 4 liters. HEENT: Extraocular muscles intact. Atraumatic. NECK: No JVD, no neck masses. CARDIOVASCULAR: S1 and S2 heard. Regular rate and rhythm. No murmur, no gallop. RESPIRATORY SYSTEM: Normal AP diameter. No accessory muscle use. No wheezing, no crackles. ABDOMEN: Soft, bowel sounds present, nontender, no distention. CENTRAL NERVOUS SYSTEM: Cranial nerves II-XII grossly intact, nonfocal. EXTREMITIES: No edema, no erythema. LABORATORY DATA: WBC 8.9, hemoglobin 12.9, hematocrit 39.5, platelets 296. PT 9.7, INR 1, APTT 23.4. Sodium 144, potassium 3.6, chloride 111, CO2 of 25, BUN 13, creatinine 0.9, serum glucose 126, calcium 9, magnesium 1.9, total bilirubin 0.2, AST 14, ALT 31, alkaline phosphatase 127. Troponin I less than 0.015. SARS-CoV-2 PCR positive. Influenza A and B negative. RSV negative. IMAGING DATA: Chest x-ray, bilateral infiltrates seen. CTA of the chest, on the preliminary report no PE, but patchy parenchymal density throughout the lungs, nonspecific, but compatible with COVID pneumonia, more diffuse involvement compared with the prior, but some areas are less compared with prior. No pleural effusions. EKG: Normal sinus rhythm at a rate 98, left axis deviation, right bundle-branch block, no significant change was found. ASSESSMENT AND PLAN: This is a 61-year-old male who presents with ongoing shortness of breath. 1. Shortness of breath: Ongoing COVID pneumonia. The patient was diagnosed with COVID on 09/27/2021. The patient also has history of chronic obstructive pulmonary disease and tobacco abuse. ER gave Decadron for possible chronic obstructive pulmonary disease exacerbation. possible underlying pneumonia. There is no lymphopenia, but we will do full COVID precautions. Empirically started on doxycycline, Rocephin, nebulizers around the clock and p.r.n. IV Solu-Medrol 40 b.i.d. and closely monitor in the [employer] tele.Follow final report of ct scan. 2. History of multiple sclerosis: On Kesimpta 20 mg subcutaneous monthly. 3. History of chronic obstructive pulmonary disease: Management as above. 4. History of paroxysmal supraventricular tachycardia: Continue home Cardizem. 5. Hypertension: On Cardizem. Will monitor the blood pressure. 6. History of depression: On venlafaxine. 7. Deep venous thrombosis prophylaxis: With Lovenox. DISPOSITION: Admit to [facility]. PT/OT prior to discharge. Social service to help with discharge planning. Job ID: [id number] [facility]
[2021-10-30] MEDS ORDERED: NITROGLYCERIN SL 0.4 MG/TAB TAB SL PRN (05:30)
[2021-10-30] MEDS ORDERED: ONDANSETRON INJ 2 MG/ML 2 ML VIAL IV PRN (05:30)
[2021-10-30] MEDS ORDERED: SODIUM CHLORIDE 0.9% 1000ML 1,000 ML IV SCH (05:30)
[2021-10-30] MEDS ORDERED: ACETAMINOPHEN 325 MG TAB PO PRN (05:30)
[2021-10-30] MEDS ORDERED: cefTRIAXone SODIUM 1000MG/50ML D5W IV ONE (05:59)
[2021-10-30] MEDS: cefTRIAXone SODIUM 1,000 MG in DEXTROSE 5% 50 ML IV SCH (06:09)
[2021-10-30] MEDS: DOXYCYCLINE HYCLATE 100 MG in DEXTROSE 5% 100 ML IV SCH ×2 (06:39→18:40)
[2021-10-30 06:48] LABS: Appearance Urine Clear (Clear); Bacteria Urine Automated Negative (Negative); Bilirubin Urine Negative (Negative); Blood Urine Negative (Negative); Color Urine Yellow; Glucose Urine UA Negative (Negative); Ketones Urine Negative (Negative); Leukocyte Esterase Urine Negative (Negative); Nitrite Urine Negative (Negative); Protein Urine Trace (Negative); RBC Urine Automated 0-4 /hpf (0-4); Specific Gravity Urine > 1.045 (1.000-1.030); Urobilinogen Urine Negative (Negative); WBC Urine Automated 0 /hpf (0-5); pH Urine 5.5 (4.5-7.5)
[2021-10-30] MEDS ORDERED: XOPENEX/ATROVENT 1.25mg/0.5MG NEB COMBO NEB SCH (07:00)
[2021-10-30 07:14] LABS: Basophils # (auto) 0.04 K/uL (0-0.2); Basophils % (auto) 0.4 %; Eosinophils # (auto) 0.02 K/uL (0-0.5); Eosinophils % (auto) 0.2 %; Hematocrit (blood only) 38.3 % (42-52); Hemoglobin 12.3 g/dL (14.0-18.0); Immature Granulocytes # (auto) 0.29 K/uL (0.00-0.02); Immature Granulocytes % (auto) 3.2 %; Lymphocytes # (auto) 1.16 K/uL (1.2-3.4); Lymphocytes % (auto) 12.9 %; Mean Corpuscular Hemoglobin 27.8 pg (25-34); Mean Corpuscular Hgb Conc 32.1 g/dL (32-36); Mean Corpuscular Volume 86.7 fL (80-100); Mean Platelet Volume 9.4 fL (7.4-10.4); Monocytes # (auto) 0.22 K/uL (0.11-0.59); Monocytes % (auto) 2.4 %; Neutrophils # (auto) 7.27 K/uL (1.4-6.5); Neutrophils % (auto) 80.9 %; Platelet Count 295 K/uL (130-400); RDW Coefficient of Variation 14.8 % (11.5-14.5); RDW Standard Deviation 47.4 fL (36.4-46.3); Red Blood Count 4.42 M/uL (4.7-6.1)
--- NOTE | 2021-10-30 07:22 | CT Scan Report ---
CT angio chest PE protocol CLINICAL HISTORY: Dyspnea Covid pneumonia TECHNIQUE: Multidetector row helical CT of the chest was performed. Coronal and sagittal reformations were obtained. Automated dose lowering techniques and/or adjustment according to patient size were u tilized for this exam. Comparison: None available at the time of this dictation. FINDINGS: Lungs and pleura: Multifocal groundglass and reticular opacities are seen. This are overall more exte nsive but less dense than the prior exam. Heart and pericardium: Heart size is normal. No pericardial effusion. Vessels: No evidence of pulmonary embolism. Mediastinum and eli: Multiple enlarged lymph nodes are seen measuring up to 12 mm in the aortopulmon abelardo window. Chest wall and lower neck: Unremarkable. Abdomen: Unremarkable. Bones: Unremarkable. IMPRESSION: 1. No evidence of pulmonary embolism. 2. Multifocal groundglass and reticular opacities compatible with history of Covid pneumonia. Reacti ve mediastinal lymphadenopathy. ACT 112: Negative or not required by law. Electronically signed by: Fabrice Suarez M.D. 10/30/2021 7:21 AM
[2021-10-30 07:36] LABS: BUN Creatinine Ratio 15.4 (10-20); Creatinine Clr Calc Pharmacy 87.4 ml/min; Est GFR (African American) 108.7 ml/min; Est GFR (Non-African American) 93.8 ml/min; Potassium 4.2 mmol/L (3.5-5.1)
[2021-10-30] MEDS: IPRATROPIUM BROMIDE NEB SOLN 0.02% 2.5 ML VIAL INH SCH ×3 (07:41→20:20)
[2021-10-30] MEDS: LEVALBUTEROL 1.25MG/0.5ML NEB INH SCH ×3 (07:41→20:20)
--- NOTE | 2021-10-30 08:17 | XRay Report ---
XR chest 1V portable CLINICAL HISTORY: Sudden onset of shortness of breath. Chest pain radiates to the left shoulder. COMPARISON STUDY: 10/11/2021 TECHNIQUE: 1 view of the chest FINDINGS: Single frontal view of the chest demonstrates the cardiomediastinal silhouette to be within normal li mits. Compared to the previous examination, there is residual interstitial and alveolar opacities see n throughout both lungs. The findings are again characteristic of a viral pneumonia. There is no evid ence for pleural effusion. There is no evidence for vascular congestion. There is no acute osseous pa thology. IMPRESSION: Compared to the previous examination, residual interstitial and alveolar opacities are ag ain seen throughout both lungs characteristic of a viral type pneumonitis and Covid pneumonia. ACT 112: Negative or not required by law. Electronically signed by: Deangelo Villalba M.D. 10/30/2021 8:15 AM
[2021-10-30] MEDS: methylPREDNISolone 40 MG in SYRINGE 0 ML IV SCH ×2 (09:59→23:37)
[2021-10-30] MEDS: ENOXAPARIN INJ 40 MG/0.4 ML SYR SQ SCH (09:59)
[2021-10-30] MEDS: VENLAFAXINE HCL XR 75 MG CAPXR PO SCH (10:00)
[2021-10-30] MEDS: dilTIAZem ER 180 MG CAPCR PO SCH (10:00)
[2021-10-30] MEDS: CHOLECALCIFEROL 1,000 UNITS 25 MCG TAB PO SCH (10:00)
[2021-10-30] MEDS: ASPIRIN 325 MG ECTAB PO SCH (10:00)
[2021-10-30] MEDS: UMECLIDINIUM/VILANTEROL 62.5/25MCG 7 PUFFS/INHALER INH SCH (10:01)
[2021-10-30] MEDS: FLUTICASONE FUROATE 100MCG 14 PUFFS/INHALER INH SCH (10:01)
[2021-10-30] MEDS: LIDOCAINE 5% 1 PATCH TD SCH (10:02)
--- NOTE | 2021-10-30 14:59 | Electrocardiogram Report ---
Test Reason : Blood Pressure : / mmHG Vent. Rate : 098 BPM Atrial Rate : 098 BPM P-R Int : 150 ms QRS Dur : 116 ms QT Int : 364 ms P-R-T Axes : 040 -43 025 degrees QTc Int : 464 ms Normal sinus rhythm Left axis deviation Right bundle branch block Abnormal ECG When compared with ECG of 05-OCT-2021 22:54, No significant change was found Confirmed by Chuckie Rasmussen ([id number]) on 10/30/2021 2:59:09 PM Referred By: REFERRED SELF Confirmed By:Chuckie Rasmussen
--- NOTE | 2021-10-30 18:29 | Communication Note ---
Date of Service: October 30, 2021 The patient was seen and examined in emergency room. Current management will continue. A full progress note will be done tomorrow. Dr Costa Porter
[2021-10-30] MEDS ORDERED: FUROSEMIDE 40 MG/4 ML VIAL IV ONE ×2 (18:30→18:36)
[2021-10-30] MEDS: INSULIN ASPART PER UNIT SC SCH ×2 (18:39→21:17)
[2021-10-31] MEDS: LEVALBUTEROL 1.25MG/0.5ML NEB INH SCH ×4 (01:13→21:11)
[2021-10-31] MEDS: IPRATROPIUM BROMIDE NEB SOLN 0.02% 2.5 ML VIAL INH SCH ×4 (01:13→21:12)
[2021-10-31] MEDS: cefTRIAXone SODIUM 1,000 MG in DEXTROSE 5% 50 ML IV SCH (05:09)
[2021-10-31] MEDS: DOXYCYCLINE HYCLATE 100 MG in DEXTROSE 5% 100 ML IV SCH ×2 (05:49→19:46)
[2021-10-31 07:43] LABS: BUN Creatinine Ratio 19.2 (10-20); Blood Urea Nitrogen 17 mg/dl (7-18); C Reactive Protein < 0.29 mg/dl (0-0.29); Calcium 9.3 mg/dl (8.5-10.1); Carbon Dioxide 25 mmol/L (21-32); Chloride 107 mmol/L (98-107); Creatinine Clr Calc Pharmacy 87.4 ml/min; Est GFR (African American) 108.7 ml/min; Est GFR (Non-African American) 93.8 ml/min; Glucose 176 mg/dl (70-99); Potassium 4.2 mmol/L (3.5-5.1); Sodium 137 mmol/L (136-145)
[2021-10-31] MEDS: CHOLECALCIFEROL 1,000 UNITS 25 MCG TAB PO SCH (08:53)
[2021-10-31] MEDS: INSULIN ASPART PER UNIT SC SCH ×4 (08:53→21:04)
[2021-10-31] MEDS: ASPIRIN 325 MG ECTAB PO SCH (08:53)
[2021-10-31] MEDS: dilTIAZem ER 180 MG CAPCR PO SCH (08:54)
[2021-10-31] MEDS: ENOXAPARIN INJ 40 MG/0.4 ML SYR SQ SCH (08:54)
[2021-10-31] MEDS: LIDOCAINE 5% 1 PATCH TD SCH (08:54)
[2021-10-31] MEDS: VENLAFAXINE HCL XR 75 MG CAPXR PO SCH (08:54)
[2021-10-31] MEDS: methylPREDNISolone 40 MG in SYRINGE 0 ML IV SCH ×2 (08:55→17:27)
[2021-10-31] MEDS: UMECLIDINIUM/VILANTEROL 62.5/25MCG 7 PUFFS/INHALER INH SCH (11:03)
[2021-10-31] MEDS: FLUTICASONE FUROATE 100MCG 14 PUFFS/INHALER INH SCH (11:03)
[2021-10-31] MEDS ORDERED: POTASSIUM CHLORIDE CRTAB 20 MEQ TABCR PO STA (14:15)
[2021-10-31] MEDS ORDERED: FUROSEMIDE 40 MG/4 ML VIAL IV ONE (14:30)
--- NOTE | 2021-10-31 17:09 | Hospitalist Progress Note ---
Date of Service October 31, 2021 Assessment & Plan (1) 2019 novel coronavirus-infected pneumonia (NCIP): Plan: He is not vaccinated and was diagnosed with Covid 19 virus infection on 09/27/2021 He is back with increasing symptoms of cough and shortness of breath and received Levaquin for possible bacterial superinfection as an outpatient His Covid test remains positive on 09/27/2021, 10/05/2021 and again 10/29/2021 during this admission CTA did not show any pulmonary embolism but it showed multifocal groundglass and reticular opacities compatible with viral pneumonia His symptoms is complicated by COPD and having history of multiple sclerosis Has been getting Solu-Medrol for possible COPD exacerbation and does not qualify for remdesivir and/or other immunosuppressive medicine (2) COPD (chronic obstructive pulmonary disease): Plan: Likely has exacerbation of COPD We will continue with Solu-Medrol intravenously and nebulized bronchodilator and other inhalers as an outpatient Likely has acute bronchitis and has been getting intravenous ceftriaxone and doxycycline for possible bacterial superinfection (3) Arrhythmia: Plan: History of arrhythmias specially ventricular arrhythmias Has had an episode of chest pain and the EKG did show bigeminal's picture and troponin has been pending Continue with oral diltiazem (4) Multiple sclerosis: Plan: History of multiple sclerosis Not been having acute symptoms from that (5) Hypertension: Plan: Blood pressure remains stable DVT prophylaxis Subcu Lovenox Admission and Anticipated Discharge Date Admission Date: October 30, 2021 Subjective 10/31/2021 The patient was seen and examined [facility] He has been very anxious and remains shortness of breath and is requiring 3 L to maintain saturation He remains tachycardic as well Review of Systems Review of Systems: All systems reviewed and are unremarkable except as noted below Respiratory: Cough with shortness of breath Cardiovascular: Additional Comments: Palpitation Physical Exam Physical Exam: Lying in bed with moderate distress due to shortness of breath Constitutional: well developed, well nourished, + ill appearing and + obese Eyes: PERRL, conjunctivae normal, anicteric sclerae ENMT: external ear and nose normal, oropharynx normal Neck: trachea midline, no thyromegaly Respiratory: + respiratory distress Auscultation: + diminished lung sounds and + crackles (Minimal bibasilar crackles) Cardiovascular: Rate/Rhythm: regular rate, regular rhythm and + tachycardic Heart Sounds: normal S1 and normal S2; no murmur Extremities: no edema Gastrointestinal (Abdomen): Inspection/Auscultation: normal bowel sounds; abdomen not distended Percussion/Palpation: abdomen soft; abdomen nontender Musculoskeletal: No acute arthritis in any joint Neurologic: Alert, awake and oriented x3. No focal sensory and motor deficit appreciated Lymphatic: no cervical or axillary lymphadenopathy Results & Data Results & Data ([facility]) Vital Signs (Past 12 Hours) Vital Signs Pulse Resp BP Pulse Ox 10/31/21 13:34 115 H 20 118/66 96 10/31/21 13:01 90 16 95 10/31/21 09:11 90 20 120/70 96 10/31/21 07:54 80 16 97 Laboratory Results [facility] 10/31/21 06:56 Sodium 137 Potassium 4.2 Chloride 107 Carbon Dioxide 25 BUN 17 Creatinine 0.87 Glucose 176 H Calcium 9.3 Medications Administered [facility] 10/31/21 06:56 Sodium 137 Potassium 4.2 Chloride 107 Carbon Dioxide 25 BUN 17 Creatinine 0.87 Glucose 176 H Calcium 9.3
[2021-11-01] MEDS: methylPREDNISolone 40 MG in SYRINGE 0 ML IV SCH ×3 (00:15→16:29)
--- NOTE | 2021-11-01 00:23 | Emergency Department Note ---
Impression & Plan Pneumonia due to 2019-nCoV, Hypoxia ED Provider Note CHIEF COMPLAINT: Shortness of breath, Covid HISTORY OF PRESENT ILLNESS: This 61-year-old male patient with a history of COPD and Covid as of 09/25 presents to the emergency department with complaints of increasing shortness of breath despite nasal cannula oxygen at home. Patient was recently admitted to the hospital and treated with IV steroids. He was discharged with 2 L nasal cannula to be used with exertion. Patient states lately he has been requiring increased oxygen, he has been fatigued and has been having periodic fevers. He is concerned about his worsening shortness of breath. REVIEW OF SYSTEMS: A review of systems was performed with positives and pertinent negatives listed in the history of present illness. 10 systems were reviewed and are otherwise negative. ALLERGIES: see below MEDICATIONS: see below PMH: see below SOCIAL HISTORY: see below DDx: Reactive airway disease, COVID, pneumonia, pneumothorax, COPD, CHF, infections, cardiac ischemia, pulmonary embolism, musculoskeletal, gastrointestinal, as well as other pathologies. PHYSICAL EXAM: Vital signs reviewed. General: Chronically ill-appearing 61-year-old male, anxious appearing, but in no significant distress. HEENT: No scleral icterus, PERRLA, neck supple. Atraumatic. Cardiovascular: Regular rate and rhythm, no extra sounds. Pulmonary: coarse BS, bilaterally, normal work of breathing. on n/c oxygen Abdomen: Soft, nontender, nondistended, positive bowel sounds. Musculoskeletal: Atraumatic, no peripheral edema. Neurologic: Patient awake alert and oriented x 3, speech is clear Skin: Warm, dry, no rash EMERGENCY DEPARTMENT COURSE/MDM: This patient was evaluated and appeared to be in no significant distress. IV access was obtained and laboratory work was drawn. Patient was placed on a campus monitor and noted to be in a normal sinus rhythm. He was given IV dexamethasone and a DuoNeb treatment. Laboratory work is fairly reassuring. Chest x-ray was performed and is consistent with known Covid pneumonia. CT angiogram of the chest was performed and is negative for pulmonary embolus, but also c/w COVID PNA. Given the patient's history of COPD and need for increasing oxygen supplementation, the hospitalist was cons ulted for further management. Patient seems happy with this plan and agrees. MONITORING: An order for cardiac monitoring was placed and the patient is noted to be in a NSR at 100 beats per minute. RADIOLOGY: see below EKG:NSR at 98 bpm, left axis deviation, RBBB, Qtc 464, no PVC, no PAC, normal ST segments. DISPOSITION:admit Past Med/Surg History Medical History (Updated 11/01/21 @ 00:37 by Zonia Ronquillo MD) Adverse drug reaction (03/31/14) Arrhythmia PVT-F/U DR [facility] Arthritis Bronchitis Bronchitis with bronchospasm (03/31/14) Chest pain Degenerative disc disease NECK GERD (gastroesophageal reflux disease) Hx of multiple sclerosis F/U DR [facility] [place] EXTREMITIES NUMBNESS/ CHRONIC WEAKNESS/FATIGUE Neuropathy IDIOPATHIC HANDS AND FEET Pericarditis Precordial chest pain Sepsis Surgical History Fusion of spine X LOWER BACK X 3 2011 and 2014 History of arthroscopy LEFT KNEE History of colonoscopy History of esophagogastroduodenoscopy (EGD) History of herniorrhaphy 2014 Hx of hand surgery RIGHT TENDON REPAIR Hx of oral surgery (03/27/20) Intra-Oral Incision and Drainage; removal of buccal lesion; Extraction of tooth #20 Dr. 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 sulfamethoxazole AdvReac Unknown wiped out Verified 10/30/21 00:31 good bacteria, became septic trimethoprim AdvReac Unknown wiped out Verified 10/30/21 00:31 good bacteria, became septic Home Meds Home Medications Medication Instructions Recorded Confirmed aspirin 325 mg tablet,delayed 325 mg PO QAM 11/27/18 10/30/21 release fluticasone fur. 100 mcg-umeclid 1 inh INHALATION QAM PRN 01/18/20 10/30/21 62.5 mcg-vilant 25 mcg inhalat.powder (Trelegy Ellipta) diltiazem HCl 360 mg capsule,24 360 mg PO QAM 08/19/20 10/30/21 hr,extended release cholecalciferol (vitamin D3) 50 100 mcg PO QAM 03/31/21 10/30/21 mcg (2,000 unit) capsule (Vitamin D3) ofatumumab 20 mg/0.4 mL 20 mg SUBCUT MONTHLY 09/27/21 10/30/21 subcutaneous pen injector (Kesimpta Pen) levofloxacin 500 mg tablet 500 mg PO DAILY 10/30/21 10/30/21 Previous Rx's Medication Instructions Recorded albuterol sulfate 90 mcg/actuation 3 inh INHALATION Q6H #18 g 09/27/21 aerosol inhaler lidocaine 5 % topical patch 1 patch TRANSDERMAL QAM 30 Days 10/17/21 #30 ea venlafaxine 75 mg capsule,extended 75 mg PO QAM 30 Days #30 cap 10/17/21 release 24 hr Results & Data (ED) Home Medications Current Medication List: was personally reviewed by me Laboratory Data Attestation: I reviewed the patient's lab results. Result diagrams: 10/30/21 07:05 10/31/21 06:56 Lab Results 10/29/21 10/29/21 10/29/21 Range/Units 23:05 23:05 23:05 WBC 8.98 (4.8-10.8) K/uL RBC 4.55 L (4.7-6.1) M/uL Hgb 12.9 L (14.0-18.0) g/dL Hct 39.5 L (42-52) % MCV 86.8 (80-100) fL MCH 28.4 (25-34) pg MCHC 32.7 (32-36) g/dL RDW Std Deviation 46.6 H (36.4-46.3) fL RDW Coeff of Alessandra 14.8 H (11.5-14.5) % Plt Count 296 (130-400) K/uL MPV 9.5 (7.4-10.4) fL Immature Gran % (Auto) 2.3 % Neut % (Auto) 64.7 % Lymph % (Auto) 19.0 % Lanier % (Auto) 9.6 % Eos % (Auto) 3.8 % Baso % (Auto) 0.6 % Neut # (Auto) 5.81 (1.4-6.5) K/uL Lymph # (Auto) 1.71 (1.2-3.4) K/uL [place] # (Auto) 0.86 H (0.11-0.59) K/uL Eos # (Auto) 0.34 (0-0.5) K/uL Baso # (Auto) 0.05 (0-0.2) K/uL Immature Gran # (Auto) 0.21 H (0.00-0.02) K/uL PT 9.7 (9.0-12.0) Seconds INR 1.0 (0.9-1.1) APTT 23.4 (21.0-31.0) Seconds PTT Ratio 0.9 Sodium 144 (136-145) mmol/L Potassium 3.6 (3.5-5.1) mmol/L Chloride 111 H (98-107) mmol/L Carbon Dioxide 25 (21-32) mmol/L Anion Gap 8.0 (3-11) BUN 13 (7-18) mg/dl Creatinine 0.94 (0.6-1.4) mg/dl Est Cr Clr Drug Dosing 80.9 ml/min Est GFR ( Amer) 101.7 ml/min Est GFR (Non-Af Amer) 87.8 ml/min BUN/Creatinine Ratio 13.5 (10-20) Glucose 126 H (70-99) mg/dl Calcium 9.0 (8.5-10.1) mg/dl Magnesium 1.9 (1.8-2.4) mg/dl Total Bilirubin 0.2 (0.2-1) mg/dl AST 14 L (15-37) U/L ALT 31 (12-78) Alkaline Phosphatase 127 H (45-117) U/L Troponin I < 0.015 (0-0.045) ng/ml Total Protein 6.7 (6.4-8.2) gm/dl Albumin 2.6 L (3.4-5.0) gm/dl Globulin 4.1 H (2.5-4.0) gm/dl Albumin/Globulin Ratio 0.6 L (0.9-2) Specimen Hemolysis SARS-CoV-2 (PCR) (Negative) Influenza Type A (PCR) (Neg) Influenza Type B (PCR) (Neg) RSV (RT-PCR) (Neg) 10/29/21 Range/Units Unknown WBC (4.8-10.8) K/uL RBC (4.7-6.1) M/uL Hgb (14.0-18.0) g/dL Hct (42-52) % MCV (80-100) fL MCH (25-34) pg MCHC (32-36) g/dL RDW Std Deviation (36.4-46.3) fL RDW Coeff of Alessandra (11.5-14.5) % Plt Count (130-400) K/uL MPV (7.4-10.4) fL Immature Gran % (Auto) % Neut % (Auto) % Lymph % (Auto) % Lanier % (Auto) % Eos % (Auto) % Baso % (Auto) % Neut # (Auto) (1.4-6.5) K/uL Lymph # (Auto) (1.2-3.4) K/uL Lanier # (Auto) (0.11-0.59) K/uL Eos # (Auto) (0-0.5) K/uL Baso # (Auto) (0-0.2) K/uL Immature Gran # (Auto) (0.00-0.02) K/uL PT (9.0-12.0) Seconds INR (0.9-1.1) APTT (21.0-31.0) Seconds PTT Ratio Sodium (136-145) mmol/L Potassium (3.5-5.1) mmol/L Chloride (98-107) mmol/L Carbon Dioxide (21-32) mmol/L Anion Gap (3-11) BUN (7-18) mg/dl Creatinine (0.6-1.4) mg/dl Est Cr Clr Drug Dosing ml/min Est GFR ( Amer) ml/min Est GFR (Non-Af Amer) ml/min BUN/Creatinine Ratio (10-20) Glucose (70-99) mg/dl Calcium (8.5-10.1) mg/dl Magnesium (1.8-2.4) mg/dl Total Bilirubin (0.2-1) mg/dl AST (15-37) U/L ALT (12-78) Alkaline Phosphatase (45-117) U/L Troponin I (0-0.045) ng/ml Total Protein (6.4-8.2) gm/dl Albumin (3.4-5.0) gm/dl Globulin (2.5-4.0) gm/dl Albumin/Globulin Ratio (0.9-2) Specimen Hemolysis SARS-CoV-2 (PCR) POSITIVE A* (Negative) Influenza Type A (PCR) Negative (Neg) Influenza Type B (PCR) Negative (Neg) RSV (RT-PCR) Negative (Neg) Administered Medications Acetaminophen (Acetaminophen 325 Mg Tab) 650 mg PO Q4H PRN PRN Reason: Pain or Fever Stop: 11/29/21 05:29 Last Admin: 10/30/21 14:29 Dose: 650 mg Documented by: [id number] Aspirin (Aspirin 325 Mg Ectab) [address] [facility] Stop: 11/29/21 08:59 Last Admin: 10/31/21 08:53 Dose: 325 mg Documented by: [id number] Admin: 10/30/21 10:00 Dose: 325 mg Documented by: [id number] Diltiazem HCl (Diltiazem Er 180 Mg Capcr) [address] [facility] Stop: 11/29/21 08:59 Last Admin: 10/31/21 08:54 Dose: 360 mg Documented by: [id number] Admin: 10/30/21 10:00 Dose: 360 mg Documented by: [id number] Enoxaparin Sodium (Enoxaparin Inj 40 Mg/0.4 Ml Syr) 40 mg SQ Q24H [facility] Stop: 11/29/21 08:59 Last Admin: 10/31/21 08:54 Dose: 40 mg Documented by: [id number] Admin: 10/30/21 09:59 Dose: 40 mg Documented by: [id number] Fluticasone Furoate (Fluticasone Furoate 100mcg 14 Puffs/Inhaler) 1 puffs INH QAM [facility] Stop: 11/29/21 08:59 Last Admin: 10/31/21 11:03 Dose: 1 puffs Documented by: [id number] Admin: 10/30/21 10:01 Dose: 1 puffs Documented by: [id number] Ceftriaxone Sodium 1,000 mg/ (Dextrose) 50 mls @ 100 mls/hr IV Q24H [facility]; Protocol Stop: 11/06/21 05:29 Last Infusion: 10/31/21 06:33 Dose: 0 mls/hr Documented by: [id number] Admin: 10/31/21 05:09 Dose: 100 mls/hr Documented by: [id number] Infusion: 10/30/21 06:39 Dose: 0 mls/hr Documented by: [id number] Admin: 10/30/21 06:09 Dose: 100 mls/hr Documented by: [id number] Doxycycline Hyclate 100 mg/ (Dextrose) 110 mls @ 50 mls/hr IV Q12H [facility] Stop: 11/06/21 05:29 Last Infusion: 10/31/21 21:58 Dose: 0 mls/hr Documented by: [id number] Admin: 10/31/21 19:46 Dose: 50 mls/hr Documented by: [id number] Infusion: 10/31/21 08:14 Dose: 0 mls/hr Documented by: [id number] Admin: 10/31/21 05:49 Dose: 50 mls/hr Documented by: [id number] Infusion: 10/30/21 21:00 Dose: 0 mls/hr Documented by: [id number] Admin: 10/30/21 18:40 Dose: 50 mls/hr Documented by: [id number] Infusion: 10/30/21 10:52 Dose: 0 mls/hr Documented by: [id number] Admin: 10/30/21 06:39 Dose: 50 mls/hr Documented by: [id number] Methylprednisolone 40 mg/ (Syringe) 0.64 mls @ 1.5 mls/min IV Q8H [facility] Stop: 11/30/21 15:59 Last Admin: 11/01/21 00:15 Dose: 1.5 mls/min Documented by: [id number] Admin: 10/31/21 17:27 Dose: 1.5 mls/min Documented by: [id number] Insulin Aspart (Insulin Aspart Per Unit) 0 units SC ACHS [facility] Stop: 11/29/21 16:29 Last Admin: 10/31/21 21:04 Dose: 1 units Documented by: [id number] Cosigned by: [id number] Admin: 10/31/21 17:50 Dose: 8 units Documented by: [id number] Cosigned by: [id number] Admin: 10/31/21 12:08 Dose: 5 units Documented by: [id number] Cosigned by: [id number] Admin: 10/31/21 08:53 Dose: 2 units Documented by: [id number] Cosigned by: [id number] Admin: 10/30/21 21:17 Dose: 2 units Documented by: [id number] Cosigned by: [id number] Admin: 10/30/21 18:39 Dose: Not Given Documented by: [id number] Ipratropium [place] (Ipratropium [place] Neb Soln 0.02% 2.5 Ml Vial) 0.5 mg INH Q6R [facility] Stop: 11/29/21 06:59 Last Admin: 10/31/21 21:12 Dose: 0.5 mg Documented by: [id number] Admin: 10/31/21 12:59 Dose: 0.5 mg Documented by: [id number] Admin: 10/31/21 07:53 Dose: 0.5 mg Documented by: [id number] Admin: 10/31/21 01:13 Dose: Not Given Documented by: [id number] Admin: 10/30/21 20:20 Dose: 0.5 mg Documented by: [id number] Admin: 10/30/21 12:25 Dose: 0.5 mg Documented by: [id number] Admin: 10/30/21 07:41 Dose: 0.5 mg Documented by: [id number] Levalbuterol HCl (Levalbuterol 1.25mg/0.5ml Neb) 1.25 mg INH Q6R [facility] Stop: 11/29/21 06:59 Last Admin: 10/31/21 21:11 Dose: 1.25 mg Documented by: [id number] Admin: 10/31/21 12:59 Dose: 1.25 mg Documented by: [id number] Admin: 10/31/21 07:52 Dose: 1.25 mg Documented by: [id number] Admin: 10/31/21 01:13 Dose: Not Given Documented by: [id number] Admin: 10/30/21 20:20 Dose: 1.25 mg Documented by: [id number] Admin: 10/30/21 12:25 Dose: 1.25 mg Documented by: [id number] Admin: 10/30/21 07:41 Dose: 1.25 mg Documented by: [id number] Lidocaine (Lidocaine 5% 1 Patch) [address] [facility] Stop: 11/29/21 08:59 Last Admin: 10/31/21 08:54 Dose: 1 patch Documented by: [id number] Admin: 10/30/21 10:02 Dose: Not Given Documented by: [id number] Miscellaneous (Remove Lidoderm Patch) 1 ea N/A DAILY@2100 [facility] Stop: 11/29/21 20:59 Last Admin: 10/31/21 19:47 Dose: 1 ea Documented by: [id number] Admin: 10/30/21 23:38 Dose: 1 ea Documented by: [id number] Umeclidinium/Vilanterol (Umeclidinium/Vilanterol 62.5/25mcg 7 Puffs/Inhaler) [address] [facility] Stop: 11/29/21 08:59 Last Admin: 10/31/21 11:03 Dose: 1 puffs Documented by: [id number] Admin: 10/30/21 10:01 Dose: 1 puffs Documented by: [id number] Venlafaxine HCl (Venlafaxine Hcl Xr 75 Mg Capxr) [address] [facility] Stop: 11/29/21 08:59 Last Admin: 10/31/21 08:54 Dose: 75 mg Documented by: [id number] Admin: 10/30/21 10:00 Dose: 75 mg Documented by: [id number] Vitamin D (Cholecalciferol 1,000 Units 25 Mcg Tab) 4,[address] [facility] Stop: 11/29/21 08:59 Last Admin: 10/31/21 08:53 Dose: 4,000 units Documented by: [id number] Admin: 10/30/21 10:00 Dose: 4,000 units Documented by: [id number] Discontinued Medications Albuterol (Albut/Ipratrop 3mg/0.5mg Neb 3 Ml Vial) 3 ml NEB NOW STA Stop: 10/29/21 23:48 Last Admin: 10/30/21 00:20 Dose: 3 ml Documented by: [id number] Ceftriaxone Sodium (Ceftriaxone Sodium 1000mg/50ml D5w) Confirm Administered Dose 1,000 mg IV .STK-MED ONE Stop: 10/30/21 06:00 Last Admin: 10/30/21 06:10 Dose: Not Given Documented by: [id number] Dexamethasone (Dexamethasone Sod Inj 4 Mg/Ml Vial) Confirm Administered Dose 4 mg .ROUTE .STK-MED ONE Stop: 10/30/21 00:19 Last Admin: 10/30/21 00:21 Dose: Not Given Documented by: [id number] Furosemide (Furosemide 40 Mg/4 Ml Vial) 40 mg IV ONE ONE Stop: 10/30/21 18:31 Last Admin: 10/30/21 18:40 Dose: 40 mg Documented by: [id number] Furosemide (Furosemide 40 Mg/4 Ml Vial) Confirm Administered Dose 40 mg IV .STK- MED ONE Stop: 10/30/21 18:37 Last Admin: 10/30/21 18:41 Dose: Not Given Documented by: [id number] Furosemide (Furosemide 40 Mg/4 Ml Vial) 40 mg IV 1430 ONE Stop: 10/31/21 14:31 Last Admin: 10/31/21 14:42 Dose: 40 mg Documented by: [id number] Dexamethasone 6 mg/ Syringe 1.5 mls @ 1 mls/min IV ONE ONE Stop: 10/29/21 23:48 Last Admin: 10/30/21 00:20 Dose: 1 mls/min Documented by: [id number] Sodium Chloride (Nss 1000ml) 1,000 mls @ 100 mls/hr IV .Q10H [facility] Stop: 10/30/21 15:29 Last Infusion: 10/30/21 15:36 Dose: 0 mls/hr Documented by: [id number] Admin: 10/30/21 06:10 Dose: 100 mls/hr Documented by: [id number] Methylprednisolone 40 mg/ (Syringe) 0.64 mls @ 1.5 mls/min IV Q12 [facility] Stop: 11/29/21 08:59 Last Admin: 10/31/21 08:55 Dose: 1.5 mls/min Documented by: [id number] Admin: 10/30/21 23:37 Dose: 1.5 mls/min Documented by: [id number] Admin: 10/30/21 09:59 Dose: 1.5 mls/min Documented by: [id number] Ioversol (Optiray 320 125ml) 120 ml IV ONCE ONE Stop: 10/30/21 01:30 Last Admin: 10/30/21 01:29 Dose: 120 ml Documented by: [id number] Potassium Chloride (Potassium Chloride Crtab 20 Meq Tabcr) 40 meq PO NOW STA Stop: 10/31/21 14:16 Last Admin: 10/31/21 14:42 Dose: 40 meq Documented by: [id number] Imaging Data Radiologist's Impression: Chest CTA 10/29/21 23:25 CT angio chest PE protocol CLINICAL HISTORY: Dyspnea Covid pneumonia TECHNIQUE: Multidetector row helical CT of the chest was performed. Coronal and sagittal reformations were obtained. Automated dose lowering techniques and/or adjustment according to patient size were utilized for this exam. Comparison: None available at the time of this dictation. FINDINGS: Lungs and pleura: Multifocal groundglass and reticular opacities are seen. This are overall more extensive but less dense than the prior exam. Heart and pericardium: Heart size is normal. No pericardial effusion. Vessels: No evidence of pulmonary embolism. Mediastinum and eli: Multiple enlarged lymph nodes are seen measuring up to 12 mm in the aortopulmonary window. Chest wall and lower neck: Unremarkable. Abdomen: Unremarkable. Bones: Unremarkable. IMPRESSION: 1. No evidence of pulmonary embolism. 2. Multifocal groundglass and reticular opacities compatible with history of Covid pneumonia. Reactive mediastinal lymphadenopathy. ACT 112: Negative or not required by law. Electronically signed by: Fabrice Suarez M.D. 10/30/2021 7:21 AM Chest X-Ray 10/29/21 23:25 XR chest 1V portable CLINICAL HISTORY: Sudden onset of shortness of breath. Chest pain radiates to the left shoulder. COMPARISON STUDY: 10/11/2021 TECHNIQUE: 1 view of the chest FINDINGS: Single frontal view of the chest demonstrates the cardiomediastinal silhouette to be within normal limits. Compared to the previous examination, there is residual interstitial and alveolar opacities seen throughout both lungs. The findings are again characteristic of a viral pneumonia. There is no evidence for pleural effusion. There is no evidence for vascular congestion. There is no acute osseous pathology. IMPRESSION: Compared to the previous examination, residual interstitial and alveolar opacities are again seen throughout both lungs characteristic of a viral type pneumonitis and Covid pneumonia. ACT 112: Negative or not required by law. Electronically signed by: Deangelo Villalba M.D. 10/30/2021 8:15 AM Blood Pressure Blood Pressure Findings: Normal blood pressure Blood Pressure Disposition: did not require urgent referral Discharge Plan Visit Data Chief Complaint: Shortness of Breath/Dyspnea Stated Complaint: +COVID w/SOB; CHEST PAIN ED Provider: Zonia Ronquillo Discharge Problem: Pneumonia due to 2019-nCoV, Hypoxia Patient Disposition: Admitted As Inpatient Discharge Instructions Interventions: ED Discharge Assessment Last Done: 10/30/21 05:29
[2021-11-01] MEDS: IPRATROPIUM BROMIDE NEB SOLN 0.02% 2.5 ML VIAL INH SCH ×4 (01:56→20:09)
[2021-11-01] MEDS: LEVALBUTEROL 1.25MG/0.5ML NEB INH SCH ×4 (01:56→20:09)
[2021-11-01] MEDS: cefTRIAXone SODIUM 1,000 MG in DEXTROSE 5% 50 ML IV SCH (05:56)
[2021-11-01] MEDS: DOXYCYCLINE HYCLATE 100 MG in DEXTROSE 5% 100 ML IV SCH ×2 (05:56→17:36)
[2021-11-01 06:52] LABS: Basophils # (auto) 0.03 K/uL (0-0.2); Basophils % (auto) 0.2 %; Hematocrit (blood only) 37.8 % (42-52); Hemoglobin 12.2 g/dL (14.0-18.0); Immature Granulocytes # (auto) 0.56 K/uL (0.00-0.02); Immature Granulocytes % (auto) 2.9 %; Lymphocytes # (auto) 1.58 K/uL (1.2-3.4); Lymphocytes % (auto) 8.3 %; Mean Corpuscular Hemoglobin 27.8 pg (25-34); Mean Corpuscular Hgb Conc 32.3 g/dL (32-36); Mean Corpuscular Volume 86.1 fL (80-100); Mean Platelet Volume 9.7 fL (7.4-10.4); Monocytes # (auto) 0.94 K/uL (0.11-0.59); Monocytes % (auto) 4.9 %; Neutrophils # (auto) 15.93 K/uL (1.4-6.5); Neutrophils % (auto) 83.7 %; Platelet Count 342 K/uL (130-400); RDW Coefficient of Variation 14.7 % (11.5-14.5); RDW Standard Deviation 45.6 fL (36.4-46.3); Red Blood Count 4.39 M/uL (4.7-6.1); White Blood Count 19.04 K/uL (4.8-10.8)
[2021-11-01 07:22] LABS: BUN Creatinine Ratio 27.7 (10-20); Creatinine Clr Calc Pharmacy 76.8 ml/min; Est GFR (African American) 95.5 ml/min; Est GFR (Non-African American) 82.4 ml/min; Potassium 4.5 mmol/L (3.5-5.1)
[2021-11-01] MEDS: ASPIRIN 325 MG ECTAB PO SCH (08:40)
[2021-11-01] MEDS: VENLAFAXINE HCL XR 75 MG CAPXR PO SCH (08:41)
[2021-11-01] MEDS: CHOLECALCIFEROL 1,000 UNITS 25 MCG TAB PO SCH (08:41)
[2021-11-01] MEDS: ENOXAPARIN INJ 40 MG/0.4 ML SYR SQ SCH (08:42)
[2021-11-01] MEDS: dilTIAZem ER 180 MG CAPCR PO SCH (08:42)
[2021-11-01] MEDS: FLUTICASONE FUROATE 100MCG 14 PUFFS/INHALER INH SCH (08:43)
[2021-11-01] MEDS: UMECLIDINIUM/VILANTEROL 62.5/25MCG 7 PUFFS/INHALER INH SCH (08:46)
[2021-11-01] MEDS: LIDOCAINE 5% 1 PATCH TD SCH (08:54)
[2021-11-01] MEDS: INSULIN ASPART PER UNIT SC SCH ×4 (09:50→20:56)
--- NOTE | 2021-11-01 13:08 | Hospitalist Progress Note ---
Date of Service November 01, 2021 Assessment & Plan (1) 2019 novel coronavirus-infected pneumonia (NCIP): Plan: He is not vaccinated and was diagnosed with Covid 19 virus infection on 09/27/2021 He is back with increasing symptoms of cough and shortness of breath and received Levaquin for possible bacterial superinfection as an outpatient His Covid test remains positive on 09/27/2021, 10/05/2021 and again 10/29/2021 during this admission CTA did not show any pulmonary embolism but it showed multifocal groundglass and reticular opacities compatible with viral pneumonia His symptoms is complicated by COPD and having history of multiple sclerosis Has been getting Solu-Medrol for possible COPD exacerbation and does not qualify for remdesivir and/or other immunosuppressive medicine Remains stable and has been saturating with only 3 L of oxygen via nasal cannula Advised to walk around in the room and if the condition is much better may be going home tomorrow following a 2 step O2 saturation test (2) COPD (chronic obstructive pulmonary disease): Plan: Likely has exacerbation of COPD We will continue with Solu-Medrol intravenously and nebulized bronchodilator and other inhalers as an outpatient Likely has acute bronchitis and has been getting intravenous ceftriaxone and doxycycline for possible bacterial superinfection Strongly advised to quit smoking (3) Arrhythmia: Plan: History of arrhythmias specially ventricular arrhythmias Has had an episode of chest pain and the EKG did show bigeminal's picture and troponin has been pending Continue with oral diltiazem (4) Multiple sclerosis: Plan: History of multiple sclerosis Not been having acute symptoms from that (5) Hypertension: Plan: Blood pressure remains stable DVT prophylaxis Subcu Lovenox Admission and Anticipated Discharge Date Admission Date: October 30, 2021 Subjective 10/31/2021 The patient was seen and examined in emergency room in the [facility] area He has been very anxious and remains shortness of breath and is requiring 3 L to maintain saturation He remains tachycardic as well 11/01/21 The patient was seen and examined in Covid unit He has been feeling much better and is requiring about 3 L to maintain saturation Denies any significant cough, no fever and/or chills Review of Systems Review of Systems: All systems reviewed and are unremarkable except as noted below Respiratory: Cough with shortness of breath Cardiovascular: Additional Comments: Palpitation Physical Exam Physical Exam: Lying in bed with moderate distress due to shortness of breath Constitutional: well developed, well nourished, + ill appearing and + obese Eyes: PERRL, conjunctivae normal, anicteric sclerae ENMT: external ear and nose normal, oropharynx normal Neck: trachea midline, no thyromegaly Respiratory: + respiratory distress Auscultation: + diminished lung sounds and + crackles (Minimal bibasilar crackles) Cardiovascular: Rate/Rhythm: regular rate, regular rhythm and + tachycardic Heart Sounds: normal S1 and normal S2; no murmur Extremities: no edema Gastrointestinal (Abdomen): Inspection/Auscultation: normal bowel sounds; abdomen not distended Percussion/Palpation: abdomen soft; abdomen nontender Musculoskeletal: no cyanosis or clubbing, extremities motor strength 5/5 Neurologic: PERRL, EOMI, accommodation nl, no face palsy, no dysarthria Psychiatric: A+Ox3, euthymic affect Lymphatic: no cervical or axillary lymphadenopathy Results & Data Results & Data ([facility]) Vital Signs (Past 12 Hours) Vital Signs Temp Pulse Pulse Resp BP BP Pulse Ox 11/01/21 12:56 86 16 98 11/01/21 11:51 36.6 C 90 16 124/72 99 11/01/21 08:58 90 18 98 11/01/21 07:27 36.7 C 85 20 110/67 97 11/01/21 06:11 81 11/01/21 03:00 36.5 C 95 H 20 111/61 96 11/01/21 01:59 72 16 96 Laboratory Results Short CBC 11/01/21 Range/Units 05:58 WBC 19.04 H (4.8-10.8) K/uL Hgb 12.2 L (14.0-18.0) g/dL Hct 37.8 L (42-52) % Plt Count 342 (130-400) K/uL BMP 11/01/21 05:58 Sodium 137 Potassium 4.5 Chloride 103 Carbon Dioxide 27 BUN 27 H D Creatinine 0.99 Glucose 197 H Calcium 9.0 Cardiac Enzymes 10/31/21 Range/Units 16:33 Troponin I < 0.015 (0-0.045) ng/ml Medications Administered Current Inpatient Medications Acetaminophen (Acetaminophen 325 Mg Tab) 650 mg PO Q4H PRN PRN Reason: Pain or Fever Stop: 11/29/21 05:29 Last Admin: 10/30/21 14:29 Dose: 650 mg Documented by: Aspirin (Aspirin 325 Mg Ectab) [facility] Stop: 11/29/21 08:59 Last Admin: 11/01/21 08:40 Dose: 325 mg Documented by: Diltiazem HCl (Diltiazem Er 180 Mg Capcr) 360 mg PO QAM [facility] Stop: 11/29/21 08:59 Last Admin: 11/01/21 08:42 Dose: 360 mg Documented by: Enoxaparin Sodium (Enoxaparin Inj 40 Mg/0.4 Ml Syr) 40 mg SQ Q24H [facility] Stop: 11/29/21 08:59 Last Admin: 11/01/21 08:42 Dose: 40 mg Documented by: Fluticasone Furoate (Fluticasone Furoate 100mcg 14 Puffs/Inhaler) 1 puffs INH [facility] Stop: 11/29/21 08:59 Last Admin: 11/01/21 08:43 Dose: 1 puffs Documented by: Ceftriaxone Sodium 1,000 mg/ (Dextrose) 50 mls @ 100 mls/hr IV Q24H [facility]; P rotocol Stop: 11/06/21 05:29 Last Infusion: 11/01/21 06:26 Dose: Infused Documented by: Doxycycline Hyclate 100 mg/ (Dextrose) 110 mls @ 50 mls/hr IV Q12H [facility] Stop: 11/06/21 05:29 Last Infusion: 11/01/21 08:10 Dose: Infused Documented by: Methylprednisolone 40 mg/ (Syringe) 0.64 mls @ 1.5 mls/min IV Q8H [facility] Stop: 11/30/21 15:59 Last Admin: 11/01/21 08:39 Dose: 1.5 mls/min Documented by: Insulin Aspart (Insulin Aspart Per Unit) 0 units SC ACHS [facility] Stop: 11/29/21 16:29 Last Admin: 11/01/21 12:40 Dose: 6 units Documented by: Ipratropium [place] (Ipratropium [place] Neb Soln 0.02% 2.5 Ml Vial) 0.5 mg INH Q6R [facility] Stop: 11/29/21 06:59 Last Admin: 11/01/21 12:54 Dose: 0.5 mg Documented by: Levalbuterol HCl (Levalbuterol Hcl 1.25 Mg/3 Ml Neb) 1.25 mg NEB Q2H PRN PRN Reason: Shortness Of Breath Or Wheezing Stop: 11/29/21 04:31 Levalbuterol HCl (Levalbuterol 1.25mg/0.5ml Neb) 1.25 mg INH Q6R [facility] Stop: 11/29/21 06:59 Last Admin: 11/01/21 12:54 Dose: 1.25 mg Documented by: Lidocaine (Lidocaine 5% 1 Patch) 1 patch TD [facility] Stop: 11/29/21 08:59 Last Admin: 11/01/21 08:54 Dose: Not Given Documented by: Miscellaneous (Remove Lidoderm Patch) 1 ea N/A DAILY@2100 [facility] Stop: 11/29/21 20:59 Last Admin: 10/31/21 19:47 Dose: 1 ea Documented by: Nitroglycerin (Nitroglycerin Sl 0.4 Mg/Tab Tab) 0.4 mg SL UD PRN PRN Reason: Chest Pain Stop: 11/29/21 05:29 Ondansetron HCl (Ondansetron Inj 2 Mg/Ml 2 Ml Vial) 4 mg IV Q6H PRN PRN Reason: Nausea Stop: 11/29/21 05:29 Umeclidinium/Vilanterol (Umeclidinium/Vilanterol 62.5/25mcg 7 Puffs/Inhaler) 1 puffs INH [facility] Stop: 11/29/21 08:59 Last Admin: 11/01/21 08:46 Dose: 1 puffs Documented by: Venlafaxine HCl (Venlafaxine Hcl Xr 75 Mg Capxr) 75 mg PO [facility] Stop: 11/29/21 08:59 Last Admin: 11/01/21 08:41 Dose: 75 mg Documented by: Vitamin D (Cholecalciferol 1,000 Units 25 Mcg Tab) 4,000 units PO [facility] Stop: 11/29/21 08:59 Last Admin: 11/01/21 08:41 Dose: 4,000 units Documented by:
[2021-11-01] MEDS: BENZONATATE 100 MG CAPSULE PO SCH (20:29)
[2021-11-01] MEDS: guaiFENesin/CODEINE 100MG/10MG 5ML UDC PO PRN (20:29)
--- NOTE | 2021-11-01 21:33 | Electrocardiogram Report ---
Test Reason : Blood Pressure : / mmHG Vent. Rate : 101 BPM Atrial Rate : 101 BPM P-R Int : 176 ms QRS Dur : 094 ms QT Int : 368 ms P-R-T Axes : 065 -34 011 degrees QTc Int : 477 ms Sinus tachycardia with Premature atrial complexes in a pattern of bigeminy Left axis deviation Abnormal ECG When compared with ECG of 29-OCT-2021 23:05, Premature atrial complexes are now Present Right bundle branch block is no longer Present Confirmed by Ayo Lockwood [id number]) on 11/01/2021 9:33:20 PM Referred By: REFERRED SELF Confirmed By:Ayo Lockwood
[2021-11-02] MEDS: methylPREDNISolone 40 MG in SYRINGE 0 ML IV SCH ×4 (00:04→23:35)
[2021-11-02] MEDS ORDERED: Flu Vaccine (Fluarix) 0.5mL SYR (Standard Dose) IM ONE (01:30)
[2021-11-02] MEDS: LEVALBUTEROL 1.25MG/0.5ML NEB INH SCH ×2 (02:11→07:22)
[2021-11-02] MEDS: IPRATROPIUM BROMIDE NEB SOLN 0.02% 2.5 ML VIAL INH SCH ×2 (02:12→07:23)
[2021-11-02] MEDS: DOXYCYCLINE HYCLATE 100 MG in DEXTROSE 5% 100 ML IV SCH ×2 (05:38→17:47)
[2021-11-02] MEDS: cefTRIAXone SODIUM 1,000 MG in DEXTROSE 5% 50 ML IV SCH (05:38)
[2021-11-02] MEDS: FLUTICASONE FUROATE 100MCG 14 PUFFS/INHALER INH SCH (08:13)
[2021-11-02] MEDS: ENOXAPARIN INJ 40 MG/0.4 ML SYR SQ SCH (08:14)
[2021-11-02] MEDS: UMECLIDINIUM/VILANTEROL 62.5/25MCG 7 PUFFS/INHALER INH SCH (08:14)
[2021-11-02] MEDS: dilTIAZem ER 180 MG CAPCR PO SCH (08:15)
[2021-11-02] MEDS: ASPIRIN 325 MG ECTAB PO SCH (08:15)
[2021-11-02] MEDS: BENZONATATE 100 MG CAPSULE PO SCH ×3 (08:16→20:32)
[2021-11-02] MEDS: CHOLECALCIFEROL 1,000 UNITS 25 MCG TAB PO SCH (08:16)
[2021-11-02] MEDS: LIDOCAINE 5% 1 PATCH TD SCH (08:17)
[2021-11-02] MEDS: VENLAFAXINE HCL XR 75 MG CAPXR PO SCH (08:18)
[2021-11-02] MEDS: INSULIN ASPART PER UNIT SC SCH ×4 (09:32→21:29)
[2021-11-02] MEDS: guaiFENesin/CODEINE 100MG/10MG 5ML UDC PO PRN ×2 (10:36→20:32)
--- NOTE | 2021-11-02 15:54 | Hospitalist Progress Note ---
Date of Service November 02, 2021 Assessment & Plan (1) 2019 novel coronavirus-infected pneumonia (NCIP): Plan: He is not vaccinated and was diagnosed with Covid 19 virus infection on 09/27/2021 He is back with increasing symptoms of cough and shortness of breath and received Levaquin for possible bacterial superinfection as an outpatient His Covid test remains positive on 09/27/2021, 10/05/2021 and again 10/29/2021 during this admission CTA did not show any pulmonary embolism but it showed multifocal groundglass and reticular opacities compatible with viral pneumonia His symptoms is complicated by COPD and having history of multiple sclerosis Has been getting Solu-Medrol for possible COPD exacerbation and does not qualify for remdesivir and/or other immunosuppressive medicine Remains stable and has been saturating with only 3 L of oxygen via nasal cannula Remains stable and has minimal cough and shortness of breath with exertion (2) COPD (chronic obstructive pulmonary disease): Plan: Likely has exacerbation of COPD We will continue with Solu-Medrol intravenously and nebulized bronchodilator and other inhalers as an outpatient Likely has acute bronchitis and has been getting intravenous ceftriaxone and doxycycline for possible bacterial superinfection Strongly advised to quit smoking He has been using oxygen at home especially with ambulation which is given by his PCP Has had 2 step O2 saturation test and he does not require any oxygen at rest or with ambulation He is not yet ready to be discharged physically and mentally (3) Arrhythmia: Plan: History of arrhythmias specially ventricular arrhythmias Has had an episode of chest pain and the EKG did show bigeminal's picture and troponin has been pending Continue with oral diltiazem Has tachycardia which is exacerbated by use of nebulized bronchodilator (4) Multiple sclerosis: Plan: History of multiple sclerosis Not been having acute symptoms from that (5) Hypertension: Plan: Blood pressure remains stable DVT prophylaxis Subcu Lovenox Admission and Anticipated Discharge Date Admission Date: October 30, 2021 Subjective 10/31/2021 The patient was seen and examined in emergency room in the holding area He has been very anxious and remains shortness of breath and is requiring 3 L to maintain saturation He remains tachycardic as well 11/01/21 The patient was seen and examined in Covid unit He has been feeling much better and is requiring about 3 L to maintain saturation Denies any significant cough, no fever and/or chills 11/02/2021 The patient was seen and examined in Covid unit He has been feeling a little better but is still has cough with shortness of breath with exertion and tachycardia that he is very much worried about He passed the 2 step O2 saturation test but does not want to go home today Review of Systems Review of Systems: All systems reviewed and are unremarkable except as noted below Respiratory: Cough with shortness of breath Cardiovascular: Additional Comments: Palpitation Physical Exam Physical Exam: Lying in bed with moderate distress due to shortness of breath Constitutional: well developed, well nourished, + ill appearing and + obese Eyes: PERRL, conjunctivae normal, anicteric sclerae ENMT: external ear and nose normal, oropharynx normal Neck: trachea midline, no thyromegaly Respiratory: + respiratory distress Auscultation: + diminished lung sounds, + crackles (Minimal bibasilar crackles) and + wheezes Cardiovascular: Rate/Rhythm: regular rate, regular rhythm and + tachycardic Heart Sounds: normal S1 and normal S2; no murmur Extremities: no edema Gastrointestinal (Abdomen): Inspection/Auscultation: normal bowel sounds; abdomen not distended Percussion/Palpation: abdomen soft; abdomen nontender Musculoskeletal: no cyanosis or clubbing, extremities motor strength 5/5 Neurologic: PERRL, EOMI, accommodation nl, no face palsy, no dysarthria Psychiatric: A+Ox3, euthymic affect Lymphatic: no cervical or axillary lymphadenopathy Results & Data Results & Data ([facility]) Vital Signs (Past 12 Hours) Vital Signs Temp Pulse Pulse Pulse Pulse Pulse Resp 11/02/21 14:28 102 H 11/02/21 11:11 135 H 111 H 82 11/02/21 11:00 36.5 C 112 H 22 11/02/21 07:24 76 19 11/02/21 06:19 78 11/02/21 05:29 74 11/02/21 04:02 36.6 C 87 18 Resp Resp Resp BP Pulse Ox Pulse Ox Pulse Ox 11/02/21 14:28 11/02/21 11:11 24 20 20 99 95 11/02/21 11:00 160/84 H 95 11/02/21 07:24 97 11/02/21 06:19 11/02/21 05:29 11/02/21 04:02 125/62 95 Pulse Ox 11/02/21 14:28 11/02/21 11:11 96 11/02/21 11:00 11/02/21 07:24 11/02/21 06:19 11/02/21 05:29 11/02/21 04:02 Medications Administered Current Inpatient Medications Acetaminophen (Acetaminophen 325 Mg Tab) 650 mg PO Q4H PRN PRN Reason: Pain or Fever Stop: 11/29/21 05:29 Last Admin: 10/30/21 14:29 Dose: 650 mg Documented by: Aspirin (Aspirin 325 Mg Ectab) 325 mg PO [facility] Stop: 11/29/21 08:59 Last Admin: 11/02/21 08:15 Dose: 325 mg Documented by: Benzonatate (Benzonatate 100 Mg Capsule) 100 mg PO TID [facility] Stop: 12/01/21 20:59 Last Admin: 11/02/21 14:34 Dose: 100 mg Documented by: Diltiazem HCl (Diltiazem Er 180 Mg Capcr) 360 mg PO [facility] Stop: 11/29/21 08:59 Last Admin: 11/02/21 08:15 Dose: 360 mg Documented by: Enoxaparin Sodium (Enoxaparin Inj 40 Mg/0.4 Ml Syr) 40 mg SQ Q24H [facility] Stop: 11/29/21 08:59 Last Admin: 11/02/21 08:14 Dose: 40 mg Documented by: Fluticasone Furoate (Fluticasone Furoate 100mcg 14 Puffs/Inhaler) 1 puffs INH [facility] Stop: 11/29/21 08:59 Last Admin: 11/02/21 08:13 Dose: 1 puffs Documented by: Guaifenesin/Codeine Phosphate (Guaifenesin/Codeine 100mg/10mg 5ml Udc) 5 ml PO Q6H PRN PRN Reason: Cough Stop: 12/01/21 19:30 Last Admin: 11/02/21 10:36 Dose: 5 ml Documented by: Ceftriaxone Sodium 1,000 mg/ (Dextrose) 50 mls @ 100 mls/hr IV Q24H [facility]; Protocol Stop: 11/06/21 05:29 Last Infusion: 11/02/21 06:09 Dose: Infused Documented by: Doxycycline Hyclate 100 mg/ (Dextrose) 110 mls @ 50 mls/hr IV Q12H [facility] Stop: 11/06/21 05:29 Last Infusion: 11/02/21 08:13 Dose: Infused Documented by: Methylprednisolone 40 mg/ (Syringe) 0.64 mls @ 1.5 mls/min IV Q8H [facility] Stop: 11/30/21 15:59 Last Admin: 11/02/21 08:07 Dose: 1.5 mls/min Documented by: Insulin Aspart (Insulin Aspart Per Unit) 0 units SC ACHS [facility] Stop: 11/29/21 16:29 Last Admin: 11/02/21 12:16 Dose: 9 units Documented by: Levalbuterol HCl (Levalbuterol Hcl 1.25 Mg/3 Ml Neb) 1.25 mg NEB Q2H PRN PRN Reason: Shortness Of Breath Or Wheezing Stop: 11/29/21 04:31 Lidocaine (Lidocaine 5% 1 Patch) 1 patch TD [facility] Stop: 11/29/21 08:59 Last Admin: 11/02/21 08:17 Dose: Not Given Documented by: Miscellaneous (Remove Lidoderm Patch) 1 ea N/A DAILY@2100 [facility] Stop: 11/29/21 20:59 Last Admin: 11/01/21 20:30 Dose: 1 ea Documented by: Nitroglycerin (Nitroglycerin Sl 0.4 Mg/Tab Tab) 0.4 mg SL UD PRN PRN Reason: Chest Pain Stop: 11/29/21 05:29 Ondansetron HCl (Ondansetron Inj 2 Mg/Ml 2 Ml Vial) 4 mg IV Q6H PRN PRN Reason: Nausea Stop: 11/29/21 05:29 Umeclidinium/Vilanterol (Umeclidinium/Vilanterol 62.5/25mcg 7 Puffs/Inhaler) 1 puffs INH [facility] Stop: 11/29/21 08:59 Last Admin: 11/02/21 08:14 Dose: 1 puffs Documented by: Venlafaxine HCl (Venlafaxine Hcl Xr 75 Mg Capxr) 75 mg PO [facility] Stop: 11/29/21 08:59 Last Admin: 11/02/21 08:18 Dose: 75 mg Documented by: Vitamin D (Cholecalciferol 1,000 Units 25 Mcg Tab) 4,000 units PO [facility] Stop: 11/29/21 08:59 Last Admin: 11/02/21 08:16 Dose: 4,000 units Documented by:
[2021-11-03] MEDS: DOXYCYCLINE HYCLATE 100 MG in DEXTROSE 5% 100 ML IV SCH (05:42)
[2021-11-03] MEDS: cefTRIAXone SODIUM 1,000 MG in DEXTROSE 5% 50 ML IV SCH (05:43)
[2021-11-03 07:45] LABS: Hematocrit (blood only) 38.2 % (42-52); Hemoglobin 12.6 g/dL (14.0-18.0); Mean Corpuscular Hemoglobin 27.8 pg (25-34); Mean Corpuscular Volume 84.1 fL (80-100); Mean Platelet Volume 9.8 fL (7.4-10.4); Platelet Count 373 K/uL (130-400); RDW Coefficient of Variation 14.5 % (11.5-14.5); RDW Standard Deviation 44.2 fL (36.4-46.3); Red Blood Count 4.54 M/uL (4.7-6.1); White Blood Count 18.84 K/uL (4.8-10.8)
[2021-11-03] MEDS: INSULIN ASPART PER UNIT SC SCH ×2 (08:00→12:07)
[2021-11-03 08:06] LABS: Basophils # (auto) 0.06 K/uL (0-0.2); Basophils % (auto) 0.3 %; Immature Granulocytes # (auto) 1.55 K/uL (0.00-0.02); Immature Granulocytes % (auto) 8.2 %; Monocytes # (auto) 1.32 K/uL (0.11-0.59); Neutrophils # (auto) 14.41 K/uL (1.4-6.5); Neutrophils % (auto) 76.5 %
[2021-11-03 08:16] LABS: BUN Creatinine Ratio 32.5 (10-20); Calcium 8.9 mg/dl (8.5-10.1); Est GFR (African American) 112.5 ml/min; Est GFR (Non-African American) 97.1 ml/min; Magnesium 2.5 mg/dl (1.8-2.4)
[2021-11-03 08:27] LABS: Potassium 4.1 mmol/L (3.5-5.1)
[2021-11-03] MEDS: FLUTICASONE FUROATE 100MCG 14 PUFFS/INHALER INH SCH (08:50)
[2021-11-03] MEDS: UMECLIDINIUM/VILANTEROL 62.5/25MCG 7 PUFFS/INHALER INH SCH (08:51)
[2021-11-03] MEDS: VENLAFAXINE HCL XR 75 MG CAPXR PO SCH (08:52)
[2021-11-03] MEDS: CHOLECALCIFEROL 1,000 UNITS 25 MCG TAB PO SCH (08:52)
[2021-11-03] MEDS: dilTIAZem ER 180 MG CAPCR PO SCH (08:53)
[2021-11-03] MEDS: ASPIRIN 325 MG ECTAB PO SCH (08:53)
[2021-11-03] MEDS: LIDOCAINE 5% 1 PATCH TD SCH (08:54)
[2021-11-03] MEDS: ENOXAPARIN INJ 40 MG/0.4 ML SYR SQ SCH (08:54)
[2021-11-03] MEDS: methylPREDNISolone 40 MG in SYRINGE 0 ML IV SCH ×2 (09:00→16:35)
[2021-11-03] MEDS: BENZONATATE 100 MG CAPSULE PO SCH ×2 (09:04→13:53)
--- NOTE | 2021-11-03 12:37 | Hospitalist Progress Note ---
Date of Service November 03, 2021 Assessment & Plan (1) 2019 novel coronavirus-infected pneumonia (NCIP): Plan: He is not vaccinated and was diagnosed with Covid 19 virus infection on 09/27/2021 He is back with increasing symptoms of cough and shortness of breath and received Levaquin for possible bacterial superinfection as an outpatient His Covid test remains positive on 09/27/2021, 10/05/2021 and again 10/29/2021 during this admission CTA did not show any pulmonary embolism but it showed multifocal groundglass and reticular opacities compatible with viral pneumonia His symptoms is complicated by COPD and having history of multiple sclerosis Has been getting Solu-Medrol for possible COPD exacerbation and does not qualify for remdesivir and/or other immunosuppressive medicine Remains stable and has been saturating with only 3 L of oxygen via nasal cannula Remains stable and has minimal cough and shortness of breath with exertion Does not require any more isolation and does not require any oxygen even to move around He will be discharged home this afternoon (2) COPD (chronic obstructive pulmonary disease): Plan: Likely has exacerbation of COPD We will continue with Solu-Medrol intravenously and nebulized bronchodilator and other inhalers as an outpatient Likely has acute bronchitis and has been getting intravenous ceftriaxone and doxycycline for possible bacterial superinfection Strongly advised to quit smoking He has been using oxygen at home especially with ambulation which is given by his PCP Has had 2 step O2 saturation test and he does not require any oxygen at rest or with ambulation He is not yet ready to be discharged physically and mentally We will give prednisone reducing dose (3) Arrhythmia: Plan: History of arrhythmias specially ventricular arrhythmias Has had an episode of chest pain and the EKG did show bigeminal's picture and troponin has been pending Continue with oral diltiazem Has tachycardia which is exacerbated by use of nebulized bronchodilator Tachycardia is resolved (4) Multiple sclerosis: Plan: History of multiple sclerosis Not been having acute symptoms from that (5) Hypertension: Plan: Blood pressure remains stable DVT prophylaxis Subcu Lovenox Admission and Anticipated Discharge Date Admission Date: October 30, 2021 Subjective 10/31/2021 The patient was seen and examined in emergency room in the holding area He has been very anxious and remains shortness of breath and is requiring 3 L to maintain saturation He remains tachycardic as well 11/01/21 The patient was seen and examined in Covid unit He has been feeling much better and is requiring about 3 L to maintain saturation Denies any significant cough, no fever and/or chills 11/02/2021 The patient was seen and examined in Covid unit He has been feeling a little better but is still has cough with shortness of breath with exertion and tachycardia that he is very much worried about He passed the 2 step O2 saturation test but does not want to go home today 11/03/2021 The patient was seen and examined in Covid unit He has been feeling much better today and does not have any tachycardia and no respiratory distress at rest He does not require any oxygen as per 2 step O2 saturation test Review of Systems Review of Systems: All systems reviewed and are unremarkable except as noted below Respiratory: Cough with shortness of breath Cardiovascular: Additional Comments: Palpitation Physical Exam Physical Exam: Lying in bed with moderate distress due to shortness of breath Constitutional: well developed, well nourished, + ill appearing and + obese Eyes: PERRL, conjunctivae normal, anicteric sclerae ENMT: external ear and nose normal, oropharynx normal Neck: trachea midline, no thyromegaly Respiratory: + respiratory distress Auscultation: + diminished lung sounds, + crackles (Minimal bibasilar crackles) and + wheezes Cardiovascular: Rate/Rhythm: regular rate, regular rhythm and + tachycardic Heart Sounds: normal S1 and normal S2; no murmur Extremities: no edema Gastrointestinal (Abdomen): Inspection/Auscultation: normal bowel sounds; abdomen not distended Percussion/Palpation: abdomen soft; abdomen nontender Musculoskeletal: no cyanosis or clubbing, extremities motor strength 5/5 Neurologic: PERRL, EOMI, accommodation nl, no face palsy, no dysarthria Psychiatric: A+Ox3, euthymic affect Lymphatic: no cervical or axillary lymphadenopathy Results & Data Results & Data ([facility]) Vital Signs (Past 12 Hours) Vital Signs Temp Pulse Pulse Resp BP Pulse Ox 11/03/21 11:00 36.8 C 80 22 154/84 H 97 11/03/21 08:00 36.4 C 87 20 151/82 H 98 11/03/21 06:20 79 11/03/21 03:37 36.7 C 73 18 133/77 97 Laboratory Results Short CBC 11/03/21 Range/Units 06:54 WBC 18.84 H (4.8-10.8) K/uL Hgb 12.6 L (14.0-18.0) g/dL Hct 38.2 L (42-52) % Plt Count 373 (130-400) K/uL [facility] 11/03/21 06:54 Sodium 134 L Potassium 4.1 Chloride 101 Carbon Dioxide 27 BUN 26 H Creatinine 0.80 Glucose 169 H Calcium 8.9 Medications Administered Current Inpatient Medications Acetaminophen (Acetaminophen 325 Mg Tab) 650 mg PO Q4H PRN PRN Reason: Pain or Fever Stop: 11/29/21 05:29 Last Admin: 10/30/21 14:29 Dose: 650 mg Documented by: Aspirin (Aspirin 325 Mg Ectab) 325 mg PO [facility] Stop: 11/29/21 08:59 Last Admin: 11/03/21 08:53 Dose: 325 mg Documented by: Benzonatate (Benzonatate 100 Mg Capsule) 100 mg PO TID COUNT INCLUDES THE [facility] Stop: 12/01/21 20:59 Last Admin: 11/03/21 09:04 Dose: 100 mg Documented by: Diltiazem HCl (Diltiazem Er 180 Mg Capcr) 360 mg PO [facility] Stop: 11/29/21 08:59 Last Admin: 11/03/21 08:53 Dose: 360 mg Documented by: Enoxaparin Sodium (Enoxaparin Inj 40 Mg/0.4 Ml Syr) 40 mg SQ Q24H COUNT INCLUDES THE [facility] Stop: 11/29/21 08:59 Last Admin: 11/03/21 08:54 Dose: 40 mg Documented by: Fluticasone Furoate (Fluticasone Furoate 100mcg 14 Puffs/Inhaler) 1 puffs INH [facility] Stop: 11/29/21 08:59 Last Admin: 11/03/21 08:50 Dose: 1 puffs Documented by: Guaifenesin/Codeine Phosphate (Guaifenesin/Codeine 100mg/10mg 5ml Udc) 5 ml PO Q6H PRN PRN Reason: Cough Stop: 12/01/21 19:30 Last Admin: 11/02/21 20:32 Dose: 5 ml Documented by: Ceftriaxone Sodium 1,000 mg/ (Dextrose) 50 mls @ 100 mls/hr IV Q24H COUNT INCLUDES THE [facility]; Protocol Stop: 11/06/21 05:29 Last Infusion: 11/03/21 06:19 Dose: Infused Documented by: Doxycycline Hyclate 100 mg/ (Dextrose) 110 mls @ 50 mls/hr IV Q12H COUNT INCLUDES THE [facility] Stop: 11/06/21 05:29 Last Admin: 11/03/21 05:42 Dose: 50 mls/hr Documented by: Methylprednisolone 40 mg/ (Syringe) 0.64 mls @ 1.5 mls/min IV Q8H COUNT INCLUDES THE [facility] Stop: 11/30/21 15:59 Last Admin: 11/03/21 09:00 Dose: 1.5 mls/min Documented by: Insulin Aspart (Insulin Aspart Per Unit) 0 units SC ACHS COUNT INCLUDES THE [facility] Stop: 11/29/21 16:29 Last Admin: 11/03/21 12:07 Dose: 3 units Documented by: Levalbuterol HCl (Levalbuterol Hcl 1.25 Mg/3 Ml Neb) 1.25 mg NEB Q2H PRN PRN Reason: Shortness Of Breath Or Wheezing Stop: 11/29/21 04:31 Lidocaine (Lidocaine 5% 1 Patch) 1 patch TD [facility] Stop: 11/29/21 08:59 Last Admin: 11/03/21 08:54 Dose: Not Given Documented by: Miscellaneous (Remove Lidoderm Patch) 1 ea N/A DAILY@2100 COUNT INCLUDES THE [facility] Stop: 11/29/21 20:59 Last Admin: 11/02/21 20:32 Dose: Not Given Documented by: Nitroglycerin (Nitroglycerin Sl 0.4 Mg/Tab Tab) 0.4 mg SL UD PRN PRN Reason: Chest Pain Stop: 11/29/21 05:29 Ondansetron HCl (Ondansetron Inj 2 Mg/Ml 2 Ml Vial) 4 mg IV Q6H PRN PRN Reason: Nausea Stop: 11/29/21 05:29 Umeclidinium/Vilanterol (Umeclidinium/Vilanterol 62.5/25mcg 7 Puffs/Inhaler) 1 puffs INH [facility] Stop: 11/29/21 08:59 Last Admin: 11/03/21 08:51 Dose: 1 puffs Documented by: Venlafaxine HCl (Venlafaxine Hcl Xr 75 Mg Capxr) 75 mg PO [facility] Stop: 11/29/21 08:59 Last Admin: 11/03/21 08:52 Dose: 75 mg Documented by: Vitamin D (Cholecalciferol 1,000 Units 25 Mcg Tab) 4,000 units PO [facility] Stop: 11/29/21 08:59 Last Admin: 11/03/21 08:52 Dose: 4,000 units Documented by:
--- NOTE | 2021-11-16 09:36 | Discharge Summary ---
Date of Service November 16, 2021 Admission HPI Per Admitting Provider DICTATED BY:Zackery Adams MD DATE OF ADMISSION: 10/30/2021. CHIEF COMPLAINT: Shortness of breath and cough. HISTORY OF PRESENT ILLNESS: This is a 61-year-old male with past medical history significant for COPD, hyperlipidemia, allergic rhinitis, history of paroxysmal SVT, history of orthostasis, history of duodenal ulcer, history of degeneration of lumbar intervertebral disk, history of multiple sclerosis, history of optic neuritis, history of ongoing tobacco abuse, who was recently admitted on 09/25/2021 with COVID pneumonia. His COVID was first diagnosed on 09/27/2021. He was in the hospital, treated with dexamethasone as he did not qualify for remdesivir at that time and discharged home on 2 liters of oxygen with exertion on 10/17/2021, comes back with shortness of breath. The patient states that since going home, he was not feeling well, he was getting more short of breath with exertion. He is having lot of Cough bringing up greenish phlegm and also some chest pain with coughing and also some sore throat, mild headaches. Says he was prescribed Levaquin. He went to get his Levaquin today, but as symptoms were not getting better, he came to the ER. He says he cut back on smoking. Before he used to smoke 3/4 pack a day, but now for the last weeks he smoked only 1 pack. Denies any blurred visions, no earache. Has some runny nose. With blowing of his nose, he is seeing some blood in it. When he eats, he has some pain in his throat. Appetite is okay. No nausea, no abdominal pain. He had diarrhea earlier in the week, but that got resolved. Denies any blood in the stools. Normal bladder movements. No hematuria. Currently, resting comfortably and hemodynamically stable, saturating okay on 4 liters. Admission Exam Per Admitting Provider GENERAL: The patient is of moderate build, not in acute distress. VITAL SIGNS: Temperature 37, pulse 113, blood pressure 149/69, oxygen 97% on 4 liters. HEENT: Extraocular muscles intact. Atraumatic. NECK: No JVD, no neck masses. CARDIOVASCULAR: S1 and S2 heard. Regular rate and rhythm. No murmur, no gallop. RESPIRATORY SYSTEM: Normal AP diameter. No accessory muscle use. No wheezing, no crackles. ABDOMEN: Soft, bowel sounds present, nontender, no distention. CENTRAL NERVOUS SYSTEM: Cranial nerves II-XII grossly intact, nonfocal. EXTREMITIES: No edema, no erythema. Principal Diagnosis COVID-19 pneumonia, COPD exacerbation, multiple sclerosis, controlled cardiac arrhythmia, hypertension Discharge Exam Lying in bed with moderate distress due to shortness of breath Constitutional well developed, well nourished, + ill appearing and + obese Eyes PERRL, conjunctivae normal, anicteric sclerae ENMT external ear and nose normal, oropharynx normal Neck trachea midline, no thyromegaly Respiratory + respiratory distress Auscultation: + diminished lung sounds, + crackles (Minimal bibasilar crackles) and + wheezes Cardiovascular Rate/Rhythm: regular rate, regular rhythm and + tachycardic Heart Sounds: normal S1 and normal S2; no murmur Extremities: no edema Gastrointestinal (Abdomen) Inspection/Auscultation: normal bowel sounds; abdomen not distended Percussion/Palpation: abdomen soft; abdomen nontender Musculoskeletal no cyanosis or clubbing, extremities motor strength 5/5 Neurologic PERRL, EOMI, accommodation nl, no face palsy, no dysarthria Psychiatric A+Ox3, euthymic affect Lymphatic no cervical or axillary lymphadenopathy Discharge Data Allergies Allergy/AdvReac Type Severity Reaction Status Date / Time Sulfa (Sulfonamide AdvReac Unknown WIPED OUT Verified 10/30/21 00:31 Antibiotics) GOOD BACTERIA, BECAME SEPTIC. sulfamethoxazole AdvReac Unknown wiped out Verified 10/30/21 00:31 good bacteria, became septic trimethoprim AdvReac Unknown wiped out Verified 10/30/21 00:31 good bacteria, became septic Consultations 10/30/21 02:22 ED Decision to Admit Stat Ordered Studies 10/29/21 23:25 CT angio chest PE protocol Urgent Hospital Course (1) 2018 novel coronavirus-infected pneumonia (NCIP): He is not vaccinated and was diagnosed with Covid 19 virus infection on 09/27/2021 He is back with increasing symptoms of cough and shortness of breath and received Levaquin for possible bacterial superinfection as an outpatient His Covid test remains positive on 09/27/2021, 10/05/2021 and again 10/29/2021 during this admission CTA did not show any pulmonary embolism but it showed multifocal groundglass and reticular opacities compatible with viral pneumonia His symptoms is complicated by COPD and having history of multiple sclerosis Has been getting Solu-Medrol for possible COPD exacerbation and does not qualify for remdesivir and/or other immunosuppressive medicine Remains stable and has been saturating with only 3 L of oxygen via nasal cannula Remains stable and has minimal cough and shortness of breath with exertion Does not require any more isolation and does not require any oxygen even to move around He will be discharged home this afternoon (2) COPD (chronic obstructive pulmonary disease): Likely has exacerbation of COPD We will continue with Solu-Medrol intravenously and nebulized bronchodilator and other inhalers as an outpatient Likely has acute bronchitis and has been getting intravenous ceftriaxone and doxycycline for possible bacterial superinfection Strongly advised to quit smoking He has been using oxygen at home especially with ambulation which is given by his PCP Has had 2 step O2 saturation test and he does not require any oxygen at rest or with ambulation He is not yet ready to be discharged physically and mentally We will give prednisone reducing dose (3) Arrhythmia: History of arrhythmias specially ventricular arrhythmias Has had an episode of chest pain and the EKG did show bigeminal's picture and troponin has been pending Continue with oral diltiazem Has tachycardia which is exacerbated by use of nebulized bronchodilator Tachycardia is resolved (4) Multiple sclerosis: History of multiple sclerosis Not been having acute symptoms from that (5) Hypertension: Blood pressure remains stable DVT prophylaxis Subcu Lovenox Total Time Total Time Spent Total Time Spent (In Minutes): 40 minutes Discharge Plan Discharge Items Patient Disposition: Home - Self-Care Reason For Visit: SOB Discharge Diagnosis: COVID-19 pneumonia, COPD exacerbation, multiple sclerosis, controlled cardiac arrhythmia, hypertension Condition on Discharge: Good Activity: Resume your previous activity Non-emergency contact: Primary Care Provider Call non-emergency contact if: you have any medication questions and your symptoms worsen Follow-up/Referrals: Angelica Baltazar CRNP [Primary Care Provider] - 11/04/21 1:00 pm (PLEASE NOTE THAT THIS IS A TELEPHONE APPOINTMENT. Vik BALTAZAR WILL CALL YOU AT THE APPOINTMENT TIME.) Diet: Carb Consistent or DM2 and Heart Healthy Addtl Attending Provider Instructions: Please take precautions to avoid fall Take your medications as advised Quit smoking You will not need any more isolation secondary to Covid 19 infection but follow the usual guidelines as per CDC You can take [id number] cough medicine as well Pending Studies at Discharge: No Stand-Alone Forms: My [facility] [employer], Smoking Cessation Medications and DC Order Prescriptions: New levalbuterol HCl 1.25 mg/3 mL Solution For Nebulization 1.25 mg NEB QID PRN (Reason: shortness of breath or wheezing) 30 Days Qty: 50 RF: 0 prednisone 10 mg tablet 10 mg PO UD Qty: 30 RF: 0 Lactinex 1 million cell tablet,chewable 1 tab PO BID Qty: 30 RF: 0 Continued aspirin 325 mg Tablet,Delayed Release (Dr/Ec) 325 mg PO QAM RF: 0 Trelegy Ellipta 100-62.5-25 mcg Blister With Device 1 inh INHALATION QAM PRN (Reason: Shortness Of Breath) RF: 0 diltiazem HCl 360 mg capsule,extended release 24 hr 360 mg PO QAM RF: 0 cholecalciferol (vitamin D3) [Vitamin D3] 50 mcg (2,000 unit) Capsule 100 mcg PO QAM RF: 0 Kesimpta Pen 20 mg/0.4 mL pen injector 20 mg SUBCUT MONTHLY RF: 0 albuterol sulfate 90 mcg/actuation HFA aerosol inhaler 3 inh inhalation Q6H Qty: 18 RF: 2 Discontinued levofloxacin 500 mg tablet 500 mg PO DAILY RF: 0 Discharge Orders: Discharge Order (Routine); Ordered 11/03/21 Ordered By: La Porter Admission Data Admit Date/Time: 10/30/21 03:58 Attending Provider: La Porter Admit Provider: Zackery Adams Primary Care Provider: Angelica Baltazar Other Providers: Zacekry Adams Other Interventions: Discharge Summary Assessment (RN) Last Done: 11/03/21 14:05
== END 2021-11-03 16:54 | disposition home or self-care (01) | DRG 177 ==
LOC: ED 22:58 → EDINP 10-30 03:58 → 2W 10-30 05:29
DX: J20.8 Acute bronchitis due to other specified organisms; J44.0 Chronic obstructive pulmonary disease with (acute) lower respiratory infection; J44.1 Chronic obstructive pulmonary disease with (acute) exacerbation; I10 Essential (primary) hypertension; Z88.2 Allergy status to sulfonamides; E78.5 Hyperlipidemia, unspecified; J12.82 Pneumonia due to coronavirus disease 2019; F17.210 Nicotine dependence, cigarettes, uncomplicated; R00.0 Tachycardia, unspecified; G35 Multiple sclerosis; I49.8 Other specified cardiac arrhythmias; U07.1 COVID-19

== ENCOUNTER 2024-04-10 23:28 | Observation (INO) ==
--- NOTE | 2024-04-10 23:42 | Emergency Department Note ---
Impression & Plan Syncope, Palpitations, Acute head trauma, Rhinovirus infection ED Provider Note NAME: RENITA LEMUS AGE: 64 SEX: M : 1960 ARRIVES VIA: Ambulance INFORMANT: [Patient][ems] ED PROVIDER(S): [Otto Ann MD] CHIEF COMPLAINT: Syncope HISTORY OF PRESENT ILLNESS: The patient is a 64-year-old male with a history of palpitations and by report, V. tach. He does not have a defibrillator or pacer. The patient states that for 5 days, he had a cough and some sneezing. No fever. For 2 days, he has felt a lot of palpitations. Tonight, he was dizzy and his blood pressure was recorded at 90 over palp. He was walking in the living room when he felt his heart jumping and beating irregular and by report, he had a syncopal spell. He struck the left front of his head. He complains of a mild headache, no neck pain or back pain. No abdominal pain or extremity discomfort. Patient states that his whole body hurts but this is fairly normal as he has some chronic body aches. PMHx/PSHx/Social Hx: See Below PHYSICAL EXAM: GENERAL: Patient is in no acute distress. HEENT: No acute trauma, normocephalic atraumatic, mucous membranes moist, no nasal congestion. NECK: No stridor, no adenopathy, nontender cervical spine, trachea is midline. LUNGS: Coarse breath sounds bilaterally to the lower lung roberto. No wheezing. Dry cough noted. No respiratory distress HEART: Without murmurs gallops or rubs, regular rate and rhythm. ABDOMEN: Soft, nontender, no peritonitis. EXTREMITIES: No cyanosis, full range of motion of all the joints without pain or difficulty. NEUROLOGIC: Oriented x 3, no acute motor or sensory deficits, no focal weakness. SKIN: No jaundice, no diaphoresis. DIFFERENTIAL DIAGNOSIS: V. tach, A-fib, a flutter, anemia, electrolyte imbalance, dehydration, MT, intracranial injury, among others. EMERGENCY DEPARTMENT PROCEDURES: MEDICAL DECISION MAKING: There is no leukocytosis or concerning anemia. There is a normal platelet count. No renal failure or significant electrolyte abnormality. No concerning liver enzyme elevation. The patient appears to be in a euthyroid state. ECG shows a normal sinus rhythm, no ischemia. Cardiac enzyme testing x 1 is not consistent with acute cardiac injury. Respiratory bio fire is positive for rhinovirus. Chest x-ray shows some chronic change, no focal pneumonia. Brain CT shows no acute bleed or mass effect. On exam, the patient was resting comfortably, no dysrhythmia on the monitor. The patient was given IV saline, 500 cc. He had received some saline in route prior to arrival. He was given IV Tylenol for his headache. The patient presents with a syncopal event. He by report has a history of V. tach. He was experiencing some palpitations and felt dizzy prior to the syncopal spell. I do think the patient requires a hospital stay for monitoring and further cardiac workup. I did speak with the patient and case management, the on-call hospitalist was consulted. Of note, I do think his respiratory complaints/cough and sneezing are explained by the rhinovirus findings. Prior/Outside records/notes reviewed: None ECG per my interpretation: Indication was syncope. The ECG shows a normal sinus rhythm with a rate of 79. There is a right bundle branch block. There is no acute ST elevation, no PVCs. The QTc is 470. Continuous Cardiac Monitoring per my interpretation: An order was placed for continuous cardiac monitoring. The monitor shows a rate of 84 with normal sinus rhythm. Imaging/x-ray results per my interpretation: Chest x-ray does not show mediastinal widening, pneumonia or pneumothorax. Some chronic change was seen. Chronic Medical/Social conditions affecting care: History of V. tach. Care/Management discussed with: Case management, the on-call hospitalist. Level of care consideration(s): After review of the information above and other included data: --I believe the patient requires escalation of care to admission DISPOSITION: Admission Past Med/Surg History Problem List (Updated 04/11/24 @ 03:09 by Otto Ann MD) Rhinovirus infection (Acute) Acute head trauma (Acute) Palpitations (Acute) Syncope (Acute) Hypoxia (Acute) Pneumonia due to 2019-nCoV (Acute) COPD (chronic obstructive pulmonary disease) Acute respiratory failure with hypoxia Arrhythmia [facility] (Ac[facility]) 2019 novel coronavirus-infected pneumonia (NCIP) (Acute) Weakness (Acute) Breathlessness (Acute) Neck pain Numbness and tingling in both hands Abnormal CT of the abdomen PVC (premature ventricular contraction) PAC (premature atrial contraction) Benign prostatic hyperplasia with urinary obstruction (Acute) COPD (chronic obstructive pulmonary disease) (Acute) Chronic cough (Acute) Constipation due to opioid therapy (Acute) Continuous LLQ abdominal pain (Acute) Diarrhea (Acute) Gastritis determined by endoscopy (Acute) Heart disease (Acute) Hyperlipidemia (Acute) Hypertension (Acute) Low back pain (Acute) Nocturia (Acute) Reflux esophagitis (Acute) Urinary frequency (Acute) Abscess, dental (Acute) Pericarditis (Acute) Chest pain (Acute) Elevated lipase Multiple sclerosis Paroxysmal ventricular tachycardia Smoker Chest pain (Acute) Pericarditis (Acute) Precordial chest pain (Acute) Medical History Bronchitis Arthritis Degenerative disc disease NECK Neuropathy IDIOPATHIC HANDS AND FEET GERD (gastroesophageal reflux disease) Hx of multiple sclerosis F/U [facility] LOWER EXTREMITIES NUMBNESS/ CHRONIC WEAKNESS/FATIGUE Surgical History Hx of oral surgery (03/27/20) Intra-Oral Incision and Drainage; removal of buccal lesion; Extraction of tooth #20 Dr. beauchamp 03/27/20 History of herniorrhaphy 2014 Hx of hand surgery RIGHT TENDON REPAIR History of arthroscopy LEFT KNEE Fusion of spine X LOWER BACK X 3 2011 and 2014 History of esophagogastroduodenoscopy (EGD) History of colonoscopy Family History Father Family history of reaction to anesthesia REQUIRES MORE ANESTHESIA-"DOESN'T WORK" Hypertension Heart disease Other Gallbladder disease Social History Smoking Status: Current every day smoker Tobacco Type: Cigarettes packs per day: 0.75; Cigarettes Per Day: 15 CIGS A DAY X 30+ YRS AGO; Second Hand Exposure: Yes; Do You Dip or Chew Tobacco: No; Hx Alcohol Use: Yes Alcohol type: hard liquor Alcohol Intake Frequency Comment: 1 drink a week Hx Substance Use: No Preferred Language: Sami Communication Ability: Effective Rn Orthopaedic Required: No Beliefs That Will Affect Care: None marital status: Life Partner Current Living Situation: Spouse current occupational status: employed 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 sulfamethoxazole AdvReac Unknown wiped out Verified 04/11/24 01:01 good bacteria, became septic trimethoprim AdvReac Unknown wiped out Verified 04/11/24 01:01 good bacteria, became septic Home Meds Home Medications Medication Instructions Recorded Confirmed diltiazem HCl 360 mg capsule,24 360 mg PO QAM 08/19/20 04/11/24 hr,extended release cholecalciferol (vitamin D3) 50 1,000 mcg PO QAM 03/31/21 04/11/24 mcg (2,000 unit) capsule (Vitamin D3) rosuvastatin 20 mg tablet 10 mg PO DAILY 11/28/23 04/11/24 Results & Data (ED) Vital Signs Vital Signs - 24 hr 04/10/24 23:33 04/10/24 23:47 04/10/24 23:52 Temperature 36.9 C Temperature Source Oral Pulse Rate 80 79 77 Pulse Rate from SpO2 Sensor Respiratory Rate 20 20 Respiratory Effort / Characteristics Non-Labored Spontaneous Respiratory Depth Normal Respiratory Pattern Regular Blood Pressure 152/91 H Blood Pressure Mean 111 Blood Pressure Position Lying Pulse Oximetry 96 96 Oxygen Delivery Method Room Air Room Air Sepsis Recent Fever Within 48 Hours No Sepsis New/Unexplained Change in Mental Status N/A Sepsis Action Taken by Nursing No Action Required 04/10/24 23:52 04/11/24 00:30 04/11/24 01:00 Temperature Temperature Source Pulse Rate 76 76 74 Pulse Rate from SpO2 Sensor 77 75 74 Respiratory Rate 22 19 21 Respiratory Effort / Characteristics Respiratory Depth Respiratory Pattern Blood Pressure 120/85 125/79 127/72 Blood Pressure Mean 96 94 90 Blood Pressure Position Pulse Oximetry 96 94 95 Oxygen Delivery Method Room Air Room Air Room Air Sepsis Recent Fever Within 48 Hours Sepsis New/Unexplained Change in Mental Status Sepsis Action Taken by Nursing 04/11/24 01:30 04/11/24 02:01 Temperature Temperature Source Pulse Rate 72 71 Pulse Rate from SpO2 Sensor 74 71 Respiratory Rate 16 13 Respiratory Effort / Characteristics Respiratory Depth Respiratory Pattern Blood Pressure 148/79 H 140/84 Blood Pressure Mean 102 102 Blood Pressure Position Pulse Oximetry 95 98 Oxygen Delivery Method Room Air Room Air Sepsis Recent Fever Within 48 Hours Sepsis New/Unexplained Change in Mental Status Sepsis Action Taken by Shelter Medications Current Medication List: was personally reviewed by me Laboratory Data Attestation: I reviewed the patient's lab results. 04/10/24 23:40 04/10/24 23:40 Lab Results 04/10/24 04/10/24 Range/Units 23:40 23:51 WBC 10.22 (4.8-10.8) K/ul RBC 4.99 (4.70-6.10) M/uL Hgb 14.1 (14.0-18.0) g/dl Hct 43.1 (42.0-52.0) % MCV 86.4 (80.0-100.0) fL MCH 28.3 (25.0-34.0) pg MCHC 32.7 (32.0-36.0) g/dL RDW Std Deviation 45.2 (36.4-46.3) fL RDW Coeff of Alessandra 14.1 (11.5-14.5) % Plt Count 295 (130-400) K/uL MPV 10.1 (9.4-12.4) fL Immature Gran % (Auto) 0.5 % Neut % (Auto) 60.6 % Lymph % (Auto) 19.6 % [place] % (Auto) 12.3 % Eos % (Auto) 5.7 % Baso % (Auto) 1.3 % Neut # (Auto) 6.20 (1.40-6.50) K/uL Lymph # (Auto) 2.00 (1.20-3.40) K/uL [place] # (Auto) 1.26 H (0.11-0.59) K/uL Eos # (Auto) 0.58 H (0.00-0.50) K/uL Baso # (Auto) 0.13 (0.00-0.20) K/uL Immature Gran # (Auto) 0.05 (0.01-0.20) K/uL Sodium 142 (136-145) mmol/L Potassium 3.6 (3.5-5.1) mmol/L Chloride 112 H (98-107) mmol/L Carbon Dioxide 22 (21-32) mmol/L Anion Gap 8 (3-11) BUN 15 (6-23) mg/dl Creatinine 0.93 (0.6-1.4) mg/dl Est Cr Clr Drug Dosing 81.3 ml/min Est GFR ( Amer) 100.9 ml/min Est GFR (Non-Af Amer) 87.1 ml/min BUN/Creatinine Ratio 16.1 (10-20) Glucose 78 (70-99(Fasting)) mg/dl Calcium 8.6 (8.6-10.3) mg/dl Magnesium 2.2 (1.7-2.4) mg/dl Total Bilirubin 0.4 (0.2-1.0) mg/dl AST 16 (13-39) U/L ALT 15 (7-52) U/L Alkaline Phosphatase 67 (34-104) U/L Troponin I High Sens 4.8 (0-20) pg/ml Total Protein 6.5 (6.0-8.3) gm/dl Albumin 4.3 (3.4-5.0) gm/dl Globulin 2.2 L (2.5-4.0) gm/dl Albumin/Globulin Ratio 2.0 (0.9-2) TSH 1.493 (0.300-4.500) uIu/ml Adenovirus (PCR) Not Detected (NotDetected) B. pertussis DNA (PCR) Not Detected (NotDetected) B.parapertussis DNA PCR Not Detected (NotDetected) C. pneumoniae DNA (PCR) Not Detected (NotDetected) Coronavirus OC43 (PCR) Not Detected (NotDetected) Coronavirus HKU1 (PCR) Not Detected (NotDetected) Coronavirus 229E (PCR) Not Detected (NotDetected) SARS-CoV-2 (PCR) Not Detected (NotDetected) Coronavirus NL63 (PCR) Not Detected (NotDetected) Human Metapneumovir PCR Not Detected (NotDetected) Influenza Type A (PCR) Not Detected (NotDetected) Influenza Type B (PCR) Not Detected (NotDetected) M. pneumoniae (PCR) Not Detected (NotDetected) Parainfluenza 1 (PCR) Not Detected (NotDetected) Parainfluenza 2 (PCR) Not Detected (NotDetected) Parainfluenza 3 (PCR) Not Detected (NotDetected) Parainfluenza 4 (PCR) Not Detected (NotDetected) RSV (PCR) Not Detected (NotDetected) Entero/Rhino (PCR) DETECTED A (NotDetected) Administered Medications Potassium Chloride 20 meq/ (Lactated Ringer's) 1,010 mls @ 60 mls/hr IV .[id number] ONE Stop: 04/11/24 18:01 Last Admin: 04/11/24 01:55 Dose: 60 mls/hr Documented By: SAVITA Discontinued Medications Aspirin (Aspirin 81 Mg Ectab) 81 mg PO NOW STA Stop: 04/11/24 02:34 Last Admin: 04/11/24 02:51 Dose: Not Given Documented By: SAVITA Sodium Chloride (Nss) 500 mls @ 999 mls/hr IV .Q31M CHRISTY Stop: 04/11/24 00:15 Last Infusion: 04/11/24 01:28 Dose: Infused Documented By: Admin: 04/11/24 00:23 Dose: 999 mls/hr Documented By: SAVITA Acetaminophen (Ofirmev) 1,000 mg in 100 mls @ 400 mls/hr IV NOW STA Stop: 04/10/24 23:56 Last Infusion: 04/11/24 00:46 Dose: Infused Documented By: Admin: 04/11/24 00:21 Dose: 400 mls/hr Documented By: SAVITA Metoprolol Tartrate (Metoprolol Tartrate 25 Mg Tab) 12.5 mg PO NOW STA Stop: 04/11/24 02:35 Last Admin: 04/11/24 02:51 Dose: 12.5 mg Documented By: SAVITA Nitroglycerin (Nitroglycerin Sl 0.4 Mg/Tab Tab) 0.4 mg SL NOW STA Stop: 04/11/24 01:35 Last Admin: 04/11/24 01:54 Dose: 0.4 mg Documented By: SAVITA Potassium Chloride (Potassium Chloride Crtab 20 Meq Tabcr) 40 meq PO NOW STA Stop: 04/11/24 01:21 Last Admin: 04/11/24 01:54 Dose: 40 meq Documented By: SAVITA Imaging Data Radiologist's Impression: Head CT 04/10/24 23:40 Exam(s): CT HEAD Without Contrast EXAM: CT Head Without Intravenous Contrast CLINICAL HISTORY: Reason for exam: trauma. TECHNIQUE: Axial computed tomography images of the head/brain without intravenous contrast. CTDI is 38.03 mGy and DLP is 624.41 mGy-cm. Automated exposure control was utilized for the study. A dose lowering technique was utilized adhering to the principles of ALARA. COMPARISON: No relevant prior studies available. FINDINGS: No acute intracranial hemorrhage. No midline shift or mass effect. The territorial connor-white matter differentiation is maintained throughout. Age-related cerebral volume loss. Periventricular and subcortical white matter hypoattenuation, consistent with chronic microangiopathy. The visualized orbits appear grossly unremarkable. The calvarium is intact. The visualized paranasal sinuses and mastoid air cells are grossly clear. IMPRESSION: No acute intracranial hemorrhage, midline shift, or mass effect. Electronically signed by: Dimitrios Jacobo MD 04/11/24 00:40 AM Discharge Plan Visit Data Chief Complaint: Syncope Stated Complaint: SYNCOPE, EXTENSIVE CARDIAC HX ED Provider: Otto Ann Discharge Problem: Syncope, Palpitations, Acute head trauma, Rhinovirus infection Patient Disposition: Admitted As Inpatient Condition: Fair Prescriptions Prescriptions: No Action diltiazem HCl 360 mg capsule,extended release 24 hr 360 mg PO QAM cholecalciferol (vitamin D3) [Vitamin D3] 50 mcg (2,000 unit) Capsule 1,000 mcg PO QAM rosuvastatin 20 mg tablet 10 mg PO DAILY Rx Instructions: takes half tab Discharge Problem: Syncope Qualifiers: Syncope type: unspecified Qualified Code(s): R55 - Syncope and collapse Acute head trauma Qualifiers: Encounter type: initial encounter Qualified Code(s): S09.90XA - Unspecified injury of head, initial encounter
[2024-04-11 00:19] LABS: Basophils # (auto) 0.13 K/uL (0.00-0.20); Basophils % (auto) 1.3 %; Eosinophils # (auto) 0.58 K/uL (0.00-0.50); Eosinophils % (auto) 5.7 %; Hematocrit (blood only) 43.1 % (42.0-52.0); Hemoglobin 14.1 g/dl (14.0-18.0); Immature Granulocytes # (auto) 0.05 K/uL (0.01-0.20); Immature Granulocytes % (auto) 0.5 %; Lymphocytes % (auto) 19.6 %; Mean Corpuscular Hemoglobin 28.3 pg (25.0-34.0); Mean Corpuscular Hgb Conc 32.7 g/dL (32.0-36.0); Mean Corpuscular Volume 86.4 fL (80.0-100.0); Mean Platelet Volume 10.1 fL (9.4-12.4); Monocytes # (auto) 1.26 K/uL (0.11-0.59); Monocytes % (auto) 12.3 %; Neutrophils % (auto) 60.6 %; Platelet Count 295 K/uL (130-400); RDW Coefficient of Variation 14.1 % (11.5-14.5); RDW Standard Deviation 45.2 fL (36.4-46.3); Red Blood Count 4.99 M/uL (4.70-6.10); White Blood Count 10.22 K/ul (4.8-10.8)
[2024-04-11] MEDS: ACETAMINOPHEN 1,000 MG/100 ML VIAL IV STA (00:21)
[2024-04-11] MEDS: SODIUM CHLORIDE 0.9% 500 ML IV SCH (00:23)
[2024-04-11 00:41] LABS: Albumin Level 4.3 gm/dl (3.4-5.0); BUN Creatinine Ratio 16.1 (10-20); Bilirubin,Total 0.4 mg/dl (0.2-1.0); Calcium 8.6 mg/dl (8.6-10.3); Creatinine Clr Calc Pharmacy 81.3 ml/min; Est GFR (African American) 100.9 ml/min; Est GFR (Non-African American) 87.1 ml/min; Globulin 2.2 gm/dl (2.5-4.0); Magnesium 2.2 mg/dl (1.7-2.4); Potassium 3.6 mmol/L (3.5-5.1); Total Protein 6.5 gm/dl (6.0-8.3); Troponin I High Sensitivity 4.8 pg/ml (0-20)
--- NOTE | 2024-04-11 00:41 | CT Scan Report ---
Exam(s): CT HEAD Without Contrast EXAM: CT Head Without Intravenous Contrast CLINICAL HISTORY: Reason for exam: trauma. TECHNIQUE: Axial computed tomography images of the head/brain without intravenous contrast. CTDI is 38.03 mGy and DLP is 624.41 mGy-cm. Automated exposure control was utilized for the study. A dose lowering technique was utilized adhering to the principles of ALARA. COMPARISON: No relevant prior studies available. FINDINGS: No acute intracranial hemorrhage. No midline shift or mass effect. The territorial connor-white matter differentiation is maintained throughout. Age-related cerebral volume loss. Periventricular and subcortical white matter hypoattenuation, consistent with chronic microangiopathy. The visualized orbits appear grossly unremarkable. The calvarium is intact. The visualized paranasal sinuses and mastoid air cells are grossly clear. IMPRESSION: No acute intracranial hemorrhage, midline shift, or mass effect. Electronically signed by: Dimitrios Jacobo MD 04/11/24 00:40 AM
[2024-04-11 00:48] LABS: Thyroid Stimulating Hormone 1.493 uIu/ml (0.300-4.500)
[2024-04-11 00:50] LABS: Adenovirus PCR Not Detected (NotDetected); Bordetella parapertussis PCR Not Detected (NotDetected); Bordetella pertussis PCR Not Detected (NotDetected); Chlamydia pneumoniae PCR Not Detected (NotDetected); Coronavirus 229E PCR Not Detected (NotDetected); Coronavirus CoV-2 (COVID19)PCR Not Detected (NotDetected); Coronavirus HKU1 PCR Not Detected (NotDetected); Coronavirus NL63 PCR Not Detected (NotDetected); Coronavirus OC43PCR Not Detected (NotDetected); Human Metapneumovirus PCR Not Detected (NotDetected); Influenza A PCR Not Detected (NotDetected); Influenza B PCR Not Detected (NotDetected); Mycoplasma pneumoniae PCR Not Detected (NotDetected); Parainfluenza Virus 1 PCR Not Detected (NotDetected); Parainfluenza Virus 2 PCR Not Detected (NotDetected); Parainfluenza Virus 3 PCR Not Detected (NotDetected); Parainfluenza Virus 4 PCR Not Detected (NotDetected); Respiratory Syncytial VirusPCR Not Detected (NotDetected); Rhinovirus/Enterovirus PCR DETECTED (NotDetected)
[2024-04-11] MEDS: NITROGLYCERIN SL 0.4 MG/TAB TAB SL STA (01:54)
[2024-04-11] MEDS: POTASSIUM CHLORIDE CRTAB 20 MEQ TABCR PO STA (01:54)
[2024-04-11] MEDS: POTASSIUM CHLORIDE 20 MEQ in LACTATED RINGER'S 1,000 ML IV ONE (01:55)
[2024-04-11] MEDS ORDERED: PROMETHAZINE HCL 6.25 MG in SODIUM CHLORIDE 0.9% 50 ML IV PRN (02:40)
[2024-04-11] MEDS ORDERED: oxyCODONE HCL IR 5 MG TAB (IMMEDIATE RELEASE) PO PRN (02:40)
[2024-04-11] MEDS ORDERED: NITROGLYCERIN SL 0.4 MG/TAB TAB SL PRN (02:40)
[2024-04-11] MEDS ORDERED: SODIUM CHLORIDE 0.65% NA SOLN 45 ML (OCEAN) PRN (02:40)
[2024-04-11] MEDS ORDERED: LORazepam 0.5 MG TAB PO PRN (02:40)
--- NOTE | 2024-04-11 02:49 | History & Physical Report ---
Date of Service April 11, 2024 Assessment & Plan (1) Chest pain: Plan: Left-sided chest pain relieved by nitroglycerin Rule out ACS given patient risk factors for ischemic heart disease Syncope likely secondary to orthostasis from complicated bronchitis resulting from rhinovirus infection Rule out malignant arrhythmia, paroxysmal VT as per records hypertension, BP slight elevated hyperlipidemia, on statin Rx LYNN as per records multiple sclerosis, gait difficulties from condition as per patient past tobacco abuse OBS PCU Aspirin, statin Rx for CAD prevention until ACS ruled out Check orthostatic vitals TTE Re: Syncope, chest pain Doxycycline for complicated bronchitis Follow troponin Cardiology consult Re: Chest pain N.p.o. in anticipation of ischemic workup if warranted. DVT phylaxis. SCDs recent head trauma Full code Text document was generated using [employer] voice recognition software. It may contain grammatical or spelling errors. Kindly contact undersigned for clarification of any documentation item in question. History of Present Illness Chief Complaint: Syncope Primary Care Provider: Estela Olvera PA-C History obtained from patient and records. Medical history significant for paroxysmal VT as per records, hypertension, hyperlipidemia, history orthostasis, LYNN as per records, PUD, past history of pancreatitis, multiple sclerosis, past tobacco abuse. Last confinement October 2021 for COVID-19 pneumonia. Patient with cough symptoms productive of junky yellow sputum the last few days. Not sure about sick contacts. A lot of sneezing symptoms. No aspiration. Some chills. Left-sided chest pain symptoms attributed to V. tach episodes in the past as per patient. Admits to OTC Coricidin Rx intake. Patient felt lightheaded last night. Syncopal event witnessed by patient's resulting in head trauma. No seizures or incontinence noted. Patient woke up after a few moments. Palpatory BP at home 90s as per patient. Patient brought to the ER for evaluation. Left-sided chest pain relieved by nitroglycerin. 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 sulfamethoxazole AdvReac Unknown wiped out Verified 04/11/24 01:01 good bacteria, became septic trimethoprim AdvReac Unknown wiped out Verified 04/11/24 01:01 good bacteria, became septic Home Medications Medication Instructions Recorded Confirmed Type diltiazem HCl 360 mg capsule,24 360 mg PO QAM 08/19/20 04/11/24 History hr,extended release cholecalciferol (vitamin D3) 50 1,000 mcg PO QAM 03/31/21 04/11/24 History mcg (2,000 unit) capsule (Vitamin D3) rosuvastatin 20 mg tablet 10 mg PO DAILY 11/28/23 04/11/24 History Past Med/Surg History Problem List (Updated 04/11/24 @ 03:09 by Otto Ann MD) Rhinovirus infection (Acute) Acute head trauma (Acute) Palpitations (Acute) Syncope (Acute) Hypoxia (Acute) Pneumonia due to 2019-nCoV (Acute) COPD (chronic obstructive pulmonary disease) Acute respiratory failure with hypoxia Arrhythmia PVT-F/U [facility] COVID-19 (Acute) 2019 novel coronavirus-infected pneumonia (NCIP) (Acute) Weakness (Acute) Breathlessness (Acute) Neck pain Numbness and tingling in both hands Abnormal CT of the abdomen PVC (premature ventricular contraction) PAC (premature atrial contraction) Benign prostatic hyperplasia with urinary obstruction (Acute) COPD (chronic obstructive pulmonary disease) (Acute) Chronic cough (Acute) Constipation due to opioid therapy (Acute) Continuous LLQ abdominal pain (Acute) Diarrhea (Acute) Gastritis determined by endoscopy (Acute) Heart disease (Acute) Hyperlipidemia (Acute) Hypertension (Acute) Low back pain (Acute) Nocturia (Acute) Reflux esophagitis (Acute) Urinary frequency (Acute) Abscess, dental (Acute) Pericarditis (Acute) Chest pain (Acute) Elevated lipase Multiple sclerosis Paroxysmal ventricular tachycardia Smoker Chest pain (Acute) Pericarditis (Acute) Precordial chest pain (Acute) Medical History Bronchitis Arthritis Degenerative disc disease NECK Neuropathy IDIOPATHIC HANDS AND FEET GERD (gastroesophageal reflux disease) Hx of [facility] EXTREMITIES NUMBNESS/ CHRONIC WEAKNESS/FATIGUE Surgical History Hx of oral surgery (03/27/20) Intra-Oral Incision and Drainage; removal of buccal lesion; Extraction of tooth #20 Dr. beauchamp 03/27/20 History of herniorrhaphy 2014 Hx of hand surgery RIGHT TENDON REPAIR History of arthroscopy LEFT KNEE Fusion of spine X LOWER BACK X 3 2011 and 2014 History of esophagogastroduodenoscopy (EGD) History of colonoscopy Family History Father Family history of reaction to anesthesia REQUIRES MORE ANESTHESIA-"DOESN'T WORK" Hypertension Heart disease Other Gallbladder disease Social History Smoking Status: Current every day smoker Tobacco Type: Cigarettes packs per day: 0.75; Cigarettes Per Day: 15 CIGS A DAY X 30+ YRS AGO; Second Hand Exposure: Yes; Do You Dip or Chew Tobacco: No; Hx Alcohol Use: Yes Alcohol type: hard liquor Alcohol Intake Frequency Comment: 1 drink a week Hx Substance Use: No Preferred Language: Danish Communication Ability: Effective Bobbin Collector Required: No Beliefs That Will Affect Care: None marital status: Life Partner Current Living Situation: Spouse current occupational status: employed 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 Other Information That Helps Us Care for You: No Feels Safe at Home: Yes Safety Concerns: Feels Safe At This Time Assistive Devices: Glasses Review of Systems Review of Systems: As per HPI, all other systems reviewed and negative Physical Exam Physical Exam: GENERAL: Comfortable, pleasant, no respiratory distress SKIN: Normal color, warm HEENT: Bespectacled, [place] palpebral conjunctivae, no ptosis, dry buccal mucosa NECK : Supple, no tenderness CHEST : CTA, no tenderness HEART : RRR, no obvious murmurs ABDOMEN: Some distention, nontender EXTREMITIES : No LE swelling/tenderness, no other conspicuous deformities noted NEUROLOGIC : Coherent, no facial asymmetry, MMTS BUE 4/5, BLE 3/5, gait and stance not assessed Results & Data Results & Data Vital Signs (Past 12 Hours) Vital Signs Temp Pulse Resp BP Pulse Ox O2 Del Method 04/11/24 02:01 71 13 140/84 98 Room Air 04/11/24 01:30 72 16 148/79 H 95 Room Air 04/11/24 01:00 74 21 127/72 95 Room Air 04/11/24 00:30 76 19 125/79 94 Room Air 04/10/24 23:52 76 22 120/85 96 Room Air 04/10/24 23:52 77 04/10/24 23:47 79 20 96 Room Air 04/10/24 23:33 36.9 C 80 20 152/91 H 96 Room Air Laboratory Results Laboratory Results WBC 10.22 K/ul (4.8-10.8) 04/10/24 23:40 RBC 4.99 M/uL (4.70-6.10) 04/10/24 23:40 Hgb 14.1 g/dl (14.0-18.0) 04/10/24 23:40 Hct 43.1 % (42.0-52.0) 04/10/24 23:40 MCV 86.4 fL (80.0-100.0) 04/10/24 23:40 MCH 28.3 pg (25.0-34.0) 04/10/24 23:40 MCHC 32.7 g/dL (32.0-36.0) 04/10/24 23:40 RDW Std Deviation 45.2 fL (36.4-46.3) 04/10/24 23:40 RDW Coeff of Alessandra 14.1 % (11.5-14.5) 04/10/24 23:40 Plt Count 295 K/uL (130-400) 04/10/24 23:40 MPV 10.1 fL (9.4-12.4) 04/10/24 23:40 Immature Gran % (Auto) 0.5 % 04/10/24 23:40 Neut % (Auto) 60.6 % 04/10/24 23:40 Lymph % (Auto) 19.6 % 04/10/24 23:40 [place] % (Auto) 12.3 % 04/10/24 23:40 Eos % (Auto) 5.7 % 04/10/24 23:40 Baso % (Auto) 1.3 % 04/10/24 23:40 Neut # (Auto) 6.20 K/uL (1.40-6.50) 04/10/24 23:40 Lymph # (Auto) 2.00 K/uL (1.20-3.40) 04/10/24 23:40 [place] # (Auto) 1.26 K/uL (0.11-0.59) H 04/10/24 23:40 Eos # (Auto) 0.58 K/uL (0.00-0.50) H 04/10/24 23:40 Baso # (Auto) 0.13 K/uL (0.00-0.20) 04/10/24 23:40 Immature Gran # (Auto) 0.05 K/uL (0.01-0.20) 04/10/24 23:40 Sodium 142 mmol/L (136-145) 04/10/24 23:40 Potassium 3.6 mmol/L (3.5-5.1) 04/10/24 23:40 Chloride 112 mmol/L (98-107) H 04/10/24 23:40 Carbon Dioxide 22 mmol/L (21-32) 04/10/24 23:40 Anion Gap 8 (3-11) 04/10/24 23:40 BUN 15 mg/dl (6-23) 04/10/24 23:40 Creatinine 0.93 mg/dl (0.6-1.4) 04/10/24 23:40 Est Cr Clr Drug Dosing 81.3 ml/min 04/10/24 23:40 Est GFR ( Amer) 100.9 ml/min 04/10/24 23:40 Est GFR (Non-Af Amer) 87.1 ml/min 04/10/24 23:40 BUN/Creatinine Ratio 16.1 (10-20) 04/10/24 23:40 Glucose 78 mg/dl (70-99(Fasting)) 04/10/24 23:40 Calcium 8.6 mg/dl (8.6-10.3) 04/10/24 23:40 Magnesium 2.2 mg/dl (1.7-2.4) 04/10/24 23:40 Total Bilirubin 0.4 mg/dl (0.2-1.0) 04/10/24 23:40 AST 16 U/L (13-39) 04/10/24 23:40 ALT 15 U/L (7-52) 04/10/24 23:40 Alkaline Phosphatase 67 U/L (34-104) 04/10/24 23:40 Troponin I High Sens 4.8 pg/ml (0-20) 04/10/24 23:40 Total Protein 6.5 gm/dl (6.0-8.3) 04/10/24 23:40 Albumin 4.3 gm/dl (3.4-5.0) 04/10/24 23:40 Globulin 2.2 gm/dl (2.5-4.0) L 04/10/24 23:40 Albumin/Globulin Ratio 2.0 (0.9-2) 04/10/24 23:40 TSH 1.493 uIu/ml (0.300-4.500) 04/10/24 23:40 Adenovirus (PCR) Not Detected (NotDetected) 04/10/24 23:51 B. pertussis DNA (PCR) Not Detected (NotDetected) 04/10/24 23:51 B.parapertussis DNA PCR Not Detected (NotDetected) 04/10/24 23:51 C. pneumoniae DNA (PCR) Not Detected (NotDetected) 04/10/24 23:51 Coronavirus OC43 (PCR) Not Detected (NotDetected) 04/10/24 23:51 Coronavirus HKU1 (PCR) Not Detected (NotDetected) 04/10/24 23:51 Coronavirus 229E (PCR) Not Detected (NotDetected) 04/10/24 23:51 SARS-CoV-2 (PCR) Not Detected (NotDetected) 04/10/24 23:51 Coronavirus NL63 (PCR) Not Detected (NotDetected) 04/10/24 23:51 Human Metapneumovir PCR Not Detected (NotDetected) 04/10/24 23:51 Influenza Type A (PCR) Not Detected (NotDetected) 04/10/24 23:51 Influenza Type B (PCR) Not Detected (NotDetected) 04/10/24 23:51 M. pneumoniae (PCR) Not Detected (NotDetected) 04/10/24 23:51 Parainfluenza 1 (PCR) Not Detected (NotDetected) 04/10/24 23:51 Parainfluenza 2 (PCR) Not Detected (NotDetected) 04/10/24 23:51 Parainfluenza 3 (PCR) Not Detected (NotDetected) 04/10/24 23:51 Parainfluenza 4 (PCR) Not Detected (NotDetected) 04/10/24 23:51 RSV (PCR) Not Detected (NotDetected) 04/10/24 23:51 Entero/Rhino (PCR) DETECTED (NotDetected) A 04/10/24 23:[address] 04/10/24 23:40 Exam(s): CT HEAD Without Contrast EXAM: CT Head Without Intravenous Contrast CLINICAL HISTORY: Reason for exam: trauma. TECHNIQUE: Axial computed tomography images of the head/brain without intravenous contrast. CTDI is 38.03 mGy and DLP is 624.41 mGy-cm. Automated exposure control was utilized for the study. A dose lowering technique was utilized adhering to the principles of ALARA. COMPARISON: No relevant prior studies available. FINDINGS: No acute intracranial hemorrhage. No midline shift or mass effect. The territorial connor-white matter differentiation is maintained throughout. Age-related cerebral volume loss. Periventricular and subcortical white matter hypoattenuation, consistent with chronic microangiopathy. The visualized orbits appear grossly unremarkable. The calvarium is intact. The visualized paranasal sinuses and mastoid air cells are grossly clear. IMPRESSION: No acute intracranial hemorrhage, midline shift, or mass effect. Electronically signed by: Dimitrios Jacobo MD 04/11/24 00:40 AM Diagnostic Findings Chest x-ray as per my interpretation no congestion EKG as per my interpretation : Rate 80, NSR, LAD, LAFB, RBBB, no ischemia, low voltage Code Status & VTE Plan VTE Prophylaxis Plan VTE Prophylaxis will be ordered: Yes (1) Chest pain Chest pain type: unspecified Qualified Code(s): R07.9 - Chest pain, unspecified
[2024-04-11] MEDS: ASPIRIN 81 MG ECTAB PO STA (02:51)
[2024-04-11] MEDS: METOPROLOL TARTRATE 25 MG TAB PO STA (02:51)
[2024-04-11 03:41] LABS: Appearance Urine Clear (Clear); Bilirubin Urine Negative (Negative); Blood Urine Negative (Negative); Color Urine Yellow; Glucose Urine UA Negative (Negative); Ketones Urine Negative (Negative); Leukocyte Esterase Urine Negative (Negative); Nitrite Urine Negative (Negative); Protein Urine Negative (Negative); Urobilinogen Urine Negative (Negative)
[2024-04-11 04:58] LABS: Basophils # (auto) 0.13 K/uL (0.00-0.20); Basophils % (auto) 1.6 %; Eosinophils % (auto) 7.4 %; Hematocrit (blood only) 41.4 % (42.0-52.0); Hemoglobin 13.6 g/dl (14.0-18.0); Immature Granulocytes # (auto) 0.03 K/uL (0.01-0.20); Immature Granulocytes % (auto) 0.4 %; Lymphocytes # (auto) 1.75 K/uL (1.20-3.40); Lymphocytes % (auto) 21.5 %; Mean Corpuscular Hemoglobin 28.3 pg (25.0-34.0); Mean Corpuscular Hgb Conc 32.9 g/dL (32.0-36.0); Mean Corpuscular Volume 86.3 fL (80.0-100.0); Monocytes # (auto) 0.96 K/uL (0.11-0.59); Monocytes % (auto) 11.8 %; Neutrophils # (auto) 4.67 K/uL (1.40-6.50); Neutrophils % (auto) 57.3 %; Platelet Count 271 K/uL (130-400); RDW Coefficient of Variation 13.9 % (11.5-14.5); RDW Standard Deviation 43.8 fL (36.4-46.3); White Blood Count 8.14 K/ul (4.8-10.8)
[2024-04-11 05:13] LABS: BUN Creatinine Ratio 16.4 (10-20); Calcium 8.2 mg/dl (8.6-10.3); Chol HDL Ratio 3.6 (0-5); Creatinine Clr Calc Pharmacy 103.6 ml/min; Est GFR (African American) 114.4 ml/min; Est GFR (Non-African American) 98.7 ml/min; Potassium 4.1 mmol/L (3.5-5.1)
[2024-04-11 05:20] LABS: Troponin I High Sensitivity 4.4 pg/ml (0-20)
--- NOTE | 2024-04-11 07:49 | XRay Report ---
XR chest 1V portable CLINICAL HISTORY: weakness TECHNIQUE: Single frontal radiograph of the chest was obtained. Comparison: Comparison is made to chest radiograph 12/21/2023 FINDINGS: No lines and tubes are seen. The cardiomediastinal silhouette is normal. The lungs are clear. No evid ence of pleural effusion or pneumothorax. IMPRESSION: No acute chest disease. ACT 112: Negative or not required by law. Electronically signed by: Fabrice Suarez M.D. 04/11/2024 7:48 AM
--- NOTE | 2024-04-11 08:39 | Cardiology Consultation ---
Date of Consultation April 11, 2024 Assessment & Plan (1) Palpitations: (2) Syncope: (3) Rhinovirus infection: (4) Acute head trauma: Plan Assessment: 64 year old acutely ill patient presents to the ED after several days of acute URI symptoms with associated palpitations and a reported syncopal episode resulting in head trauma. Plan: Palpitations: Review of limited prior records does demonstrate a history of frequent PVC and isolated event of VT while wearing a heart monitor. He had an echo and cardiac CT at that time which was essentially unremarkable and was recommended for Flecainide, which appears to have never been started due to loss to follow up. -EKG shows no arrhythmia and no acute ischemic changes. -Review of telemetry demonstrates a normal sinus rhythm without event. -Troponin negative x2 -Will obtain echocardiogram today to assess overall structure and function -Continue to monitor closely on telemetry -Electrolytes remain stable. -may Continue Diltiazem 360mg at this time, while awaiting testing. -agree with gentle hydration. -may consider ischemic work up in the future when patient's acute viral illness has resolved outside of an acute event. Due to patient's significant back issues and MS, he would need to undergo a nuclear stress test as mobility is an issue. Syncope: Acute head trauma: Etiology unclear, no findings on EKG or current telemetry to suggest arrhythmia induced. will continue to monitor on telemetry. likely dehydration component in the setting of acute illness with Positive enter/rhinovirus and complicated bronchitis. Will await echo results. Rhinovirus As per resp panel. Patient is highly symptomatic Doxycycline started for a complicated bronchitis per primary team. Case has been discussed with Dr. Rosario. Further recommendations regarding plan of care as per his assessment. I spent a total of 40 minutes on the date of service in preparation, delivery, documentation of the care provided to the patient excluding any time spent in the performance of separately billed services. YAMILA [facility] Supervising Physician Co-Signing Physician Notes I have personally performed a history and physical examination on the patient. I have reviewed the advance practitioner's documentation, and I agree with, and take responsibility for the plan of care. 64-year-old male admitted with atypical chest pain and possible syncope. No evidence of acute coronary syndrome. Telemetry revealing sinus rhythm with rare supraventricular ectopy. Patient with history of symptomatic ventricular ectopy, rare episodes of atrial tachycardia, as well as an isolated episode of ventricular tachycardia per prior property assessment monitor. Per review of records, there is no history of sustained dysrhythmia, coronary disease, or left ventricular systolic dysfunction. No dysrhythmia recorded since admission. Bedside echocardiogram demonstrating preserved LV systolic function without significant valvular pathology. Presentation appears to be consistent with viral bronchitis and volume depletion with orthostasis. Recommend continue telemetry monitoring during hospitalization. Maintain adequate hydration and electrolyte replacement. Outpatient cardiology follow-up upon discharge. No further inpatient cardiac testing or intervention recommended at this time. I spent a total of 30 minutes on the date of service in preparation, delivery, and documentation of the care provided to this patient, excluding any time spent in the performance of separately billed services. History of Present Illness Reason for Consultation: Chest pain Requesting Physician: Mauro juarez Attending Physician: William Quiles MD History of Present Illness HPI: Patient is a 64 year old male with PMHx as stated below that presents to the ED with complaints of an Irregular heart beat, dizziness and a reported syncopal episode in which he struck his head. Patient Reports that his URI symptoms started approx 4 days ago with sneezing and runny nose, +cough, but no fever. He just hasn't felt well. Endorses poor appetite and oral intake. He complains of ongoing palpitation symptoms described more of his heart skipping a beat for years, but has been much worse these past few days. he states that his told him he passed out, but patient has no recall of any pre- syncopal/prodromal symptoms. Previously followed with [facility] in [place], [place] (Dr. Kwabena Bailey dating back to 2019) In which he had protracted cardiac monitoring suggestive of increased ectopy (PVC and a run of VT), His echocardiogram and cardiac CT were essentially unremarkable and through trial of medications was ultimately recommended for use of Flecanide, but patient is unaware of ever being on this medication. He had last seen cardiology through the [facility] in [place], but it appears he has been lost to follow up in quite some time as he feels nothing has changed or improved. Patient does endorse chest pressure when he feels his palpitations, but not outside of that. No change with activity. No shortness of breath. EKG on admission NSR, Right BBB, Left anterior fasicular block/Bifasciular block Rate 79 bpm Chest xray negative for acute process. High sensitivity troponin negative x2 Urine negative Resp. Panel Positive for Entero/Rhino virus Review of telemetry demonstrates NSR with no ectopy or arrhythmia Allergies Allergy/AdvReac Type Severity Reaction Status Date / Time Sulfa (Sulfonamide AdvReac Unknown WIPED OUT Verified 04/11/24 01:01 Antibiotics) GOOD BACTERIA, BECAME SEPTIC. sulfamethoxazole AdvReac Unknown wiped out Verified 04/11/24 01:01 good bacteria, became septic trimethoprim AdvReac Unknown wiped out Verified 04/11/24 01:01 good bacteria, became septic Home Medications Medication Instructions Recorded Confirmed Type diltiazem HCl 360 mg capsule,24 360 mg PO QAM 08/19/20 04/11/24 History hr,extended release cholecalciferol (vitamin D3) 50 1,000 mcg PO QAM 03/31/21 04/11/24 History mcg (2,000 unit) capsule (Vitamin D3) rosuvastatin 20 mg tablet 10 mg PO DAILY 11/28/23 04/11/24 History Patient History Medical History Bronchitis Arthritis Degenerative disc disease NECK Neuropathy IDIOPATHIC HANDS AND FEET GERD (gastroesophageal reflux disease) Hx of multiple sclerosis F/U [facility] LOWER EXTREMITIES NUMBNESS/ CHRONIC WEAKNESS/FATIGUE Surgical History Hx of oral surgery (03/27/20) Intra-Oral Incision and Drainage; removal of buccal lesion; Extraction of tooth #20 Dr. beauchamp 03/27/20 History of herniorrhaphy 2015 Hx of hand surgery RIGHT TENDON REPAIR History of arthroscopy LEFT KNEE Fusion of spine X LOWER BACK X 3 2011 and 2014 History of esophagogastroduodenoscopy (EGD) History of colonoscopy Family History Father Family history of reaction to anesthesia REQUIRES MORE ANESTHESIA-"DOESN'T WORK" Hypertension Heart disease Other Gallbladder disease Social History Smoking Status: Current every day smoker Tobacco Type: Cigarettes packs per day: 0.75; Cigarettes Per Day: 15 CIGS A DAY X 30+ YRS AGO; Second Hand Exposure: Yes; Do You Dip or Chew Tobacco: No; Hx Alcohol Use: Yes Alcohol type: hard liquor Alcohol Intake Frequency Comment: 1 drink a week Hx Substance Use: No Preferred Language: Swedish Communication Ability: Effective 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 Beliefs That Will Affect Care: None marital status: Life Partner Current Living Situation: Spouse current occupational status: employed current occupation: [employer] Other Information That Helps Us Care for You: No Feels Safe at Home: Yes Safety Concerns: Feels Safe At This Time Assistive Devices: Glasses Review of Systems Review of Systems: All systems reviewed & are unremarkable except as noted in HPI & below Physical Exam Constitutional: well developed, well nourished and + ill appearing Neck: normal visual inspection and trachea midline Respiratory: normal respiratory effort Auscultation: + diminished lung sounds (bilateral bases); no crackles, no rales, no rhonchi, no wheezes and no pleural rub Cardiovascular: Rate/Rhythm: regular rate and regular rhythm Heart Sounds: normal S1 and normal S2; no murmur Vessels: dorsalis pedis pulses present; no JVD Extremities: no edema Skin: no rashes, warm and dry Psychiatric: A+Ox3, euthymic affect Results & Data Vital Signs (Past 12 Hours) Vital Signs Temp Pulse Resp BP Pulse Ox Pulse Ox O2 Del Method 04/11/24 07:01 70 04/11/24 06:01 77 16 131/86 97 Nasal Cannula 04/11/24 04:51 Room Air 04/11/24 04:35 97 Nasal Cannula 04/11/24 04:32 88 L Room Air 04/11/24 04:00 67 15 143/79 H 92 Room Air 04/11/24 03:28 69 04/11/24 03:00 69 16 146/83 H 94 Room Air 04/11/24 03:00 97 04/11/24 03:00 97 Room Air 04/11/24 02:30 71 14 155/91 H 97 Room Air 04/11/24 02:18 76 22 104/78 94 Room Air 04/11/24 02:01 71 13 140/84 98 Room Air 04/11/24 01:30 72 16 148/79 H 95 Room Air 04/11/24 01:00 74 21 127/72 95 Room Air 04/11/24 00:30 76 19 125/79 94 Room Air 04/10/24 23:52 76 22 120/85 96 Room Air 04/10/24 23:52 77 04/10/24 23:47 79 20 96 Room Air 04/10/24 23:33 36.9 C 80 20 152/91 H 96 Room Air O2 Del Method O2 Flow Rate 04/11/24 07:01 04/11/24 06:01 1 04/11/24 04:51 04/11/24 04:35 1 04/11/24 04:32 04/11/24 04:00 04/11/24 03:28 04/11/24 03:00 04/11/24 03:00 Room Air 04/11/24 03:00 04/11/24 02:30 04/11/24 02:18 04/11/24 02:01 04/11/24 01:30 04/11/24 01:00 04/11/24 00:30 04/10/24 23:52 04/10/24 23:52 04/10/24 23:47 04/10/24 23:33 Laboratory Results Cardiac Enzymes 04/10/24 04/11/24 Range/Units 23:40 04:15 AST 16 (13-39) U/L Troponin I High Sens 4.8 4.4 (0-20) pg/ml Lipids 04/11/24 Range/Units 04:15 Triglycerides 126 (0-150) mg/dl Cholesterol 115 (0-200) mg/dl HDL Cholesterol 32 mg/dl Cholesterol/HDL Ratio 3.6 (0-5) CBC 04/10/24 04/11/24 Range/Units 23:40 04:15 WBC 10.22 8.14 (4.8-10.8) K/ul RBC 4.99 4.80 (4.70-6.10) M/uL Hgb 14.1 13.6 L (14.0-18.0) g/dl Hct 43.1 41.4 L (42.0-52.0) % Plt Count 295 271 (130-400) K/uL Neut # (Auto) 6.20 4.67 (1.40-6.50) K/uL Lymph # (Auto) 2.00 1.75 (1.20-3.40) K/uL [place] # (Auto) 1.26 H 0.96 H (0.11-0.59) K/uL Eos # (Auto) 0.58 H 0.60 H (0.00-0.50) K/uL Baso # (Auto) 0.13 0.13 (0.00-0.20) K/uL Comprehensive Metabolic Panel 04/10/24 04/11/24 Range/Units 23:40 04:15 Sodium 142 140 (136-145) mmol/L Potassium 3.6 4.1 (3.5-5.1) mmol/L Chloride 112 H 113 H (98-107) mmol/L Carbon Dioxide 22 22 (21-32) mmol/L BUN 15 12 (6-23) mg/dl Creatinine 0.93 0.73 (0.6-1.4) mg/dl Glucose 78 88 (70-99(Fasting)) mg/dl Calcium 8.6 8.2 L (8.6-10.3) mg/dl AST 16 (13-39) U/L ALT 15 (7-52) U/L Alkaline Phosphatase 67 (34-104) U/L Total Protein 6.5 (6.0-8.3) gm/dl Albumin 4.3 (3.4-5.0) gm/dl Intake and Output 04/10/24 04/11/24 04/11/24 22:59 06:59 14:59 Intake Total 840 / 840 Output Total 1200 / 1200 Balance -360 / -360 Intake: IV 600 / 600 Acetaminophen 1,000 mg In 100 100 / 100 ml @ 400 mls/hr IV NOW STA Rx#: [id number] Sodium Chloride 0.9% 500 ml @ 500 / 500 999 mls/hr IV .Q31M CHRISTY Rx#: [id number] Oral 240 / 240 Output: Urine 1200 / 1200 Other: Weight 75 kg Weight Measurement Method Built in [facility] (2) Syncope Syncope type: unspecified Qualified Code(s): R55 - Syncope and collapse (4) Acute head trauma Encounter type: initial encounter Qualified Code(s): S09.90XA - Unspecified injury of head, initial encounter
[2024-04-11] MEDS: ROSUVASTATIN CALCIUM 10 MG TAB PO SCH (08:58)
[2024-04-11] MEDS: dilTIAZem HCL 180 MG CAPCR PO SCH (08:58)
[2024-04-11] MEDS: DOXYCYCLINE HYCLATE 100 MG in DEXTROSE 5% MINI-B 100 ML IV STA (09:05)
--- NOTE | 2024-04-11 16:31 | Electrocardiogram Report ---
Test Reason : Blood Pressure : / mmHG Vent. Rate : 079 BPM Atrial Rate : 079 BPM P-R Int : 176 ms QRS Dur : 108 ms QT Int : 410 ms P-R-T Axes : 032 -46 008 degrees QTc Int : 470 ms Normal sinus rhythm Low voltage QRS Right bundle branch block Left anterior fascicular block Bifascicular block Abnormal ECG When compared with ECG of 21-DEC-2023 15:28, No significant change was found Confirmed by Chuckie Rasmussen ([id number]) on 04/11/2024 4:31:14 PM Referred By: REFERRED SELF Confirmed By:Chuckie Rasmussen
[2024-04-11] MEDS: guaiFENesin 600 MG TABCR PO SCH (18:25)
[2024-04-11] MEDS: DOXYCYCLINE HYCLATE 100 MG CAP PO SCH (20:49)
[2024-04-12 06:52] LABS: Hematocrit (blood only) 46.6 % (42.0-52.0); Hemoglobin 15.4 g/dl (14.0-18.0); Mean Corpuscular Hemoglobin 28.4 pg (25.0-34.0); Mean Corpuscular Volume 85.8 fL (80.0-100.0); Mean Platelet Volume 10.2 fL (9.4-12.4); Platelet Count 295 K/uL (130-400); RDW Coefficient of Variation 14.2 % (11.5-14.5); RDW Standard Deviation 44.1 fL (36.4-46.3); Red Blood Count 5.43 M/uL (4.70-6.10); White Blood Count 8.23 K/ul (4.8-10.8)
[2024-04-12 06:59] LABS: BUN Creatinine Ratio 13.8 (10-20); Calcium 9.4 mg/dl (8.6-10.3); Creatinine Clr Calc Pharmacy 66.9 ml/min; Est GFR (African American) 106.5 ml/min; Est GFR (Non-African American) 91.9 ml/min; Phosphorus 3.4 mg/dl (2.5-4.9); Potassium 4.2 mmol/L (3.5-5.1)
[2024-04-12] MEDS ORDERED: DILTIAZEM HCL 360 MG PO SCH (09:00)
[2024-04-12] MEDS: ASPIRIN 81 MG ECTAB PO SCH (10:12)
--- NOTE | 2024-04-12 16:31 | Discharge Summary ---
Date of Service April 12, 2024 Admission HPI Per Admitting Provider History obtained from patient and records. Medical history significant for paroxysmal VT as per records, hypertension, hyperlipidemia, history orthostasis, LYNN as per records, PUD, past history of pancreatitis, multiple sclerosis, past tobacco abuse. Last confinement October 2021 for COVID-19 pneumonia. Patient with cough symptoms productive of junky yellow sputum the last few days. Not sure about sick contacts. A lot of sneezing symptoms. No aspiration. Some chills. Left-sided chest pain symptoms attributed to V. tach episodes in the past as per patient. Admits to [facility] Coricidin Rx intake. Patient felt lightheaded last night. Syncopal event witnessed by patient's resulting in head trauma. No seizures or incontinence noted. Patient woke up after a few moments. Palpatory BP at home 90s as per patient. Patient brought to the ER for evaluation. Left-sided chest pain relieved by nitroglycerin. Medical History as above Surgical History : Hernia surgery, back surgery, tonsillectomy/adenectomy, hand surgery, knee surgery Family History : Migraine, PE, COPD, DM Personal/Social history : Past tobacco abuse, rare EtOH intake, [employer] Admission Exam Per Admitting Provider GENERAL: Comfortable, pleasant, no respiratory distress SKIN: Normal color, warm HEENT: Bespectacled, [place] palpebral conjunctivae, no ptosis, dry buccal mucosa NECK : Supple, no tenderness CHEST : CTA, no tenderness HEART : RRR, no obvious murmurs ABDOMEN: Some distention, nontender EXTREMITIES : No LE swelling/tenderness, no other conspicuous deformities noted NEUROLOGIC : Coherent, no facial asymmetry, MMTS BUE 4/5, BLE 3/5, gait and stance not assessed Principal Diagnosis Complicated bronchitis, + Rhinovirus infection Discharge Exam GENERAL: WD/WN M in NAD SKIN: Normal color, warm HEENT: Bespectacled, [place] palpebral conjunctivae NECK : Supple CHEST : + mild diffuse rhonchi, + cough HEART : RRR, no obvious murmurs ABDOMEN: Some distention, nontender EXTREMITIES : No LE swelling/tenderness, moves extremities NEUROLOGIC : awake, alert, answers appropriately, no facial asymmetry, speech fluent, moves extremities Discharge Data Allergies Allergy/AdvReac Type Severity Reaction Status Date / Time Sulfa (Sulfonamide AdvReac Unknown WIPED OUT Verified 04/11/24 01:01 Antibiotics) GOOD BACTERIA, BECAME SEPTIC. sulfamethoxazole AdvReac Unknown wiped out Verified 04/11/24 01:01 good bacteria, became septic trimethoprim AdvReac Unknown wiped out Verified 04/11/24 01:01 good bacteria, became septic Consultations 04/11/24 00:46 ED Decision to Admit Stat 04/11/24 03:22 Consult Cardiology Routine Ordered Studies 04/10/24 23:40 CT head/brain wo con Stat No acute intracranial hemorrhage, midline shift, or mass effect. Hospital Course (1) Chest pain: Left-sided chest pain relieved by nitroglycerin Rule out ACS given patient risk factors for ischemic heart disease Syncope likely secondary to orthostasis from complicated bronchitis resulting from rhinovirus infection Rule out malignant arrhythmia, paroxysmal VT as per records Troponins negative TTE Re: Syncope, chest pain Echo - LVEF 60 to 65%. LV wall motion is normal. Pulse-wave TDI of the anterior and posterior mitral annulus demonstrates normal LV relaxation. Aortic valve sclerosis mild, without significant aortic valvular stenosis. Cardiology consulted - 64-year-old male admitted with atypical chest pain and possible syncope. No evidence of acute coronary syndrome. Telemetry revealing sinus rhythm with rare supraventricular ectopy. Patient with history of sy mptomatic ventricular ectopy, rare episodes of atrial tachycardia, as well as an isolated episode of ventricular tachycardia per prior shelter monitor. Per review of records, there is no history of sustained dysrhythmia, coronary disease, or left ventricular systolic dysfunction. No dysrhythmia recorded since admission. Bedside echocardiogram demonstrating preserved LV systolic function without significant valvular pathology. Presentation appears to be consistent with viral bronchitis and volume depletion with orthostasis. Outpatient cardiology follow-up upon discharge. No further inpatient cardiac testing or intervention recommended at this time. Doxycycline for complicated bronchitis pt is feeling better, breathing comfortably on RA, however + cough cont. w/ doxy + guaifenesin on DC - follow up with PCP Chronic conditions hypertension, BP currently at goal hyperlipidemia, on statin Rx LYNN as per records multiple sclerosis, gait difficulties from condition as per patient past tobacco abuse Total Time Total Time Spent Total Time Spent (In Minutes): 40 Discharge Plan Discharge Items Patient Disposition: Home - Self-Care Reason For Visit: CP Discharge Diagnosis: Complicated bronchitis, + Rhinovirus infection Condition on Discharge: Fair Activity: Per Instructions section Non-emergency contact: Primary Care Provider Call non-emergency contact if: you have any medication questions and your symptoms worsen Follow-up/Referrals: Estela Olvera PA-C [Primary Care Provider] - Diet: Heart Healthy Addtl Attending Provider Instructions: Follow up with primary care doctor and cardiology. You should be seen by primary care doctor within 1 week. Finish antibiotic treatment as prescribed. Recommend taking guaifenesin as well. Pending Studies at Discharge: No Stand-Alone Forms: [facility], Smoking Cessation Medications and DC Order Prescriptions: New doxycycline hyclate 100 mg Capsule 100 mg PO BID 6 Days Qty: 12 0RF guaifenesin [Mucinex] 600 mg Tablet Extended Release 12hr 600 mg PO Q12 10 Days Qty: 20 0RF Saline Mist 0.65 % Aerosol,Hiddenite 2 spray NA TID PRN (Reason: nasal congestion) Qty: 44 0RF Continued diltiazem HCl 360 mg capsule,extended release 24 hr 360 mg PO QAM cholecalciferol (vitamin D3) [Vitamin D3] 50 mcg (2,000 unit) Capsule 1,000 mcg PO QAM rosuvastatin 20 mg tablet 10 mg PO DAILY Rx Instructions: takes half tab Discharge Orders: Discharge Order (Routine); Ordered 04/12/24 Ordered By: William Quiles Admission Data Admit Date/Time: 04/11/24 02:36 Attending Provider: William Quiles Admit Provider: Giovanny Diego Primary Care Provider: Estela Olvera Other Providers: Giovanny Diego; Salome Gibson; Reinier Corley; Shaan Mclean; Zachary Rsoario; Buzz Bates; Humberto Orozco; Adali Hummel; Shelley Cook; Lynne Tellez; Salome Teague; David Duval; Bandar Herring; Susan Hodges; Estefanía Snow; Estefani Hollis; Timo Martínez; Santos Murillo; Oksana Clark; [facility]
== END 2024-04-12 17:44 | disposition home or self-care (01) ==
LOC: EDINP 23:28 → ED 23:28 → 2E 04-11 19:27